=== PATIENT | female | born 1955 | race Caucasian/White ===

== ENCOUNTER 2023-03-17 13:53 | Outpatient (OUT) | payer MEDICARE, OTHER, SELFPAY ==
--- NOTE | 2023-03-17 | XR_ITS ---
The [address] [address] Patient Name: JOE JARAMILLO MRN: [id number] date: 1955 Sex: F Assigned Patient Location: [facility] Current Patient Location: [facility] Accession/Order Number: [id number] Exam Date: 03/17/2023 10:22 Report Date: 03/17/2023 11:09 At the request of: ALEXIS TOLBERT Procedure: XR foot LT min 3V STUDY: XR foot LT min 3V, [id number] HISTORY: LEFT FOOT PAIN COMPARISON: Left foot x-rays 10/07/[address] foot 12/03/2022. FINDINGS: Status post fusion of the first through third tarsometatarsal joints. The joint spaces remain open without significant bony bridging. There is minimal osseous lucency surrounding the threads of the most medial first tarsometatarsal joint fusion screw, new compared with 10/07/2022. The screws themselves are intact. No acute fracture or dislocation. 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 Findings are suspect for loosening/persistent motion. Electronically authenticated by: HANY CAMPOS Date: 03/17/2023 11:09
== END 2023-03-17 13:54 | disposition home or self-care (01) ==
LOC: RAD 13:57
PROVIDERS: Visit Provider Podiatrist Foot & Ankle Surgery
DX: M19.072 Primary osteoarthritis, left ankle and foot (principal)
CPT/HCPCS: 73630

== ENCOUNTER 2023-04-28 09:13 | Outpatient (OUT) | payer MEDICARE, OTHER, SELFPAY ==
--- NOTE | 2023-04-28 | XR_ITS ---
The [address] [address] Patient Name: JOE JARAMILLO MRN: [id number] date: 1955 Sex: F Assigned Patient Location: [facility] Current Patient Location: [facility] Accession/Order Number: [id number] Exam Date: 04/28/2023 09:22 Report Date: 04/28/2023 15:05 At the request of: ALEXIS TOLBERT Procedure: XR foot LT min 3V PROCEDURE: XR foot LT min 3V HISTORY: LEFT FOOT PAIN COMPARISON: XR foot left 03/17/2023 FINDINGS: BONES:Degenerative changes and stable mechanical fusion of the first, second, third tarsal-metatarsal joints. No hardware fracture loosening. No bone fracture dislocation. SOFT TISSUES:Mild distal dorsal soft tissue swelling. EFFUSION:None visible. OTHER: Negative. XR/XR foot LT min 3V IMPRESSION: 1. Stable surgical changes without evidence of hardware failure or change in alignment. Electronically authenticated by: POLI TOBIAS Date: 04/28/2023 15:05
== END 2023-04-28 09:14 | disposition home or self-care (01) ==
LOC: RAD 09:13
PROVIDERS: Visit Provider Podiatrist Foot & Ankle Surgery
DX: M19.072 Primary osteoarthritis, left ankle and foot (principal)
CPT/HCPCS: 73630

== ENCOUNTER 2023-08-04 09:07 | Outpatient (OUT) | payer MEDICARE, OTHER, SELFPAY ==
--- NOTE | 2023-08-04 | XR_ITS ---
The [address] [address] Patient Name: JOE JARAMILLO MRN: [id number] date: 1955 Sex: F Assigned Patient Location: [facility] Current Patient Location: [facility] Accession/Order Number: [id number] Exam Date: 08/04/2023 09:08 Report Date: 08/04/2023 09:59 At the request of: ALEXIS TOLBERT Procedure: XR foot LT min 3V PROCEDURE: XR foot LT min 3V HISTORY: LEFT FOOT PAIN COMPARISON: XR foot left 04/28/2023 FINDINGS: BONES:Prior mechanical fusion of the first, second, and third tarsal-metatarsal joints via multiple lag screws; no appreciable hardware fracture loosening. No bone fracture dislocation. SOFT TISSUES:No visible soft tissue swelling. EFFUSION:None visible. OTHER: Negative. XR/XR foot LT min 3V IMPRESSION: 1. Stable surgical changes and midfoot degenerative changes. No evidence of hardware failure. Electronically authenticated by: POLI TOBIAS Date: 08/04/2023 09:59
--- OUTSIDE RECORDS SUMMARY | 2023-08-04 09:12 | XMS_ITS | CCD ---
Author Name Unknown Address [address] [place] [address] Organization [facility] Care Team Providers Care Reel Stripper Name Role Phone Jon Lazaro Admitting Unavailable Jon Lazaro Attending Unavailable Jon Lazaro Primary Care Unavailable Bridger DARBY Primary Care Physician Iveth HYLTON, Jon Drew Primary Care Provider Jamaal Carpenter MD, Cody Unavailable Iveth HYLTON, Jon Drew Primary Care Provider Iveth HYLTON, Jon Drew Primary Care Provider Jamaal Carpenter MD, Cody Unavailable CINDY GEE Referring Unavailab BRIDGER Astorga Attending Unavailable JON LAZARO Primary [facility] Unavailab CINDY March Referring Unavailab JON Marin Primary [facility] Unavailab CINDY March Attending Unavailab JON Marin Primary [facility] Unavailab CINDY March Referring Unavailab shelly TOBIAS, DR POLI Gamino Consulting Unavailable VIRIDIANA, DR BRIDGER Reeves Primary Care Unavailable MILLICENT BURDICK Attending Unavailable MILLICENT BURDICK Admitting Unavailable MILLICENT BURDICK Consulting Unavailable HERVE, DR AMARI Carpenter Consulting Unavailable VIRIDIANA, DR BRIDGER Reeves Primary Care Unavailable MILLICENT BURDICK Attending Unavailable MILLICENT BURDICK Admitting Unavailable MILLICENT BURDICK Consulting Unavailable MICHELINE, DR POLI Gamino Consulting Unavailable VIRIDIANA, DR BRIDGER Reeves Primary Care Unavailable ALEXIS TOLBERT Attending Unavailable ALEXIS TOLBERT Admitting Unavailable ALEXIS TOLBERT Consulting Unavailable ALEXIS TOLBERT Consulting Unavailable VIRIDIANA, DR BRIDGER Reeves Primary Care Unavailable ALEXIS TOLBERT Attending Unavailable ALEXIS TOLBERT Admitting Unavailable MELANIE SAEZ Consulting Unavailable JLUISADAY, DR RIZZO Consulting Unavailable WEST, DR AMARI Carpenter Consulting Unavailable VIRIDIANA, DR BRIDGER Reeves Primary Care Unavailable HIGHLANDER, ALEXIS Norris Attending Unavailable HIGHLANDER, ALEXIS Norris Admitting Unavailable HIGHLANDER, ALEXIS Norris Consulting Unavailable THOM ., PEDRO SPARKS Consulting Unavailable GEMBUS, LINCOLN Consulting Unavailable HALADAY, DR RIZZO Consulting Unavailable HARLEYEBMAMTA, DR POLI Gamino Consulting Unavailable VIRIDIANA, DR BRIDGER Reeves Primary Care Unavailable HIGHLANDER, ALEXIS Norris Attending Unavailable HIGHLVIET, ALEXIS Norris Admitting Unavailable HIGHLANDER, ALEXIS Norris Consulting Unavailable MICHELINE, DR POLI Gamino Consulting Unavailable DARBY, DR BRIDGER Reeves Primary Care Unavailable HIGHLANDER, ALEXIS Norris Attending Unavailable HIGHLANDER, ALEXIS Norris Admitting Unavailable HIGHLANDER, ALEXIS Norris Consulting Unavailable WEST, DR AMARI Carpenter Consulting Unavailable HIGHLANDER, ALEXIS Norris Attending Unavailable HIGHLANDER, ALEXIS oNrris Admitting Unavailable HIGHLANDER, ALEXIS Norris Consulting Unavailable HIGHLANDER, ALEXIS Norris Consulting Unavailable DARBY, DR BRIDGER Reeves Primary Care Unavailable HIGHLANDER, ALEXIS Norris Attending Unavailable HIGHLVIET, ALEXIS Norris Admitting Unavailable POCOS, AMARI Dunn Attending Unavailable POCOS, AMARI Dunn Attending Unavailable VIRIDIANA, Bridger Reeves Attending Unavailable DARBY, Bridger Reeves Attending Unavailable DARBY, Bridger Reeves Attending Unavailable DARBY, Bridger Reeves Attending Unavailable HIGHLANDER, ALEXIS Norris Admitting Unavailable HIGHLANDER, ALEXIS Norris Attending Unavailable HIGHLANDER, ALEXIS Norris Referring Unavailable Salma, Magalie Dunn Attending Unavailable Salma, Magalie Dunn Attending Unavailable Salma, Magalie Dunn Attending Unavailable Vasu, CHENTE Dinh Attending Fide vailable VIRIDIANA, Bridger Reeves Attending Unavailable VIRIDIANA, Bridger Reeves Attending Unavailable VIRIDIANA, Bridger Reeves Admitting Unavailable HALADAY, MATTHIAS Valdivia Admitting Unavailable HALADAY, MATTHIAS Valdivia Attending Unavailable VIRIDIANA, Bridger Reeves Attending Unavailable VIRIDIANA, Bridger Reeves Admitting Unavailable DARBY, Bridger Reeves Attending Unavailable VIRIDIANA, Bridger Reeves Admitting Unavailable Shakeel Kilpatrick Attending Unavailable Terese Bob Admitting Unavaila Terese Vazquez Attending Unavaila Terese Vazquez Referring Unavaila MELANIE Miller Admitting Unavailable MELANIE PUENTES Attending Unavailable MELANIE PUENTES Referring Unavailable MATTHIAS CASTELAN Admitting Unavailable PAUL, MATTHIAS Valdivia Attending Unavailable MATTHIAS CASTELAN Referring Unavailable MILES VERMA Admitting Unavailable MILES VERMA Attending Unavailable MILES VERMA Referring Unavailable Bridger DARBY Attending Unavailable Vasu, CHENTE Dinh Attending Fide CHENTE Blake Admitting Fide vailaBridger Enamorado Attending Unavailable Bridger DARBY Attending Unavailable Bridger DARBY Attending Unavailable Allergies Allergy Classification Reported Allergen(s) Allergy Type Date of Onset Reaction(s) Facility (20 sources) atorvastatin; Translations: [Lipitor] Drug Allergy muscle pain [facility] Repository (6 sources) atorvastatin; Translations: [ATORVASTATIN] Drug Allergy Myalgia, Unknown [facility] Medications Current Medications Medication Drug Class(es) Dates Sig (Normalized) Sig (Original) amLODIPine 5 mg oral tablet (20 sources) Dihydropyridine Calcium Channel Manjula Start: 11-23-2022 take 1 tablet by mouth once daily amLODIPine 5 mg Tab 5 mg = 1 tab(s), Oral, Daily, # 90 tab(s), Refills(s) 3, Pharmacy: [facility], 160, cm, 11/18/22 11:53:00 EDT, Height/Length Dosing, 74.4, kg, 11/18/22 11:53:00 EDT, Weight Dosing Start Date: 11/23/22 Status: Ordered Start: 10-28-2021 take 1 tablet by bryan th once daily amLODIPine 5 mg Tab 5 mg = 1 tab(s), Oral, Daily, # 90 tab(s), Refills(s) 3, Pharmacy: [facility], 163, cm, 10/03/21 9:02:00 EDT, Height/Length Dosing, 71.4, kg, 10/03/21 9:02:00 EDT, Weight Dosing Start Date: 10/28/21 Status: Ordered Start: 12-16-2020 take 1 tablet by bryan th once daily amLODIPine 5 mg Tab 5 mg = 1 tab(s), Oral, Daily, # 90 tab(s), Refills(s) 3, Pharmacy: [facility], 160, cm, 12/16/20 12:12:00 EDT, Height/Length Dosing, 69.8, kg, 12/16/20 12:12:00 EDT, Weight Dosing Start Date: 12/16/20 Status: Ordered ascorbic acid 500 mg oral capsule (20 sources) Vitamin C Start: 09-29-2021 take 1 capsule by mouth once daily ascorbic acid 500 mg oral capsule 500 mg = 1 cap(s), Oral, Daily, Refills(s) 0, Prophylaxis Start Date: 09/29/21 Status: Ordered Start: 07-06-2015 take 1 tablet by bryan th once daily Vitamin C 1 tab, Oral, Daily, Refills(s) 0, Prophylaxis Start Date: 07/06/15 Status: Ordered aspirin 325 mg oral tablet (20 sources) Platelet Aggregation Inhibitor, Nonsteroidal Anti-inflammatory Drug Start: 07-06-2015 take 1 tablet by mouth once daily aspirin 325 mg Tab 325 mg = 1 tab(s), Oral, Daily, Refills(s) 0, Prophylaxis Start Date: 07/06/15 Status: Ordered Comment on above: Take 325 mg by mouth . Calcium, Magnesium and Zinc oral tablet (20 sources) Start: 06-10-2021 take 1 tablet by mouth once daily Calcium, Magnesium and Zinc oral tablet 1 tab(s), Oral, Daily, Prophylaxis Start Date: 06/10/21 Status: Ordered cholecalciferol 0.025 mg oral capsule (20 sources) Vitamin D Start: 09-29-2021 take 1 capsule by mouth once daily cholecalciferol 1000 intl units oral capsule 25 mcg = 1 cap(s), Oral, Daily, Refills(s) 0, Prophylaxis Start Date: 09/29/21 Status: Ordered Comment on above: Take by mouth. fluticasone propionate 0.05 mg/actuat metered dose nasal spray (20 sources) Corticosteroid Start: 07-06-2023 take 2 spray(s) nasal route once daily fluticasone Nasal 0.05 mg/inh [place] 2 spray(s), Nasal, Daily, 3 EA, Refill(s) 3, each nostril, [facility], 162.6, cm, 05/27/23 10:39:00 EST, Height/Length Dosing, 74.8, kg, 05/27/23 10:39:00 EST, Weight Dosing Start Date: 07/06/23 Status: Ordered Start: 09-05-2022 take 2 spray(s) nasa l route once daily fluticasone Nasal 0.05 mg/inh [place] 2 spray(s), Nasal, Daily, 3 EA, Refill(s) 3, each nostril, [facility], 160, cm, 08/18/22 9:58:00 EST, Height/Length Dosing, 73.6, kg, 08/18/22 9:58:00 EST, Weight Dosing Start Date: 09/05/22 Status: Ordered Start: 05-21-2021 take 2 spray(s) nasa l route once daily fluticasone 0.05 mg/inh Nasal [place] 2 spray(s), Nasal, Daily, 3 EA, Refill(s) 3, each nostril, [facility], 160, cm, 05/21/21 14:44:00 EST, Height/Length Dosing, 71.8, kg, 05/21/21 14:44:00 EST, Weight Dosing Start Date: 05/21/21 Status: Ordered fluticasone 0.05 mg/inh Nasal [place] (10 sources) Start: 05-21-2021 take 2 spray(s) nasal route once daily fluticasone 0.05 mg/inh Nasal [place] 2 spray(s), Nasal, Daily, 3 EA, Refill(s) 3, each nostril, [facility], 160, cm, 05/21/21 14:44:00 EST, Height/Length Dosing, 71.8, kg, 05/21/21 14:44:00 EST, Weight Dosing Start Date: 05/21/21 Status: Ordered folic acid 1 mg oral tablet (20 sources) Start: 07-06-2015 take 1 tablet by mouth once daily folic acid 1 mg Tab See Instructions, 1 tab(s) Oral Daily. DONOT TAKE ON METHOTREZATE DAY, Refills(s) 0, Prophylaxis Start Date: 07/06/15 Status: Ordered gabapentin 300 mg oral capsule (20 sources) Anti-epilept ic Agent Start: 07-06-2015 take 1 capsule by mouth once daily gabapentin 300 mg Cap 300 mg = 1 cap(s), Oral, Daily, Refills(s) 0, Neuropathy Start Date: 07/06/15 Status: Ordered Comment on above: Take 300 mg by mouth . Glucosamine Chondroitin Advanced (20 sources) Start: 07-06-2015 take 1 tablet by mouth once daily Glucosamine Chondroitin Advanced 1 tab, Oral, Daily, Refill(s) 0, Prophylaxis Start Date: 07/06/15 Status: Ordered hydroCHLOROthiazide 12.5 mg oral capsule (20 sources) Thiazide Diuretic Start: 04-12-2023 take 1 capsule by mouth once daily hydrochlorothiazide 12.5 mg Cap 12.5 mg = 1 cap(s), Oral, Daily, # 90 cap(s), Refills(s) 3, Pharmacy: [facility], 162, cm, 04/07/23 12:10:00 EDT, Height/Length Dosing, 73.5, kg, 04/07/23 12:10:00 EDT, Weight Dosing Start Date: 04/12/23 Status: Ordered Start: 04-22-2021 take 1 capsule by mo [facility] once daily hydrochlorothiazide 12.5 mg Cap 12.5 mg = 1 cap(s), Oral, Daily, # 90 cap(s), Refills(s) 3, Pharmacy: [facility], 160, cm, 04/17/22 9:32:00 EDT, Height/Length Dosing, 72.1, kg, 04/17/22 9:32:00 EDT, Weight Dosing Start Date: 04/17/22 Status: Ordered lisinopril 10 mg oral tablet (20 sources) Angiotensin Converting Enzyme Inhibitor Start: 08-03-2023 take 1 tablet by mouth twice daily lisinopril 10 mg Tab 10 mg = 1 tab(s), Oral, BID, # 180 tab(s), Refills(s) 3, Pharmacy: [facility], 160, cm, 08/03/23 11:16:00 EST, Height/Length Dosing, 72.8, kg, 08/03/23 11:16:00 EST, Weight Dosing Start Date: 08/03/23 Status: Ordered Start: 12-23-2021 [facility] l[facility]op[facility] 10 mg Tab 10 mg = 1 tab(s), Oral, BID, # 180 tab(s), Refills(s) 3, Pharmacy: [facility], 160, cm, 04/17/22 9:32:00 EDT, Height/Length Dosing, 72.1, kg, 04/17/22 9:32:00 EDT, Weight Dosing Start Date: 04/17/22 Status: Ordered Start: 01-17-2021 End: 09-28-2021 take 1 tablet by mouth twice daily lisinopril 10 mg Tab 10 mg = 1 tab(s), Oral, BID, # 180 tab(s), Refills(s) 3, Pharmacy: [facility], 160, cm, 12/16/20 12:12:00 EDT, Height/Length Dosing, 69.8, kg, 12/16/20 12:12:00 EDT, Weight Dosing Start Date: 01/17/21 Status: Ordered meloxicam 15 mg oral tablet (5 sources) Nonsteroidal Anti-inflammatory Drug Start: 05-25-2023 take 1 tablet by mouth once daily at mealtime meloxicam 15 mg Tab 15 mg = 1 tab(s), Oral, Daily, TAKE WITH FOOD per Dr. Lerner Start Date: 05/25/23 Status: Ordered methotrexate 2.5 mg oral tablet (20 sources) Folate Analog Metabolic Inhibitor Start: 07-06-2015 take 5 tablets by mouth every week methotrexate 2.5 mg Tab See Instructions, 5 tab(s) Oral once a week, remember standing labs, Refills(s) 0 Start Date: 07/06/15 Status: Ordered Comment on above: TAKE 5 TABLETS by mo [facility] ONCE A WEEK (REMEMBER YOUR STANDING LAB) 24 hr metoprolol succinate 50 mg extended release oral tablet (20 sources) beta-Adrenergic Manjula Start: 08-03-2023 take 1 tablet by mouth once daily metoprolol 50 mg ER Tab 50 mg = 1 tab(s), Oral, Daily, # 90 tab(s), Refills(s) 3, Pharmacy: [facility], 160, cm, 08/03/23 11:16:00 EST, Height/Length Dosing, 72.8, kg, 08/03/23 11:16:00 EST, Weight Dosing Start Date: 08/03/23 Status: Ordered Start: 08-03-2022 [facility] metoprolol 50 mg ER Tab 50 mg = 1 tab(s), Oral, Daily, # 90 tab(s), Refills(s) 3, Pharmacy: [facility], 160, cm, 04/17/22 9:32:00 EDT, Height/Length Dosing, 72.1, kg, 04/17/22 9:32:00 EDT, Weight Dosing Start Date: 08/03/22 Status: Ordered Start: 02-09-2022 metoprolol suc cinate ER (TOPROL XL) 50 mg 24 hr tablet Start: 07-03-2021 End: 09-28-2021 take 1 tablet by mouth once daily metoprolol 50 mg ER Tab 50 mg = 1 tab(s), Oral, Daily, # 90 tab(s), Refills(s) 3, Pharmacy: [facility], 160, cm, 06/17/21 7:44:00 EST, Height/Length Dosing, 70.2, kg, 06/17/21 7:44:00 EST, Weight Dosing Start Date: 07/03/21 Status: Ordered [facility] [place] [place] Medication (20 sources) Start: 09-29-2021 [facility] [place] [place] Medicatio n See Instructions Start Date: 09/29/21 Status: Ordered [place]-3 (20 sources) Start: 07-06-2015 take 1 tablet by mouth once daily [place]-3 1 tab, Oral, Daily, Refill(s) 0, Prophylaxis Start Date: 07/06/15 Status: Ordered omeprazole 40 mg delayed release oral capsule (8 sources) Proton Pump Inhibitor Start: 04-07-2023 take 1 capsule by mouth once daily omeprazole 40 mg Cap-DR 40 mg = 1 cap(s), Oral, Daily, # 90 cap(s), Refills(s) 3, Pharmacy: [facility], 162, cm, 04/07/23 12:10:00 EDT, Height/Length Dosing, 73.5, kg, 04/07/23 12:10:00 EDT, Weight Dosing Start Date: 04/07/23 Status: Ordered predniSONE (2 sources) Start: 07-26-2023 predniSONE 5 m g Tab See Instructions, PRN Arthritis, 2 tabs daily prn for RA flare up, Refills(s) 0 Start Date: 07/26/23 Status: Ordered Probiotic Formula (Bacillus Coagulans) (20 sources) Start: 09-29-2021 take 1 capsule by mouth once daily Probiotic Formula (Bacillus Coagulans) 1 cap(s), Oral, Daily, Refill(s) 0, Prophylaxis Start Date: 09/29/21 Status: Ordered Start: 09-29-20[address] [facility] once daily Probiotic Formula (Bacillus Coagulans) 1 cap(s), Oral, Daily, Refill(s) 0 Start Date: 09/29/21 Status: Ordered simvastatin 20 mg oral tablet (20 sources) HMG-CoA Reductase Inhibitor Start: 05-25-2023 take 1 tablet by mouth once daily at bedtime simvastatin 20 mg Tab 20 mg = 1 tab(s), Oral, Once a day (at bedtime), # 90 tab(s), Refills(s) 3, Pharmacy: [facility], 162, cm, 05/25/23 13:51:00 EST, Height/Length Dosing, 74.5, kg, 05/25/23 13:51:00 EST, Weight Dosing Start Date: 05/25/23 Status: Ordered Start: 07-16-2022 take 1 tablet by [facility] once daily at bedtime simvastatin 20 mg Tab 20 mg = 1 tab(s), Oral, Once a day (at bedtime), # 90 tab(s), Refills(s) 3, Pharmacy: [facility], 160, cm, 04/17/22 9:32:00 EDT, Height/Length Dosing, 72.1, kg, 04/17/22 9:32:00 EDT, Weight Dosing Start Date: 07/16/22 Status: Ordered Start: 07-21-2021 take 1 tablet by [facility] once daily at bedtime simvastatin 20 mg Tab 20 mg = 1 tab(s), Oral, Once a day (at bedtime), # 90 tab(s), Refills(s) 3, Pharmacy: [facility], 160, cm, 07/04/21 10:26:00 EST, Height/Length Dosing, 70.7, kg, 07/04/21 10:26:00 EST, Weight Dosing Start Date: 07/21/21 Status: Ordered Vitamin D3 (2 sources) Start: 09-15-2021 Vitamin D3 Ora l, Daily Start Date: 09/15/21 Status: Ordered Vitamin E (20 sources) Start: 07-06-2015 vitamin E 400 International_Unit, Oral, Daily, Refills(s) 0, Prophylaxis Start Date: 07/06/15 Status: Ordered Completed/Discontinued Medications Medication Drug Class(es) Dates Sig (Normalized) Sig (Original) alendronic acid 70 mg oral tablet (5 sources) Bisphosphonate Start: 2 take 1 tablet by mouth every week alendronate (FOSAMAX) 70 mg tablet Take 70 mg by mouth one time a week. 0 01/31/2022 Active Comment on above: Take 70 mg by mouth one time a week. estradiol 0.01 mg vaginal insert (5 sources) Estrogen Estradiol (YUVAF EM) 10 mcg vaginal tablet Take 1 tablet by mouth. 0 Active Comment on above: Take 1 tablet by bryan th. hydroxychloroquine sulfate 200 mg oral tablet (20 sources) Antimalarial, Antirheumatic Agent Start: 2 hydrOXYchloroQUINE (PLAQUENIL) 200 mg tablet Take 200 mg by mouth. 0 12/23/2021 Active Start: 12-23-2021 take 1 tablet by mouth once hy droxychloroquine 200 mg Tab 200 mg = 1 tab(s), Oral, Daily, per Dr. Castelan Start Date: 12/23/21 Status: Ordered Comment on above: Take 200 mg by mouth . Problems Active Problems Problem Classification Problem Date Documented Da te Episodic/Chronic Abdominal pain (9 sources) Right upper quadrant pain; Translations: [Right upper quadrant pain] Onset: 2 Episodic Acute bronchitis (20 sources) Acute infective bronchitis 04-05-2020 Episodic Calculus of urinary tract (20 sources) Kidney stone 04-05-2020 Episodic Disorders of lipid metabolism (20 sources) Familial hypercholesterolemia; Translations: [Familial hypercholesterolemia] Onset: 2 Chronic Esophageal disorders (15 sources) Gastro-esophageal reflux disease without esophagitis; Translations: [Gastroesophageal reflux disease without esophagitis] Onset: 2 Chronic Essential hypertension (20 sources) Essential hypertension; Translations: [Essential (primary) hypertension] Onset: 2 Chronic Fever of unknown origin (20 sources) Fever 05-20-2020 Episodic Fluid and electrolyte disorders (20 sources) Hyponatremia; Translations: [Hypo-osmolality and or hyponatremia] Onset: 2 06-17-2021 Episodic Fracture of lower limb (1 source) Fracture of foot ; Translations: [Unspecified fracture of left foot, subsequent encounter for fracture with nonunion] Episodic Gastritis and duodenitis (10 sources) Gastritis; Translations: [Gastritis, unspecified, without bleeding] Onset: 3 Episodic Gastrointestinal hemorrhage (20 sources) Rectal hemorrhage; Translations: [Hemorrhage of rectum and anus] Onset: 3 02-16-2023 Episodic Hemorrhoids (9 sources) Hemorrhoids; Translations: [Other hemorrhoids] Onset: 3 Episodic Immunity disorders (7 sources) Drug-induced immunodeficiency ; 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 Darby query response, per outpatient CDI policy. Immunizations and screening for infectious disease (1 source) Viral screening status; Translations: [Encounter for screening for other viral diseases] Onset: 3 Episodic Nausea and vomiting (12 sources) Nausea and vomiting; Translations: [Nausea with vomiting, unspecified] Onset: 3 Episodic Nonspecific chest pain (1 source) Chest pain; Translations: [Chest pain, unspecified] Onset: 2 Episodic Nutritional deficiencies (20 sources) Decreased vitamin D 05-05-2019 Chronic Osteoarthritis (5 sources) Primary osteoarthritis, left ankle and foot; Translations: [PRIMARY OSTEOARTHRITIS LT ANK FOOT] Onset: 2 Chronic Other aftercare (1 source) Long-term current use of drug therapy; Translations: [Other keno terminal operator (current) drug therapy] Onset: 3 Episodic Other circulatory disease (20 sources) History of cerebrovascular disease 11-03-2019 Episodic Other circulatory disease (6 sources) History of transient ischemic attack; Translations: [Personal history of transient ischemic attack (TIA), and cerebral infarction without residual deficits] Onset: 2 Episodic Other connective tissue disease (20 sources) Foot pain 04-05-2020 Episodic Other connective tissue disease (1 source) Muscle pain; Translations: [Myalgia, other site] Onset: 2 Episodic Other connective tissue disease (5 sources) Musculoskeletal pain 10-03-2021 Episodic Other connective tissue disease (1 source) Pain in left foot; Translations: [Pain in left foot] Episodic Other connective tissue disease (5 sources) Pain in left foot; Translations: [Pain in left foot] Onset: 2 Episodic Other eye disorders (1 source) Disorder of eye region; Translations: [Unspecified disorder of eye and adnexa] Onset: 2 Episodic Other eye disorders (5 sources) Eye symptom 10-03-2021 Episodic Other gastrointestinal disorders (12 sources) Diarrhea; Translations: [Diarrhea, unspecified] Onset: 3 Episodic Other gastrointestinal disorders (8 sources) Abdominal wind pain; Translations: [Gas pain] Onset: 3 Episodic Other hereditary and degenerative nervous system conditions (20 sources) Restless legs; Translations: [Restless legs syndrome] Onset: 2 11-03-2019 Chronic Other nervous system disorders (1 source) Difficulty walking; Translations: [Difficulty in walking, not elsewhere classified] Chronic Other non-traumatic joint disorders (1 source) Pain of left wrist; Translations: [Pain in left wrist] Onset: 3 Episodic Other non-traumatic joint disorders (7 sources) Pain in wrist 05-03-2023 Episodic Other nutritional; endocrine; and metabolic disorders (18 sources) Overweight in adulthood with body mass index of 25 or more but less than 30; Translations: [Body mass index (BMI) 27.0-27.9, adult] Onset: 2 Episodic Other nutritional; endocrine; and metabolic disorders (6 sources) Overweight; Translations: [Overweight] Onset: 3 Episodic Other screening for suspected conditions (not mental disorders or infectious disease) (7 sources) Blood chemistry abnormal; Translations: [Other specified abnormal findings of blood chemistry] Onset: 2 Episodic Other upper respiratory disease (20 sources) Allergic rhinitis; Translations: [Allergic rhinitis, unspecified] Onset: 2 05-21-2021 Chronic Residual codes; unclassified (1 source) Procedure carried out on subject; Translations: [Encounter for prophylactic measures, unspecified] Onset: 2 Episodic Rheumatoid arthritis and related disease (20 sources) Rheumatoid arthritis of knee; Translations: [Other rheumatoid arthritis with rheumatoid factor of left knee] Onset: 2 Resolved: 6 Chronic Transient cerebral ischemia (20 sources) Transient cerebral ischemia 07-06-2015 Chronic Comment on above: 2007 Unclassified (7 sources) Non-smoker 06-17-2021 Unclassified (3 sources) CONTACT W/AND (SUSP) EXPOS COVID-19; Translations: [CONTACT W/AND (SUSP) EXPOS COVID-19] Onset: 2 Unclassified (5 sources) Long-term current use of drug therapy 05-21-2023 Comment on above: Added per Dr. Darby query response, per outpatient CDI policy. Past or Other Problems Problem Classification Problem Date Documented Date Episodic/Chronic Complication of device; implant or graft (1 source) Pain due to internal orthopedic prosthetic devices, implants and grafts, initial encounter; Translations: [PAIN INTRL ORTHO PROS DEV GFT INIT] Onset: 05-27-2022 Episodic Complications of surgical procedures or medical care (3 sources) Fracture malunion; Translations: [Other intraoperative and postprocedural complications and disorders of the musculoskeletal system] Onset: 05-27-2022 Episodic Other aftercare (1 source) Other keno terminal operator (current) drug therapy; Translations: [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] Onset: 05-27-2022 Episodic Other aftercare (1 source) 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; Translations: [CHANNEL LIP WETTER CURRENT USE OF ASPIRIN] Onset: 05-27-2022 Episodic Other bone disease and musculoskeletal deformities (1 source) Other specified disorders of bone density and structure, left ankle and foot; Translations: [OTH D/O BONE DEN STRUCT LT ANK FOOT] Onset: 05-27-2022 Episodic Other connective tissue disease (1 source) Arthrodesis status; Translations: [ARTHRODESIS STATUS] Onset: 07-02-2022 Episodic Unclassified (1 source) Exposure to 2019 novel coronavirus; Translations: [Contact with and (suspected) exposure to COVID19] Unclassified (1 source) CONTACT W/AND (SUSP) EXPOS COVID-19; Translations: [CONTACT W/AND (SUSP) EXPOS COVID-19] Onset: 05-16-2022 Unclassified (11 sources) Finding of sensation of abdomen 03-12-2023 Results Test Name Value Interpretation Reference Range Facility [facility] 07-27-2023 Anion gap [Moles/Vol] 13 mmol/L Normal 6-16 [facility] Comment on above: Performed By: #### 2 [id number], [id number], [id number], [id number] #### [facility] [address] [place] [address] BUN/Creat Ratio 31 No Units High 10-20 [facility] Comment on above: Performed By: #### 2 258715, 3367580, [id number], [id number] #### [facility] [address] [place] [address] Calcium [Mass/Vol] 9.2 mg/dL Normal 8.9-11.1 [facility] Comment on above: Performed By: #### 2 287629, 9856181, [id number], [id number] #### [facility] [address] [place] [address] Chloride [Moles/Vol] 96 mmol/L Low 101-111 [facility] Comment on above: Performed By: #### 2 397201, 7771629, [id number], [id number] #### [facility] [address] [place] [address] CO2 [Moles/Vol] 25 mmol/L Normal 21-31 [facility] Comment on above: Performed By: #### 2 301530, 4283703, 30090071, [id number] #### [facility] [address] [place] [address] Creatinine [Mass/Vol] 0.7 mg/dL Normal 0.5-1.3 [facility] Comment on above: Performed By: #### 2 177334, 9195313, 04459504, [id number] #### [facility] [address] [place] [address] Glucose [Mass/Vol] 89 mg/dL Normal 55-199 [facility] Comment on above: Performed By: #### 2 919985, 4318533, 21847505, [id number] #### [facility] [address] [place] [address] Potassium [Moles/Vol] 3.6 mmol/L Normal 3.5-5.3 [facility] Comment on above: Performed By: #### 2 487858, 5980536, 31313362, 43125133 #### [facility] [address] [place] [address] Sodium [Moles/Vol] 130 mmol/L Low 135-145 [facility] Comment on above: Performed By: #### 2 863747, 1589612, 10278773, 74345156 #### [facility] [address] [place] [address] Urea nitrogen [Mass/Vol] 22 mg/dL High 5-21 [facility] Comment on above: Performed By: #### 2 173888, 5504796, 70974584, 76179124 #### [facility] [address] [place] [address] CBC w/ Auto Diffon 4 Basophil Absolute 0.0 E9/L Normal 0.0-0.2 [facility] Comment on above: Performed By: #### 2 945339, 1829391, 08190471, 12243950 #### [facility] [address] [place] [address] Basophils/100 WBC (Bld) 0.9 % Normal 0.0-2.0 [facility] Comment on above: Performed By: #### 2 370937, 4985384, 80278418, [id number] #### [facility] [address] [place] [address] Eos Absolute 0.1 E9/L Normal 0.0-0.5 [facility] Comment on above: Performed By: #### 2 211301, 0477467, 61722977, [id number] #### [facility] [address] [place] [address] Eosinophils/100 WBC (Bld) 1.9 % Normal 0.0-8.0 [facility] Comment on above: Performed By: #### 2 716813, 4561762, 04805965, 86946687 #### [facility] [address] [place] [address] Erythrocyte distribution width (RBC) [Ratio] 13.2 % Normal 10.9-14.2 [facility] Comment on above: Performed By: #### 2 398181, 6843355, 20628109, 14594758 #### [facility] [address] [place] [address] Hematocrit (Bld) [Volume fraction] 37.0 % Normal 34.0-46.0 [facility] Comment on above: Performed By: #### 2 548567, 5672085, 83715990, 19372716 #### [facility] [address] [place] [address] Hemoglobin (Bld) [Mass/Vol] 12.3 g/dL Normal 12.0-16.0 [facility] Comment on above: Performed By: #### 2 074907, 8778328, 19200935, 79211708 #### [facility] [address] [place] [address] Lymph Absolute 1.7 E9/L Normal 1.0-4.0 [facility] Comment on above: Performed By: #### 2 658238, 2972195, 71078687, 61568152 #### [facility] [address] [place] [address] Lymphocytes/100 WBC (Bld) 35.7 % Normal 14.0-50.0 [facility] Comment on above: Performed By: #### 2 469694, 5516622, 56951464, 85467834 #### [facility] [address] [place] [address] MCH (RBC) [Entitic mass] 31.0 pg Normal 27.0-34.0 [facility] Comment on above: Performed By: #### 2 170195, 0352454, 43331710, 84136818 #### [facility] [address] [place] [address] MCHC (RBC) [Mass/Vol] 33.2 g/dL Normal 31.4-36.0 [facility] Comment on above: Performed By: #### 2 385833, 4235409, 84700123, 37654018 #### [facility] [address] [place] [address] MCV (RBC) [Entitic vol] 93.5 fL Normal 80.0-100.0 [facility] Comment on above: Performed By: #### 2 354320, 8072128, 57431554, 34167443 #### [facility] [address] [place] [address] Kings Absolute 0.5 E9/L Normal 0.2-1.0 [facility] Comment on above: Performed By: #### 2 566231, 2384142, 14551792, 92753056 #### [facility] [address] [place] [address] Monocytes/100 WBC (Bld) 11.2 % Normal 4.0-14.0 [facility] Comment on above: Performed By: #### 2 550244, 8142530, 79205921, 43633959 #### [facility] [address] [place] [address] Neutro Absolute 2.4 E9/L Normal 2.0-7.5 [facility] Comment on above: Performed By: #### 2 739203, 3857555, 68709774, 91961266 #### [facility] [address] [place] [address] Neutro Auto 50.3 % Normal 36.0-75.0 [facility] Comment on above: Performed By: #### 2 841773, 1561877, 16337307, 42409117 #### [facility] [address] [place] [address] Platelet 247.0 E9/L Normal 150.0-500. 0 [facility] Comment on above: Performed By: #### 2 130111, 0705268, 40102770, 27081558 #### [facility] [address] [place] [address] Platelet mean volume (Bld) [Entitic vol] 7.5 fL Normal 6.4-10.8 [facility] Comment on above: Performed By: #### 2 051395, 8385111, 96639691, 65717485 #### [facility] [address] [place] [address] RBC 4.0 E12/L Low 4.3-5.9 [facility] Comment on above: Performed By: #### 2 887087, 3989574, 98912721, 03538575 #### [facility] [address] [place] [address] WBC 4.7 E9/L Normal 4.0-11.0 [facility] Comment on above: Performed By: #### 2 571798, 9778083, 75955744, 78947071 #### [facility] [address] [place] [address] Discharge Instructionson Discharge Instructions [id number] Normal [facility] ED Clinical Summaryon 2023 ED Clinical Summary (Inserted Image. Fide ble to display) [address] [address] ED Clinical Summary Person Information Name: JOE JARAMILLO [facility]a/[facility] Age: 67 Years : 1955 Sex: Female Language: French PCP: Bridger DARBY MD Marital Status: Phone: [phone] Visit Id: Visit Reason: Weakness or fatigue; Hypertension; HYPERTENSION Speciality: Acuity: 2 Enc Type: Emergency Med Service: Emergency Arrival: 07/26/2023 21:35:35 Discharge: 07/27/2023 01:23:51 LOS: 000 03:48 Checkin: 07/26/2023 21:35:35 Checkout: 07/27/2023 01:23:51 Dispo Type: Home (Routine DC) EVENTS: Event Name Event Status Request Date/Time Start Date/Time Complete Date/Time Arrive Complete 07/26/2023 21:35:35 07/26/2023 21:35:35 07/26/2023 21:35:35 Document Home Meds Request 07/26/2023 21:35:35 Triage Complete 07/26/2023 21:35:35 07/26/2023 21:48:51 07/26/2023 21:48:51 Registration Complete 07/26/2023 21:37:46 07/26/2023 21:37:46 07/26/2023 21:37:46 Reg Complete Request 07/26/2023 21:37:46 Reg Bed Request Complete 07/26/2023 21:37:46 07/26/2023 21:37:46 07/26/2023 21:37:46 EKG Complete 07/26/2023 21:38:30 07/26/2023 21:47:03 Dr Exam Complete 07/26/2023 21:39:29 07/26/2023 21:39:29 07/26/2023 21:39:29 Registration Complete 07/26/2023 21:39:29 07/26/2023 21:41:26 07/26/2023 21:43:56 Bed Assign Complete 07/26/2023 21:41:26 07/26/2023 21:41:26 07/26/2023 21:41:26 RN Exam Complete 07/26/2023 21:41:26 07/26/2023 22:21:03 07/26/2023 22:21:03 Pending Labs Complete 07/26/2023 21:50:36 07/26/2023 23:57:17 Lab Complete 07/26/2023 21:50:36 07/26/2023 23:57:17 Urine Collect Complete 07/26/2023 21:50:36 07/26/2023 23:57:17 Patient Care Request 07/26/2023 21:50:36 X-Ray Complete 07/26/2023 21:50:36 07/26/2023 22:00:27 07/26/2023 22:15:59 Pending Labs Complete 07/26/2023 22:14:58 07/26/2023 22:14:58 07/26/2023 22:38:51 Lab Complete 07/26/2023 22:14:58 07/26/2023 22:14:58 07/26/2023 22:38:51 Wet Read Request 07/26/2023 22:15:59 Pending Labs Complete 07/26/2023 22:16:14 07/26/2023 22:16:14 07/26/2023 22:16:14 Pending Labs Complete 07/26/2023 22:16:27 07/26/2023 22:16:27 07/26/2023 22:16:27 Meds Admin Complete 07/26/2023 22:49:58 07/26/2023 23:19:51 Meds Admin Cancel 07/26/2023 23:05:19 07/26/2023 23:06:03 Meds Admin Complete 07/26/2023 23:40:39 07/27/2023 00:13:23 Discharge Complete 07/27/2023 00:48:52 07/27/2023 01:23:56 07/27/2023 01:23:56 Transfer Complete 07/27/2023 01:23:56 07/27/2023 01:23:56 07/27/2023 01:23:56 ADDRESS: [address] [place] [phone] PHYS DOC NOTES: MEDICAL INFORMATION: Prescriptions Given: Medications to Continue with No Changes Other Medications aspirin (aspirin 325 mg Tab) 1 Tablets By Mouth every day. chondroitin/glucosamine/met hylsulfonylmethane (Glucosamine Chondroitin Advanced) 1 tab By Mouth every day. folic acid (folic acid 1 mg Tab) 1 tab(s) Oral Daily. DONOT TAKE ON METHOTREZATE DAY. gabapentin (gabapentin 300 mg Cap) 1 Capsules By Mouth every day. methotrexate (methotrexate 2.5 mg Tab) 5 tab(s) Oral once a week, remember standing labs. omega-3 polyunsaturated fatty acids ([place]-3) 1 tab By Mouth every day. omeprazole (omeprazole 40 mg Cap-DR) 1 Capsules By Mouth every day. Refills: 3. predniSONE (predniSONE 5 mg Tab) 2 tabs daily prn for RA flare up; as needed Arthritis. vitamin E 400 International unit By Mouth every day. PATIENT EDUCATION INFORMATION: Instructions: Hypertension, Adult Follow up: With: Address: When: Bridger DARBY [facility] [place] [address], [place] [address] [place] [employer] (1) In 3 days DIAGNOSIS: Elevated blood pressure reading Normal [facility] ED Note-Physicianon 07-27-19 ED Note-Physician Basic Information Time Seen: Shakeel Kilpatrick DO 07/26/2023 21:39 Chief Complaint pt states her blood pressure has been high all day. she had a stroke in 1999 d/t this and is concerned. states she just feels fatigued History of Present Illness HPI: Patient is a 67-year-old female with past medical history of GERD, hyperlipidemia, TIA, hypertension, restless leg syndrome who presents the ED for elevated blood pressure and fatigue. Patient states that since she woke up this morning she noticed that she was just very tired and felt fatigued. She states that she felt like something was just off. She states that she has been taking her blood pressure throughout the day and it has been elevated more than usual with systolics as high as 170s and 180s. She states that this made her very concerned as she had had high blood pressure when she had her TIA. She denies any headache, vision changes, numbness, weakness. She denies any chest pain, palpitations, shortness of breath. Patient states that due to her blood pressure being elevated throughout the day she did take an extra dose of her 10 mg lisinopril tonight around an hour ago. ROS: Pertinent review of systems conducted and is negative except as noted above. Physical exam: General: nontoxic appearing and in no distress HEENT: Mucous membranes moist Neuro: awake and alert Neck: supple, trachea midline Card: Heart regular rate and rhythm no murmur Resp: Lungs clear to auscultation no wheeze or rhonchi Abd: Soft and nondistended. No tenderness to palpation with no rebound or guarding. Ext: No gross deformity or edema Physical Exam Vitals & Measurements T: 36.7 ?C(Temporal Artery) HR: 66(Peripheral) RR: 18 BP: 196/99 SpO2: 97% HT: 162.56 cm WT: 76.1 kg BMI: 28.8 Medical Decision Making MEDICAL DECISION MAKING Number and Complexity of Problems Differential Diagnosis: [] [facility] Data External documents reviewed: N/A My EKG interpretation: Noted in chart if applicable My CT interpretation: N/A My X-ray interpretation: Noted in chart if applicable My Ultrasound interpretation: N/A Decision rules/scores evaluated: N/A Discussed with: N/A Treatment and Disposition ED Course: Patient is well-appearing in no distress. We will obtain a workup here in the ED. Workup shows mild hyponatremia but is otherwise overall reassuring. Her blood pressure did remain elevated here in the ED so she was first given a dose of labetalol with little change so then she was given a dose of hydralazine. After that her blood pressure improved to the 150s over 80s. I discussed the plan of discharge with close follow-up with her primary care physician. Patient states understanding and agreement with the plan was discharged stable condition. Shared decision making: As above Code status: N/A Assessment/Plan Elevated blood pressure reading (R03.0: Elevated blood-pressure reading, without diagnosis of hypertension) Orders: hydrALAZINE, 5 mg = 0.25 mL, Injection, IV Push, Once, Stop date 07/26/23 23:40:00 EST, STAT, Start date 07/26/23 23:40:00 EST, 07/26/23 23:40:00 EST labetalol, 5 mg = 1 mL, Injection, IV Push, Once, Stop date 07/26/23 22:49:00 EST, STAT, Start date 07/26/23 22:49:00 EST, 07/26/23 22:49:00 EST Basic Metabolic Panel CBC w/ Auto Diff ECG 12 Lead Adult eGFR Extra Blue Tube Extra SST Tube Saline Lock Insert Troponin 0 Hr. UA With Cult Reflex XR Chest Single View Medications Administered Given hydrALAZINE 20 mg/mL Inj, 5 mg, IV Push labetalol 5 mg/mL IV Glenna, 5 mg, IV Push Disposition Plan Discharge Prescription List Prescriptions No active prescription medications Follow-up With When Contact Information Bridger DARBY In 3 days [facility] [place] [address], [address] [place] [phone] Business (1) Additional Instructions: Patient Education Hypertension, Adult Problem List/Past Medical History Ongoing Acid reflux Allergic rhinitis BMI 28.0-28.9,adult Familial hypercholesterolemia Gastritis H/O TIA (transient ischemic attack) and stroke Hypertension Hyponatremia Immunodeficiency due to drugs Internal hemorrhoids Kidney stones Left wrist pain Low serum vitamin D Other keno terminal operator (current) drug therapy RLS (restless legs syndrome) Seronegative rheumatoid arthritis Historical Abdominal cramping Acute bronchitis due to other specified organisms BRBPR (bright red blood per rectum) Diarrhea Fever Hypertension Left foot pain Nausea and vomiting Rectal bleed Rheumatoid arthritis TIA Procedure/Surgical History Colonoscopy (04/07/2023), Esophagogastroduodenoscopy (04/07/2023), Colonoscopy, Hysterectomy, Number of caesarean sections, right meniscus surgery. Medications Inpatient No active inpatient medications Home amLODIPine 5 mg Tab, 5 mg= 1 tab(s), Oral, Daily, 3 refills ascorbic acid 500 mg oral capsule, 500 mg= 1 cap(s), Oral, Daily aspirin 325 mg Tab, 325 mg= 1 tab(s), Ora (more content not included)... Normal [facility] Comment on above: Result Comment: Elec tronically Signed By: Shakeel Kilpatrick DO\.br\Date and Time Signed: 07/27/23 00:51 EST ED Patient Education Noteon 07-27-2023 ED Patient Education Note Cardiovascular Hypertension, Adult High blood pressure (hypertension) is when the force of blood pumping through the arteries is too strong. The arteries are the blood vessels that carry blood from the heart throughout the body. Hypertension forces the heart to work harder to pump blood and may cause arteries to become narrow or stiff. Untreated or uncontrolled hypertension can lead to a heart attack, heart failure, a stroke, kidney disease, and other problems. A blood pressure reading consists of a higher number over a lower number. Ideally, your blood pressure should be below 120/80. The first ( top ) number is called the systolic pressure. It is a measure of the pressure in your arteries as your heart beats. The second ( bottom ) number is called the diastolic pressure. It is a measure of the pressure in your arteries as the heart relaxes. What are the causes? The exact cause of this condition is not known. There are some conditions that result in high blood pressure. What increases the risk? Certain factors may make you more likely to develop high blood pressure. Some of these risk factors are under your control, including: ? Smoking. ? Not getting enough exercise or physical activity. ? Being overweight. ? Having too much fat, sugar, calories, or salt (sodium) in your diet. ? Drinking too much alcohol. Other risk factors include: ? Having a personal history of heart disease, diabetes, high cholesterol, or kidney disease. ? Stress. ? Having a family history of high blood pressure and high cholesterol. ? Having obstructive sleep apnea. ? Age. The risk increases with age. What are the signs or symptoms? High blood pressure may not cause symptoms. Very high blood pressure (hypertensive crisis) may cause: ? Headache. ? Fast or irregular heartbeats (palpitations). ? Shortness of breath. ? Nosebleed. ? Nausea and vomiting. ? Vision changes. ? Severe chest pain, dizziness, and seizures. How is this diagnosed? This condition is diagnosed by measuring your blood pressure while you are seated, with your arm resting on a flat surface, your legs uncrossed, and your feet flat on the floor. The cuff of the blood pressure monitor will be placed directly against the skin of your upper arm at the level of your heart. Blood pressure should be measured at least twice using the same arm. Certain conditions can cause a difference in blood pressure between your right and left arms. If you have a high blood pressure reading during one visit or you have normal blood pressure with other risk factors, you may be asked to: ? Return on a different day to have your blood pressure checked again. ? Monitor your blood pressure at home for 1 week or longer. If you are diagnosed with hypertension, you may have other blood or imaging tests to help your health care provider understand your overall risk for other conditions. How is this treated? This condition is treated by making healthy lifestyle changes, such as eating healthy foods, exercising more, and reducing your alcohol intake. You may be referred for counseling on a healthy diet and physical activity. Your health care provider may prescribe medicine if lifestyle changes are not enough to get your blood pressure under control and if: ? Your systolic blood pressure is above 130. ? Your diastolic blood pressure is above 80. Your personal target blood pressure may vary depending on your medical conditions, your age, and other factors. Follow these instructions at home: Eating and drinking ? Eat a diet that is high in fiber and potassium, and low in sodium, added sugar, and fat. An example of this eating plan is called the DASH diet. DASH stands for Dietary Approaches to Stop Hypertension. To eat this way: ? Eat plenty of fresh fruits and vegetables. Try to fill one half of your plate at each meal with fruits and vegetables. ? Eat whole grains, such as whole-wheat pasta, brown rice, or whole-grain bread. Fill about one fourth of your plate with whole grains. ? Eat or drink low-fat dairy products, such as skim milk or low-fat yogurt. ? Avoid fatty cuts of meat, processed or cured meats, and poultry with skin. Fill about one fourth of your plate with lean proteins, such as fish, chicken without skin, beans, eggs, or tofu. ? Avoid pre-made and processed foods. These tend to be higher in sodium, added sugar, and fat. ? Reduce your daily sodium intake. Many people with hypertension should eat less than 1,500 mg of sodium a day. ? Do not drink alcohol if: ? Your health care provider tells you not to drink. ? You are , may be , or are planning to become . ? If you drink alcohol: ? Limit how much you have to: ? 0?1 drink a day for women. ? 0?2 drinks a day for men. ? Know how much alcohol is in your drink. In the [place] one drink equals one 12 oz bottle of beer (355 mL), one 5 oz glass of wine (148 mL), or one 1? oz glass (more content not included)... Normal [facility] ED Patient Summaryon 024 ED Patient Summary (Inserted Image. Fide ble to display) [place] [id number] Patient Discharge Instructions Person Information Name: JOE JARAMILLO Age: 67 Years Arrival Date: 07/26/2023 21:35:35 Discharge Diagnosis: Elevated blood pressure reading Primary Care Physician: Bridger DARBY MD Provider Information Primary Provider: Shakeel Kilpatrick DO Advanced Therapeutic Support Staff:None The exam and treatment you received in the Emergency Department were for an urgent problem and are not intended as complete care. It is important that you follow up with a doctor, nurse practitioner, or physician?s news assistant for ongoing care. If your symptoms become worse or you do not improve as expected and you are unable to reach your usual health care provider, you should return to the Emergency Department. We are available 24 hours a day. CLINTTERRENCEJOE Judie has been given the following list of patient education materials, prescriptions and follow-up instructions: Follow-up Instructions: With: Address: When: Bridger DARBY [facility] [address], [place] [address] Business (1) In 3 days In the event that this physician does not participate in your insurance network, please consult with your insurance company to find a nearby participating provider. Patient Education Materials: Hypertension, Adult A MESSAGE TO ALL PATIENTS REGARDING OPIOIDS PRESCRIPTION OPIOIDS: WHAT YOU NEED TO KNOW Prescription opioids can be used to help relieve [id number] pain and are often prescribed following a surgery or injury, or for certain health conditions. These medications can be an important part of the treatment but also come with serious risks. It is important to work with your healthcare provider to make sure you are getting the safest, most effective care. WHAT ARE THE RISKS AND SIDE EFFECTS OF OPIOID USE? Prescription opioids carry serious risks of addiction and overdose, especially with prolonged use. An opioid overdose, often marked by slowed breathing, can cause sudden . The use of prescription opioids can have a number of side effects as well, even when taken as directed: ? Tolerance?meaning you might need to take more of the medication for the same pain relief ? Physical dependence?meaning you have symptoms of withdrawal when a medication is stopped ? Increased sensitivity to pain ? Constipation ? Nausea, vomiting, and dry mouth ? Sleepiness and dizziness ? Confusion ? Depression ? Low levels of testosterone that can result in lower sex drive, energy, and strength ? Itching and sweating RISKS ARE GREATER WITH: ? History of drug misuse, substance use disorder, or overdose ? Mental health conditions (such as depression or anxiety) ? Sleep apnea ? Older age (65 years and older) ? Avoid alcohol while taking prescription opioids. Also, unless specifically advised by your health care provider, medications to avoid include: ? Benzodiazepines (such as Xanax or Valium) ? Muscle relaxants (such as Soma or Flexeril) ? Hypnotics (such as Ambien or Lunesta) ? Other prescription opioids KNOW YOUR OPTIONS Talk to your health care provider about ways to manage your pain that don?t involve prescription opioids. Some of these options may actually work better and have fewer risks and side effects. Options may include: ? Pain relievers such as acetaminophen, ibuprofen, and naproxen ? Some medication that are also used for depression or seizures ? Physical therapy and exercise ? Cognitive behavioral therapy, a psychological, goal-directed approach, in which patients learn how to modify physical, behavioral, and emotional triggers of pain and stress. IF YOU ARE PRESCRIBED OPIOIDS FOR PAIN: ? Never take opioids in greater amounts or more often than prescribed. ? Follow up with your primary health care provider. o Work together to create a plan on how to manage your pain. o Talk about ways to help manage your pain that don?t involve prescription opioids. o Talk about any and all concerns and side effects. ? Help prevent misuse and abuse o Never sell or share prescription opioids. o Never use another person?s prescription opioids. ? Store prescription opioids in a secure place and out of reach of others (this may include visitors, children, friends, and family). ? Safely dispose of unused prescription opioids: Find your community drug take-back program or your pharmacy mail-back program, or flush them down the toilet, following guidance from the Food and Drug Administration (www.fda.gov/Drugs/Resource sForYou). ? Visit www.cdc.gov/drugoverdose to learn about the risks of opioids abuse and overdose. ? If you believe you may be struggling with addiction, tell your health careers adviser and ask for guidance or call [facility]S National Helpline at 1-546-374-DGPQ. r Source: [place] De (more content not included)... Normal [facility] Troponin 0 Hr.on 07-27-2023 Troponin 5.50 pg/mL Low 10.10-27.1 0 [facility] Comment on above: Result Comment: The 95% CI (Confidence Interval) PPV (Positive Predictive Value) for myocardial infarction in females is 38 pg/mL, in males 51 pg/mL. The results should be used in conjunction with clinical conditions of myocardial infarction. (Access High Sensitivity Troponin I Instructions For Use, [place], January 2018) Performed By: #### 2 639610, 5073873, [id number], [id number] #### [facility] [address] [place] [address] UA With Cult Reflexon 2023 Bilirubin Ql (U) Negative Normal Negative [facility] Comment on above: Performed By: #### 2 985599, 4664450, 85804811, [id number] #### [facility] [address] [place] [address] Clarity (U) CLEAR Normal Clear [facility] Comment on above: Performed By: #### 2 005330, 8764320, 26210264, 48592490 #### [facility] [address] [place] [address] Color (U) YELLOW Normal Yellow [facility] Comment on above: Performed By: #### 2 329467, 9117671, 52959276, 27761163 #### [facility] [address] [place] [address] Epithelial cells.squamous LM.HPF (Urine sed) [#/Area] 0-2 Normal 0-2 [facility] Comment on above: Performed By: #### 2 916240, 5530720, 26164414, [id number] #### [facility] [address] [place] [address] Glucose Test strip (U) [Mass/Vol] Negative Normal Negative [facility] Comment on above: Performed By: #### 2 230533, 7350637, 52091867, 22803770 #### [facility] [address] [place] [address] Hemoglobin Ql (U) TRACE Abnormal Negative [facility] Comment on above: Performed By: #### 2 481254, 9788014, 23286546, 17928927 #### [facility] [address] [place] [address] Ketones (U) [Mass/Vol] Negative Normal Negative [facility] Comment on above: Performed By: #### 2 938793, 4507333, 48978113, 70750203 #### [facility] [address] [place] [address] [place].plasma/Lithiu m.RBC (Bld) [Mass ratio] 0-3 Normal 0-3 [facility] Comment on above: Performed By: #### 2 157532, 1330436, 80837157, 58593894 #### [facility] [address] [place] [address] Nitrite Ql (U) Negative Normal Negative [facility] Comment on above: Performed By: #### 2 130403, 1888641, 33640201, 17194477 #### [facility] [address] [place] [address] pH (U) 6.5 [pH] Invalid Interpretation Code 5.0-9.0 [facility] Comment on above: Performed By: #### 2 326969, 8164032, 39329582, 24589171 #### [facility] [address] [place] [address] Protein (U) [Mass/Vol] Negative Normal Negative [facility] Comment on above: Performed By: #### 2 372327, 3167764, 24746668, 76810356 #### [facility] [address] [place] [address] Specific gravity (U) [Rel density] 1.010 Invalid Interpretation Code 1.005-1.03 0 [facility] Comment on above: Performed By: #### 2 437469, 2926957, 13770289, 74077358 #### [facility] [address] [place] [address] Type of Urine collection method Clean Catch Normal [facility] Comment on above: Performed By: #### 2 574567, 6846297, 75125195, 93365576 #### [facility] [address] [place] [address] Urobilinogen Qn (U) 0.2 {Orquidea'U}/dL Normal 0.0-1.0 [facility] Comment on above: Performed By: #### 2 130328, 4940693, 55650914, 75328722 #### [facility] [address] [place] [address] WBC Auto Ql (U) Negative Normal Negative [facility] Comment on above: Performed By: #### 2 465282, 4329364, 45688382, 06421437 #### [facility] [address] [place] [address] WBC LM.HPF (Urine sed) [#/Area] 0-5 Normal 0-5 [facility] Comment on above: Performed By: #### 2 514812, 4765073, 50232860, 45464941 #### [facility] [address] [place] [address] XR Chest Single Viewon 07-27 XR Chest Single View Exam Date/Time: 07/26/2023 22:15 EST Reason for Exam: Shortness of breath (SOB) Report IMPRESSION: There are no acute cardiopulmonary changes. CLINICAL HISTORY: Shortness of breath (SOB) EXAMINATION: XR Chest Single View COMPARISON: Chest x-ray from 09/27/2021 FINDINGS: The cardiomediastinal silhouette is unremarkable. The lungs are free of infiltrates effusions or consolidations. There are no acute osseous changes. Ordering Provider: Shakeel Kilpatrick FINAL REPORT Dictated: 07/27/2023 7:07 am Tim James MD, V. Signed (Electronic Signature): 07/27/2023 7:07 am Signed by: Tim James MD, V. Transcribed by: ORACIO Technologist: AMELIA Technical Comments Radiation Dose: Ka,r in mGy = na DAP = na Normal [facility] eGFRon 07-27-2023 eGFR 95 mL/min/1.73 m2 Normal >=59 [facility] Comment on above: Order Comment: Order added by Discern Expert. Performed By: #### 2 607506, 0604074, 28861248, 23864746 #### [facility] [address] [place] [address] Consent for Treatmenton Consent for Treatment [id number]#1.00TIFF Normal [facility] Physician Orderon 06-07-2023 Physician Order [id number]#1.00TIFF Normal [facility] Physician Order [id number]#1.00TIFF Normal [facility] Physician Order [id number]#1.00TIFF Normal [facility] Physician Order [id number]#1.00TIFF Normal [facility] Physician Order [id number]#1.00TIFF Normal [facility] Reference Lab Notificationon 06-01-2023 Results Report See Ref Lab Report Normal [facility] Comment on above: Performed By: #### 2 [id number] #### [facility] [address] [place] [address] Results Report See Ref Lab Report Normal [facility] Comment on above: Performed By: #### 2 [id number] #### [facility] [address] [place] [address] Reference Lab Reporton 06-01 Reference Lab Report [id number]#1.00TIFF Normal [facility] Reference Lab Report [id number]#1.00TIFF Normal [facility] Lab Reportson 05-31-2023 Lab Reports [id number]#1.00TIFF Normal [facility] CBC (INCLUDES DIFF/PLT)on Basophils (Bld) [#/Vol] 0.038 10*3/uL Normal 0-200 [facility] Comment on above: Performed By: #### 1 0231, 7140, 0799 #### [facility] [address] [address] Hospital Administrator: Cm Pal MD Basophils/100 WBC (Bld) 0.9 % Normal [facility] Comment on above: Performed By: #### 1 0231, 2920, 5499 #### [facility] [address] [place] [address] Hospital Administrator: Cm Pal MD Eosinophils (Bld) [#/Vol] 0.189 10*3/uL Normal 15-500 [facility] Comment on above: Performed By: #### 1 023, 7600, 6399 #### [facility] of [address], [address] [place] [address] Hospital Administrator: Cm Pal MD Eosinophils/100 WBC (Bld) 4.5 % Normal [facility] Comment on above: Performed By: #### 1 023, 7599, 6399 #### [facility] of [place] [address] Hospital Administrator: Cm Pal MD Erythrocyte distribution width (RBC) [Ratio] 11.8 % Normal 11.0-15.0 [facility] Comment on above: Performed By: #### 1 023, 7599, 6399 #### [facility] of [address], [address] [place] [address] Hospital Administrator: Cm Pal MD Hematocrit (Bld) [Volume fraction] 38.3 % Normal 35.0-45.0 [facility] Comment on above: Performed By: #### 1 023, 7599, 6399 #### [facility] of [place] [address] Hospital Administrator: Cm Pal MD Hemoglobin (Bld) [Mass/Vol] 12.8 g/dL Normal 11.7-15.5 [facility] Comment on above: Performed By: #### 1 023, 7599, 6399 #### [facility] of [address], [address] [place] [address] Hospital Administrator: Cm Pal MD Lymphocytes (Bld) [#/Vol] 1.205 10*3/uL Normal 850-3900 [facility] Comment on above: Performed By: #### 1 023, 7599, 6399 #### [facility] of [address], [address] [place] [address] Hospital Administrator: Cm Pal MD Lymphocytes/100 WBC (Bld) 28.7 % Normal [facility] Comment on above: Performed By: #### 1 023, 7599, 6399 #### [facility] of [place] [address] Hospital Administrator: Cm Pal MD MCH (RBC) [Entitic mass] 31.8 pg Normal 27.0-33.0 [facility] Comment on above: Performed By: #### 1 023, 7599, 6399 #### [facility] of [place] [address] Hospital Administrator: Cm Pal MD MCHC (RBC) [Mass/Vol] 33.4 g/dL Normal 32.0-36.[address] [facility] Comment on above: Performed By: #### 1 230, 7599, 6399 #### [facility] of [place] [address] Hospital Administrator: Cm Pal MD MCV (RBC) [Entitic vol] 95.0 fL Normal 80.0-100.0 [facility] Comment on above: Performed By: #### 1 023, 7599, 6399 #### [facility] of [place] [address] Hospital Administrator: Cm Pal MD Monocytes (Bld) [#/Vol] 0.428 10*3/uL Normal 200-950 [facility] Comment on above: Performed By: #### 1 023, 7599, 6399 #### [facility] of [place] [address] Hospital Administrator: Cm Pal MD Monocytes/100 WBC (Bld) 10.2 % Normal [facility] Comment on above: Performed By: #### 1 023, 7599, 6399 #### [facility] of [place] [address] Hospital Administrator: Cm Pal MD Neutrophils (Bld) [#/Vol] 2.339 10*3/uL Normal 0738-0308 [facility] Comment on above: Performed By: #### 1 0231, 0, 6399 #### [facility] of [place] [address] Hospital Administrator: Cm Pal MD Neutrophils/100 WBC (Bld) 55.7 % Normal [facility] Comment on above: Performed By: #### 1 0231, 0, 6399 #### [facility] of [place] [address] Hospital Administrator: Cm Pal MD Platelet mean volume (Bld) [Entitic vol] 10.3 fL Normal 7.5-12.5 [facility] Comment on above: Performed By: #### 1 0231, 7599, 6399 #### [facility] of [place] [address] Hospital Administrator: Cm Pal MD Platelets (Bld) [#/Vol] 256 10*3/uL Normal 140-400 [facility] Comment on above: Performed By: #### 1 0231, 7599, 6399 #### [facility] of [place] [address] Hospital Administrator: Cm Pal MD RBC (Bld) [#/Vol] 4.03 10*6/uL Normal 3.80-5.10 [facility] Comment on above: Performed By: #### 1 0231, 7599, 6399 #### [facility] of [place] [address] Hospital Administrator: Cm Pal MD WBC (Bld) [#/Vol] 4.2 10*3/uL Normal 3.8-10.8 [facility] Comment on above: Performed By: #### 1 0231, 7599, 6399 #### [facility] of [place] [address] Hospital Administrator: Cm Pal MD COMPREHENSIVE METABOLIC PANE [facility] 05-28-2023 Albumin [Mass/Vol] 4.1 g/dL Normal 3.6-5.1 [facility] Comment on above: Performed By: #### 1 0231, 7600, 6399 #### [facility] of [address], [address] [place] [address] Hospital Administrator: Cm Pal MD Albumin/Globulin [Mass ratio] 1.5 {ratio} Normal 1.0-2.5 [facility] Comment on above: Performed By: #### 1 0231, 0, 6399 #### [facility] of [address], [address] [place] [address] Hospital Administrator: Cm Pal MD ALP [Catalytic activity/Vol] 78 U/L Normal 37-153 [facility] Comment on above: Performed By: #### 1 0231, 0, 6399 #### [facility] of [address], [address] [place] [address] Hospital Administrator: Cm Pal MD ALT [Catalytic activity/Vol] 28 U/L Normal 6-29 [facility] Comment on above: Performed By: #### 1 0231, 0, 6399 #### [facility] of [address], [address] [place] [address] Hospital Administrator: Cm Pal MD AST [Catalytic activity/Vol] 28 U/L Normal 10-35 [facility] Comment on above: Performed By: #### 1 0231, 7599, 6399 #### [facility] of [address], [address] [place] [address] Hospital Administrator: Cm Pal MD Bilirubin [Mass/Vol] 0.4 mg/dL Normal 0.2-1.2 [facility] Comment on above: Performed By: #### 1 0231, 7600, 6399 #### [facility] of [address], [address] [place] [address] Hospital Administrator: Cm Pal MD BUN/CREATININE RATIO SEE NOTE: Normal 6-22 [facility] Comment on above: Result Comment: Not Reported: BUN and Creatinine are within reference range. Performed By: #### 1 0231, 7600, 6399 #### [facility] of [address], [address] [place] [address] Hospital Administrator: Cm Pal MD Calcium [Mass/Vol] 9.1 mg/dL Normal 8.6-10.4 [facility] Comment on above: Performed By: #### 1 0231, 7599, 6399 #### [facility] of [place] [address] Hospital Administrator: Cm Pal MD Chloride [Moles/Vol] 100 mmol/L Normal 98-110 [facility] Comment on above: Performed By: #### 1 023, 7599, 6399 #### [facility] of [place] [address] Hospital Administrator: Cm Pal MD CO2 [Moles/Vol] 30 mmol/L Normal 20-32 [facility] Comment on above: Performed By: #### 1 023, 7599, 6399 #### [facility] of [place] [address] Hospital Administrator: Cm Pal MD Creatinine [Mass/Vol] 0.68 mg/dL Normal 0.50-1.[address] [facility] [address] [facility] Comment on above: Performed By: #### 1 023, 7599, 6399 #### [facility] of [place] [address] Hospital Administrator: Cm Pal MD GFR/1.73 sq M.predicted among non-blacks MDRD (S/P/Bld) [Vol rate/Area] 97 mL/min/{1.73_m2} Normal > OR = 60 [facility] Comment on above: Performed By: #### 1 0231, 7599, 6399 #### [facility] of [place] [address] Hospital Administrator: Cm Pal MD Globulin (S) [Mass/Vol] 2.7 g/dL Normal 1.9-3.7 [facility] Comment on above: Performed By: #### 1 023, 7599, 6399 #### [facility] of [address], [address] [place] [address] Hospital Administrator: Cm Pal MD Glucose [Mass/Vol] 93 mg/dL Normal 65-99 [facility] Comment on above: Result Comment: Fasting reference interval Performed By: #### 1 0231, 7600, 6399 #### [facility] of [address], [address] [place] [address] Hospital Administrator: Cm Pal MD Potassium [Moles/Vol] 4.5 mmol/L Normal 3.5-5.[address] [facility] [address] [facility] Comment on above: Performed By: #### 1 0231, 7600, 6399 #### [facility] of [address], [address] [place] [address] Hospital Administrator: Cm Pal MD Protein [Mass/Vol] 6.8 g/dL Normal 6.1-8.1 [facility] Comment on above: Performed By: #### 1 0231, 7599, 6399 #### [facility] of [address], [address] [place] [address] Hospital Administrator: Cm Pal MD Sodium [Moles/Vol] 136 mmol/L Normal 135-146 [facility] Comment on above: Performed By: #### 1 0231, 7600, 6399 #### [facility] of [address], [address] [place] [address] Hospital Administrator: Cm Pal MD Urea nitrogen [Mass/Vol] 25 mg/dL Normal 7-25 [facility] Comment on above: Performed By: #### 1 0231, 760, 6399 #### [facility] of [address], [address] [place] [address] Hospital Administrator: Cm Pal MD LIPID PANEL, [facility] 12-0 Cholesterol [Mass/Vol] 198 mg/dL Normal <200 [facility] Comment on above: Order Comment: FASTI NG: YES Performed By: #### 1 0231, 7600, 6399 #### [facility] of [place] [address] Hospital Administrator: Cm Pal MD Cholesterol in HDL [Mass/Vol] 51 mg/dL Normal > OR = 50 [facility] Comment on above: Order Comment: FASTI NG: YES Performed By: #### 1 0231, 7600, 6399 #### [facility] [place] [address] Hospital Administrator: Cm Pal MD Cholesterol in LDL [Mass/Vol] 110 mg/dL High [facility] Comment on above: Order Comment: FASTI NG: YES Result Comment: Refe rence range: <100 Desirable range <100 mg/dL for primary prevention; <70 mg/dL for patients with CHD or diabetic patients with > or = 2 CHD risk factors. LDL-C is now calculated using the Marina calculation, which is a validated novel method providing better accuracy than the Friedewald equation in the estimation of LDL-C. Jonah SS et al. POLO. 2013;310(19): 2220-0307 (http://education.Between.Sicubo/faq/LRU542) Performed By: #### 1 0231, 4130, 6399 #### [facility] [place] [address] Hospital Administrator: Cm Pal MD Cholesterol.total/Cho lesterol in HDL [Mass ratio] 3.9 {ratio} Normal <5.0 [facility] Comment on above: Order Comment: FASTI NG: YES Performed By: #### 1 0231, 7600, 6399 #### [facility] [place] [address] Hospital Administrator: Cm Pal MD NON HDL CHOLESTEROL 147 mg/dL (calc) High <130 [facility] Comment on above: Order Comment: FASTI NG: YES Result Comment: For patients with diabetes plus 1 major ASCVD risk factor, treating to a non-HDL-C goal of <100 mg/dL (LDL-C of <70 mg/dL) is considered a therapeutic option. Performed By: #### 1 0231, 0940, 6399 #### [facility] [address] [place] [address] Hospital Administrator: Cm Pal MD Triglyceride [Mass/Vol] 245 mg/dL High <150 [facility] Comment on above: Order Comment: FASTI NG: YES Result Comment: If a non-fasting specimen was collected, consider repeat triglyceride testing on a fasting specimen if clinically indicated. Gigi et al. J. of Clin. Lipidol. 2015;9:129-169. Performed By: #### 1 0231, 7600, 3899 #### [facility] [address], [address] [place] [address] Hospital Administrator: Cm Pal MD Reference Lab Notificationon 05-28-2023 Ref [facility] Normal [facility] Comment on above: Performed By: #### 2 [id number] #### [facility] [address] [place] [address] VITAMIN D,25-OH,TOTAL,IAon 1 07-29-2022 VITAMIN D,25-OH,TOTAL,IA 46 ng/mL Normal 30-100 [facility] Comment on above: Result Comment: Radha min D Status 25-OH Vitamin D: Deficiency: <20 ng/mL Insufficiency: 20 - 29 ng/mL Optimal: > or = 30 ng/mL For 25-OH Vitamin D testing on patients on D2-supplementation and patients for whom quantitation of D2 and D3 fractions is required, the QuestAssureD(TM) 25-OH VIT D, (D2,D3), LC/MS/MS is recommended: order code 90679 (patients >2yrs). See Note 1 Your request to have a duplicate copy faxed has been acknowledged. Queued to: [id number] Queued to: [id number] Note 1 For additional information, please refer to http://education.Between.Sicubo/faq/QLS797 (This link is being provided for informational/ educational purposes only.) Performed By: #### 1 0231, 7600, 4899 #### [facility] [address] [place] [address], [address] [place] [phone] Hospital Administrator: Cm Pal MD Ambulatory Visit Summaryon 1 07-28-2022 Ambulatory Visit Summary JOE JARAMILLO :1955 Visit Date:05/27/2023 Ambulatory Visit Instructions Your Diagnosis Initial Medicare annual wellness visit Seronegative rheumatoid arthritis Immunodeficiency due to drugs On statin therapy Hypertension Gastritis Encounter for hepatitis C screening test for low risk patient BMI 28.0-28.9,adult Your Care Team Attending Physician - Bridger DARBY MD Primary Care Physician - VIRIDIANA HYLTON, Bridger Reeves This Is Your Medications List amlodipine (amLODIPine 5 mg Tab) ascorbic acid (ascorbic acid 500 mg oral capsule) aspirin (aspirin 325 mg Tab) bacillus coagulans-inulin (Probiotic Formula (Bacillus Coagulans)) cholecalciferol (cholecalciferol 1000 intl units oral capsule) chondroitin/glucosamine/met hylsulfonylmethane (Glucosamine Chondroitin Advanced) fluticasone nasal (fluticasone Nasal 0.05 mg/inh [place]) folic acid (folic acid 1 mg Tab) gabapentin (gabapentin 300 mg Cap) hydrochlorothiazide (hydrochlorothiazide 12.5 mg Cap) hydroxychloroquine (hydroxychloroquine 200 mg Tab) lisinopril (lisinopril 10 mg Tab) meloxicam (meloxicam 15 mg Tab) methotrexate (methotrexate 2.5 mg Tab) metoprolol (metoprolol 50 mg ER Tab) multivitamin with minerals (Calcium, Magnesium and Zinc oral tablet) omega-3 polyunsaturated fatty acids ([place]-3) omeprazole (omeprazole 40 mg Cap-DR) simvastatin (simvastatin 20 mg Tab) vitamin E Procedures Performed Colonoscopy (04/07/2023), Esophagogastroduodenoscopy (04/07/2023), Colonoscopy, Hysterectomy, Number of caesarean sections, right meniscus surgery. Discharge Vitals Temperature (Oral) 36.6 ?C Heart Rate (Peripheral) 55 Blood Pressure 116/70 Height 162.56 cm Height 64 in Weight 74.8 kg Weight 164.56 lb BMI 28.31 What to do next Scheduled Follow-Up Appointments Wednesday 12:40 PM EST With: Magalie Marsh CNP Where: [facility] Invalid Interpretation Code [address], [place] [address]- \. br\ Wednesday 1:00 PM EST \.br\ With:\.br\ Where: [facility] Consent for Treatmenton 0 Consent for Treatment [id number]#1.00TIFF Normal [facility] Family Medicine Office/Clini c Noteon 05-27-2023 Family Medicine Office/Clinic Note Chief Complaint Initial Medicare Wellness Visit Review of Systems PHQ Score Initial Depression Screen Score: 0 SCORE Physical Exam Vitals & Measurements T: 36.6 ?C(Oral) HR: 55(Peripheral) BP: 116/70 SpO2: 98% HT: 162.56 cm HT: 64 in WT: 74.8 kg WT: 164.56 lb BMI: 28.31 Assessment/Plan 1. Initial Medicare annual wellness visit (Z00.00: Encounter for general adult medical examination without abnormal findings) The patient was given a customized and personalized print out of all the current AHRQ USPSTF?s recommendations for preventative services and all current CDC recommended immunizations, relevant risk recommendations and the following patient brochures were given. Reviewed Medicare Prevention Services checklist. CDC-Falls Prevention and home safety screening reviewed. Patient denies any falls in last 12 months, voices no worry about falling. Exhibits no problems with sitting, standing or ambulation. Patient aware with keeping walk way area free of clutter to prevent tripping and/or falling. [place] Advance Directives reviewed. Documents remain at home, encouraged to bring in for scanning into chart. Patient denies any problems with ADL?s and Instrumental ADL?s. Cognitive screening completed with memory and clock face drawing. No deficits noted. Immunization record reviewed, discussed Shingrix and COVID vaccines. Both up to date with 2 COVID boosters received. Allergies and medications reviewed and up to date. No concerns with taking medication as prescribed. Reviewed OTC medications, medication list up to date. Blood tests were reviewed: Discussed what tests need to be updated. Labs were ordered, to be completed with [facility]. No concerns with bowel/ bladder. Colonoscopy last completed 04/07/2023 with a 10 year repeat. Reviewed pain symptoms : has RA all over generalized body pain daily, rates pain as a 4 out of 10, pain medications taken daily Reviewed all outside providers that patient follows. Last visit summary notes available in chart and/or have been requested. Patient declines any signs or symptoms of depression at this time. 8 minutes spent with screening and documentation. PHQ2 screening score 0. Patient drinks alcohol monthly or less, 1 drink. 8 minutes spent with screening and documentation. Audit score 1. Follow up scheduled with PCP, 08/30/2023. AWV has been scheduled, 06/02/2024. 2. Seronegative rheumatoid arthritis (M06.00: Rheumatoid arthritis without rheumatoid factor, unspecified site) Follows with Rheumatology Dr Castelan routinely. Taking Methotrexate,Hydroxychloroq uine and Meloxicam as directed. Patient taking swimming classes to remain flexible and physically active. Remains independent for all self care, driving and daily activities as desired. Will continue to follow with Dr Castelan as directed. 3. 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 Denies frequent illness or malaise. Labs/screening completed as directed. Will continue with specialists as directed. 4. On statin therapy (Z79.899: Other custodial (current) drug therapy) Taking Simvastatin daily as directed, encouraged to eat a diet that is low in saturated fats. Stressed importance of loosing weight as being overweight does produce more lipids. Patient drinks alcohol infrequently and has never smoked. Risks may also increase with a family history of hyperlipidemia. Encouraged with healthy dietary choices to reduce risk factors associated with CVA. Will continue to follow up with labs as directed. 5. Hypertension (I10: Essential (primary) hypertension) Patient taking medications daily as directed, BP monitored at home with <140/90 results. Patient does voice understanding with signs and symptoms to monitor for. HTN stoplight handout reviewed with importance of keeping BP <140/90 to prevent increased cardiovascular risks. DASH dietary handout reviewed with importance to lower salt intake, eat more chicken, fish and lean white meats. 6. Gastritis (K29.70: Gastritis, unspecified, without bleeding) Following with [facility], has recently started on Omeprazole daily, states effectiveness of medication. Encouraged to avoid spicy or acidic foods, to remain upright 30 min. after eating and avoid eating late at night. Will continue to follow up as needed. 7. Encounter for hepatitis C screening test for low risk patient (Z11.59: Encounter for screening for other viral diseases) Discussed with patient the risk of Hepatitis C for people born between 2415-9089. Handout [facility]-Hepatitis C given. Patient to have labs drawn for Hepatitis C screening based on year of . Will follow up with PCP as needed. 8. BMI 28.0-28.9,adult (Z68.28: Body mass index [BMI] 28.0-28.9, adult) The standard range for ages 18 and older is >18.5 and <25kg/m2. Your BMI today was 28.31 , this falls into the overweight range. BMI meaning contributes to your health with a greater risk for HTN, high cholesterol, vianca (more content not included)... Normal [facility] Comment on above: Result Comment: Elec tronically Signed By: VIRIDIANA HYLTON, Bridger Reeves\.br\Date and Time Signed: 05/27/23 12:56 EST\.br\Electronically Co-Signed By: Brianna Farley LPN\.br\Date and Time Co-Signed: 05/27/23 11:06 EST Patient Educationon 05-27-20 Patient Education Caregiving Understanding Your Risk for Falls Each year, millions of people have serious injuries from falls. It is important to understand your risk for falling. Talk with your health care provider about your risk and what you can do to lower it. There are actions you can take at home to lower your risk and prevent falls. If you do have a serious fall, make sure to tell your health care provider. Falling once raises your risk of falling again. How can falls affect me? Serious injuries from falls are common. These include: ? Broken bones, such as hip fractures. ? Head injuries, such as traumatic brain injuries (TBI) or concussion. A fear of falling can cause you to avoid activities and stay at home. This can make your muscles weaker and actually raise your risk for a fall. What can increase my risk? There are a number of risk factors that increase your risk for falling. The more risk factors you have, the higher your risk of falling. Serious injuries from a fall happen most often to people older than age 65. Children and young adults ages 15?29 are also at higher risk. Common risk factors include: ? Weakness in the lower body. ? Lack (deficiency) of vitamin D. ? Being generally weak or confused due to long-term (chronic) illness. ? Dizziness or balance problems. ? Poor vision. ? Medicines that cause dizziness or drowsiness. These can include medicines for your blood pressure, heart, anxiety, insomnia, or edema, as well as pain medicines and muscle relaxants. Other risk factors include: ? Drinking alcohol. ? Having had a fall in the past. ? Having depression. ? Having foot pain or wearing improper footwear. ? Working at a dangerous job. ? Having any of the following in your home: ? Tripping hazards, such as floor clutter or loose rugs. ? Poor lighting. ? Pets. ? Having dementia or memory loss. What actions can I take to lower my risk of falling? Physical activity Maintain physical fitness. Do strength and balance exercises. Consider taking a regular class to build strength and balance. Yoga and [facility] [employer] [employer] are good options. Vision Have your eyes checked every year and your vision prescription updated as needed. Walking aids and footwear ? Wear nonskid shoes. Do not wear high heels. ? Do not walk around the house in socks or slippers. ? Use a cane or walker as told by your health care provider. Home safety ? Attach secure railings on both sides of your stairs. ? Install grab bars for your tub, shower, and toilet. Use a bath mat in your tub or shower. ? Use good lighting in all rooms. Keep a flashlight near your bed. ? Make sure there is a clear path from your bed to the bathroom. Use night-lights. ? Do not use throw rugs. Make sure all carpeting is taped or tacked down securely. ? Remove all clutter from walkways and stairways, including extension cords. ? Repair uneven or broken steps. ? Avoid walking on icy or slippery surfaces. Walk on the grass instead of on icy or slick sidewalks. Use ice melt to get rid of ice on walkways. ? Use a cordless phone. Questions to ask your health care provider ? Can you help me check my risk for a fall? ? Do any of my medicines make me more likely to fall? ? Should I take a vitamin D supplement? ? What exercises can I do to improve my strength and balance? ? Should I make an appointment to have my vision checked? ? Do I need a bone density test to check for weak bones or osteoporosis? ? Would it help to use a cane or a walker? Where to find more information ? Centers for Disease Control and Prevention, STEADI: www.cdc.gov ? Community-Based Fall Prevention Programs: www.cdc.gov ? National [place] on Aging: www.renita.nih.gov Contact a health care provider if: ? You fall at home. ? You are afraid of falling at home. ? You feel weak, drowsy, or dizzy. Summary ? Serious injuries from a fall happen most often to people older than age 65. Children and young adults ages 15?29 are also at higher risk. ? Talk with your health care provider about your risks for falling and how to lower those risks. ? Taking certain precautions at home can lower your risk for falling. ? If you fall, always tell your health care provider. This information is not intended to replace advice given to you by your health care provider. Make sure you discuss any questions you have with your health care provider. Document Revised: 01/08/2021 Document Reviewed: 01/08/2021 The Moment Patient Education ? 2022 GetYou. Infectious Disease Hepatitis C Hepatitis C is a liver infection that is caused by a virus. Many people have no symptoms or only mild symptoms. Hepatitis C is contagious. This means that it can spread from person to person. Over time, the infection can lead to serious liver problems. What are the causes? This condition is caused by a virus. It (more content not included)... Normal [facility] Reference Lab Notificationon 05-27-2023 Ref Lab [facility] Normal [facility] Comment on above: Performed By: #### 2 [id number] #### [facility] Laboratory [address] [place] [address] Reference Laboratory Testing Ordered By: Tiffanie Rodriguez on 05-27-2023 Results Report See Ref Lab Report (05/27/23 9:01 AM) Normal [facility] [employer]Out[employer]enson 05-27-2023 Screens [id number] Normal [facility] Family Medicine Office/Clini c Noteon 05-25-2023 Family Medicine Office/Clinic Note Chief Complaint Patient here for 3 month f/u on htn, chol. History of Present Illness Here for med follow up. She did not get her labs done. She has RA and is on MTX and HCQ. She has htn and denies CP or SOB. She has high chol and is on a statin. Review of Systems PHQ Score Initial Depression Screen Score: 0 SCORE Physical Exam Vitals & Measurements T: 36.6 ?C(Oral) HR: 68(Peripheral) BP: 122/68 SpO2: 97% HT: 64 in HT: 162 cm WT: 74.5 kg WT: 163.9 lb BMI: 28.39 General: Well developed, well nourished, in no acute distress Eyes: Pupils equal, round, and reactive to light. Conjunctivae and sclerae normal, and extraocular movements intact Ears: not assessed Nose: No deformity, discharge, inflammation, or lesions Mouth: MMM. Oropharynx and posterior pharynx without lesions or exudates. Tongue WNL Neck: Neck supple. No lymphadenopathy. Trachea midline. No thyroid, masses, tenderness, or enlargement noted. No bruit. Lungs: Normal respiratory effort and clear to auscultation Cardio: Regular rate and rhythm, normal S1 and S2, no murmur, no rub Abdomen: Soft, non-distended, non-tender Musculoskeletal: No joint swelling or synovitis noted Extremity: No clubbing, cyanosis or edema. Neurologic: CN 2-12 intact, no focal motor or sensory defects noted. Skin: No rashes, ulcerations, or suspicious lesions Mental Status: Alert and oriented x3. Normal mood and affect Assessment/Plan 1. Hypertension (I10: Essential (primary) hypertension) stay on amlodipine, lisinopril, metoprolol, hct 2. Seronegative rheumatoid arthritis (M06.00: Rheumatoid arthritis without rheumatoid factor, unspecified site) on HCQ and MTX 3. H/O TIA (transient ischemic attack) and stroke (Z86.73: Personal history of transient ischemic attack (TIA), and cerebral infarction without residual deficits) stay on asa 4. Low serum vitamin D (R79.89: Other specified abnormal findings of blood chemistry) stay on D 3 Vitamin D 25 Hydroxy: 37.4 ng/mL (12/03/22 07:54:00) 5. 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 Familial hypercholesterolemia (E78.01: Familial hypercholesterolemia) stay on simvastatin Chol: 217 mg/dL High (12/03/22 07:54:00) HDL: 55 mg/dL (12/03/22 07:54:00) LDL Direct: 124 mg/dL (12/03/22 07:54:00) Tri mg/dL High (12/03/22 07:54:00) VLDL: 48 mg/dL High (12/03/22 07:54:00) 7. BMI 28.0-28.9,adult (Z68.28: Body mass index [BMI] 28.0-28.9, adult) The standard range for ages 18 and older is >=18.5 and < 25 kg/m2. Your BMI today was above this range, this falls in the overweight to obese category and there are medical benefits to weight loss. We can offer counselling, referral, and/or medical support in addressing this problem. Your BMI and weight management will be followed at subsequent visits. 8. Overweight (E66.3: Overweight) 9. Acid reflux (K21.9: Gastro-esophageal reflux disease without esophagitis) on omeprazole Orders: simvastatin, 20 mg = 1 tab(s), Oral, Once a day (at bedtime), # 90 tab(s), Refills(s) 3, Pharmacy: [facility], 162, cm, 05/25/23 13:51:00 EST, Height/Length Dosing, 74.5, kg, 05/25/23 13:51:00 EST, Weight Dosing Follow-up With When Contact Information VIRIDIANA HYLTON, JIM Gold In 3 months [facility] [address] [facility] [facility], [place] [address]- Additional Instructions: Patient Education Rheumatoid Arthritis, Neem-dh-Flbn Problem List/Past Medical History Ongoing Acid reflux Allergic rhinitis BMI 28.0-28.9,adult Familial hypercholesterolemia Gastritis H/O TIA (transient ischemic attack) and stroke Hypertension Hyponatremia Immunodeficiency due to drugs Internal hemorrhoids Kidney stones Left wrist pain Low serum vitamin D Other keno terminal operator (current) drug therapy RLS (restless legs syndrome) Seronegative rheumatoid arthritis Historical Abdominal cramping Acute bronchitis due to other specified organisms BRBPR (bright red blood per rectum) Diarrhea Fever Hypertension Left foot pain Nausea and vomiting Rectal bleed Rheumatoid arthritis TIA Procedure/Surgical History Colonoscopy (04/07/2023), Esophagogastroduodenoscopy (04/07/2023), Colonoscopy, Hysterectomy, Number of caesarean sections, right meniscus surgery. Medications amLODIPine 5 mg Tab, 5 mg= 1 tab(s), Oral, Daily, 3 refills ascorbic acid 500 mg oral capsule, 500 mg= 1 cap(s), Oral, Daily aspirin 325 mg Tab, 325 mg= 1 tab(s), Oral, Daily Calcium, Magnesium and Zinc oral tablet, 1 tab(s), Oral, Daily cholecalciferol 1000 intl units oral capsule, 25 mcg= 1 cap(s), Oral, Daily fluticasone Nasal 0.05 mg/inh [place], 2 spray(s), Nasal, Daily, 3 refills folic acid 1 mg Tab, See Instructions gabapentin 300 mg Cap, 300 mg= 1 cap(s), Oral, Daily Glucosamine Chondroitin Advanced, 1 tab, Oral, Daily hydrochlorothiazide 12.5 mg Cap, 12.5 mg= 1 cap(s), Oral, Daily, 3 refills hydroxychloroquine (more content not included)... Normal [facility] Comment on above: Result Comment: Elec tronically Signed By: VIRIDIANA HYLTON, Bridger Reeves\.br\Date and Time Signed: 05/25/23 14:03 EST Patient Educationon 05-25-20 Patient Education Rheumatology Rheumatoid Arthritis Rheumatoid arthritis (RA) is a long-term (chronic) disease. RA causes inflammation in your joints. Your joints may feel painful, stiff, swollen, and warm. RA may start slowly. It most often affects the small joints of the hands and feet. It can also affect other parts of the body. Symptoms of RA often come and go. There is no cure for RA, but medicines can help your symptoms. What are the causes? RA is an autoimmune disease. This means that your body's defense system (immune system) attacks healthy parts of your body by mistake. The exact cause of RA is not known. What increases the risk? ? Being female. ? Having a family history of RA or other diseases like RA. ? Smoking. ? Being very overweight (obese). ? Being exposed to pollutants or chemicals. What are the signs or symptoms? Symptoms start slowly. They are often worse in the morning. ? The first symptom is often morning stiffness that lasts longer than 30 minutes. ? As RA gets worse, symptoms may include: ? Pain, stiffness, swelling, warmth, and tenderness in joints on both sides of your body. ? Loss of energy. ? Not wanting to eat as much as normal. ? Weight loss. ? A low fever. ? Dry eyes and a dry mouth. ? Firm lumps that grow under your skin. ? Changes in the way your joints look or the way they work. ? Symptoms vary and they often come and go. ? Symptoms sometimes get worse for a period of time. These are called flares. How is this treated? Treatment may include: ? Taking good care of yourself. Be sure to rest as needed, eat a healthy diet, and exercise. ? Medicines. These may include: ? Pain relievers. ? Medicines to help with inflammation. ? Disease-modifying antirheumatic drugs (DMARDs). ? Medicines called biologic response modifiers. ? Physical therapy and occupational therapy. ? Surgery, if joint damage is very bad. Your doctor will work with you to find the best treatments. Follow these instructions at home: Managing pain, stiffness, and swelling If told, put heat on the affected area. Do this as often as told by your doctor. Use the heat source that your doctor recommends, such as a moist heat pack or a heating pad. ? Place a towel between your skin and the heat source. ? Leave the heat on for 20?30 minutes. ? Take off the heat if your skin turns bright red. This is very important. If you cannot feel pain, heat, or cold, you have a greater risk of getting burned. Activity ? Return to your normal activities when your doctor says that it is safe. ? Rest when you have a flare. ? Exercise as told by your doctor. This can help your joints move better and get stronger. General instructions ? Take pqqm-wpp-psweesa and prescription medicines only as told by your doctor. ? Keep all follow-up visits. Where to find more information ? [employer]: rheumatology.org ? Arthritis Foundation: arthritis.org Contact a doctor if: ? You have a flare. ? You have a fever. ? You have problems because of your medicines. Get help right away if: ? You have chest pain. ? You have trouble breathing. ? You get a hot, painful joint all of a sudden, and it is worse than your normal joint aches. These symptoms may be an emergency. Get help right away. Call 911. ? Do not wait to see if the symptoms will go away. ? Do not drive yourself to the hospital. Summary ? RA is a long-term disease. ? RA causes inflammation in your joints. ? Symptoms of RA start slowly. They are often worse in the morning. This information is not intended to replace advice given to you by your health care provider. Make sure you discuss any questions you have with your health care provider. Document Revised: 04/09/2022 Document Reviewed: 04/09/2022 The Moment Patient Education ? 2022 GetYou. [facility] Consultation Noteon 05-22-20 23 Consultation Note [id number] [facility] Pre-Visit Planningon 023 Pre-Visit Planning - From: Jt MALONE, Mirtha To: VIRIDIANA HYLTON, Bridger Reeves; Sent: 05/20/2023 15:17:43 EST Subject: Pre-Visit Planning Due Date/Time: 05/20/2023 15:17:00 EST Caller Name: JOE JARAMILLO; Caller Number: Ed , Judie Ma Dr. Darby, *Based on your response below, can you please update the chronic problem list and address during this visit if appropriate?* During a pre-visit planning chart review, I noted the following documentation in the medical record: Home medications- Methotrexate Problem list: Rheumatoid arthritis 02/16/2023 office note-5. Seronegative rheumatoid arthritis (M06.00: Rheumatoid arthritis without rheumatoid factor, unspecified site) stay on HCQ Based on your medical judgment, can you further clarify if they patient currently has these diagnoses and update the problem list. - Immunodeficiency due to drugs - Other I can update the problem list with your specified response if you would like. In responding to this request, please exercise your independent professional judgment. The fact that a question is asked does not imply that any particular answer is desired or expected. If you have any questions, please feel free to contact me at extension [phone]. Thank you! RAMOS Manriquez, RN, CCM, CCDS, CCDS-O From: Bridger DARBY MD To: Jt MALONE, Mirtha; Sent: 05/20/2023 20:07:33 EST Subject: RE: Pre-Visit Planning Caller Name: JOE JARAMILLO; Caller Number: Ed , M yes thanks Normal [address] [facility] Physician Referralon 023 Physician Referral [id number] Normal [facility] XR Wrist 3+ Views Lefton XR Wrist 3+ Views Left Exam Date/Time: 05/04/2023 09:16 EST Reason for Exam: M25.532;Pain, Non Traumatic Report IMPRESSION: NO ACUTE OSSEOUS ABNORMALITY. DEGENERATIVE CHANGES OF THE WRIST. EXAM: XR Wrist 3+ Views Left HISTORY: Wrist pain COMPARISON: None available TECHNIQUE: AP, lateral, oblique and scaphoid views of the wrist obtained. FINDINGS: No acute fracture or dislocation. Carpal and radiocarpal alignment is satisfactory. Triscaphe joint and first carpal metacarpal joint degenerative changes. Soft tissues are within normal limits. Ordering Provider: Tamiko Leone FINAL REPORT Dictated: 05/05/2023 9:35 am Matthias Pollack DO Signed (Electronic Signature): 05/05/2023 9:35 am Signed by: Matthias Pollack DO Transcribed by: ORACIO Technologist: TALIA Technical Comments Radiation Dose: Ka,r in mGy = na DAP = na Normal [facility] Ambulatory Visit Summaryon 1 07-04-2022 Ambulatory Visit Summary JOE JARAMILLO :1955 Visit Date:05/04/2023 Ambulatory Visit Instructions Your Diagnosis Left wrist pain Your Care Team Attending Physician - Vasu ELDRIDGE, Tamiko Dinh Primary Care Physician - Bridger DARBY MD This Is Your Medications List Non-Formulary Medication (Misc Medication) amlodipine (amLODIPine 5 mg Tab) ascorbic acid (ascorbic acid 500 mg oral capsule) aspirin (aspirin 325 mg Tab) bacillus coagulans-inulin (Probiotic Formula (Bacillus Coagulans)) cholecalciferol (cholecalciferol 1000 intl units oral capsule) chondroitin/glucosamine/met hylsulfonylmethane (Glucosamine Chondroitin Advanced) fluticasone nasal (fluticasone Nasal 0.05 mg/inh [place]) folic acid (folic acid 1 mg Tab) gabapentin (gabapentin 300 mg Cap) hydrochlorothiazide (hydrochlorothiazide 12.5 mg Cap) hydroxychloroquine (hydroxychloroquine 200 mg Tab) lisinopril (lisinopril 10 mg Tab) methotrexate (methotrexate 2.5 mg Tab) metoprolol (metoprolol 50 mg ER Tab) multivitamin with minerals (Calcium, Magnesium and Zinc oral tablet) omega-3 polyunsaturated fatty acids ([place]-3) omeprazole (omeprazole 40 mg Cap-DR) simvastatin (simvastatin 20 mg Tab) vitamin E Procedures Performed Colonoscopy (04/07/2023), Esophagogastroduodenoscopy (04/07/2023), Colonoscopy, Hysterectomy, Number of caesarean sections, right meniscus surgery. Discharge Vitals Temperature (Oral) 36.7 ?C Heart Rate (Peripheral) 65 Blood Pressure 112/64 Height 162 cm Height 64 in Weight 74.2 kg Weight 163.24 lb BMI 28.27 What to do next Scheduled Follow-Up Appointments Wednesday 9:30 AM EST With: Where: [facility] Invalid Interpretation Code [address] [place] [address]- \. br\ Wednesday 12:40 PM EST \.br\ With: Muriel Marsh CNPh Shaun\.br\ Where: [facility] Consent for Treatmenton 04-21 Consent for Treatment [id number] Normal [facility] Family Medicine Office/Clini c Noteon 05-04-2023 Family Medicine Office/Clinic Note Chief Complaint pt here for pain in left wrist, onset 3 weeks. has gotten worse in last week. pain is constant. pain goes from thumb down into wrist. hurst to turn wrist. HPI Staff Medicare wellness: Last routine labs: 12/03/22 smoker status: never Mammogram (qyr 45-54, q2yrs 55-75): utd colonoscopy/cologuard (45-75yo): utd DEXA (F>65, M>70): utd flu vaccine status: utd History of Present Illness Joe is a 67 yo female presenting today for acute visit d/t left wrist pain. Pt's PCP is Dr. Daryb Pain assessment: Onset: 3 weeks Location: left wrist along ulnar bone, started in left thumb and wraps around wrist Characteristics: worsening, Aggravating factors: turning doorknob, flexing and extending, holding anything Relieving factors: rest Timing: constant Severity: 8/10 known injury or trauma: no intervention already tried: tylenol, Vitamin E. Pt has RA and takes methotrexate and hydroxychloroquine once daily Review of Systems PHQ Score Initial Depression Screen Score: 0 SCORE Physical Exam Vitals & Measurements T: 36.7 ?C(Oral) HR: 65(Peripheral) BP: 112/64 SpO2: 98% HT: 64 in HT: 162 cm WT: 74.2 kg WT: 163.24 lb BMI: 28.27 General: Well developed, well nourished, in no acute distress Eyes: Bilateral PERRLA, conjunctivae and sclerae wnl, EOMs intact, lids without stye, chalazion, ect/extropion, ptosis, xanthelasma, blepharitis. No discharge to inner canthi.Negative for corneal abrasion or foreign bodies. Ears: grossly normal hearing Nose: No deformity, discharge, inflammation, or lesions. No congestion, no erythema; pink & moist turbinates; clear rhinorrhea. Mouth: mucous membranes pink, moist and intact. Mandan posterior oropharynx, no palatal inflammation, uvula midline, no cobble-stoning, no enlarged tonsils, no tonsillar exudate, no ulcers, no active post nasal drip. tongue midline and wnl. Good dentition. Neck: Neck supple. No lymphadenopathy. Trachea midline. No thyroid, masses, tenderness, or enlargement noted. No bruit. Lungs: Normal respiratory effort and clear to auscultation Cardio: Regular rate and rhythm, normal S1 and S2, no murmur, no rub Abdomen: not assessed Musculoskeletal: No deformity or scoliosis noted. No vertebral tenderness. Normal range of motion. No vertebral point tenderness. Joints normal. No erythema, edema, effusion, crepitus, or ecchymosis. Straight leg raise negative Left wrist negative for edema, pain elicited with flexion, extension. Negative Tinel and phalen signs Extremity: No clubbing, cyanosis, edema, or deformity. Normal ROM with upper and lower extremities, bilaterally. Neurologic: Cranial nerves II-XII grossly intact. motor strength equal & normal bilaterally, sensation equal & normal bilaterally. Gait normal. Skin: No rashes, ulcerations, or suspicious lesions Mental Status: Alert and oriented x3. Normal mood and affect Assessment/Plan 1. Left wrist pain (M25.532: Pain in left wrist) Follow RICE protocols use topical voltaren gel OTC and Naproxen or ibuprofen (CMP wnl) complete XR - will call with results f/u with orthopedics - referral submitted Ordered: [facility] External Ambulatory Referral XR Wrist 3+ Views Left 2. BMI 28.0-28.9,adult (Z68.28: Body mass index [BMI] 28.0-28.9, adult) The standard range for ages 18 and older is >=18.5 and < 25 kg/m2. Your BMI today was above this range, this falls in the overweight to obese category and there are medical benefits to weight loss. We can offer counselling, referral, and/or medical support in addressing this problem. Your BMI and weight management will be followed at subsequent visits. 3. Over weight (E66.3: Overweight) Reviewed importance of making a lifestyle change regarding dietary choices. Discussed goals. Encouraged routine cardio exercise with Goal: 3-5x/week for 30-45 minutes. Start out slow and increase to achieve your goals. Avoid late night snacking, do not skip breakfast and monitor cooking habits/avoid fast food and fried/fatty foods. Will monitor for progress. Follow-up With When Contact Information Tamiko Degroot Only if needed [address], [place] [address]- Additional Instructions: Patient Education Wrist Pain, Adult, Voyb-zl-Hrya Heat Therapy Acute Pain, Adult Problem List/Past Medical History Ongoing Acid reflux Allergic rhinitis BMI 28.0-28.9,adult Familial hypercholesterolemia Gas pain Gastritis H/O TIA (transient ischemic attack) and stroke Hypertension Hyponatremia Internal hemorrhoids Kidney stones Left wrist pain Low serum vitamin D Over weight RLS (restless legs syndrome) Seronegative rheumatoid arthritis Historical Abdominal cramping Acute bronchitis due to other specified organisms BRBPR (bright red blood per rectum) Diarrhea Fever Hypertension Left foot pain Nausea and vomiting Rectal bleed Rheumatoid arthritis TIA Procedure/Surgical History Colonoscopy (10/ (more content not included)... Normal [facility] Comment on above: Result Comment: Elec tronically Signed By: Vasu ELDRIDGE, Tamiko Dinh\.br\Date and Time Signed: 05/04/23 08:56 EST Patient Educationon 05-04-20 Patient Education Caregiving Heat Therapy Heat therapy is the use of heat to help ease sore, stiff, injured, and tight muscles and joints. Heat relaxes muscles, which may help to relieve pain and muscle spasms. What are the risks? If you have any of the following conditions, do not use heat therapy unless your health care provider approves. These conditions include: ? New bruises. ? Open wounds. ? Healing wounds, infected skin, or scarred skin in the area being treated. ? Poor circulation. ? Numbness in the area being treated. ? Unusual swelling of the area being treated. ? Blood clots. ? Diabetes or heart disease. ? Cancer. ? Inability to communicate pain. This may include young children and people who have problems with their brain function (dementia). How to use heat therapy Use the heat source that your health care provider recommends, such as: ? Moist heat pack. ? Hot water bottle. ? Electric heating pad. ? Heated gel pack. ? Heated wrap. ? Warm water bath. Follow your health care provider's instructions about when and how to use heat therapy. In general, you should: 1. Place a towel between your skin and the heat source. 2. Leave the heat on for 20?30 minutes. Your skin may turn pink. 3. Remove the heat if your skin turns bright red. This is especially important if you are unable to feel pain, heat, or cold. You may have a greater risk of getting burned. If directed, you can also soak in a warm water bath. To prepare: 1. Put a non-slip padding in the bathtub to prevent slips or falls. 2. Fill a bathtub with warm water. 3. Always check the water temperature before getting into the bathtub. 4. Soak in the water for 15?20 minutes, or for as long as you are told by your health care provider. 5. When you are done, carefully stand up. You may feel dizzy. 6. After the bath, pat yourself dry. Do not rub your skin to dry it. General recommendations ? Be careful to avoid burning your skin. High heat or long exposure to heat can cause alvarado. ? Do not sleep while using heat therapy. Only use heat therapy while you are awake. ? Check your skin during heat therapy. ? Do not use heat therapy: ? For new injuries, especially if you have swelling on the injured area. ? On areas of skin that are already irritated, such as with a rash or sunburn. ? If your skin turns bright red. Contact a health care provider if you have: ? Blisters, redness, swelling, or numbness in the area where you use heat therapy. ? New pain. ? Pain that gets worse. Summary ? Heat therapy is the use of heat to help ease sore, stiff, injured, and tight muscles and joints. Heat relaxes muscles, which may help relieve pain. ? If you have poor circulation, healing wounds, diabetes, numbness or swelling in the treatment area, blood clots, cancer, or the inability to communicate pain, do not use heat therapy unless your health care provider approves. ? Be careful to avoid burning your skin. Only use heat therapy while you are awake. ? Follow your health care provider's instructions about when and how to use heat therapy. This information is not intended to replace advice given to you by your health care provider. Make sure you discuss any questions you have with your health care provider. Document Revised: 04/09/2021 Document Reviewed: 04/09/2021 Elsevier Patient Education ? 2022 [employer] Orthopedics Wrist Pain, Adult There are many things that can cause wrist pain. Some common causes include: ? An injury to the wrist. ? Using the joint too much. ? A condition that causes too much pressure to be put on a nerve in the wrist (carpal tunnel syndrome). ? Wear and tear of the joints that happens as a person gets older (osteoarthritis). ? A condition that causes swelling and stiffness in the joints (arthritis). Sometimes, the cause of wrist pain is not known. Often, the pain goes away when you follow your doctor's instructions for easing pain at home. This may include resting your wrist, icing your wrist, or using a splint or an elastic wrap for a short time. It is important to tell your doctor if your wrist pain does not go away. Follow these instructions at home: If you have a splint or elastic wrap: ? Wear the splint or wrap as told by your doctor. Take it off only as told by your doctor. Ask if you can take it off for bathing. ? Loosen the splint or wrap if your fingers: ? Tingle. ? Become numb. ? Turn cold and blue. ? Check the skin around the splint or wrap every day. Tell your doctor about any concerns. ? Keep the splint or wrap clean. ? If the splint or wrap is not waterproof: ? Do not let it get wet. ? Cover it with a watertight covering when you take a bath or shower. Managing pain, stiffness, and swelling ? If told, put ice on the painful area. To do this: ? If you have a removable splint or wrap, take it off as told by your doctor. ? (more content not included)... Normal [facility] Consultation Noteon 05-03-20 23 Consultation Note [id number] Normal [facility] Reminderson 04-28-2023 Reminders - From: Magalie Marsh CNP To: Samantha Orellana; Sent: 04/27/2023 12:40:58 EST Show up: 04/27/2023 12:41:00 EST Subject: Ambulatory Reminder Reminder/Recall Colonoscopy in 2032. 04/07/2033 10 year colon recall From: Samantha Orellana To: [facility] - Reminders/Recalls; Sent: 04/28/2023 07:51:01 EST ! Show up: 02/19/2033 07:50:00 EDT Due Date/Time: 03/21/2033 07:50:00 EDT Normal [facility] Gastroenterology Office/Clin ic Noteon 04-27-2023 Gastroenterology Office/Clinic Note Chief Complaint EGD and colnoscopy results. HPI Staff Patient is a 67 year old female here today to review results from EGD and colonoscopy. History of Present Illness Patient is a 67-year-old female who presents for follow-up from EGD/colonoscopy completed 04/07/[address] Bob. Patient was previously evaluated 03/12/2023 by me regarding rectal bleeding?referred by her PCP. Previous colonoscopy in [address] Duarte that revealed internal hemorrhoids. Patient had previous EGD 06/[address] Guardado, general surgery that revealed normal esophagus, normal stomach, normal duodenum. Previous labs 12/03/22 revealed normal H/H, low WBC- patient to follow-up with PCP regarding, normal BUN, creatinine, and normal LFTs. Previous review of records from evaluation with her PCP 01/2023 indicated patient was having abdominal cramping and diarrhea off-and-on with some blood with wiping. Patient reported during visit with me that she had an episode of lower abdominal cramping, gas, nausea, and diarrhea that has since resolved. She reported she had 8 peaches and tomatoes before episode of abdominal pain, diarrhea, and rectal bleeding. She reported she was having 1 formed bowel movement daily. She reported having acid reflux daily after eating. Previous labs 11/2022 revealed normal H&H, normal BUN, normal creatinine, normal LFTs. Patient was ordered EGD/colonoscopy. Had discussed stool testing to evaluate for infectious process and patient had declined. EGD completed 04/07/2023 revealed normal esophagus, hemorrhagic gastritis in antrum, normal duodenum, stomach biopsy revealed reactive gastropathy, negative for intestinal metaplasia, negative for H. pylori. Colonoscopy completed 04/07/2023 revealed large internal hemorrhoids, otherwise normal and is due for repeat in 2032. During today's visit, patient reports she is doing better. She explains she is taking omeprazole 40mg daily that is helping her acid reflux. Has occasional gas/bloating after eating a larger meal that has improved. She reports having indigestion and acid reflux occasionally depending on what she eats. Denies knowledge of triggering foods of acid reflux/indigestion. Is having 1-3 formed BM daily. Denies having any further BRBPR or rectal bleeding 2 months. Patient reports taking tylenol arthritis daily. Denies further abdominal cramping. Reports she drinks 1-2 glasses of wine a week previously and denies current ETOH use. Denies black/bloody stools, nausea/vomiting, fevers/chills, and denies having any other GI complaints. Review of Systems PHQ Score Initial Depression Screen Score: 0 ROS - Provider Constitutional: no fever, no chills. Skin: no Jaundice. ENMT: Denies dysphagia and heartburn. Respiratory: no shortness of breath. Cardiovascular: no chest pain. Gastrointestinal: no nausea, no vomiting, no diarrhea, no GI bleeding. Physical Exam Vitals & Measurements T: 36 ?C(Temporal Artery) HR: 68(Peripheral) BP: 119/77 HT: 64 in HT: 162 cm WT: 74.9 kg WT: 164.78 lb BMI: 28.54 General: Well developed, well nourished, in no acute distress Head: Normocephalic/atraumatic Lungs: Normal respiratory effort and clear to auscultation Cardio: Regular rate and rhythm, normal S1 and S2, no murmur, no rub Abdomen: Soft, non-distended, non-tender. Normoactive bowel sounds present in all 4 abdominal quadrants, bilaterally. Mental Status: Alert and oriented x3. Normal mood and affect Assessment/Plan 1. Gastritis (K29.70: Gastritis, unspecified, without bleeding) EGD completed 04/07/2023 revealed normal esophagus, hemorrhagic gastritis in antrum, normal duodenum, stomach biopsy revealed reactive gastropathy, negative for intestinal metaplasia, negative for H. pylori. Previous labs 11/2022 revealed normal H&H, normal BUN, normal creatinine, normal LFTs. Educated to avoid NSAIDs and ETOH. Continue omeprazole 40mg daily. 2. Gas pain (R14.1: Gas pain) Has occasional gas/bloating after eating a larger meal. Improved. EGD completed 04/07/2023 revealed normal esophagus, hemorrhagic gastritis in antrum, normal duodenum, stomach biopsy revealed reactive gastropathy, negative for intestinal metaplasia, negative for H. pylori. Educated to avoid NSAIDs and ETOH. Educated regarding food diary to evaluate for triggering foods. Continue omeprazole 40mg daily. Discussed evaluation with celiac serology- patient declines celiac serology. 3. Acid reflux (K21.9: Gastro-esophageal reflux disease without esophagitis) Improved. EGD completed 04/07/2023 revealed normal esophagus, hemorrhagic gastritis in antrum, normal duodenum, stomach biopsy revealed reactive gastropathy, negative for intestinal metaplasia, negative for H. pylori. Educated to avoid NSAIDs and ETOH. Continue omeprazole 40mg daily. 4. Internal hemorrhoids (K64.8: Other hemorrhoids) Colonoscopy completed 04/07/2023 revealed large internal hemorrhoids, otherwise normal and is due for repeat in 2032. Educated regarding f (more content not included)... Normal [facility] Comment on above: Result Comment: Elec tronically Signed By: Magalie Marsh CNP\.br\Date and Time Signed: 04/27/23 12:55 EST Patient Educationon 04-27-20 Patient Education Infectious Disease Gastritis, Adult Gastritis is inflammation of the stomach. There are two kinds of gastritis: ? Acute gastritis. This kind develops suddenly. ? Chronic gastritis. This kind is much more common. It develops slowly and lasts for a long time. Gastritis happens when the lining of the stomach becomes weak or gets damaged. Without treatment, gastritis can lead to stomach bleeding and ulcers. What are the causes? This condition may be caused by: ? An infection. ? Drinking too much alcohol. ? Certain medicines. These include steroids, antibiotics, and some gkwi-epb-elbexae medicines, such as aspirin or ibuprofen. ? Having too much acid in the stomach. ? Having a disease of the stomach. Other causes may include: ? An allergic reaction. ? Some cancer treatments (radiation). ? Smoking cigarettes or the use of products that contain nicotine or tobacco. In some cases, the cause of this condition is not known. What increases the risk? ? Having a disease of the intestines. ? Having a disease in which the body's immune system attacks the body (autoimmune disease), such as Crohn's disease. ? Using aspirin or ibuprofen and other NSAIDs to treat other conditions, such as heart disease or chronic pain. ? Stress. What are the signs or symptoms? Symptoms of this condition include: ? Pain or a burning sensation in the upper abdomen. ? Nausea. ? Vomiting. ? An uncomfortable feeling of fullness after eating. ? Weight loss. ? Bad breath. ? Blood in your vomit or stool (feces). In some cases, there are no symptoms. How is this diagnosed? This condition may be diagnosed based on your medical history, a physical exam, and tests. Tests may include: ? Your medical history and a description of your symptoms. ? A physical exam. ? Tests. These can include: ? Blood tests. ? Stool tests. ? A test in which a thin, flexible instrument with a light and a camera is passed down the esophagus and into the stomach (upper endoscopy). ? A test in which a tissue sample is removed to look at it under a microscope (biopsy). How is this treated? This condition may be treated with medicines. The medicines that are used vary depending on the cause of the gastritis. ? If the condition is caused by a bacterial infection, you may be given antibiotic medicines. ? If the condition is caused by too much acid in the stomach, you may be given medicines called H2 blockers, proton pump inhibitors, or antacids. Treatment may also involve stopping the use of certain medicines such as aspirin or ibuprofen and other NSAIDs. Follow these instructions at home: Medicines ? Take vecp-noe-lrakxvu and prescription medicines only as told by your health care provider. ? If you were prescribed an antibiotic medicine, take it as told by your health care provider. Do not stop taking the antibiotic even if you start to feel better. Alcohol use ? Do not drink alcohol if: ? Your health care provider tells you not to drink. ? You are , may be , or are planning to become . ? If you drink alcohol: ? Limit your use to: ? 0?1 drink a day for women. ? 0?2 drinks a day for men. ? Know how much alcohol is in your drink. In the [place] one drink equals one 12 oz bottle of beer (355 mL), one 5 oz glass of wine (148 mL), or one 1? oz glass of hard liquor (44 mL). General instructions ? Eat small, frequent meals instead of large meals. ? Avoid foods and drinks that make your symptoms worse. ? Talk with your health care provider about ways to manage stress, such as getting regular exercise or practicing deep breathing, meditation, or yoga. ? Do not use any products that contain nicotine or tobacco. These products include cigarettes, chewing tobacco, and vaping devices, such as e-cigarettes. If you need help quitting, ask your health care provider. ? Drink enough fluid to keep your urine pale yellow. ? Keep all follow-up visits. This is important. Contact a health care provider if: ? Your symptoms get worse. ? Your abdominal pain gets worse. ? Your symptoms return after treatment. ? You have a fever. Get help right away if: ? You vomit blood or a substance that looks like coffee grounds. ? You have black or dark red stools. ? You are unable to keep fluids down. These symptoms may represent a serious problem that is an emergency. Do not wait to see if the symptoms will go away. Get medical help right away. Call your local emergency services (911 in the [place] Do not drive yourself to the hospital. Summary ? Gastritis is inflammation of the lining of the stomach that can occur suddenly (acute) or develop slowly over time (chronic). ? This condition is diagnosed with a medical history, a physical exam, or tests. ? This condition may be treated with medicines to treat infection or medicines to reduce the amount of acid in your stom (more content not included)... Normal [facility] Postoperative Documentson Postoperative Documents [id number] [facility] IntraOperative Documentson 1 IntraOperative Documents [id number] [facility] Consenton 04-08-2023 Consent [id number] [facility] Discharge Instructionson Discharge Instructions [id number] [facility] Main OR Intraoperative Recor don 04-08-2023 Main OR Intraoperative Record IntraOp Document Type FT Summary Primary Physician: Terese Bob MD Finalized Date/Time: 04/08/23 11:08:14 Pt. Name: JOE JARAMILLO /Sex: 1955 Female Med Rec #: [id number] Physician: Terese Bob MD Financial #: [id number] Pt. Type: O Room/Bed: Endo 12/19 Admit/Disch: 04/07/23 11:58:41 - 04/07/23 23:59:59 Institution: Case Times FT Entry 1 Patient Times In Room 04/07/23 12:21:00 Out Room 04/07/23 13:06:00 Procedure Times Start 04/07/23 12:34:00 Stop 04/07/23 13:00:00 Anesthesia Times Start 04/07/23 12:21:00 Stop 04/07/23 13:06:00 Time at [facility] 04/07/23 12:49:00 Last Modified By: Abilio MALONE, Melanie 04/07/23 13:07:03 General Comments: 1238-EGD completed/AW RN 1242-Colonoscopy started/AW RN 04/08/23 chart opened for charge review per Ken Lopez RN. [place] Case Attendance FT Entry 1 Entry 2 Entry 3 Case Attendee Abilio MALONE, Melanie Avalos, Carly Santos LE[employer]ER HEEL [employer]ER, Janel Dimas Role Performed Bunk House Worker - Primary Scrub - Primary Staff - Other Time In 04/07/23 12:21:00 04/07/23 12:21:00 04/07/23 12:21:00 Time Out 04/07/23 13:06:00 04/07/23 13:06:00 04/07/23 13:06:00 Procedure EGD AND COLONOSCOPY(.) EGD AND COLONOSCOPY(.) EGD AND COLONOSCOPY(.) Comments help in room Last Modified By: Abilio MALONE, Melanie Knox RN, Melanie Knox RN, Melanie 04/07/23 13:07:04 04/07/23 13:07:04 04/07/23 13:07:04 Entry 4 Entry 5 Case Attendee Lisbeth HYLTON, Terese Maguire Jr., DO, Bentley Ramon Role Performed Surgeon - Primary Anesthesiologist of Record Time In 04/07/23 12:21:00 04/07/23 12:21:00 Time Out 04/07/23 13:06:00 04/07/23 13:06:00 Procedure EGD AND COLONOSCOPY(.) EGD AND COLONOSCOPY(.) Comments Last Modified By: Melanie Knox RN, RN, Angela 04/07/23 13:07:04 04/07/23 13:07:04 Perioperative Protocols FT Pre-Care Text: Implements protective measures prior to operative or invasive procedure, confirms identity before the operative or invasive procedure, verifies operative procedure, surgical site, and laterality Entry 1 Procedure(s) EGD AND COLONOSCOPY(.) Patient Identity Birthday, ID Band Verified (select at Check, Patient least 2): Participation Consents / H and P Anesthesia Consent, Operative Site N/A Verified HandP, Surgery/Procedure Marking Verified Consent Surgical Site No Laterality Verified n/a Verified Procedure Verified Yes Correct Patient Yes Position Verified Availability Equipment, Medication Prep Dry n/a Verified (If Applicable) PreOp Antibiotic No Time Out Melanie Knox RN, Given Participants Carly Avalos, Tom LEATHER HEEL BREASTER, Lisbeth Benjamin MD, Andrez Chand Jr. DO, Bentley Valdivia Time Out Complete 04/07/23 12:33:00 Outcomes Met? Yes Last Modified By: Melanie Knox RN 04/07/23 12:37:56 Post-Care Text: The patient is free from signs and symptoms of injury caused by extraneous objects Allergy Information FT Pre-Care Text: Verifies allergies Entry 1 Allergies Reviewed? Yes Allergies Reviewed Self/Patient With Outcomes Met? Yes Last Modified By: Melanie Knox RN 04/07/23 12:38:01 Post-Care Text: The patient received appropriate medication(s) safely administered during the perioperative period Surgical Procedures FT Entry 1 Procedure Description Procedure EGD AND COLONOSCOPY Modifiers . Surgeon Description EGD with gastric biopsy. Colonoscopy Primary Procedure Yes Primary Surgeon Lisbeth HYLTON, Terese Ramon Start 04/07/23 12:34:00 Stop 04/07/23 13:00:00 Anesthesia Type General Surgical Service Gastroenterology Wound Class 2 - Clean-Contaminated Last Modified By: Melanie Knox RN 04/07/23 13:04:50 General Case Data FT Pre-Care Text: Classifies surgical wound, implements aseptic technique, initiates traffic control Entry 1 Case Information OR ENDO 1 FT Case Level Level 2 Wound Class 2 - Clean-Contaminated Specialty Gastroenterology ASA Class 3 Preop Diagnosis BRBPR, DIARRHEA, Postop Same As Preop No ABDOMINAL CRAMPING, GAS PAIN, ACID REFLUX, NAUSEA AND VOMITING Postop Diagnosis EGD- gastritis. Outcomes Met? Yes Colonoscopy -internal hemorrhoids Last Modified By: Melanie Knox RN 04/07/23 13:04:08 Post-Care Text: The patient is free from signs and symptoms of infection Skin Assessment (Pre Procedure) FT Pre-Care Text: Implements protective measures to prevent skin/ tissue injury due to thermal or mechanical sources Evaluates for signs and symptoms of physical injury to skin and tissue Entry 1 Skin Integrity Intact, Mandan, Warm, and Skin Abnormality No Dry Outcomes Met? Yes Last Modified By: Melanie Knox RN 04/07/23 12:38:47 Post-Care Text: The patient is free from signs and symptoms of injury caused by extraneous objects Patient Positioning FT Pre-Care Text: Identifies physical alterations that require additional precautions for procedure-specific positioning, verifies presen (more content not included)... Normal [facility] Consent for Treatmenton 03-21 Consent for Treatment [id number] [facility] Discharge Instructionson Discharge Instructions CILNT JOE M :1955 Visit Date:04/07/2023 Inpatient Discharge Instructions Your Care Team Admitting Physician - Terese Bob MD Referring Physician - Terese Bob MD Reason for Your Visit BRBPR, DIARRHEA, ABDOMINAL CRAMPING, GAS PAIN, ACID REFLUX, NAUSEA AND VOMITING Your Diagnosis Acute gastritis Bright red rectal bleeding Tests Performed Pathology Tissue Exam -- Results Pending -- Please visit your patient portal for your results or contact your primary care physician. This Is Your Medications List Non-Formulary Medication (Misc Medication) amlodipine (amLODIPine 5 mg Tab) ascorbic acid (ascorbic acid 500 mg oral capsule) aspirin (aspirin 325 mg Tab) bacillus coagulans-inulin (Probiotic Formula (Bacillus Coagulans)) cholecalciferol (cholecalciferol 1000 intl units oral capsule) chondroitin/glucosamine/met hylsulfonylmethane (Glucosamine Chondroitin Advanced) fluticasone nasal (fluticasone Nasal 0.05 mg/inh [place]) folic acid (folic acid 1 mg Tab) gabapentin (gabapentin 300 mg Cap) hydrochlorothiazide (hydrochlorothiazide 12.5 mg Cap) hydroxychloroquine (hydroxychloroquine 200 mg Tab) lisinopril (lisinopril 10 mg Tab) methotrexate (methotrexate 2.5 mg Tab) metoprolol (metoprolol 50 mg ER Tab) multivitamin with minerals (Calcium, Magnesium and Zinc oral tablet) omega-3 polyunsaturated fatty acids ([place]-3) omeprazole (omeprazole 40 mg Cap-DR) simvastatin (simvastatin 20 mg Tab) vitamin E Procedure History Colonoscopy, Hysterectomy, Number of caesarean sections, right meniscus surgery. Discharge Vitals Temperature (Temporal Artery) 36.3 ?C Heart Rate (Monitored) 60 Respiratory Rate 27 Blood Pressure 158/93 Height 162 cm Weight 73.5 kg BMI 28.01 What to do next Instructions From Your Doctor Event Name Event Result Discharge Activity Ambulate as tolerated Discharge Restrictions No driving for 24 hrs Discharge Diet(s) Regular Call Your Doctor For Persistent or heavy bleeding Pharmacy Information [facility] Discharge Instructions Discharge Instructions Previously Scheduled Follow-Up Appointments Wednesday 1:40 PM EST With: Bridger DARBY MD Where: [facility] Comment on above: Result Comment: Elec tronically Signed By: Sheldon MALONE, Radha\.ronan\Date and Time Signed: 04/07/23 13:19 EDT Endoscopic Procedure Report - Otheron 04-07-2023 Endoscopic Procedure Report - Other Patient: JOE JARAMILLO MRN: [id number] Age: 67 years Sex: Female : 1955 Associated Diagnoses: None Author: Terese Bob MD Pre-Procedure Procedure Date 04/07/2023 13:06:00 . Procedure Type: Colonoscopy. Procedure provider Performed by Terese Bob MD. Current history and physical Documented on chart. Colorectal neoplasm risk assessment Average risk. Informed Consent After discussing the rationale, risks and benefits, and alternatives to this procedure, the patient provided signed consent for the procedure. Pre-procedure diagnosis: Diagnostic: Rectal bleeding. Medications Anticoagulant/antiplatelet None. ASA Classification: Class II. . Monitoring: See anesthesia record. . Procedure The procedure was performed in the hospital. See anesthesia record for sedation given during procedure. The patient was positioned starting in the left lateral decubitus position. Endoscope type used was an adult-size. The endoscope was lubricated then introduced through the anus. The scope was advanced to the terminal ileum. No difficulties encountered during the procedure. The bowel preparation quality was adequate (see polyps greater than or equal to 6 millimeters). The patient tolerated the procedure well. Findings 1. Large internal hemorrhoids seen on retroflexion 2. Normal colon 3. Normal terminal ileum. Images Procedure images: Rec1_hd_video_2022__T1 _[id number].jpg Rec1_hd_video_2022__T1 _[id number].jpg Rec1_hd_video_2022__T1 __58_[id number].jpg Rec1_hd_video_3__18T1 _[id number].jpg Rec1_hd_video_3__T1 __[id number].jpg . Post-Procedure Complications: none. Estimated blood loss: none. Specimens: none. Devices/ implants: none left in place. Impression and Plan 1. Large internal hemorrhoids seen on retroflexion 2. Normal colon 3. Normal terminal ileum. Recommendations: Repeat colonoscopy:: In 10 years. Follow-up:: Follow up in clinic in 1-2 weeks after pathology results are available . Diet:: Previous. Medication resumption:: Continue current medications, Avoid NSAIDs. Return to activities:: After 24 hours. Education and Follow-up: Counseled: Patient, Family. [facility] Comment on above: Result Comment: Elec tronically Signed By: Lisbeth HYLTON, Terese Ramon\.br\Date and Time Signed: 04/07/23 13:07 EDT Other Comment: Carolyn tse Attachment - attachment storage system not supported [id number] Can be viewed in source systemMissing Attachment - attachment storage system not supported [id number] Can be viewed in source systemMissing Attachment - attachment storage system not supported [id number] Can be viewed in source systemMissing Attachment - attachment storage system not supported [id number] Can be viewed in source systemMissing Attachment - attachment storage system not supported [id number] Can be viewed in source system Endoscopic Procedure Report - Other Patient: JOE JARAMILLO Age: 67 years Sex: Female : 1955 Associated Diagnoses: None Author: Terese Bob MD Pre-Procedure Procedure Date 04/07/2023 12:39:00 . Procedure Type: Esophagogastroduodenoscopy with biopsy. Procedure provider Performed by Terese Bob MD. Current history and physical Documented on chart. Informed Consent After discussing the rationale, risks and benefits, and alternatives to this procedure, the patient provided signed consent for the procedure. Pre-procedure diagnosis: Gastritis . Medications Anticoagulant/antiplatelet None. ASA Classification: Class II. . Monitoring: See anesthesia record. . Procedure The procedure was performed in the hospital. See anesthesia record for sedation given during procedure. The patient was positioned starting in the left lateral decubitus position and with safety measures. Endoscope type used was an adult-size, introduced orally, advanced to the 3rd portion of the duodenum. No difficulty was encountered during the procedure. Views were excellent. The patient tolerated the procedure well. Extent reached: Duodenum third portion Findings 1. Normal esophagus 2. Hemorrhagic gastritis in the antrum, with mucosal atrophy. Otherwise normal stomach. Biopsies of the stomach were taken to rule out H. pylori. 3. Normal duodenum. Images Procedure images: Rec_hd_video_ _[id number].jpg Rec_hd_video__ _[id number].jpg Rec_hd_video__ _[id number].jpg Rec_hd_video__ _[id number].jpg Rec1_hd_video_2022__T1 __[id number].jpg Rec_hd_video_2022__ __25_[id number].jpg Rec1_hd_video_2022__ __19_612.jpg Rec1_hd_video_2022_ __01_[id number].jpg . Post-Procedure Complications: none. Estimated blood loss: minimal. Specimens: sent to pathology. Devices/ implants: none left in place. Impression and Plan Recommendations: -Resume previous diet -Resume home medications -Await pathology results, follow in GI clinic in 1-2 after discharge for Normal [facility] Comment on above: Result Comment: Elec tronically Signed By: Lisbeth HYLTON, Terese Ramon\.br\Date and Time Signed: 04/07/23 12:40 EDT Other Comment: Carolyn tse Attachment - attachment storage system not supported [id number] Can be viewed in source systemMissgae[facility] Attachment - attachment storage system not supported [id number] Can be viewed in source systemMissgae[facility] Attachment - attachment storage system not supported [id number] Can be viewed in source systemMissing Attachment - attachment storage system not supported [id number] Can be viewed in source systemMissgae[facility] Attachment - attachment storage system not supported [id number] Can be viewed in source systemMissgae[facility] Attachment - attachment storage system not supported [id number] Can be viewed in source systemMissgae[facility] Attachment - attachment storage system not supported [id number] Can be viewed in source systemMissing Attachment - attachment storage system not supported [id number] Can be viewed in source system Inpatient Patient Summaryon 04-07-2023 Inpatient Patient Summary [place] [id number] [facility] Clinical Discharge Instructions PERSON INFORMATION Name: JOE JARAMILLO PHYSICIANS Admitting Physician: Terese Bbo MD Attending Physician: Lisbeth HYLTON, Terese Ramon PCP: VIRIDIANA HYLTON, Bridger Reeves Discharge Diagnosis: Acute gastritis Comment: PATIENT EDUCATION INFORMATION Instructions: Medication Leaflets: Follow up: Type Location Start Finish State Open [facility] [place] 05/25/2023 1:40 PM 05/25/2023 2:00 PM Confirmed MEDICATION LIST New Medications [facility], [address] [place] [id number], [phone] omeprazole (omeprazole 40 mg Cap-DR) 1 Capsules By Mouth every day. Refills: 3. Medications to Continue with No Changes Other Medications amlodipine (amLODIPine 5 mg Tab) 1 Tablets By Mouth every day. Refills: 3. ascorbic acid (ascorbic acid 500 mg oral capsule) 1 Capsules By Mouth every day. aspirin (aspirin 325 mg Tab) 1 Tablets By Mouth every day. bacillus coagulans-inulin (Probiotic Formula (Bacillus Coagulans)) 1 Capsules By Mouth every day. cholecalciferol (cholecalciferol 1000 intl units oral capsule) 1 Capsules By Mouth every day. chondroitin/glucosamine/met hylsulfonylmethane (Glucosamine Chondroitin Advanced) 1 tab By Mouth every day. fluticasone nasal (fluticasone Nasal 0.05 mg/inh [place]) 2 Sprays Nasal Inhalation every day. each nostril. Refills: 3. folic acid (folic acid 1 mg Tab) 1 tab(s) Oral Daily. DONOT TAKE ON METHOTREZATE DAY. gabapentin (gabapentin 300 mg Cap) 1 Capsules By Mouth every day. hydrochlorothiazide (hydrochlorothiazide 12.5 mg Cap) 1 Capsules By Mouth every day. Refills: 3. hydroxychloroquine (hydroxychloroquine 200 mg Tab) 1 Tablets By Mouth every day. per Dr. Castelan. lisinopril (lisinopril 10 mg Tab) 1 Tablets By Mouth 2 times a day. Refills: 3. methotrexate (methotrexate 2.5 mg Tab) 5 tab(s) Oral once a week, remember standing labs. metoprolol (metoprolol 50 mg ER Tab) 1 Tablets By Mouth every day. Refills: 3. multivitamin with minerals (Calcium, Magnesium and Zinc oral tablet) 1 Tablets By Mouth every day. Non-Formulary Medication (Misc Medication) omega-3 polyunsaturated fatty acids ([place]-3) 1 tab By Mouth every day. simvastatin (simvastatin 20 mg Tab) 1 Tablets By Mouth once a day (at bedtime). Refills: 3. vitamin E 400 International unit By Mouth every day. Comment: Normal [facility] Lab Reportson 04-07-2023 Lab Reports [id number] Normal [facility] Main OR PACU I Recordon 03-21 Main OR PACU I Record PACU Phase I Docum ent Type FT Summary Primary Physician: Terese Bob MD Finalized Date/Time: 04/07/23 14:00:32 Pt. Name: JOE JARAMILLO/Sex: 1955 Female Med Rec #: [id number] Physician: Terese Bob MD Financial #: [id number] Pt. Type: O Room/Bed: Endo 12/19 Admit/Disch: 04/07/23 11:58:41 - Institution: Case Times PACU I FT Pre-Care Text: Identifies barriers to communication and implements measures to provide psychological support Develops individualized plan of care, and ensures continuity of care Maintains patient's dignity and privacy, and maintains patient confidentiality Identifies and reports philosophical, cultural, and spiritual beliefs and values Identifies individual values and wishes concerning care Implements aseptic technique, and administers prescribed antibiotic therapy and immunizing agents as ordered Evaluates postoperative tissue perfusion Implements thermoregulation measures, and monitors body temperature Evaluates postoperative respiratory status Evaluates postoperative cardiac status Evaluates postoperative neurological status Assesses pain control, collaborated in initiating patient-controlled analgesia and implements alternative methods of pain control Verifies allergies, administers prescribed medications and solutions, evaluates response to medications Entry 1 In PACU I 04/07/23 13:07:00 Discharge from PACU 04/07/23 13:37:00 I Outcomes Met? Yes Last Modified By: Tracey Earl RN 04/07/23 14:00:16 Post-Care Text: The patient demonstrates knowledge of the expected response to the operative or invasive procedure The patient's care is consistent with the individualized perioperative plan of care The patient's right to privacy is maintained The patient's value system, lifestyle, ethnicity, and culture are considered, respected, and incorporated into the perioperative plan of care The patient participates in decisions affecting his or her perioperative plan of care The patient is free from signs and symptoms of infection The patient has wound/tissue perfusion consistent with or improved from baseline levels established preoperatively The patient is at or returning to normothermia at the conclusion of the immediate postoperative period The patient's respiratory function is consistent with or improved from baseline levels established preoperatively The patient's cardiovascular status is consistent with or improved from baseline levels established preoperatively The patient's cardiovascular status is consistent with or improved from baseline levels established preoperatively The patient demonstrates and/or reports adequate pain control throughout the perioperative period The patient received appropriate medication(s), safely administered during the perioperative period Acuity Level PACU I FT Entry 1 Start Time 04/07/23 13:07:00 Stop Time 04/07/23 13:37:00 Acuity Level Acuity Level I Last Modified By: Tracey Earl RN 04/07/23 14:00:28 Finalized By: Tracey Earl RN Document Signatures Signed By: Tracey Earl RN 04/07/23 14:00 Normal [facility] Main OR Preoperative Recordo n 04-07-2023 Main OR Preoperative Record Holding Area Document Type FT Summary Primary Physician: Terese Bob MD Finalized Date/Time: 04/07/23 12:10:23 Pt. Name: CLINT JOEJONY Mckenzie/Sex: 1955 Female Med Rec #: [id number] Physician: Terese Bob MD Financial #: [id number] Pt. Type: O Room/Bed: Endo 12/19 Admit/Disch: 04/07/23 11:58:41 - Institution: Case Times Holding FT Pre-Care Text: Verifies consent for planned procedure, identifies individual values and wishes concerning care, includes family members in perioperative teaching Secures patient's records' belongings, and valuables, maintains patient's dignity and privacy, and maintains patient confidentiality Entry 1 In Holding 04/07/23 12:03:00 Outcomes Met? Yes Last Modified By: Shahrzad Moreno RN F 04/07/23 12:09:34 Post-Care Text: The patient participates in decisions affecting his or her perioperative plan of care The patient's right to privacy is maintained Surgery Checklist FT Entry 1 Patient Birthday, ID Band Procedure History and Physical, Identification: Check, Patient Verification: Surgical Consent, With Participation Patient NPO after Midnight: Yes Date/Time: 04/07/23 09:30:00 Personal Items: Glasses Personal Items glasses, left foot Comment: metal implant, clothes, shoes Limitations: n/a Complaints of Pain: No Pain Comment: denies Operative Site n/a Marking: Marked By: n/a Availability Equipment Verified: Does Patient Smoke No Patient states Yes Comment - Adult [place]- spouse postop adult Supervision supervision available Case Cancelled in No Holding Area see comments below for reason Last Modified By: Shahrzad Moreno RN 04/07/23 12:10:21 General Comments: Pt finished colon prep at 0930, states stool is clear liquid yellow /MDRN Finalized By: Shahrzad Moreno RN Document Signatures Signed By: Shahrzad Moreno RN 04/07/23 12:10 Normal [facility] Monitor Recordon 04-07-2023 Monitor Record [id number] Normal [facility] Monitor Record [id number] Normal [facility] Outpatient Surgery Discharge Instructionon 04-07-2023 Outpatient Surgery Discharge Instruction [place] [id number] Patient Discharge Instructions PERSON INFORMATION Name: JOE JARAMILLO Date of : 1955 Current Date: 04/07/2023 13:06:17 PHYSICIANS Admitting Physician: Terese Bob MD Discharge Diagnosis: Acute gastritis JOE JARAMILLO has been given the following list of follow-up instructions, prescriptions, and patient education materials: PATIENT FOLLOW-UP INFORMATION Diet: Regular Discharge Activity: Ambulate as tolerated Discharge Restrictions: No driving for 24 hrs Call Your Doctor For: Persistent or heavy bleeding IF UNABLE TO CONTACT YOUR PHYSICIAN AND YOU FEEL IT IS AN EMERGENCY, GO TO THE NEAREST EMERGENCY ROOM OR CALL 911 ICLINT JEANNE M, have received the attached patient education materials/instructions and have verbalized understanding: May we do a follow up call? Yes No I was present when discharge instructions were given ___ Patient Signature Date Clinican/Nurse Signature Date Follow up: Type Location Start Finish State Open [facility] [place] 05/25/2023 1:40 PM 05/25/2023 2:00 PM Confirmed Pharmacy Information: [facility] [place] You may receive a survey from [employer] asking you to rate your care experience. Your feedback is important and will help us understand what we do well and how we can improve the quality of care we provide to you, your loved ones and our community. It?s an honor to serve you. Thank you for choosing [facility] HERE ARE THE MEDICATION CHANGES THAT OCCURRED DURING YOUR HOSPITAL STAY New Medications [facility], [address] [place], [place] [id number], [phone] omeprazole (omeprazole 40 mg Cap-DR) 1 Capsules By Mouth every day. Refills: 3. Medications to Continue with No Changes Other Medications amlodipine (amLODIPine 5 mg Tab) 1 Tablets By Mouth every day. Refills: 3. ascorbic acid (ascorbic acid 500 mg oral capsule) 1 Capsules By Mouth every day. aspirin (aspirin 325 mg Tab) 1 Tablets By Mouth every day. bacillus coagulans-inulin (Probiotic Formula (Bacillus Coagulans)) 1 Capsules By Mouth every day. cholecalciferol (cholecalciferol 1000 intl units oral capsule) 1 Capsules By Mouth every day. chondroitin/glucosamine/met hylsulfonylmethane (Glucosamine Chondroitin Advanced) 1 tab By Mouth every day. fluticasone nasal (fluticasone Nasal 0.05 mg/inh [place]) 2 Sprays Nasal Inhalation every day. each nostril. Refills: 3. folic acid (folic acid 1 mg Tab) 1 tab(s) Oral Daily. DONOT TAKE ON METHOTREZATE DAY. gabapentin (gabapentin 300 mg Cap) 1 Capsules By Mouth every day. hydrochlorothiazide (hydrochlorothiazide 12.5 mg Cap) 1 Capsules By Mouth every day. Refills: 3. hydroxychloroquine (hydroxychloroquine 200 mg Tab) 1 Tablets By Mouth every day. per Dr. Castelan. lisinopril (lisinopril 10 mg Tab) 1 Tablets By Mouth 2 times a day. Refills: 3. methotrexate (methotrexate 2.5 mg Tab) 5 tab(s) Oral once a week, remember standing labs. metoprolol (metoprolol 50 mg ER Tab) 1 Tablets By Mouth every day. Refills: 3. multivitamin with minerals (Calcium, Magnesium and Zinc oral tablet) 1 Tablets By Mouth every day. Non-Formulary Medication (Misc Medication) omega-3 polyunsaturated fatty acids ([place]-3) 1 tab By Mouth every day. simvastatin (simvastatin 20 mg Tab) 1 Tablets By Mouth once a day (at bedtime). Refills: 3. vitamin E 400 International unit By Mouth every day. PATIENT EDUCATION INFORMATION Instructions: Medication Leaflets: [facility] Patient Education - Texton 1 Patient Education - Text Colonoscopy Care After Surgery Please read the instructions outlined below and refer to this sheet in the next few weeks. These discharge instructions provide you with general information on caring for yourself after you leave the hospital. Your doctor may also give you specific instructions. While your treatment has been planned according to the most current medical practices available, unavoidable complications occasionally occur. If you have any problems or questions after discharge, please call your doctor. ACTIVITY You may resume your regular activity, but move at a slower pace for the next 24 hours. Take frequent rest periods for the next 24 hours. Walking will help get rid of the air and reduce the bloated feeling in your abdomen (belly). No driving for 24 hours (because of the anesthesia (medicine) used during the test). You may shower. Do not sign any important legal documents or operate any machinery for 24 hours (because of the anesthesia used during the test). NUTRITION Drink plenty of fluids. You may resume your normal diet as instructed by your doctor. Begin with a light meal and progress to your normal diet. Heavy or fried foods are harder to digest and may make you feel nauseated (sick to your stomach). Avoid alcoholic beverages for 24 hours or as instructed. MEDICATIONS You may resume your normal medications unless your doctor tells you otherwise. WHAT YOU CAN EXPECT TODAY Some feelings of bloating in the abdomen. Passage of more gas than usual. Spotting of blood in your stool or on the toilet paper. FOLLOW-UP Your doctor will discuss the results of your test with you. SEEK IMMEDIATE MEDICAL ATTENTION IF: There is more than a spotting of blood in your stool. There is abdominal distention (your abdomen is swollen). There is vomiting. You have a temperature over 101.5 F. There is abdominal pain or discomfort that is severe or gets worse throughout the day. Endoscopy Care After Procedure Please read the instructions outlined below and refer to this sheet in the next few weeks. These discharge instructions provide you with general information on caring for yourself after you leave the hospital. Your doctor may also give you specific instructions. While your treatment has been planned according to the most current medical practices available, unavoidable complications occasionally occur. If you have any problems or questions after discharge, please call your doctor. ACTIVITY ? You may resume your regular activity but move at a slower pace for the next 24 hours. ? Take frequent rest periods for the next 24 hours. ? Walking will help expel (get rid of) the air and reduce the bloated feeling in your abdomen. ? No driving for 24 hours (because of the anesthesia (medicine) used during the test). ? You may shower. ? Do not sign any important legal documents or operate any machinery for 24 hours (because of the anesthesia used during the test). NUTRITION ? Drink plenty of fluids. ? You may resume your normal diet. ? Begin with a light meal and progress to your normal diet. ? Avoid alcoholic beverages for 24 hours or as instructed by your caregiver. MEDICATIONS ? You may resume your normal medications unless your caregiver tells you otherwise. WHAT YOU CAN EXPECT TODAY ? You may experience abdominal discomfort such as a feeling of fullness or ?gas? pains. FOLLOW-UP ? Your doctor will discuss the results of your test with you. seek immediate medical attention if any of the following occur: ? Excessive nausea (feeling sick to your stomach) and/or vomiting. ? Severe abdominal pain and distention (swelling). ? Trouble swallowing. ? Temperature over 100 F (37.8? C). ? Rectal bleeding or vomiting of blood. Document Released: 01/19/2005 Document Re-Released: 11/29/2006 ExitCare? Patient Information ?2009 [employer]. Gastroenterology Hemorrhoids Hemorrhoids are swollen veins that may develop: ? In the butt (rectum). These are called internal hemorrhoids. ? Around the opening of the butt (anus). These are called external hemorrhoids. Hemorrhoids can cause pain, itching, or bleeding. Most of the time, they do not cause serious problems. They usually get better with diet changes, lifestyle changes, and other home treatments. What are the causes? This condition may be caused by: ? Having trouble pooping (constipation). ? Pushing hard (straining) to poop. ? Watery poop (diarrhea). ? . ? Being very overweight (obese). ? Sitting for long periods of time. ? Heavy lifting or other activity that causes you to strain. ? Anal sex. ? Riding a bike for a long period of time. What are the signs or symptoms? Symptoms of this condition include: ? Pain. ? Itching or soreness in the butt. ? Bleeding from the butt. ? Leaking poop. ? Swelling in the area. ? One or more lumps around the opening of your butt. How is this (more content not included)... Normal [facility] Progress Note-Physicianon Progress Note-Physician Patient: JOE JARAMILLO Age: 67 years Sex: Female : 1955 Associated Diagnoses: None Author: Bentley Maguire Jr., DO Postoperative Information Postoperative disposition: Postoperative disposition: Home. Optimetrix number: Optimetrix number [id number]. Anesthetic utilized: General. Physical Examination Vital Signs 04/07/2023 13:15 EDT Heart Rate Monitored 60 bpm Respiratory Rate Monitored 27 br/min Systolic Blood Pressure 158 mmHg HI Diastolic Blood Pressure 93 mmHg HI Blood Pressure Location Left arm Mean Arterial Pressure, Cuff 115 mmHg SpO2 96 % 04/07/2023 13:10 EDT Heart Rate Monitored 65 bpm Respiratory Rate Monitored 18 br/min Systolic Blood Pressure 150 mmHg HI Diastolic Blood Pressure 98 mmHg HI Blood Pressure Location Left arm Mean Arterial Pressure, Cuff 115 mmHg SpO2 97 % 04/07/2023 13:07 EDT Temperature Temporal Artery 36.3 DegC Heart Rate Monitored 67 bpm Respiratory Rate Monitored 18 br/min Systolic Blood Pressure 150 mmHg HI Diastolic Blood Pressure 99 mmHg HI Blood Pressure Location Left arm Mean Arterial Pressure, Cuff 116 mmHg SpO2 98 % Pain Assessment: Controlled. General: Awake, Alert, Appropriate. Respiratory: Adequate air exchange, Non-labored. Cardiovascular: Stable, Normal peripheral perfusion. Neurological: Neurologic exam at baseline. No changes.. Assessment Anesthetic outcome No anesthetic complications noted. No nausea/vomiting. Review / Management Condition: Stable. Plan Transfer/Discharge: Transfer/Discharge Discharge when meets criteria ( From PACU to Ambulatory Surgery Unit, and To home ). Normal [facility] Comment on above: Result Comment: Elec tronically Signed By: Bentley Maguire Jr., DO\.br\Date and Time Signed: 04/07/23 13:55 EDT Progress Note-Physician Patient: JOE JARAMILLO Age: 67 years Sex: Female : 1955 Associated Diagnoses: None Author: Bentley Maguire Jr., DO Preoperative Information Anesthesia history: Patient history: No prior anesthetic problems. Informed consent: Signed by patient. Re-evaluation prior to induction: Initial evaluation reviewed: No significant change. Review of Systems Respiratory: Negative except as documented in history of present illness. Cardiovascular: Negative except as documented in history of present illness. Health Status Allergies: Allergic Reactions (Selected) Severity Not Documented Lipitor- Muscle pain., Allergies (1) Active Reaction Lipitor muscle pain Current medications: (Selected) Inpatient Medications Ordered Lactated Ringers IV Glenna 1000 mL 1,000 mL: 1,000 mL, IV, 100 mL/hr, Routine, Start date 04/07/23 11:07:00 EDT, 10 hour(s), Total volume (mL): 1,000, 73.5 kg, 1.82, m2 Sodium Chloride 0.9% IV Glenna 1000 mL 1,000 mL: 1,000 mL, IV, 20 mL/hr, Routine, Start date 04/07/23 6:44:00 EDT, 50 hour(s), Total volume (mL): 1,000, 73.5 kg, 1.82, m2 Prescriptions Prescribed amLODIPine 5 mg Tab: 5 mg = 1 tab(s), Oral, Daily, # 90 tab(s), Refills(s) 3, Pharmacy: [facility], 160, cm, 11/18/22 11:53:00 EDT, Height/Length Dosing, 74.4, kg, 11/18/22 11:53:00 EDT, Weight Dosing fluticasone Nasal 0.05 mg/inh [place]: 2 spray(s), Nasal, Daily, 3 EA, Refill(s) 3, each nostril, [facility], 160, cm, 08/18/22 9:58:00 EST, Height/Length Dosing, 73.6, kg, 08/18/22 9:58:00 EST, Weight Dosing hydrochlorothiazide 12.5 mg Cap: 12.5 mg = 1 cap(s), Oral, Daily, # 90 cap(s), Refills(s) 3, Pharmacy: [facility], 160, cm, 04/17/22 9:32:00 EDT, Height/Length Dosing, 72.1, kg, 04/17/22 9:32:00 EDT, Weight Dosing lisinopril 10 mg Tab: 10 mg = 1 tab(s), Oral, BID, # 180 tab(s), Refills(s) 3, Pharmacy: [facility], 160, cm, 04/17/22 9:32:00 EDT, Height/Length Dosing, 72.1, kg, 04/17/22 9:32:00 EDT, Weight Dosing metoprolol 50 mg ER Tab: 50 mg = 1 tab(s), Oral, Daily, # 90 tab(s), Refills(s) 3, Pharmacy: [facility], 160, cm, 04/17/22 9:32:00 EDT, Height/Length Dosing, 72.1, kg, 04/17/22 9:32:00 EDT, Weight Dosing simvastatin 20 mg Tab: 20 mg = 1 tab(s), Oral, Once a day (at bedtime), # 90 tab(s), Refills(s) 3, Pharmacy: [facility], 160, cm, 04/17/22 9:32:00 EDT, Height/Length Dosing, 72.1, kg, 04/17/22 9:32:00 EDT, Weight Dosing Documented Medications Documented Calcium, Magnesium and Zinc oral tablet: 1 tab(s), Oral, Daily, Prophylaxis Glucosamine Chondroitin Advanced: 1 tab, Oral, Daily, Refill(s) 0, Prophylaxis Misc Medication: See Instructions [place]-3: 1 tab, Oral, Daily, Refill(s) 0, Prophylaxis Probiotic Formula (Bacillus Coagulans): 1 cap(s), Oral, Daily, Refill(s) 0, Prophylaxis ascorbic acid 500 mg oral capsule: 500 mg = 1 cap(s), Oral, Daily, Refills(s) 0, Prophylaxis aspirin 325 mg Tab: 325 mg = 1 tab(s), Oral, Daily, Refills(s) 0, Prophylaxis cholecalciferol 1000 intl units oral capsule: 25 mcg = 1 cap(s), Oral, Daily, Refills(s) 0, Prophylaxis folic acid 1 mg Tab: See Instructions, 1 tab(s) Oral Daily. DONOT TAKE ON METHOTREZATE DAY, Refills(s) 0, Prophylaxis gabapentin 300 mg Cap: 300 mg = 1 cap(s), Oral, Daily, Refills(s) 0, Neuropathy hydroxychloroquine 200 mg Tab: 200 mg = 1 tab(s), Oral, Daily, per Dr. Castelan methotrexate 2.5 mg Tab: See Instructions, 5 tab(s) Oral once a week, remember standing labs, Refills(s) 0 vitamin E: 400 International_Unit, Oral, Daily, Refills(s) 0, Prophylaxis, Home Medications (19) Active amLODIPine 5 mg Tab 5 mg = 1 tab(s), Oral, Daily ascorbic acid 500 mg oral capsule 500 mg = 1 cap(s), Oral, Daily aspirin 325 mg Tab 325 mg = 1 tab(s), Oral, Daily Calcium, Magnesium and Zinc oral tablet 1 tab(s), Oral, Daily cholecalciferol 1000 intl units oral capsule 25 mcg = 1 cap(s), Oral, Daily fluticasone Nasal 0.05 mg/inh [place] 2 spray(s), Nasal, Daily folic acid 1 mg Tab See Instructions gabapentin 300 mg Cap 300 mg = 1 cap(s), Oral, Daily Glucosamine Chondroitin Advanced 1 tab, Oral, Daily hydrochlorothiazide 12.5 mg Cap 12.5 mg = 1 cap(s), Oral, Daily hydroxychloroquine 200 mg Tab 200 mg = 1 tab(s), Oral, Daily lisinopril 10 mg Tab 10 mg = 1 tab(s), Oral, BID methotrexate 2.5 mg Tab See Instructions metoprolol 50 mg ER Tab 50 mg = 1 tab(s), Oral, Daily Misc Medication See Instructions [place]-3 1 tab, Oral, Daily Probiotic Formula (Bacillus Coagulans) 1 cap(s), Oral, Daily simvastatin 20 mg Tab 20 mg = 1 tab(s), Oral, Once a day (at bedtime) vitamin E 400 International_Unit, Oral, Daily , Medications (2) Active Scheduled: (0) Continuous: (2) Lactated Ringers 1,000 mL 1,000 mL, IV, 100 mL/hr Sodium Chloride 0.9% 1,000 mL 1,000 mL, IV, 20 mL/hr PRN: (0) Problem list: All Problems Abdominal cramping / SNOMED CT 9929668 (more content not included)... Normal [facility] Comment on above: Result Comment: Elec tronically Signed By: Bentley Maguire Jr., DO.ronan\Date and Time Signed: 04/07/23 11:08 EDT CBC (INCLUDES DIFF/PLT)on Basophils (Bld) [#/Vol] 0.041 10*3/uL Normal 0-200 [facility] Comment on above: Performed By: #### 1 0231, 0, 6399 #### [facility] of [place] [address] Hospital Administrator: Cm Pal MD Basophils/100 WBC (Bld) 0.9 % Normal [facility] Comment on above: Performed By: #### 1 0231, 7599, 6399 #### [facility] of [address], [address] [place] [address] Hospital Administrator: Cm Pal MD Eosinophils (Bld) [#/Vol] 0.072 10*3/uL Normal 15-500 [facility] Comment on above: Performed By: #### 1 0231, 7599, 6399 #### [facility] [place] [address] Hospital Administrator: Cm Pal MD Eosinophils/100 WBC (Bld) 1.6 % Normal [facility] Comment on above: Performed By: #### 1 023, 7599, 6399 #### [facility] [place] [address] Hospital Administrator: Cm Pal MD Erythrocyte distribution width (RBC) [Ratio] 11.9 % Normal 11.0-15.0 [facility] Comment on above: Performed By: #### 1 023, 7599, 6399 #### [facility] [place] [address] Hospital Administrator: Cm Pal MD Hematocrit (Bld) [Volume fraction] 39.8 % Normal 35.0-45.0 [facility] Comment on above: Performed By: #### 1 0231, 7599, 6399 #### [facility] [place] [address] Hospital Administrator: Cm Pal MD Hemoglobin (Bld) [Mass/Vol] 13.2 g/dL Normal 11.7-15.5 [facility] Comment on above: Performed By: #### 1 0231, 7599, 6399 #### [facility] of [address], [address] [place] [address] Hospital Administrator: Cm Pal MD Lymphocytes (Bld) [#/Vol] 1.368 10*3/uL Normal 850-3900 [facility] Comment on above: Performed By: #### 1 0231, 0, 6399 #### [facility] [place] [address] Hospital Administrator: Cm Pal MD Lymphocytes/100 WBC (Bld) 30.4 % Normal [facility] Comment on above: Performed By: #### 1 0231, 7599, 6399 #### [facility] [place] [address] Hospital Administrator: Cm Pal MD MCH (RBC) [Entitic mass] 31.5 pg Normal 27.0-33.0 [facility] Comment on above: Performed By: #### 1 023, 7599, 6399 #### [facility] [place] [address] Hospital Administrator: Cm aPl MD MCHC (RBC) [Mass/Vol] 33.2 g/dL Normal 32.0-36.[address] [facility] Comment on above: Performed By: #### 1 023, 7599, 6399 #### [facility] [place] [address] Hospital Administrator: Cm Pal MD MCV (RBC) [Entitic vol] 95.0 fL Normal 80.0-100.0 [facility] Comment on above: Performed By: #### 1 0231, 7599, 6399 #### [facility] [place] [address] Hospital Administrator: Cm Pal MD Monocytes (Bld) [#/Vol] 0.482 10*3/uL Normal 200-950 [facility] Comment on above: Performed By: #### 1 0231, 7599, 6399 #### [facility] of [address] [place] [address] Hospital Administrator: Cm Pal MD Monocytes/100 WBC (Bld) 10.7 % Normal [facility] Comment on above: Performed By: #### 1 0231, 7599, 6399 #### [facility] [place] [address] Hospital Administrator: Cm Pla MD Neutrophils (Bld) [#/Vol] 2.538 10*3/uL Normal 1768-4848 [facility] Comment on above: Performed By: #### 1 023, 7599, 6399 #### [facility] [place] [address] Hospital Administrator: Cm Pal MD Neutrophils/100 WBC (Bld) 56.4 % Normal [facility] Comment on above: Performed By: #### 1 023, 7599, 6399 #### [facility] [place] [address] Hospital Administrator: Cm Pal MD Platelet mean volume (Bld) [Entitic vol] 10.1 fL Normal 7.5-12.5 [facility] Comment on above: Performed By: #### 1 023, 7599, 6399 #### [facility] [place] [address] Hospital Administrator: Cm Pal MD Platelets (Bld) [#/Vol] 281 10*3/uL Normal 140-400 [facility] Comment on above: Performed By: #### 1 023, 7599, 6399 #### [facility] of [address], [address] [place] [address] Hospital Administrator: Cm Pal MD RBC (Bld) [#/Vol] 4.19 10*6/uL Normal 3.80-5.10 [facility] Comment on above: Performed By: #### 1 023, 7599, 6399 #### [facility] [place] [address] Hospital Administrator: Cm Pal MD WBC (Bld) [#/Vol] 4.5 10*3/uL Normal 3.8-10.8 [facility] Comment on above: Performed By: #### 1 0231, 7600, 6399 #### [facility] [place] [address] Hospital Administrator: Cm Pal MD CREATININEon 04-06-2023 Creatinine [Mass/Vol] 0.61 mg/dL Normal 0.50-1.05 [facility] Comment on above: Order Comment: FASTI NG: UNKNOWN Performed By: #### 6 399, 76119, 809, 375 #### [facility] [place] [address] Hospital Administrator: Cm Pal MD GFR/1.73 sq M.predicted among non-blacks MDRD (S/P/Bld) [Vol rate/Area] 99 mL/min/{1.73_m2} Normal > OR = 60 [facility] Comment on above: Order Comment: FASTI NG: UNKNOWN Performed By: #### 6 399, 56735, 809, 375 #### [facility] [place] [address] Hospital Administrator: Cm Pal MD HEPATIC FUNCTION PANELon Albumin [Mass/Vol] 4.4 g/dL Normal 3.6-5.1 [facility] Comment on above: Performed By: #### 6 399, 95677, 809, 375 #### [facility] [place] [address] Hospital Administrator: Cm Pal MD Albumin/Globulin [Mass ratio] 1.5 {ratio} Normal 1.0-2.5 [facility] Comment on above: Performed By: #### 6 399, 97102, 809, 375 #### [facility] [place] [address] Hospital Administrator: Cm Pal MD ALP [Catalytic activity/Vol] 73 U/L Normal 37-153 [facility] Comment on above: Performed By: #### 6 399, 08363, 809, 375 #### [facility] [place] [address] Hospital Administrator: Cm Pal MD ALT [Catalytic activity/Vol] 16 U/L Normal 6-29 [facility] Comment on above: Performed By: #### 6 399, 18245, 809, 375 #### [facility] [place] [address] Hospital Administrator: Cm Pal MD AST [Catalytic activity/Vol] 18 U/L Normal 10-35 [facility] Comment on above: Performed By: #### 6 399, 29503, 809, 375 #### [facility] [place] [address] Hospital Administrator: Cm Pal MD Bilirubin [Mass/Vol] 0.3 mg/dL Normal 0.2-1.2 [facility] Comment on above: Performed By: #### 6 399, 24225, 809, 375 #### [facility] [place] [address] Hospital Administrator: Cm Pal MD BILIRUBIN, INDIRECT 0.2 mg/dL (calc) Normal 0.2-1.2 [facility] Comment on above: Performed By: #### 6 399, 07025, 809, 375 #### [facility] [place] [address] Hospital Administrator: Cm Pal MD Bilirubin.indirect [Mass/Vol] 0.1 mg/dL Normal < OR = 0.2 [facility] Comment on above: Performed By: #### 6 399, 33776, 809, 375 #### [facility] [place] [address] Hospital Administrator: Cm Pal MD Globulin (S) [Mass/Vol] 3.0 g/dL Normal 1.9-3.7 [facility] Comment on above: Performed By: #### 6 399, 11646, 809, 375 #### [facility] of [place] [address], [address] [place] [address] Hospital Administrator: Cm Pal MD Protein [Mass/Vol] 7.4 g/dL Normal 6.1-8.1 [facility] Comment on above: Performed By: #### 6 399, 36380, 809, 375 #### [facility] [address], [address] [place] [address] Hospital Administrator: Cm Pal MD Physician Orderon 04-06-2023 Physician Order [id number]#[id number] Normal [facility] Reference Lab Notificationon 04-06-2023 [facility] Normal [facility] Comment on above: Performed By: #### 2 [id number] #### [facility] [address] [place] [address] Results Report See Ref Lab Report Normal [facility] Comment on above: Performed By: #### 2 [id number] #### [facility] [address] [place] [address] Reference Lab Reporton 04-06 Reference Lab Report [id number]#[id number] Normal [facility] SED RATE BY MODIFIED WESTERG RENon 04-06-2023 SED RATE BY MODIFIED WESTERGREN 19 mm/h Normal < OR = 30 [facility] Comment on above: Performed By: #### 1 0231, 7600, 6399 #### [facility] [address], [address] [place] [address] Hospital Administrator: Cm Pal MD Reference Laboratory Testing Ordered By: Taylor Mayberry on 04-05-2023 Results Report See Ref Lab Report (04/05/23 11:04 AM) Normal [facility] [employer] Consultation Noteon 03-25-20 Consultation Note [id number]#[id number]:127 Normal [facility] BD Bone Density DEXAon 03-23 BD Bone Density DEXA Exam Date/Time: 03/18/2023 09:22 EDT Reason for Exam: M85.89 Report IMPRESSION: OSTEOPENIA. The 10 year probability (FRAX) of a major osteoporotic fracture based on the left femoral neck bone marrow density is: 19.6%, and hip fracture 2.7%. EXAM: BD Bone Density DEXA DATE: 03/18/2023 CLINICAL HISTORY: M85.89. COMPARISON: 04/29/2020 COMMENTS: The lumbar spine and both hips were scanned. The mean bone mineral density from L1 to L4 is 0.995 g/cm2 and this value is -1.5 standard of deviation below the standard reference value for a young adult. Bone mineral density of the left femoral neck is 0.806 g/cm2 and this value is -1.7 standard of deviation below the standard reference value. Bone mineral density of the right femoral neck is 0.860 g/cm2 and this value is -1.3 standard of deviation below the standard reference value. These values meet WHO criteria for osteopenia. When compared to the prior exam, there has been a significant 7.8% increase in bone mineral density from L1 to L4 that may be related to increasing degenerative changes, a -0.4% decrease in bone mineral density of the left femoral neck, and a -1.7% decrease in bone mineral density of the right femoral neck. RECOMMENDATIONS: 1. All patients should optimize her calcium and vitamin D intake. 2. Consider FDA-approved medical therapies in postmenopausal women and minimal age 50 years and older, based on the following: - hip or vertebral (clinical or morphometric) fracture. - T-score less than or equal to -2.5 at the femoral neck or spine after the appropriate evaluation to exclude secondary causes. - Low bone density (T score between -1.0 and -2.5 at the femoral neck or spine) and a 10 year probability of hip fracture greater than or equal to 3% or a 10-year probability of a major osteoporosis-related fracture greater than or equal to 20% based on FRAX calculation. Report - Clinician judgment and/or patient preferences may indicate treatment for palpable attenuation fracture probability is above or below these levels. - Further guidance on treatment can be found at the National Osteoporosis Foundation's website: bonesource.org 3. Patients with diagnosis of osteoporosis or high risk for fracture. There are irregular bone mineral density tests. For patients eligible for Medicare, routine testing is allowed once every 2 years. Testing frequency can be increased to 1 year for patient's history of rapidly progressing disease, those who are receiving or discontinuing medical therapy to restore bone mass or have additional risk factors. Ordering Provider: MATTHIAS CASTELAN FINAL REPORT Dictated: 03/23/2023 12:04 pm Home Glover MD Signed (Electronic Signature): 03/23/2023 12:04 pm Signed by: Home Glover MD Transcribed by: ORACIO Technologist: [facility] Insurance Correspondenceon 0 03-19-2023 Insurance Correspondence [id number]:127 [facility] Consent for Treatmenton 02-20 Consent for Treatment [id number]#[id number]:127 [facility] Consent for Procedure/Surger yon 03-15-2023 Consent for Procedure/Surgery [id number]#[id number]:127 [facility] Physician Orderon 03-15-2023 Physician Order [id number]#[id number]:127 [facility] Ambulatory Visit Summaryon 0 03-12-2023 Ambulatory Visit Summary [place] M :1955 Visit Date:03/12/2023 Ambulatory Visit Instructions Your Diagnosis BRBPR (bright red blood per rectum) Diarrhea Abdominal cramping Gas pain Nausea and vomiting Acid reflux Your Care Team Attending Physician - Magalie Marsh CNP Primary Care Physician - Bridger DARBY MD This Is Your Medications List Contact prescribing physician if questions or concerns Non-Formulary Medication (Misc Medication) amlodipine (amLODIPine 5 mg Tab) ascorbic acid (ascorbic acid 500 mg oral capsule) aspirin (aspirin 325 mg Tab) bacillus coagulans-inulin (Probiotic Formula (Bacillus Coagulans)) cholecalciferol (cholecalciferol 1000 intl units oral capsule) chondroitin/glucosamine/met hylsulfonylmethane (Glucosamine Chondroitin Advanced) fluticasone nasal (fluticasone Nasal 0.05 mg/inh [place]) folic acid (folic acid 1 mg Tab) gabapentin (gabapentin 300 mg Cap) hydrochlorothiazide (hydrochlorothiazide 12.5 mg Cap) hydroxychloroquine (hydroxychloroquine 200 mg Tab) lisinopril (lisinopril 10 mg Tab) methotrexate (methotrexate 2.5 mg Tab) metoprolol (metoprolol 50 mg ER Tab) multivitamin with minerals (Calcium, Magnesium and Zinc oral tablet) omega-3 polyunsaturated fatty acids ([place]-3) simvastatin (simvastatin 20 mg Tab) vitamin E Procedures Performed Colonoscopy, Hysterectomy, Number of caesarean sections, right meniscus surgery. Discharge Vitals Temperature (Temporal Artery) 36.4 ?C Heart Rate (Peripheral) 56 Blood Pressure 126/78 Height 162 cm Height 64 in Weight 73.5 kg Weight 161.7 lb BMI 28.01 What to do next Scheduled Follow-Up Appointments Wednesday 1:40 PM EST With: VIRIDIANA HYLTON, Bridger Reeves Where: [facility] Primary Care Normal [facility] Gastroenterology Office/Clin ic Noteon 03-12-2023 Gastroenterology Office/Clinic Note Chief Complaint Reflux, gas, diarrhea and 1 episode of rectal bleeding. HPI Staff Patient is a 67 year old female who was referred by Dr Darby for rectal bleeding. Patient had colonoscopy 08/16/2013 and 08/30/2013 follow up printed from [employer]. Patient also had EGD 07/04/2021. She states that certain foods like corn, tomatoes when eaten with peaches will trigger abdominal issues. History of Present Illness Patient is a 67-year-old female who presents for referral from her PCP?Dr. Darby regarding rectal bleeding. Review of record indicates patient had previous colonoscopy in [address] Duarte that revealed internal hemorrhoids. Patient had previous EGD 06/[address] Guardado, general surgery that revealed normal esophagus, normal stomach, normal duodenum. Previous labs 12/03/22 revealed normal H/H, low WBC- patient to follow-up with PCP regarding, normal BUN, creatinine, and normal LFTs. Family history of colon cancer: Denies. Family history of colon polyps: Denies. Personal history of colon cancer: Denies. Personal history of colon polyps: Denies. Takes aspirin daily. Review of records from previous evaluation with her PCP 02/16/2023 indicated patient was having abdominal cramping and diarrhea off-and-on with some blood in stool with wiping. Patient was referred to us here in GI for further evaluation regarding. During today's visit, patient reports 1 month ago, she had an episode of lower abdominal cramping, gas, nausea, and diarrhea that has since resolved. She reports she had ate peaches and tomatoes before episode of abdominal pain, diarrhea, and rectal bleeding occurred. She explains early the next morning after abdominal pain and diarrhea, she experienced rectal bleeding that was bright red in color that last 4 hours and has since resolved. Is currently having 1 formed BM daily. She reports she is having acid reflux daily after eating. Is taking tums as needed for acid reflux that helps her acid reflux. Denies vomiting, fevers/chills, and denies unintentional weight loss. Review of Systems ROS - Provider Constitutional: no fever, no chills. Skin: no Jaundice. ENMT: Yes acid reflux. Respiratory: no shortness of breath. Cardiovascular: no chest pain. Gastrointestinal: yes nausea, yes vomiting, yes diarrhea. Physical Exam Vitals & Measurements T: 36.4 ?C(Temporal Artery) HR: 56(Peripheral) BP: 126/78 HT: 64 in HT: 162 cm WT: 73.5 kg WT: 161.7 lb BMI: 28.01 General: Well developed, well nourished, in no acute distress Head: Normocephalic/atraumatic Lungs: Normal respiratory effort and clear to auscultation Cardio: Regular rate and rhythm, normal S1 and S2, no murmur, no rub Abdomen: Soft, non-distended, non-tender. Normoactive bowel sounds present in all 4 abdominal quadrants, bilaterally. Mental Status: Alert and oriented x3. Normal mood and affect Assessment/Plan 1. BRBPR (bright red blood per rectum) (K62.5: Hemorrhage of anus and rectum) Previous colonoscopy [place] [address] Duarte that revealed internal hemorrhoids. After abdominal pain and diarrhea, patient had rectal bleeding that was bright red in color that last 4 hours and has since resolved. Is currently having 1 formed BM daily. Previous labs 12/03/22 revealed normal H/H, normal BUN, creatinine, and normal LFTs. Ordered Colonoscopy. Ordered: Colonoscopy (Hospital Procedure) 2. Diarrhea (R19.7: Diarrhea, unspecified) 1 month ago, reportedly had an episode of lower abdominal cramping, gas, nausea, and diarrhea that has since resolved. Discussed stool testing to evaluate for infectious process- patient declines. Previous colonoscopy in [address] Duarte that revealed internal hemorrhoids. Ordered Colonoscopy. Ordered: Colonoscopy (Hospital Procedure) 3. Abdominal cramping (R10.9: Unspecified abdominal pain) 1 month ago, reportedly had an episode of lower abdominal cramping, gas, nausea, and diarrhea that has since resolved. Previous colonoscopy [place] [address] Daurte that revealed internal hemorrhoids. Ordered Colonoscopy. Takes aspirin daily. Ordered: Colonoscopy (Hospital Procedure) 4. Gas pain (R14.1: Gas pain) 1 month ago, reportedly had an episode of lower abdominal cramping, gas, nausea, and diarrhea that has since resolved. Previous colonoscopy [place] [address] Duarte that revealed internal hemorrhoids. Ordered Colonoscopy. Ordered: Colonoscopy (Hospital Procedure) 5. Nausea and vomiting (R11.2: Nausea with vomiting, unspecified) 1 month ago, reportedly had an episode of lower abdominal cramping, gas, nausea, and diarrhea that has since resolved. Likely related to gastroenteritis. See # 6. Ordered: EGD Endoscopy (Hospital Procedure) 6. Acid reflux (K21.9: Gastro-esophageal reflux disease without esophagitis) Acid reflux daily. Previous EGD 06/2021 revealed normal esophagus, normal stomach, normal duodenum. Ordered EGD to evaluate for PUD. Discussed treatment with PPI- patient declin (more content not included)... Normal [facility] Comment on above: Result Comment: Elec tronically Signed By: Magalie Marsh CNP\.ronan\Date and Time Signed: 03/12/23 13:19 EDT CTA Headon 02-25-2023 CTA Head Exam Date/Time: 02/25/2023 12:30 EDT Reason for Exam: I63.9 Report IMPRESSION: There is no evidence of stenosis or aneurysm in the intracranial circulation. There is a small artery extending inferiorly from the facet joints at L5 versus represent a residual congenital variant. If clinical suspicion is high may consider consultation with neuro interventional radiology EXAM: CTA Head DATE: 02/25/2023 11:54 AM CLINICAL HISTORY: AMS I63.9 TECHNIQUE: Multiple images axial images were obtained without contrast administration. Immediately following, Multiple contiguous axial images were obtained of the intracranial arterial circulation. Sagittal and coronal reformats as well as 3-D MIP projection reformations have been obtained. All CT scans at this facility use dose modulation, iterative reconstruction, and/or weight based dosing when appropriate to reduce radiation dose to as low as reasonably achievable. COMPARISON: FINDINGS: There is no evidence of acute hemorrhage, mass effect or edema. There are no extra-axial collections or space-occupying lesions. There is no evidence of acute ischemia, loss of velázquez-white matter differentiation The ventricles are sulci are within normal limits. The posterior fossa is unremarkable, The orbits demonstrate no intra or extraconal lesions. The globes are intact. There is a 1.6 cm mucous retention cyst versus polyp in the right maxillary sinus. The remaining paranasal sinuses are well aerated. The calvarium is unremarkable. The anterior circulation demonstrates unremarkable intracranial carotid arteries to the level of the carotid bifurcation. The A1 and A2 segments of the anterior cerebral arteries are within normal limits. The bilateral middle cerebral arteries are patent, without aneurysm or cut off and demonstrate normal distal tributaries. Report There is a left dominant vertebral system. The right vertebral artery terminates in PICA. There is a small artery extending anteriorly from the basilar artery to the clivus and terminating in the region of the dorsum sella. This may represent a persistent anastomosis, i.e. persistent trigeminal, particularly or a persistent clival artery. Likely congenital variant. The basilar artery and the bilateral posterior cerebral arteries are within normal limits. Ordering Provider: , FINAL REPORT Dictated: 02/25/2023 1:46 pm Tim James MD, V. Signed (Electronic Signature): 02/25/2023 1:46 pm Signed by: Tim James MD, V. Transcribed by: ORACIO Technologist: QUINTON Technical Comments GFR (mL/min/1/73m2) 88 Contrast: Isovue 370 Contrast amount in ml's: 100 Normal [facility] Physician Orderon 02-24-2023 Physician Order [id number]#[id number]:127 Normal [facility] Ambulatory Visit Summaryon 0 02-16-2023 Ambulatory Visit Summary JOE JARAMILLO :1955 Visit Date:02/16/2023 Ambulatory Visit Instructions Your Diagnosis Hypertension RLS (restless legs syndrome) Familial hypercholesterolemia Low serum vitamin D Seronegative rheumatoid arthritis H/O TIA (transient ischemic attack) and stroke Adult BMI 28.0-28.9 kg/sq m Overweight Rectal bleed Your Care Team Attending Physician - Bridger DARBY MD Primary Care Physician - Bridger DARBY MD This Is Your Medications List Contact prescribing physician if questions or concerns Non-Formulary Medication (Misc Medication) amlodipine (amLODIPine 5 mg Tab) ascorbic acid (ascorbic acid 500 mg oral capsule) aspirin (aspirin 325 mg Tab) bacillus coagulans-inulin (Probiotic Formula (Bacillus Coagulans)) cholecalciferol (cholecalciferol 1000 intl units oral capsule) chondroitin/glucosamine/met hylsulfonylmethane (Glucosamine Chondroitin Advanced) fluticasone nasal (fluticasone Nasal 0.05 mg/inh [place]) folic acid (folic acid 1 mg Tab) gabapentin (gabapentin 300 mg Cap) hydrochlorothiazide (hydrochlorothiazide 12.5 mg Cap) hydroxychloroquine (hydroxychloroquine 200 mg Tab) lisinopril (lisinopril 10 mg Tab) methotrexate (methotrexate 2.5 mg Tab) metoprolol (metoprolol 50 mg ER Tab) multivitamin with minerals (Calcium, Magnesium and Zinc oral tablet) omega-3 polyunsaturated fatty acids ([place]-3) simvastatin (simvastatin 20 mg Tab) vitamin E Procedures Performed Colonoscopy, Hysterectomy, Number of caesarean sections, right meniscus surgery. Discharge Vitals Temperature (Oral) 36.7 ?C Heart Rate (Peripheral) 69 Blood Pressure 120/68 Height 160 cm Height 63 in Weight 73.4 kg Weight 161.48 lb BMI 28.67 What to do next Scheduled Follow-Up Appointments Wednesday 10:00 AM EDT With: Bridger DARBY MD Where: [facility] Primary Care [facility] Family Medicine Office/Clini c Noteon 02-16-2023 Family Medicine Office/Clinic Note Chief Complaint C/o stomach issues--had pain, cramping, diarrhea on Wednesday. Then on Sat morning had just blood off & on x 4 hrs. Had normal BM's today but stomach feels touchy & no appetite. Last colonoscopy Jul 2013 History of Present Illness Feb 12 she had abd cramping and diarrhea off and on. That finally stopped. Early the next day she noted a little bit of blood in her stool and when she wiped. Only a small amount. No bleeding since. Bowels seem back to normal. Her appetite is still diminished. She has htn and denies CP. She has RA and is on HCQ and doing well. Physical Exam Vitals & Measurements T: 36.7 ?C(Oral) HR: 69(Peripheral) BP: 120/68 SpO2: 96% HT: 63 in HT: 160 cm WT: 73.4 kg WT: 161.48 lb BMI: 28.67 General: Well developed, well nourished, in no acute distress Eyes: Pupils equal, round, and reactive to light. Conjunctivae and sclerae normal, and extraocular movements intact Ears: TM clear, grossly normal hearing Nose: No deformity, discharge, inflammation, or lesions Mouth: MMM. Oropharynx and posterior pharynx without lesions or exudates. Tongue WNL Neck: Neck supple. No lymphadenopathy. Trachea midline. No thyroid, masses, tenderness, or enlargement noted. No bruit. Lungs: Normal respiratory effort and clear to auscultation Cardio: Regular rate and rhythm, normal S1 and S2, no murmur, no rub Abdomen: Soft, non-distended, non-tender Musculoskeletal: No joint swelling or synovitis noted Extremity: No clubbing, cyanosis or edema. Neurologic: Grossly normal Skin: No rashes, ulcerations, or suspicious lesions Mental Status: Alert and oriented x3. Normal mood and affect Assessment/Plan 1. Hypertension (I10: Essential (primary) hypertension) stay on amlodipine, lisinopril and metoprolol Ordered: CBC w/ Auto Diff Comprehensive Metabolic Panel 2. RLS (restless legs syndrome) (G25.81: Restless legs syndrome) She is on gabapentin 3. Familial hypercholesterolemia (E78.01: Familial hypercholesterolemia) keep on diet Tri mg/dL High (12/03/22 07:54:00) HDL: 55 mg/dL (12/03/22 07:54:00) VLDL: 48 mg/dL High (06/15/23 07:54:00) Chol: 217 mg/dL High (12/03/22 07:54:00) LDL Direct: 124 mg/dL (12/03/22 07:54:00) Ordered: Lipid Panel 4. Low serum vitamin D (R79.89: Other specified abnormal findings of blood chemistry) Vitamin D 25 Hydroxy: 37.4 ng/mL (12/03/22 07:54:00) Ordered: Vitamin D 25 Hydroxy 5. Seronegative rheumatoid arthritis (M06.00: Rheumatoid arthritis without rheumatoid factor, unspecified site) stay on HCQ 6. H/O TIA (transient ischemic attack) and stroke (Z86.73: Personal history of transient ischemic attack (TIA), and cerebral infarction without residual deficits) stay on asa 7. Adult BMI 28.0-28.9 kg/sq m (Z68.28: Body mass index [BMI] 28.0-28.9, adult) The standard range for ages 18 and older is >=18.5 and < 25 kg/m2. Your BMI today was above this range, this falls in the overweight to obese category and there are medical benefits to weight loss. We can offer counselling, referral, and/or medical support in addressing this problem. Your BMI and weight management will be followed at subsequent visits. 8. Overweight (E66.3: Overweight) 9. Rectal bleed (K62.5: Hemorrhage of anus and rectum) likely from a gastroenteritis will refer for colonoscopy she is due in July for routing Ordered: [facility] Internal Ambulatory Referral Follow-up With When Contact Information VIRIDIANA HYLTON, JIM Gold In 3 months [facility] [address] [place] [address], [place] [address]- Additional Instructions: Patient Education Hypertension, Adult, Jeht-vl-[id number] Problem List/Past Medical History Ongoing Allergic rhinitis Familial hypercholesterolemia H/O TIA (transient ischemic attack) and stroke Hypertension Hyponatremia Kidney stones Low serum vitamin D Rectal bleed RLS (restless legs syndrome) Seronegative rheumatoid arthritis Historical Acute bronchitis due to other specified organisms Fever Hypertension Left foot pain Rheumatoid arthritis TIA Procedure/Surgical History Colonoscopy, Hysterectomy, Number of caesarean sections, right meniscus surgery. Medications amLODIPine 5 mg Tab, 5 mg= 1 tab(s), Oral, Daily, 3 refills ascorbic acid 500 mg oral capsule, 500 mg= 1 cap(s), Oral, Daily aspirin 325 mg Tab, 325 mg= 1 tab(s), Oral, Daily Calcium, Magnesium and Zinc oral tablet, 1 tab(s), Oral, Daily cholecalciferol 1000 intl units oral capsule, 25 mcg= 1 cap(s), Oral, Daily fluticasone Nasal 0.05 mg/inh [place], 2 spray(s), Nasal, Daily, 3 refills folic acid 1 mg Tab, See Instructions gabapentin 300 mg Cap, 300 mg= 1 cap(s), Oral, Daily Glucosamine Chondroitin Advanced, 1 tab, Oral, Daily hydrochlorothiazide 12.5 mg Cap, 12.5 mg= 1 cap(s), Oral, Daily, 3 refills hydroxychloroquine 200 mg Tab, 200 mg= 1 tab(s), Oral, Daily lisinopril 10 mg Tab, 10 mg= 1 tab(s), Oral, BID, 3 refills methotrex (more content not included)... Normal [facility] Comment on above: Result Comment: Elec tronically Signed By: VIRIDIANA HYLTON, Bridger Crisostomo.br\Date and Time Signed: 02/16/23 14:15 EDT Patient Educationon 02-17-20 Patient Education Cardiovascular Hypertension, Adult Hypertension is another name for high blood pressure. High blood pressure forces your heart to work harder to pump blood. This can cause problems over time. There are two numbers in a blood pressure reading. There is a top number (systolic) over a bottom number (diastolic). It is best to have a blood pressure that is below 120/80. What are the causes? The cause of this condition is not known. Some other conditions can lead to high blood pressure. What increases the risk? Some lifestyle factors can make you more likely to develop high blood pressure: ? Smoking. ? Not getting enough exercise or physical activity. ? Being overweight. ? Having too much fat, sugar, calories, or salt (sodium) in your diet. ? Drinking too much alcohol. Other risk factors include: ? Having any of these conditions: ? Heart disease. ? Diabetes. ? High cholesterol. ? Kidney disease. ? Obstructive sleep apnea. ? Having a family history of high blood pressure and high cholesterol. ? Age. The risk increases with age. ? Stress. What are the signs or symptoms? High blood pressure may not cause symptoms. Very high blood pressure (hypertensive crisis) may cause: ? Headache. ? Fast or uneven heartbeats (palpitations). ? Shortness of breath. ? Nosebleed. ? Vomiting or feeling like you may vomit (nauseous). ? Changes in how you see. ? Very bad chest pain. ? Feeling dizzy. ? Seizures. How is this treated? ? This condition is treated by making healthy lifestyle changes, such as: ? Eating healthy foods. ? Exercising more. ? Drinking less alcohol. ? Your doctor may prescribe medicine if lifestyle changes do not help enough and if: ? Your top number is above 130. ? Your bottom number is above 80. ? Your personal target blood pressure may vary. Follow these instructions at home: Eating and drinking ? If told, follow the DASH eating plan. To follow this plan: ? Fill one half of your plate at each meal with fruits and vegetables. ? Fill one fourth of your plate at each meal with whole grains. Whole grains include whole-wheat pasta, brown rice, and whole-grain bread. ? Eat or drink low-fat dairy products, such as skim milk or low-fat yogurt. ? Fill one fourth of your plate at each meal with low-fat (lean) proteins. Low-fat proteins include fish, chicken without skin, eggs, beans, and tofu. ? Avoid fatty meat, cured and processed meat, or chicken with skin. ? Avoid pre-made or processed food. ? Limit the amount of salt in your diet to less than 1,500 mg each day. ? Do not drink alcohol if: ? Your doctor tells you not to drink. ? You are , may be , or are planning to become . ? If you drink alcohol: ? Limit how much you have to: ? 0?1 drink a day for women. ? 0?2 drinks a day for men. ? Know how much alcohol is in your drink. In the [place] one drink equals one 12 oz bottle of beer (355 mL), one 5 oz glass of wine (148 mL), or one 1? oz glass of hard liquor (44 mL). Lifestyle ? Work with your doctor to stay at a healthy weight or to lose weight. Ask your doctor what the best weight is for you. ? Get at least 30 minutes of exercise that causes your heart to beat faster (aerobic exercise) most days of the week. This may include walking, swimming, or biking. ? Get at least 30 minutes of exercise that strengthens your muscles (resistance exercise) at least 3 days a week. This may include lifting weights or doing Pilates. ? Do not smoke or use any products that contain nicotine or tobacco. If you need help quitting, ask your doctor. ? Check your blood pressure at home as told by your doctor. ? Keep all follow-up visits. Medicines ? Take jmeb-zwd-tvowesy and prescription medicines only as told by your doctor. Follow directions carefully. ? Do not skip doses of blood pressure medicine. The medicine does not work as well if you skip doses. Skipping doses also puts you at risk for problems. ? Ask your doctor about side effects or reactions to medicines that you should watch for. Contact a doctor if: ? You think you are having a reaction to the medicine you are taking. ? You have headaches that keep coming back. ? You feel dizzy. ? You have swelling in your ankles. ? You have trouble with your vision. Get help right away if: ? You get a very bad headache. ? You start to feel mixed up (confused). ? You feel weak or numb. ? You feel faint. ? You have very bad pain in your: ? Chest. ? Belly (abdomen). ? You vomit more than once. ? You have trouble breathing. These symptoms may be an emergency. Get help right away. Call 911. ? Do not wait to see if the symptoms will go away. ? Do not drive yourself to the hospital. Summary ? Hypertension is another name for high blood pressure. ? High blood pressure forces your heart to work harder to pump blood. ? For m (more content not included)... Normal [facility] Physician Referralon 023 Physician Referral [id number]#[id number]:127 Normal [facility] Physician Orderon 02-15-2023 Physician Order [id number]#[id number]:127 [facility] Consultation Noteon 02-05-20 23 Consultation Note [id number]#[id number]:127 Normal [facility] MA Mamm Screen w/CAD if perf and 3D Bilon 02-03-2023 [place] Mamm Screen w/CAD if perf and 3D Charli Exam Date/Time: 01/29/2023 07:52 EDT Reason for Exam: Z12.31 Report IMPRESSION: BIRADS 1 NEGATIVE, NORMAL INTERVAL FOLLOW-UP Follow-up: 12 MONTH RECALL Density: Heterogeneously dense. Vascular calcifications: No. EXAM: MA Mamm Screen w/CAD if perf and 3D Charli DATE: 01/29/2023 CLINICAL HISTORY: Z12.31. COMPARISONS: 01/14/2022, 01/02/2021, and 12/20/2019. TECHNIQUE: Routine full-field digital mammograms and 3D breast tomosynthesis of both breasts were obtained. FINDINGS: There are no developing masses, suspicious microcalcifications, or areas of architectural distortion identified on the current study. No significant changes are identified from the prior studies, given differences in technique and positioning. Dense Breast: Yes. CAD analysis was performed and used in the interpretation. Board Certified Radiologists. Accredited by the ACR and FDA. MAMMOGRAPHY IS VERY IMPORTANT TO YOUR HEALTH. THE CURRENT [employer] GUIDELINES RECOMMENDS ANNUAL MAMMOGRAPHY BEGINNING AT AGE 40. THIS FACILITY UTILIZES A REMINDER SYSTEM TO ENSURE ALL PATIENTS RECEIVE REMINDER NOTIFICATIONS AT THE APPROPRIATE TIME BASED ON THE RECOMMENDATIONS OF THIS EXAM. Report Ordering Provider: MILES VERMA FINAL REPORT Dictated: 02/03/2023 2:24 am Home Glover MD Signed (Electronic Signature): 02/03/2023 2:24 am Signed by: Home Glover MD Transcribed by: ORACIO Technologist: [facility] Assessment: BI-RADS Category 1-Negative Recommendation: Normal interval follow-up Normal [facility] CBC (INCLUDES DIFF/PLT)on Basophils (Bld) [#/Vol] 0.039 10*3/uL Normal 0-200 [facility] Comment on above: Performed By: #### 6 399, 375, 20951, 809 #### [facility] [address], [address] [place] [address] Hospital Administrator: Cm Pal MD Basophils/100 WBC (Bld) 0.9 % Normal [facility] Comment on above: Performed By: #### 6 399, 375, 92729, 809 #### [facility] of [place] [address] Hospital Administrator: Cm Pal MD Eosinophils (Bld) [#/Vol] 0.129 10*3/uL Normal 15-500 [facility] Comment on above: Performed By: #### 6 399, 375, 43892, 809 #### [facility] [place] [address] Hospital Administrator: Cm Pal MD Eosinophils/100 WBC (Bld) 3.0 % Normal [facility] Comment on above: Performed By: #### 6 399, 375, 75951, 809 #### [facility] [place] [address] Hospital Administrator: Cm Pal MD Erythrocyte distribution width (RBC) [Ratio] 12.7 % Normal 11.0-15.0 [facility] Comment on above: Performed By: #### 6 399, 375, 00761, 809 #### [facility] [place] [address] Hospital Administrator: Cm Pal MD Hematocrit (Bld) [Volume fraction] 38.3 % Normal 35.0-45.0 [facility] Comment on above: Performed By: #### 6 399, 375, 76151, 809 #### [facility] [place] [address] Hospital Administrator: Cm Pal MD Hemoglobin (Bld) [Mass/Vol] 12.7 g/dL Normal 11.7-15.5 [facility] Comment on above: Performed By: #### 6 399, 375, 90812, 809 #### [facility] [place] [address] Hospital Administrator: Cm Pal MD Lymphocytes (Bld) [#/Vol] 1.062 10*3/uL Normal 850-3900 [facility] Comment on above: Performed By: #### 6 399, 375, 91993, 809 #### [facility] [place] [address] Hospital Administrator: Cm Pal MD Lymphocytes/100 WBC (Bld) 24.7 % Normal [facility] Comment on above: Performed By: #### 6 399, 375, 61838, 809 #### [facility] [place] [address] Hospital Administrator: Cm Pal MD MCH (RBC) [Entitic mass] 30.9 pg Normal 27.0-33.0 [facility] Comment on above: Performed By: #### 6 399, 375, 52152, 809 #### [facility] [place] [address] Hospital Administrator: Cm Pal MD MCHC (RBC) [Mass/Vol] 33.2 g/dL Normal 32.0-36.[address] [facility] Comment on above: Performed By: #### 6 399, 375, 32473, 809 #### [facility] [place] [address] Hospital Administrator: Cm Pal MD MCV (RBC) [Entitic vol] 93.2 fL Normal 80.0-100.0 [facility] Comment on above: Performed By: #### 6 399, 375, 69983, 809 #### [facility] [place] [address] Hospital Administrator: Cm Pal MD Monocytes (Bld) [#/Vol] 0.533 10*3/uL Normal 200-950 [facility] Comment on above: Performed By: #### 6 399, 375, 30691, 809 #### [facility] [place] [address] Hospital Administrator: Cm Pal MD Monocytes/100 WBC (Bld) 12.4 % Normal [facility] Comment on above: Performed By: #### 6 399, 375, 63184, 809 #### [facility] [place] [address] [place] [address] Hospital Administrator: Cm Pal MD Neutrophils (Bld) [#/Vol] 2.537 10*3/uL Normal 3757-5411 [facility] Comment on above: Performed By: #### 6 399, 375, 68013, 809 #### [facility] of [address], [address] [place] [address] Hospital Administrator: Cm Pal MD Neutrophils/100 WBC (Bld) 59 % Normal [facility] Comment on above: Performed By: #### 6 399, 375, 70847, 809 #### [facility] [place] [address] Hospital Administrator: Cm Pal MD Platelet mean volume (Bld) [Entitic vol] 9.7 fL Normal 7.5-12.5 [facility] Comment on above: Performed By: #### 6 399, 375, 69121, 809 #### [facility] of [address], [address] [place] [address] Hospital Administrator: Cm Pal MD Platelets (Bld) [#/Vol] 273 10*3/uL Normal 140-400 [facility] Comment on above: Performed By: #### 6 399, 375, 62842, 809 #### [facility] of [place] [address] Hospital Administrator: Cm Pal MD RBC (Bld) [#/Vol] 4.11 10*6/uL Normal 3.80-5.10 [facility] Comment on above: Performed By: #### 6 399, 375, 24681, 809 #### [facility] of [address], [address] [place] [address] Hospital Administrator: Cm Pal MD WBC (Bld) [#/Vol] 4.3 10*3/uL Normal 3.8-10.8 [facility] Comment on above: Performed By: #### 6 399, 375, 26882, 809 #### [facility] of [place] [address] [place] [address] Hospital Administrator: Cm Pal MD CREATININEon 02-02-2023 Creatinine [Mass/Vol] 0.75 mg/dL Normal 0.50-1.[address] [facility] Comment on above: Order Comment: FASTI NG: UNKNOWN Performed By: #### 6 399, 375, 60302, 809 #### [facility] [place] [address] Hospital Administrator: Cm Pal MD GFR/1.73 sq M.predicted among non-blacks MDRD (S/P/Bld) [Vol rate/Area] 88 mL/min/{1.73_m2} Normal > OR = 60 [facility] Comment on above: Order Comment: FASTI NG: UNKNOWN Performed By: #### 6 399, 375, 09409, 809 #### [facility] [place] [address] Hospital Administrator: Cm Pal MD HEPATIC FUNCTION PANELon Albumin [Mass/Vol] 4.4 g/dL Normal 3.6-5.1 [facility] Comment on above: Performed By: #### 6 399, 375, 62356, 809 #### [facility] [place] [address] Hospital Administrator: Cm Pal MD Albumin/Globulin [Mass ratio] 1.6 {ratio} Normal 1.0-2.5 [facility] Comment on above: Performed By: #### 6 399, 375, 48811, 809 #### [facility] [place] [address] Hospital Administrator: Cm Pal MD ALP [Catalytic activity/Vol] 75 U/L Normal 37-153 [facility] Comment on above: Performed By: #### 6 399, 375, 39415, 809 #### [facility] [place] [address] Hospital Administrator: Cm Pal MD ALT [Catalytic activity/Vol] 15 U/L Normal 6-29 [facility] Comment on above: Performed By: #### 6 399, 375, 67912, 809 #### [facility] [place] [address] Hospital Administrator: Cm Pal MD AST [Catalytic activity/Vol] 18 U/L Normal 10-35 [facility] Comment on above: Performed By: #### 6 399, 375, 30260, 809 #### [facility] [place] [address] Hospital Administrator: Cm Pal MD Bilirubin [Mass/Vol] 0.3 mg/dL Normal 0.2-1.2 [facility] Comment on above: Performed By: #### 6 399, 375, 61572, 809 #### [facility] [place] [address] Hospital Administrator: Cm Pal MD BILIRUBIN, INDIRECT 0.3 mg/dL (calc) Normal 0.2-1.2 [facility] Comment on above: Performed By: #### 6 399, 375, 52179, 809 #### [facility] [place] [address] Hospital Administrator: Cm Pal MD Bilirubin.indirect [Mass/Vol] 0.0 mg/dL Normal < OR = 0.2 [facility] Comment on above: Performed By: #### 6 399, 375, 06725, 809 #### [facility] [place] [address] Hospital Administrator: Cm Pal MD Globulin (S) [Mass/Vol] 2.7 g/dL Normal 1.9-3.7 [facility] Comment on above: Performed By: #### 6 399, 375, 75247, 809 #### [facility] [place] [address] Hospital Administrator: Cm Pal MD Protein [Mass/Vol] 7.1 g/dL Normal 6.1-8.1 [facility] Comment on above: Performed By: #### 6 399, 375, 46681, 809 #### [facility] [address] [facility], [address] [place] [address] Hospital Administrator: Cm Pal MD Reference Lab Notificationon 02-02-2023 Results Report See Ref Lab Report Normal [facility] Comment on above: Performed By: #### 2 [id number] ####[facility] [address] [place] [address] Reference Lab Reporton 02-02 Reference Lab Report [id number]#1.00CD:127 Normal [facility] SED RATE BY MODIFIED WESTERG RENon 02-02-2023 SED RATE BY MODIFIED WESTERGREN 19 mm/h Normal < OR = 30 [facility] Comment on above: Performed By: #### 6 399, 375, 96780, 809 #### [facility] [address], [address] [place] [address] Hospital Administrator: Cm Pal MD No Panel InformationOrdered By: Taylor Mayberry on 02-01-2023 Results Report See Ref Lab Report (02/01/23 10:07 AM) Normal [facility] SendOutsSS Reference Lab Notificationon 02-01-2023 Ref [facility] Normal [facility] Comment on above: Performed By: #### 2 [id number] ####[facility] [address] [place] [address] Consent for Treatmenton 01-19 Consent for Treatment [id number]#1.00CD:127 Normal [facility] Retail - Clinical Noteon Retail - Clinical Note [id number]#1.00CD:127 Normal [facility] Physician Orderon 01-14-2023 Physician Order [id number]#1.00CD:127 Normal [facility] Consultation Noteon 01-12-20 Consultation Note [id number]#1.00CD:127 Normal [facility] CT Lower Extremity w/o Contr ast Lefton 12-05-2022 CT Lower Extremity w/o Contrast Left Exam Date/Time: 12/03/2022 08:20 EDT Reason for Exam: [id number] Report IMPRESSION: INTERVAL POSTOPERATIVE CHANGES FROM 11/05/2021. NOTHING ACUTE OR DESTRUCTIVE IDENTIFIED. EXAM: CT Lower Extremity w/o Contrast Left DATE: 12/03/2022 8:03 AM CLINICAL HISTORY: M19.072. COMPARISON: 11/05/2021. TECHNIQUE: Spiral unenhanced imaging of the left foot was obtained, with routine multiplanar reconstructions performed. All CT scans at this facility use dose modulation, iterative reconstruction, and/or weight based dosing when appropriate to reduce radiation dose to as low as reasonably achievable. FINDINGS: Since the prior study, the osteotomy is present within the distal tibial metaphysis (similar to stable osteotomies within the posterior calcaneus), and removal of dorsal plates and revision of screws from the first through third metatarsal cuneiform arthrodesis procedures. There is no acute fracture, evidence of hardware loosening, worrisome bone destruction, organized fluid collection, or other significant changes identified. Ordering Provider: , FINAL REPORT Dictated: 12/05/2022 9:27 am Home Glover MD Signed (Electronic Signature): 12/05/2022 9:27 am Signed by: Home Glover MD Transcribed by: ORACIO Technologist: DANUTA Normal [facility] Auto Diffon 12-03-2022 Basophils/100 WBC (Bld) 1.1 % Normal 0.0-2.0 [facility] Comment on above: Order Comment: Order Added by Discern Expert. Performed By: #### 1 6114775, 3984561, 0370945, 0346832, 255567259, 0674257 ####[facility] [address] [place] [address] Basophils/Leukocytes Auto (Bld) [Pure # fraction] 0.0 E9/L Normal 0.0-0.2 [facility] Comment on above: Order Comment: Order Added by Discern Expert. Performed By: #### 1 1539404, 9234046, 8105870, 4709580, 405087181, 0343533 ####[address] [address] Eosinophils/100 WBC (Bld) 2.5 % Normal 0.0-8.0 [facility] Comment on above: Order Comment: Order Added by Discern Expert. Performed By: #### 1 5750645, 1408009, 8192974, 8372181, 007878311, 6810977 ####[address] [address] Eosinophils/Leukocyte s Auto (Bld) [Pure # fraction] 0.1 E9/L Normal 0.0-0.5 [facility] Comment on above: Order Comment: Order Added by Leila Expert. Performed By: #### 1 4196910, 2583781, 1136610, 2029140, 695113046, 1812611 ####[address] [address] Lymphocytes/100 WBC (Bld) 42.1 % Normal 14.0-50.0 [facility] Comment on above: Order Comment: Order Added by Leila Expert. Performed By: #### 1 3184573, 7712931, 6557833, 7942050, 321877976, 3154794 ####[address] [address] Lymphocytes/Leukocyte s Auto (Bld) [Pure # fraction] 1.4 E9/L Normal 1.0-4.0 [facility] Comment on above: Order Comment: Order Added by Leila Expert. Performed By: #### 1 3128188, 3983468, 3895568, 0786656, 804309618, 2550401 ####[address] [address] Monocytes/100 WBC (Bld) 13.7 % Normal 4.0-14.0 [facility] Comment on above: Order Comment: Order Added by Leila Expert. Performed By: #### 1 0661791, 5490902, 7006852, 3246443, 912481408, 0898661 ####[place] [address] [place] [address] Monocytes/Leukocytes Auto (Bld) [Pure # fraction] 0.4 E9/L Normal 0.2-1.0 [facility] Comment on above: Order Comment: Order Added by Discern Expert. Performed By: #### 1 2230470, 8842658, 0008329, 4125397, 922838191, 5890188 ####[address] [address] Neutrophils/100 WBC (Bld) 40.6 % Normal 36.0-75.0 [facility] Comment on above: Order Comment: Order Added by Discern Expert. Performed By: #### 1 2126232, 3119182, 0062256, 5682377, 898089275, 6518223 ####[address] [address] Neutrophils/Leukocyte s Auto (Bld) [Pure # fraction] 1.3 E9/L Low 2.0-7.5 [facility] Comment on above: Order Comment: Order Added by Discern Expert. Performed By: #### 1 2096368, 2193010, 5724197, 6628503, 085615302, 3152124 ####[address] [address] CBC w/ Auto Diffon 3 Erythrocyte distribution width (RBC) [Ratio] 13.4 % Normal 10.9-14.2 [facility] Comment on above: Performed By: #### 1 3685972, 7139733, 9364154, 8033483, 233660578, 0297028 ####[place] [address] [place] [address] Hematocrit (Bld) [Volume fraction] 39.0 % Normal 34.0-46.0 [facility] Comment on above: Performed By: #### 1 5754374, 2524392, 2281913, 6205835, 165380047, 9523130 ####[facility] [address] [place] [address] Hemoglobin (Bld) [Mass/Vol] 13.2 g/dL Normal 12.0-16.0 [facility] Comment on above: Performed By: #### 1 2299021, 9027287, 8049750, 2045502, 486111181, 7307371 ####[place] [address] MCH (RBC) [Entitic mass] 31.7 pg Normal 27.0-34.0 [facility] Comment on above: Performed By: #### 1 8768078, 7785976, 8247297, 4558418, 940780149, 4598713 ####[address] [address] MCHC (RBC) [Mass/Vol] 33.8 g/dL Normal 31.4-36.0 [facility] Comment on above: Performed By: #### 1 3130700, 6628109, 6661758, 2282827, 509358583, 1783844 ####[address] [address] MCV (RBC) [Entitic vol] 93.9 fL Normal 80.0-100.0 [facility] Comment on above: Performed By: #### 1 7807556, 1120175, 3452824, 0418385, 776921592, 5265555 ####[address] [address] Platelet mean volume (Bld) [Entitic vol] 7.8 fL Normal 6.4-10.8 [facility] Comment on above: Performed By: #### 1 2496030, 6931384, 0482826, 6910026, 626434330, 0883386 ####[address] [address] Platelets (Bld) [#/Vol] 249.0 E9/L Normal 150.0-500. 0 [facility] Comment on above: Performed By: #### 1 3625259, 7488727, 0670426, 1209846, 395190003, 3419029 ####[facility] [address] [place] [address] RBC (Bld) [#/Vol] 4.2 E12/L Low 4.3-5.9 [facility] Comment on above: Performed By: #### 1 1307539, 3286801, 0720177, 7779151, 312029194, 2999717 ####[facility] [address] [place] [address] WBC corrected for nucl RBC Auto (Bld) [#/Vol] 3.2 E9/L Low 4.0-11.0 [facility] Comment on above: Performed By: #### 1 9861874, 2234326, 8516203, 8099030, 632533370, 1373303 ####[facility] [address] [place] [address] CHEMISTRYOrdered By: SYSTEM SYSTEM on 12-03-2022 25-hydroxyvitamin D3 [Mass/Vol] 37.4 ng/mL Normal 30.0 - 100.0 ng/mL [facility] Remisol Albumin [Mass/Vol] 4.1 g/dL Normal 3.3 - 5.0 gm/dL [facility] Albumin/Globulin [Mass ratio] 1.2 {ratio} Normal 1.1 - 2.2 [facility] ALP [Catalytic activity/Vol] 67 [iU]/d Normal 21 - 98 Int._Unit/ L [facility] ALT No additional P-5'-P [Catalytic activity/Vol] 22 [iU]/d Normal 6 - 46 Int._Unit/ L [facility] Anion gap [Moles/Vol] 10 mmol/L Normal 6 - 16 mEq/L [facility] AST [Catalytic activity/Vol] 24 [iU]/d Normal 5 - 43 Int._Unit/ L [facility] Bilirubin [Mass/Vol] 0.4 mg/dL Normal 0.0 - 1 .1 mg/dL [facility] Calcium [Mass/Vol] 9.6 mg/dL Normal 8.9 - 11. 1 mg/dL [facility] Chloride [Moles/Vol] 101 mmol/L Normal 101 - 1 11 mmol/L [facility] Cholesterol [Mass/Vol] 217 mg/dL High 120 - 200 mg/dL [facility] Cholesterol in HDL [Mass/Vol] 55 mg/dL Invalid Interpretation Code [facility] Cholesterol in LDL [Mass/Vol] 124 mg/dL Normal <=129mg/dL [facility] Cholesterol in VLDL [Mass/Vol] 48 mg/dL High 7 - 40 mg/dL [facility] CO2 [Moles/Vol] 29 mmol/L Normal 21 - 31 mmol/L [facility] Creatinine [Mass/Vol] 0.7 mg/dL Normal 0.5 - 1.3 mg/dL [facility] GFR/1.73 sq M.predicted among non-blacks MDRD (S/P/Bld) [Vol rate/Area] 96 mL/min/1.73 m2 Normal >=59mL/min /1.73 m2 [facility] Chem S Globulin (S) [Mass/Vol] 3.5 g/dL Normal 1.4 - 4.0 gm/dL [facility] Glucose [Mass/Vol] 106 mg/dL Normal 55 - 199 mg/dL [facility] Potassium [Moles/Vol] 4.4 mmol/L Normal 3.5 - 5.3 mmol/L [facility] Protein [Mass/Vol] 7.6 g/dL Normal 6.0 - 7.8 gm/dL [facility] Sodium [Moles/Vol] 136 mmol/L Normal 135 - 145 mmol/L [facility] Triglyceride [Mass/Vol] 239 mg/dL High <=149mg/dL [facility] Urea nitrogen [Mass/Vol] 19 mg/dL Normal 5 - 21 mg/dL [facility] Urea nitrogen/Creatinine [Mass ratio] 27 mg/mg High 10 - 20 [facility] CMPon 12-03-2022 Albumin [Mass/Vol] 4.1 g/dL Normal 3.3-5.0 [facility] Comment on above: Performed By: #### 1 6598454, 4564547, 7859124, 5151525, 175045294, 5574589 ####[facility] [address] [place] [address] Albumin/Globulin (S) [Mass conc ratio] 1.2 Normal 1.1-2.2 [facility] Comment on above: Performed By: #### 1 0266063, 7129985, 8350998, 4006045, 062860903, 6513241 ####[place] [address] [place] [address] ALP [Catalytic activity/Vol] 67 Int._Unit/L Normal 21-98 [facility] Comment on above: Performed By: #### 1 0637673, 0893645, 7585780, 3979731, 769217807, 8802084 ####[place] [address] [place] [address] ALT No additional P-5'-P [Catalytic activity/Vol] 22 Int._Unit/L Normal 6-46 [facility] Comment on above: Performed By: #### 1 8623062, 4572495, 2518345, 3281874, 199104709, 7167191 ####[facility] [address] [place] [address] Anion gap [Moles/Vol] 10 mmol/L Normal 6-16 [facility] Comment on above: Performed By: #### 1 3229855, 5546881, 0262628, 8554104, 661016104, 7500855 ####[place] [address] [place] [address] AST [Catalytic activity/Vol] 24 Int._Unit/L Normal 5-43 [facility] Comment on above: Performed By: #### 1 5330106, 1323041, 3283101, 2686418, 102846826, 5528309 ####[facility] [address] [place] [address] Bilirubin [Mass/Vol] 0.4 mg/dL Normal 0.0-1.1 [facility] Comment on above: Performed By: #### 1 2132503, 9903203, 4176345, 8640289, 588141443, 3346735 ####[facility] [address] [place] [address] Calcium [Mass/Vol] 9.6 mg/dL Normal 8.9-11.1 [facility] Comment on above: Performed By: #### 1 1601557, 6553731, 9355051, 8233834, 204063994, 0432568 ####[facility] [address] [place] [address] Chloride [Moles/Vol] 101 mmol/L Normal 101-111 [facility] Comment on above: Performed By: #### 1 9526496, 0414998, 9448372, 9116457, 850071887, 9314341 ####[facility] [address] [place] [address] CO2 [Moles/Vol] 29 mmol/L Normal 21-31 [facility] Comment on above: Performed By: #### 1 8767830, 7072295, 5351859, 3380808, 597944018, 2544861 ####[facility] [address] [place] [address] Creatinine [Mass/Vol] 0.7 mg/dL Normal 0.5-1.3 [facility] Comment on above: Performed By: #### 1 1777797, 6419963, 1816575, 7799212, 220121639, 7967344 ####[facility] [address] [place] [address] Globulin (S) [Mass/Vol] 3.5 g/dL Normal 1.4-4.0 [facility] Comment on above: Performed By: #### 1 1364306, 5979251, 8885767, 0265109, 985901486, 9790447 ####[facility] [address] [place] [address] Glucose [Mass/Vol] 106 mg/dL Normal 55-199 [facility] Comment on above: Result Comment: If t his glucose result represents a fasting glucose, interpretation should refer to the following reference range: 55-99 mg/dL Performed By: #### 1 8582849, 8576246, 2645947, 9566869, 169056003, 9682656 ####[facility] [address] [place] [address] Potassium [Moles/Vol] 4.4 mmol/L Normal 3.5-5.3 [facility] Comment on above: Performed By: #### 1 5543645, 3934535, 3217634, 5027953, 838081158, 7493216 ####[facility] [address] [place] [address] Protein [Mass/Vol] 7.6 g/dL Normal 6.0-7.8 [facility] Comment on above: Performed By: #### 1 2743535, 7491290, 7556708, 5995142, 814427122, 5113471 ####[facility] [address] [place] [address] Sodium [Moles/Vol] 136 mmol/L Normal 135-145 [facility] Comment on above: Performed By: #### 1 0524420, 5178960, 7517680, 2829057, 934931090, 0670138 ####[facility] [address] [place] [address] Urea nitrogen [Mass/Vol] 19 mg/dL Normal 5-21 [facility] Comment on above: Performed By: #### 1 3469792, 7950304, 7922607, 8743839, 632104241, 0214469 ####[facility] [address] [place] [address] Urea nitrogen/Creatinine [Mass ratio] 27 No Units High 10-20 [facility] Comment on above: Performed By: #### 1 2880056, 8876960, 6088731, 5712385, 352341071, 4239144 ####[facility] [address] [place] [address] Consent for Treatmenton 11-19 Consent for Treatment [id number]#[id number]:127 Normal [facility] Consent for Treatment [id number]#1.00CD:127 Normal [facility] HEMATOLOGYOrdered By: SYSTEM SYSTEM on 12-03-2022 Basophils/100 WBC (Bld) 1.1 % Normal 0.0 - 2.0 % [facility] HemeAutoSS Basophils/Leukocytes Auto (Bld) [Pure # fraction] 0.0 E9/L Normal 0.0 - 0.2 E9/L [facility]eAuto[facility] Eosinophils/100 WBC (Bld) 2.5 % Normal 0.0 - 8.0 % [facility]eAuto[facility] Eosinophils/Leukocyte s Auto (Bld) [Pure # fraction] 0.1 E9/L Normal 0.0 - 0.5 E9/L [facility]eAuto[facility] Lymphocytes/100 WBC (Bld) 42.1 % Normal 14.0 - 50.0 % [facility]eAuto[facility] Lymphocytes/Leukocyte s Auto (Bld) [Pure # fraction] 1.4 E9/L Normal 1.0 - 4.0 E9/L [facility]eAutoSS Monocytes/100 WBC (Bld) 13.7 % Normal 4.0 - 14.0 % [facility]eAuto[facility] Monocytes/Leukocytes Auto (Bld) [Pure # fraction] 0.4 E9/L Normal 0.2 - 1.0 E9/L [facility]Auto[facility] Neutrophils/100 WBC (Bld) 40.6 % Normal 36.0 - 75.0 % [facility]eAuto[facility] Neutrophils/Leukocyte s Auto (Bld) [Pure # fraction] 1.3 E9/L Low 2.0 - 7.5 E9/L [facility] HemeAuto[facility] HEMATOLOGYOrdered By: Donta Mendoza on 12-03-2022 Erythrocyte distribution width (RBC) [Ratio] 13.4 % Normal 10.9 - 14.2 % [facility] Hematocrit (Bld) [Volume fraction] 39.0 % Normal 34.0 - 46.0 % [facility]eAuto[facility] Hemoglobin (Bld) [Mass/Vol] 13.2 g/dL Normal 12.0 - 16.0 gm/dL [facility] HemeAuto[facility] MCH (RBC) [Entitic mass] 31.7 pg Normal 27.0 - 34.0 pg [facility] HemeAutoSS MCHC (RBC) [Mass/Vol] 33.8 g/dL Normal 31.4 - 36.0 gm/dL [facility] HemeAutoSS MCV (RBC) [Entitic vol] 93.9 fL Normal 80.0 - 100.0 fL [facility] HemeAutoSS Platelet mean volume (Bld) [Entitic vol] 7.8 fL Normal 6.4 - 10.8 fL [facility] HemeAutoSS Platelets (Bld) [#/Vol] 249.0 E9/L Normal 150.0 - 500.0 E9/L [facility] HemeAutoSS RBC (Bld) [#/Vol] 4.2 E12/L Low 4.3 - 5.9 E12/L [facility] HemeAutoSS WBC corrected for nucl RBC Auto (Bld) [#/Vol] 3.2 E9/L Low 4.0 - 11.0 E9/L [facility] HemeAutoSS Lipid Panelon 12-03-2022 Cholesterol [Mass/Vol] 217 mg/dL High 120-200 [facility] Comment on above: Performed By: #### 1 2687515, 4615943, 0485924, 2990119, 348050385, 4956947 ####[facility] [address] [place] [address] Cholesterol in HDL [Mass/Vol] 55 mg/dL Invalid Interpretation Code [facility] Comment on above: Result Comment: HDL > or equal to 60 mg/dL: Low cardiovascular risk HDL < 40 mg/dL : High cardiovascular risk Performed By: #### 1 2431050, 4113823, 3760273, 3061546, 192757656, 5442755 ####[facility] [address] [place] [address] Cholesterol in LDL [Mass/Vol] 124 mg/dL Normal <=129 [facility] Comment on above: Performed By: #### 1 0787327, 5501295, 4613035, 8549458, 680159746, 2980780 ####[facility] [address] [place] [address] Cholesterol in VLDL [Mass/Vol] 48 mg/dL High 7-40 [facility] Comment on above: Performed By: #### 1 2753707, 8936701, 0121856, 1848713, 966755668, 7313227 ####[facility] [address] [place] [address] Triglyceride [Mass/Vol] 239 mg/dL High <=149 [facility] Comment on above: Performed By: #### 1 0244080, 2600229, 6094017, 2563180, 140372590, 2346009 ####[facility] [address] [place] [address] Vitamin D 25 Hydroxyon 12-03 25-hydroxyvitamin D3 [Mass/Vol] 37.4 ng/mL Normal 30.0-100.0 [facility] Comment on above: Result Comment: Vit siddiqui D deficiency has been defined as a level of serum 25-OH vitamin D less than 20 ng/mL (1,2) by the [place] [employer] and an Endocrine Society practice guideline. The Endocrine Society further defined vitamin D insufficiency as a level between 21 and 29 ng/mL (2). 1. IOM ([place] [employer]). 2010. Dietary reference intakes for calcium and D. [place]: The National Academies Press. 2. Doron MF, Ben [place], Albertina DUGAN, et al. Evaluation, treatment, and prevention of vitamin D deficiency: an Endocrine Society clinical practice guideline. JCEM. 2010; 96 (7):1911-30. Performed By: #### 1 3156221, 9147038, 3985318, 7575495, 855890130, 2026178 ####[facility] [address] [place] [address] eGFRon 12-03-2022 GFR/1.73 sq M.predicted among non-blacks MDRD (S/P/Bld) [Vol rate/Area] 96 mL/min/1.73 m2 Normal >=59 [facility] Comment on above: Order Comment: Order added by Discern Expert. Result Comment: Recycling Coordinator regis kidney disease could be indicated at eGFR's of less than 60 mL/min/1.73m2. Kidney failure is indicated at less than 15 mL/min/1.73m2. Performed By: #### 1 2963820, 5295035, 9839817, 8138662, 730280736, 4295223 ####[facility] [address] [place] [address] Physician Orderon 11-25-2022 Physician Order [id number]#1.00CD:127 Normal [facility] Reference Lab Reporton 11-25 Reference Lab Report [id number]#1.00CD:127 Normal [facility] Physician Orderon 11-24-2022 Physician Order [id number]#1.00CD:127 Normal [facility] Reference Lab Notificationon 11-23-2022 Results Report See Ref Lab Report Normal [facility] Comment on above: Performed By: #### [id number] ####[place] [id number] [place] [id number] [facility] Comment on above: Performed By: #### 2 [id number] ####[address] [address] Ambulatory Visit Summaryon 0 11-18-2022 Ambulatory Visit Summary JOE JARAMILLO :1955 Visit Date:11/18/2022 Ambulatory Visit Instructions Your Diagnosis Hypertension Seronegative rheumatoid arthritis RLS (restless legs syndrome) Familial hypercholesterolemia H/O TIA (transient ischemic attack) and stroke Low serum vitamin D BMI 29.0-29.9,adult Your Care Team Attending Physician - Bridger DARBY MD Primary Care Physician - Bridger DARBY MD This Is Your Medications List Contact prescribing physician if questions or concerns Non-Formulary Medication (Misc Medication) amlodipine (amLODIPine 5 mg Tab) ascorbic acid (ascorbic acid 500 mg oral capsule) aspirin (aspirin 325 mg Tab) bacillus coagulans-inulin (Probiotic Formula (Bacillus Coagulans)) cholecalciferol (cholecalciferol 1000 intl units oral capsule) chondroitin/glucosamine/met hylsulfonylmethane (Glucosamine Chondroitin Advanced) fluticasone nasal (fluticasone Nasal 0.05 mg/inh [place]) folic acid (folic acid 1 mg Tab) gabapentin (gabapentin 300 mg Cap) hydrochlorothiazide (hydrochlorothiazide 12.5 mg Cap) hydroxychloroquine (hydroxychloroquine 200 mg Tab) lisinopril (lisinopril 10 mg Tab) methotrexate (methotrexate 2.5 mg Tab) metoprolol (metoprolol 50 mg ER Tab) multivitamin with minerals (Calcium, Magnesium and Zinc oral tablet) omega-3 polyunsaturated fatty acids ([place]-3) simvastatin (simvastatin 20 mg Tab) vitamin E Procedures Performed Colonoscopy, Hysterectomy, Number of caesarean sections, right meniscus surgery. Discharge Vitals Temperature (Oral) 36.6 ?C Heart Rate (Peripheral) 62 Blood Pressure 122/70 Height 160 cm Height 63 in Weight 74.4 kg Weight 163.68 lb BMI 29.06 What to do next You Need to Schedule the Following Appointments Follow Up with VIRIDIANA HYLTON, JIM Gold When: In 3 months Where: [facility] [address], [place] [address]- You Need to Complete the Following CBC w/ Auto Diff, Blood, Routine collect, 11/18/22, Order for future visit, Lab Collect, Hypertension, Not Required, Print Label By Order Location Comprehensive Metabolic Panel, Blood, Routine collect, 11/18/22, Order for future visit, Lab Collect, Hypertension, Not Required, Print Label By Order Location Lipid Panel, Blood, Routine collect, 11/18/22, Order for future visit, Lab Collect, Familial hypercholesterolemia, Not Required, Print Label By Order Location Vitamin D 25 Hydroxy, Blood, Routine collect, 11/18/22, Order for future visit, Lab Collect, Low serum vitamin D, Required & Missing, Print Label By Order Location Medications What How Much When Why Instructions Unchanged amlodipine (amLODIPine 5 mg Tab) 1 Tablets By Mouth Every day Uncontrolled hypertension Contact prescribing physician if questions or concerns Unchanged ascorbic acid (ascorbic acid 500 mg oral capsule) 1 Capsules By Mouth Every day Contact prescribing physician if questions or concerns Unchanged aspirin (aspirin 325 mg Tab) 1 Tablets By Mouth Every day Contact prescribing physician if questions or concerns Unchanged bacillus coagulans-inulin (Probiotic Formula (Bacillus Coagulans)) 1 Capsules By Mouth Every day Contact prescribing physician if questions or concerns Unchanged cholecalciferol (cholecalciferol 1000 intl units oral capsule) 1 Capsules By Mouth Every day Contact prescribing physician if questions or concerns Unchanged chondroitin/ glucosamine/ methylsulfonylmethane (Glucosamine Chondroitin Advanced) 1 tab By Mouth Every day Contact prescribing physician if questions or concerns Unchanged fluticasone nasal (fluticasone Nasal 0.05 mg/ inh [place]) 2 Sprays Nasal Inhalation Every day each nostril Contact prescribing physician if questions or concerns Unchanged folic acid (folic acid 1 mg Tab) See instructions 1 tab(s) Oral Daily. DONOT TAKE ON METHOTREZATE DAY Contact prescribing physician if questions or concerns Unchanged gabapentin (gabapentin 300 mg Cap) 1 Capsules By Mouth Every day Contact prescribing physician if questions or concerns Unchanged hydrochlorothiazide (hydrochlorothiazide 12.5 mg Cap) 1 Capsules By Mouth Every day Uncontrolled hypertension Contact prescribing physician if questions or concerns Unchanged hydroxychloroquine (hydroxychloroquine 200 mg Tab) 1 Tablets By Mouth Every day per Dr. Castelan Contact prescribing physician if questions or concerns Unchanged lisinopril (lisinopril 10 mg Tab) 1 Tablets By Mouth 2 times a day Contact prescribing physician if questions or concerns Unchanged methotrexate (methotrexate 2.5 mg Tab) See instructions 5 tab(s) Oral once a week, remember standing labs Contact prescribing physician if questions or concerns Unchanged metoprolol (metoprolol 50 mg ER Tab) 1 Tablets By Mouth Every day Contact prescribing physician if questions or concerns Unchanged multivitamin with minerals (Calcium, Magnesium and Zinc oral tablet) 1 Tablets By Mouth Every day Contact prescribing (more content not included)... [facility] Consent for Treatmenton 10-21 Consent for Treatment [id number]#[id number]:127 Normal [facility] Consultation Noteon 11-19-19 Consultation Note [id number]:127 Normal [facility] Family Medicine Office/Clini c Noteon 11-18-2022 Family Medicine Office/Clinic Note Chief Complaint Patient here for 3 month f/u on htn, chol-- no labs done History of Present Illness Here for med follow up. She has htn and denies CP or SOB. She is feeling well. She has RA and it controlled on meds. She is recovering well from her foot surgery. Review of Systems PHQ Score Initial Depression Screen Score: 0 Physical Exam Vitals & Measurements T: 36.6 ?C(Oral) HR: 62(Peripheral) BP: 122/70 SpO2: 98% HT: 63 in HT: 160 cm WT: 74.4 kg WT: 163.68 lb BMI: 29.06 General: Well developed, well nourished, in no acute distress Eyes: Pupils equal, round, and reactive to light. Conjunctivae and sclerae normal, and extraocular movements intact Ears: TM clear, grossly normal hearing Nose: No deformity, discharge, inflammation, or lesions Mouth: MMM. Oropharynx and posterior pharynx without lesions or exudates. Tongue WNL Neck: Neck supple. No lymphadenopathy. Trachea midline. No thyroid, masses, tenderness, or enlargement noted. No bruit. Lungs: Normal respiratory effort and clear to auscultation Cardio: Regular rate and rhythm, normal S1 and S2, no murmur, no rub Abdomen: Soft, non-distended, non-tender Musculoskeletal: No joint swelling or synovitis noted Extremity: No clubbing, cyanosis or edema. Neurologic: CN 2-12 intact, no focal motor or sensory defects noted. Skin: No rashes, ulcerations, or suspicious lesions Mental Status: Alert and oriented x3. Normal mood and affect Assessment/Plan 1. Hypertension (I10: Essential (primary) hypertension) stay on amlodipine, lisinopril and metoprolol BP controlled Ordered: CBC w/ Auto Diff Comprehensive Metabolic Panel 2. Seronegative rheumatoid arthritis (M06.00: Rheumatoid arthritis without rheumatoid factor, unspecified site) on MTX and HCQ sees Dr. Gates in [place] 3. RLS (restless legs syndrome) (G25.81: Restless legs syndrome) on gabapentin 4. Familial hypercholesterolemia (E78.01: Familial hypercholesterolemia) stay on simvastatin get labs done Ordered: Lipid Panel 5. H/O TIA (transient ischemic attack) and stroke (Z86.73: Personal history of transient ischemic attack (TIA), and cerebral infarction without residual deficits) stay on asa 6. Low serum vitamin D (R79.89: Other specified abnormal findings of blood chemistry) get lab done Ordered: Vitamin D 25 Hydroxy 7. BMI 29.0-29.9,adult (Z68.29: Body mass index [BMI] 29.0-29.9, adult) The standard range for ages 18 and older is >=18.5 and < 25 kg/m2. Your BMI today was above this range, this falls in the overweight to obese category and there are medical benefits to weight loss. We can offer counselling, referral, and/or medical support in addressing this problem. Your BMI and weight management will be followed at subsequent visits. Follow-up With When Contact Information VIRIDIANA HYLTON, JIM Gold In 3 months [facility] [address] [facility], [place] [address]- Additional Instructions: Patient Education Hypertension, Adult, Lobz-ep-[id number] Problem List/Past Medical History Ongoing Allergic rhinitis Familial hypercholesterolemia H/O TIA (transient ischemic attack) and stroke Hypertension Hyponatremia Kidney stones Low serum vitamin D RLS (restless legs syndrome) Seronegative rheumatoid arthritis Historical Acute bronchitis due to other specified organisms Fever Hypertension Left foot pain Rheumatoid arthritis TIA Procedure/Surgical History Colonoscopy, Hysterectomy, Number of caesarean sections, right meniscus surgery. Medications amLODIPine 5 mg Tab, 5 mg= 1 tab(s), Oral, Daily, 3 refills ascorbic acid 500 mg oral capsule, 500 mg= 1 cap(s), Oral, Daily aspirin 325 mg Tab, 325 mg= 1 tab(s), Oral, Daily Calcium, Magnesium and Zinc oral tablet, 1 tab(s), Oral, Daily cholecalciferol 1000 intl units oral capsule, 25 mcg= 1 cap(s), Oral, Daily fluticasone Nasal 0.05 mg/inh [place], 2 spray(s), Nasal, Daily, 3 refills folic acid 1 mg Tab, See Instructions gabapentin 300 mg Cap, 300 mg= 1 cap(s), Oral, Daily Glucosamine Chondroitin Advanced, 1 tab, Oral, Daily hydrochlorothiazide 12.5 mg Cap, 12.5 mg= 1 cap(s), Oral, Daily, 3 refills hydroxychloroquine 200 mg Tab, 200 mg= 1 tab(s), Oral, Daily lisinopril 10 mg Tab, 10 mg= 1 tab(s), Oral, BID, 3 refills methotrexate 2.5 mg Tab, See Instructions metoprolol 50 mg ER Tab, 50 mg= 1 tab(s), Oral, Daily, 3 refills Misc Medication, See Instructions [place]-3, 1 tab, Oral, Daily Probiotic Formula (Bacillus Coagulans), 1 cap(s), Oral, Daily simvastatin 20 mg Tab, 20 mg= 1 tab(s), Oral, Once a day (at bedtime), 3 refills vitamin E, 400 International_Unit, Oral, Daily Allergies Lipitor (muscle pain) Social History Alcohol - Low Risk, 07/06/2015 Current, Wine, 07/06/2015 Substance Abuse - Denies Substance Abuse, 07/06/2015 Tobacco - Denies Tobacco Use, 07/06/2015 Never (less than 100 in lifetime) Tobacco Use:. Never Smokeless Tobacco (more content not included)... [facility] Comment on above: Result Comment: Elec tronically Signed By: VIRIDIANA HYLTON, Bridger Crisostomo.[email or web address]\Date and Time Signed: 11/18/22 12:12 EDT Patient Educationon 11-19-19 Patient Education Cardiovascular Hypertension, Adult Hypertension is another name for high blood pressure. High blood pressure forces your heart to work harder to pump blood. This can cause problems over time. There are two numbers in a blood pressure reading. There is a top number (systolic) over a bottom number (diastolic). It is best to have a blood pressure that is below 120/80. What are the causes? The cause of this condition is not known. Some other conditions can lead to high blood pressure. What increases the risk? Some lifestyle factors can make you more likely to develop high blood pressure: ? Smoking. ? Not getting enough exercise or physical activity. ? Being overweight. ? Having too much fat, sugar, calories, or salt (sodium) in your diet. ? Drinking too much alcohol. Other risk factors include: ? Having any of these conditions: ? Heart disease. ? Diabetes. ? High cholesterol. ? Kidney disease. ? Obstructive sleep apnea. ? Having a family history of high blood pressure and high cholesterol. ? Age. The risk increases with age. ? Stress. What are the signs or symptoms? High blood pressure may not cause symptoms. Very high blood pressure (hypertensive crisis) may cause: ? Headache. ? Fast or uneven heartbeats (palpitations). ? Shortness of breath. ? Nosebleed. ? Vomiting or feeling like you may vomit (nauseous). ? Changes in how you see. ? Very bad chest pain. ? Feeling dizzy. ? Seizures. How is this treated? ? This condition is treated by making healthy lifestyle changes, such as: ? Eating healthy foods. ? Exercising more. ? Drinking less alcohol. ? Your doctor may prescribe medicine if lifestyle changes do not help enough and if: ? Your top number is above 130. ? Your bottom number is above 80. ? Your personal target blood pressure may vary. Follow these instructions at home: Eating and drinking ? If told, follow the DASH eating plan. To follow this plan: ? Fill one half of your plate at each meal with fruits and vegetables. ? Fill one fourth of your plate at each meal with whole grains. Whole grains include whole-wheat pasta, brown rice, and whole-grain bread. ? Eat or drink low-fat dairy products, such as skim milk or low-fat yogurt. ? Fill one fourth of your plate at each meal with low-fat (lean) proteins. Low-fat proteins include fish, chicken without skin, eggs, beans, and tofu. ? Avoid fatty meat, cured and processed meat, or chicken with skin. ? Avoid pre-made or processed food. ? Limit the amount of salt in your diet to less than 1,500 mg each day. ? Do not drink alcohol if: ? Your doctor tells you not to drink. ? You are , may be , or are planning to become . ? If you drink alcohol: ? Limit how much you have to: ? 0?1 drink a day for women. ? 0?2 drinks a day for men. ? Know how much alcohol is in your drink. In the [place] one drink equals one 12 oz bottle of beer (355 mL), one 5 oz glass of wine (148 mL), or one 1? oz glass of hard liquor (44 mL). Lifestyle ? Work with your doctor to stay at a healthy weight or to lose weight. Ask your doctor what the best weight is for you. ? Get at least 30 minutes of exercise that causes your heart to beat faster (aerobic exercise) most days of the week. This may include walking, swimming, or biking. ? Get at least 30 minutes of exercise that strengthens your muscles (resistance exercise) at least 3 days a week. This may include lifting weights or doing Pilates. ? Do not smoke or use any products that contain nicotine or tobacco. If you need help quitting, ask your doctor. ? Check your blood pressure at home as told by your doctor. ? Keep all follow-up visits. Medicines ? Take shtg-krr-xwmbjog and prescription medicines only as told by your doctor. Follow directions carefully. ? Do not skip doses of blood pressure medicine. The medicine does not work as well if you skip doses. Skipping doses also puts you at risk for problems. ? Ask your doctor about side effects or reactions to medicines that you should watch for. Contact a doctor if: ? You think you are having a reaction to the medicine you are taking. ? You have headaches that keep coming back. ? You feel dizzy. ? You have swelling in your ankles. ? You have trouble with your vision. Get help right away if: ? You get a very bad headache. ? You start to feel mixed up (confused). ? You feel weak or numb. ? You feel faint. ? You have very bad pain in your: ? Chest. ? Belly (abdomen). ? You vomit more than once. ? You have trouble breathing. These symptoms may be an emergency. Get help right away. Call 911. ? Do not wait to see if the symptoms will go away. ? Do not drive yourself to the hospital. Summary ? Hypertension is another name for high blood pressure. ? High blood pressure forces your heart to work harder to pump blood. ? For m (more content not included)... [facility] Physician Orderon 11-18-2022 Physician Order [id number]#[id number]:127 [facility] Consultation Noteon 11-14-19 Consultation Note [id number]#[id number]:127 [facility] Consultation Noteon 11-11-19 Consultation Note [id number]#[id number]:127 [facility] Consultation Noteon 10-30-19 Consultation Note [id number]:127 [facility] Family Medicine Office/Clini c Noteon 03-27-2023 Family Medicine Office/Clinic Note Chief Complaint C/o sinus drainage, sometimes productive cough, feeling tired & left ear pain. Tested positive for Covid 3--. History of Present Illness She tested + for Covid August 23. Sx started a few days prior. She has persisting nasal congestion and cough. Nasal discharge is clear to yellow. No fever NO CP She feels tired and run down. She has a headache off and on. Her ears ache off and on. No hearing loss. Review of Systems PHQ Score Initial Depression Screen Score: 0 Physical Exam Vitals & Measurements T: 36.6 ?C(Oral) HR: 63(Peripheral) BP: 126/74 SpO2: 96% HT: 63 in HT: 160 cm WT: 73.4 kg WT: 161.48 lb BMI: 28.67 General: Well developed, well nourished, in no acute distress Eyes: Pupils equal, round, and reactive to light. Conjunctivae and sclerae normal, and extraocular movements intact Ears: TM clear, grossly normal hearing Nose: No deformity, discharge, inflammation, or lesions Mouth: MMM. Oropharynx and posterior pharynx without lesions or exudates. Tongue WNL Neck: _mild AC tenderness, no adenopathy Lungs: Normal respiratory effort and clear to auscultation Cardio: _RRR Abdomen: Soft, non-distended, non-tender Musculoskeletal: No joint swelling or synovitis noted Extremity: No clubbing, cyanosis or edema. Neurologic: CN 2-12 intact, no focal motor or sensory defects noted. Skin: No rashes, ulcerations, or suspicious lesions Mental Status: Alert and oriented x3. Normal mood and affect Assessment/Plan 1. Acute sinusitis (J01.90: Acute sinusitis, unspecified) will put on Zpack and medrol pack likely secondary to below 2. COVID-19 virus infection (U07.1: COVID-19) 3 weeks out lungs are clear on exam. 3. Adult BMI 28.0-28.9 kg/sq m (Z68.28: Body mass index [BMI] 28.0-28.9, adult) The standard range for ages 18 and older is >=18.5 and < 25 kg/m2. Your BMI today was above this range, this falls in the overweight to obese category and there are medical benefits to weight loss. We can offer counselling, referral, and/or medical support in addressing this problem. Your BMI and weight management will be followed at subsequent visits. Orders: azithromycin, = 1 packet(s), Oral, As Directed, as directed on package labeling, X 5 day(s), # 6 tab(s), Refills(s) 0, Pharmacy: [facility], 160, cm, 09/14/22 10:57:00 EDT, Height/Length Dosing, 73.4, kg, 09/14/22 10:57:00 EDT, Weight Dosing fluticasone nasal, 2 spray(s), Nasal, Daily, 3 EA, Refill(s) 3, each nostril, [facility], 160, cm, 05/21/21 14:44:00 EST, Height/Length Dosing, 71.8, kg, 05/21/21 14:44:00 EST, Weight Dosing methylPREDNISolone, = 1 packet(s), Oral, As Directed, as directed on package labeling, X 6 day(s), # 21 tab(s), Refills(s) 0, Pharmacy: [facility], 160, cm, 09/14/22 10:57:00 EDT, Height/Length Dosing, 73.4, kg, 09/14/22 10:57:00 EDT, Weight Dosing Follow-up With When Contact Information VIRIDIANA HYLTON, Bridger ReevesFormerly [facility] [address] [place] [address], [place] [address]- Additional Instructions: at regular appt but sooner if needed. Patient Education Sinusitis, Adult, Cmls-te-Aemm Problem List/Past Medical History Ongoing Acute sinusitis Allergic rhinitis COVID-19 virus infection Familial hypercholesterolemia H/O TIA (transient ischemic attack) and stroke Hypertension Hyponatremia Kidney stones Low serum vitamin D RLS (restless legs syndrome) Seronegative rheumatoid arthritis Historical Acute bronchitis due to other specified organisms Fever Hypertension Left foot pain Rheumatoid arthritis TIA Procedure/Surgical History Colonoscopy, Hysterectomy, Number of caesarean sections, right meniscus surgery. Medications amLODIPine 5 mg Tab, 5 mg= 1 tab(s), Oral, Daily, 3 refills ascorbic acid 500 mg oral capsule, 500 mg= 1 cap(s), Oral, Daily aspirin 325 mg Tab, 325 mg= 1 tab(s), Oral, Daily Calcium, Magnesium and Zinc oral tablet, 1 tab(s), Oral, Daily cholecalciferol 1000 intl units oral capsule, 25 mcg= 1 cap(s), Oral, Daily fluticasone Nasal 0.05 mg/inh [place], 2 spray(s), Nasal, Daily, 3 refills folic acid 1 mg Tab, See Instructions gabapentin 300 mg Cap, 300 mg= 1 cap(s), Oral, Daily Glucosamine Chondroitin Advanced, 1 tab, Oral, Daily hydrochlorothiazide 12.5 mg Cap, 12.5 mg= 1 cap(s), Oral, Daily, 3 refills hydroxychloroquine 200 mg Tab, 200 mg= 1 tab(s), Oral, Daily lisinopril 10 mg Tab, 10 mg= 1 tab(s), Oral, BID, 3 refills Medrol 4 mg Tab, 1 packet(s), Oral, As Directed methotrexate 2.5 mg Tab, See Instructions metoprolol 50 mg ER Tab, 50 mg= 1 tab(s), Oral, Daily, 3 refills Misc Medication, See Instructions [place]-3, 1 tab, Oral, Daily Probiotic Formula (Bacillus Coagulans), 1 cap(s), Oral, Daily simvastatin 20 mg Tab, 20 mg= 1 tab(s), Oral, Once a day (at bedtime), 3 refills vitamin E, 400 International_Unit, Oral, Daily Zithromax 250 mg Tab, 1 packet(s), Oral, As Directed Allergies L (more content not included)... [facility] Comment on above: Result Comment: Elec tronically Signed By: VIRIDIANA HYLTON, Bridger Reeves\.br\Date and Time Signed: 09/14/22 11:10 EDT Patient Educationon 09-15-19 Patient Education Infectious Disease Sinusitis, Adult Sinusitis is soreness and swelling (inflammation) of your sinuses. Sinuses are hollow spaces in the bones around your face. They are located: ? Around your eyes. ? In the middle of your forehead. ? Behind your nose. ? In your cheekbones. Your sinuses and nasal passages are lined with a fluid called mucus. Mucus drains out of your sinuses. Swelling can trap mucus in your sinuses. This lets germs (bacteria, virus, or fungus) grow, which leads to infection. Most of the time, this condition is caused by a virus. What are the causes? This condition is caused by: ? Allergies. ? Asthma. ? Germs. ? Things that block your nose or sinuses. ? Growths in the nose (nasal polyps). ? Chemicals or irritants in the air. ? Fungus (rare). What increases the risk? You are more likely to develop this condition if: ? You have a weak body defense system (immune system). ? You do a lot of swimming or diving. ? You use nasal sprays too much. ? You smoke. What are the signs or symptoms? The main symptoms of this condition are pain and a feeling of pressure around the sinuses. Other symptoms include: ? Stuffy nose (congestion). ? Runny nose (drainage). ? Swelling and warmth in the sinuses. ? Headache. ? Toothache. ? A cough that may get worse at night. ? Mucus that collects in the throat or the back of the nose (postnasal drip). ? Being unable to smell and taste. ? Being very tired (fatigue). ? A fever. ? Sore throat. ? Bad breath. How is this diagnosed? This condition is diagnosed based on: ? Your symptoms. ? Your medical history. ? A physical exam. ? Tests to find out if your condition is short-term (acute) or long-term (chronic). Your doctor may: ? Check your nose for growths (polyps). ? Check your sinuses using a tool that has a light (endoscope). ? Check for allergies or germs. ? Do imaging tests, such as an MRI or CT scan. How is this treated? Treatment for this condition depends on the cause and whether it is short-term or long-term. ? If caused by a virus, your symptoms should go away on their own within 10 days. You may be given medicines to relieve symptoms. They include: ? Medicines that shrink swollen tissue in the nose. ? Medicines that treat allergies (antihistamines). ? A spray that treats swelling of the nostrils.? ? Rinses that help get rid of thick mucus in your nose (nasal saline washes). ? If caused by bacteria, your doctor may wait to see if you will get better without treatment. You may be given antibiotic medicine if you have: ? A very bad infection. ? A weak body defense system. ? If caused by growths in the nose, you may need to have surgery. Follow these instructions at home: Medicines ? Take, use, or apply uspp-kkk-kgwamnh and prescription medicines only as told by your doctor. These may include nasal sprays. ? If you were prescribed an antibiotic medicine, take it as told by your doctor. Do not stop taking the antibiotic even if you start to feel better. Hydrate and humidify ? Drink enough water to keep your pee (urine) pale yellow. ? Use a cool mist humidifier to keep the humidity level in your home above 50%. ? Breathe in steam for 10?15 minutes, 3?4 times a day, or as told by your doctor. You can do this in the bathroom while a hot shower is running. ? Try not to spend time in cool or dry air. Rest ? Rest as much as you can. ? Sleep with your head raised (elevated). ? Make sure you get enough sleep each night. General instructions ? Put a warm, moist washcloth on your face 3?4 times a day, or as often as told by your doctor. This will help with discomfort. ? Wash your hands often with soap and water. If there is no soap and water, use hand communications senior associate. ? Do not smoke. Avoid being around people who are smoking (secondhand smoke). ? Keep all follow-up visits as told by your doctor. This is important. Contact a doctor if: ? You have a fever. ? Your symptoms get worse. ? Your symptoms do not get better within 10 days. Get help right away if: ? You have a very bad headache. ? You cannot stop throwing up (vomiting). ? You have very bad pain or swelling around your face or eyes. ? You have trouble seeing. ? You feel confused. ? Your neck is stiff. ? You have trouble breathing. Summary ? Sinusitis is swelling of your sinuses. Sinuses are hollow spaces in the bones around your face. ? This condition is caused by tissues in your nose that become inflamed or swollen. This traps germs. These can lead to infection. ? If you were prescribed an antibiotic medicine, take it as told by your doctor. Do not stop taking it even if you start to feel better. ? Keep all follow-up visits as told by your doctor. This is important. This information is not intended to replace advice given to you by you (more content not included)... Normal [facility] Lab Reportson 08-20-2022 Lab Reports [id number]#[id number]:127 Normal [facility] Physician Orderon 08-20-2022 Physician Order [id number]#[id number]:127 Normal [facility] Physician Order [id number]#[id number]:127 Normal [facility] Reference Lab Notificationon 08-20-2022 Results Report See Ref Lab Report Normal [facility] Comment on above: Performed By: #### 2 [id number] #### [facility] Laboratory [address] [place] [address] Results Report See Ref Lab Report Normal [facility] Comment on above: Performed By: #### 2 [id number] #### [facility] [address] [place] [address] Reference Lab Reporton 08-20 Reference Lab Report [id number]#[id number]:127 Normal [facility] Reference Lab Report [id number]#[id number]:127 Normal [facility] Consent for Treatmenton 07-23 Consent for Treatment [id number]#[id number]:127 Normal [facility] Family Medicine Office/Clini c Noteon 08-18-2022 Family Medicine Office/Clinic Note Chief Complaint Patient here for 3 month f/u on htn, chol--didn't get labs done yet. Had left foot surgery redone end apr by Dr. Tolbert in [place]. History of Present Illness Here for med follow up. She had a 2nd L foot surgery late April. She is still in a walking cast. She was NWB for 10 weeks. She has htn and denies CP or SOB. She has RA controlled on MTX and HCQ. She has high chol and is on a statin. She did not get her labs done She had a skin Bx on her nose by derm last week. Review of Systems PHQ Score Initial Depression Screen Score: 0 Physical Exam Vitals & Measurements T: 36.7 ?C(Oral) HR: 62(Peripheral) BP: 136/74 SpO2: 98% HT: 63 in HT: 160 cm WT: 73.6 kg WT: 161.92 lb BMI: 28.75 General: Well developed, well nourished, in no acute distress Eyes: Pupils equal, round, and reactive to light. Conjunctivae and sclerae normal, and extraocular movements intact Ears: grossly normal hearing Nose: _bandage on nose Mouth: MMM. Oropharynx and posterior pharynx without lesions or exudates. Tongue WNL Neck: Neck supple. No lymphadenopathy. Trachea midline. No thyroid, masses, tenderness, or enlargement noted. No bruit. Lungs: Normal respiratory effort and clear to auscultation Cardio: Regular rate and rhythm, normal S1 and S2, no murmur, no rub Abdomen: Soft, non-distended, non-tender Musculoskeletal: No joint swelling or synovitis noted LLE in plastic brace Extremity: No clubbing, cyanosis or edema. Neurologic: CN 2-12 intact, no focal motor or sensory defects noted. Skin: No rashes, ulcerations, or suspicious lesions Mental Status: Alert and oriented x3. Normal mood and affect Assessment/Plan 1. Hypertension (I10: Essential (primary) hypertension) stay on amlodipine, lisinopril, metoprolol, hct 2. Seronegative rheumatoid arthritis (M06.00: Rheumatoid arthritis without rheumatoid factor, unspecified site) On MTX and HCQ sees rheumatology 3. Familial hypercholesterolemia (E78.01: Familial hypercholesterolemia) On simvastatin 4. RLS (restless legs syndrome) (G25.81: Restless legs syndrome) on gabapentin 5. Low serum vitamin D (R79.89: Other specified abnormal findings of blood chemistry) stay on D3 6. H/O TIA (transient ischemic attack) and stroke (Z86.73: Personal history of transient ischemic attack (TIA), and cerebral infarction without residual deficits) stay on ASA 7. Adult BMI 28.0-28.9 kg/sq m (Z68.28: Body mass index [BMI] 28.0-28.9, adult) The standard range for ages 18 and older is >=18.5 and < 25 kg/m2. Your BMI today was above this range, this falls in the overweight to obese category and there are medical benefits to weight loss. We can offer counselling, referral, and/or medical support in addressing this problem. Your BMI and weight management will be followed at subsequent visits. Follow-up With When Contact Information VIRIDIANA HYLTON, JIM Gold In 3 months [facility] [address], [place] [address]- Additional Instructions: Patient Education Hypertension, Adult, Jkaf-mo-Ukmg Problem List/Past Medical History Ongoing Allergic rhinitis Familial hypercholesterolemia H/O TIA (transient ischemic attack) and stroke Hypertension Hyponatremia Kidney stones Low serum vitamin D RLS (restless legs syndrome) Seronegative rheumatoid arthritis Historical Acute bronchitis due to other specified organisms Fever Hypertension Left foot pain Rheumatoid arthritis TIA Procedure/Surgical History Colonoscopy, Hysterectomy, Number of caesarean sections, right meniscus surgery. Medications amLODIPine 5 mg Tab, 5 mg= 1 tab(s), Oral, Daily, 3 refills ascorbic acid 500 mg oral capsule, 500 mg= 1 cap(s), Oral, Daily aspirin 325 mg Tab, 325 mg= 1 tab(s), Oral, Daily Calcium, Magnesium and Zinc oral tablet, 1 tab(s), Oral, Daily cholecalciferol 1000 intl units oral capsule, 25 mcg= 1 cap(s), Oral, Daily fluticasone 0.05 mg/inh Nasal [place], 2 spray(s), Nasal, Daily, 3 refills folic acid 1 mg Tab, See Instructions gabapentin 300 mg Cap, 300 mg= 1 cap(s), Oral, Daily Glucosamine Chondroitin Advanced, 1 tab, Oral, Daily hydrochlorothiazide 12.5 mg Cap, 12.5 mg= 1 cap(s), Oral, Daily, 3 refills hydroxychloroquine 200 mg Tab, 200 mg= 1 tab(s), Oral, Daily lisinopril 10 mg Tab, 10 mg= 1 tab(s), Oral, BID, 3 refills methotrexate 2.5 mg Tab, See Instructions metoprolol 50 mg ER Tab, 50 mg= 1 tab(s), Oral, Daily, 3 refills Misc Medication, See Instructions [place]-3, 1 tab, Oral, Daily Probiotic Formula (Bacillus Coagulans), 1 cap(s), Oral, Daily simvastatin 20 mg Tab, 20 mg= 1 tab(s), Oral, Once a day (at bedtime), 3 refills vitamin E, 400 International_Unit, Oral, Daily Allergies Lipitor (muscle pain) Social History Alcohol - Low Risk, 07/06/2015 Current, Wine, 07/06/2015 Substance Abuse - Denies Substance Abuse, 07/06/2015 Tobacco - Denies Tobacco Use, 07/06/2015 Never (less than 100 in lifetim (more content not included)... Normal [facility] Comment on above: Result Comment: Elec tronically Signed By: VIRIDIANA HYLTON, Bridger Crisostomo.br\Date and Time Signed: 08/18/22 10:10 EST Patient Educationon 08-18-19 Patient Education Cardiovascular Hypertension, Adult Hypertension is another name for high blood pressure. High blood pressure forces your heart to work harder to pump blood. This can cause problems over time. There are two numbers in a blood pressure reading. There is a top number (systolic) over a bottom number (diastolic). It is best to have a blood pressure that is below 120/80. Healthy choices can help lower your blood pressure, or you may need medicine to help lower it. What are the causes? The cause of this condition is not known. Some conditions may be related to high blood pressure. What increases the risk? ? Smoking. ? Having type 2 diabetes mellitus, high cholesterol, or both. ? Not getting enough exercise or physical activity. ? Being overweight. ? Having too much fat, sugar, calories, or salt (sodium) in your diet. ? Drinking too much alcohol. ? Having long-term (chronic) kidney disease. ? Having a family history of high blood pressure. ? Age. Risk increases with age. ? Race. You may be at higher risk if you are . ? Gender. Men are at higher risk than women before age 45. After age 65, women are at higher risk than men. ? Having obstructive sleep apnea. ? Stress. What are the signs or symptoms? ? High blood pressure may not cause symptoms. Very high blood pressure (hypertensive crisis) may cause: ? Headache. ? Feelings of worry or nervousness (anxiety). ? Shortness of breath. ? Nosebleed. ? A feeling of being sick to your stomach (nausea). ? Throwing up (vomiting). ? Changes in how you see. ? Very bad chest pain. ? Seizures. How is this treated? ? This condition is treated by making healthy lifestyle changes, such as: ? Eating healthy foods. ? Exercising more. ? Drinking less alcohol. ? Your health care provider may prescribe medicine if lifestyle changes are not enough to get your blood pressure under control, and if: ? Your top number is above 130. ? Your bottom number is above 80. ? Your personal target blood pressure may vary. Follow these instructions at home: Eating and drinking ? If told, follow the DASH eating plan. To follow this plan: ? Fill one half of your plate at each meal with fruits and vegetables. ? Fill one fourth of your plate at each meal with whole grains. Whole grains include whole-wheat pasta, brown rice, and whole-grain bread. ? Eat or drink low-fat dairy products, such as skim milk or low-fat yogurt. ? Fill one fourth of your plate at each meal with low-fat (lean) proteins. Low-fat proteins include fish, chicken without skin, eggs, beans, and tofu. ? Avoid fatty meat, cured and processed meat, or chicken with skin. ? Avoid pre-made or processed food. ? Eat less than 1,500 mg of salt each day. ? Do not drink alcohol if: ? Your doctor tells you not to drink. ? You are , may be , or are planning to become . ? If you drink alcohol: ? Limit how much you use to: ? 0?1 drink a day for women. ? 0?2 drinks a day for men. ? Be aware of how much alcohol is in your drink. In the [place] one drink equals one 12 oz bottle of beer (355 mL), one 5 oz glass of wine (148 mL), or one 1? oz glass of hard liquor (44 mL). Lifestyle ? Work with your doctor to stay at a healthy weight or to lose weight. Ask your doctor what the best weight is for you. ? Get at least 30 minutes of exercise most days of the week. This may include walking, swimming, or biking. ? Get at least 30 minutes of exercise that strengthens your muscles (resistance exercise) at least 3 days a week. This may include lifting weights or doing Pilates. ? Do not use any products that contain nicotine or tobacco, such as cigarettes, e-cigarettes, and chewing tobacco. If you need help quitting, ask your doctor. ? Check your blood pressure at home as told by your doctor. ? Keep all follow-up visits as told by your doctor. This is important. Medicines ? Take fekl-ash-imofduk and prescription medicines only as told by your doctor. Follow directions carefully. ? Do not skip doses of blood pressure medicine. The medicine does not work as well if you skip doses. Skipping doses also puts you at risk for problems. ? Ask your doctor about side effects or reactions to medicines that you should watch for. Contact a doctor if you: ? Think you are having a reaction to the medicine you are taking. ? Have headaches that keep coming back (recurring). ? Feel dizzy. ? Have swelling in your ankles. ? Have trouble with your vision. Get help right away if you: ? Get a very bad headache. ? Start to feel mixed up (confused). ? Feel weak or numb. ? Feel faint. ? Have very bad pain in your: ? Chest. ? Belly (abdomen). ? Throw up more than once. ? Have trouble breathing. Summary ? Hypertension is another name for high blood pressure. ? High blood pressure forces your heart to work harder to (more content not included)... Normal [facility] Reference Lab Notificationon 08-18-2022 Ref [facility] Normal [facility] Comment on above: Performed By: #### 2 [id number] #### [facility] [address] [place] [address] Ref Lab [facility] Normal [facility] Comment on above: Performed By: #### 2 [id number] #### [facility] [address] [place] [address] Reference Laboratory Testing Ordered By: Mikala Olivo on 08-18-2022 Results Report See Ref Lab Report (08/18/22 10:36 AM) Normal [facility] SendOutsSS POINT OF CARE GLUCOSEon 11-2 Glucose [Mass/Vol] 103 mg/dL Normal 74-106 [facility] Comment on above: Performed By: #### P OCGLUC #### [facility] [address] [address] [address] Tomás Booth XR FOOT LT 2Von 05-19-2022 XR FOOT LT 2V EXAM: XR FOOT LT 2V HISTORY: Pain COMPARISON: 10/29/2021. TECHNIQUE: 31 fluoroscopic images FINDINGS: Fluoroscopic images demonstrate revision of first second and third tarsometatarsal joint fusion with removal of plate and screws and placement of 6 cannulated screws. IMPRESSION: Revision of the midfoot forefoot fusion Electronically authenticated by: AMARI EDGAR Date: 2022-05-19 13:55 Normal [facility] Covid-19 PCR ([facility])on 04-22 SARS-CoV-2 (COVID-19) RNA RHEA+probe Ql (Unsp spec) Not detected Normal NOT DETECTED [facility] Comment on above: Result Comment: When diagnostic testing is negative, the possibility of a false negative should be considered in the context of a patient's recent exposures and the presence of clinical signs and symptoms consistent with SARS-CoV-2. This test is not yet approved or cleared by the [place] FDA. When there are no FDA-approved or cleared tests available, and other criteria are met, FDA can make tests available under an emergency access mechanism called an Emergency Use Authorization (EUA). The EUA for this test is supported by the [place] of Health and Human Service's declaration that circumstances exist to justify the emergency use of in vitro diagnostics for the detection and/or diagnosis of the virus that causes COVID-19. This EUA will remain in effect for the duration of the COVID-19 declaration justifying emergency of IVDs, unless it is terminated or revoked by the FDA (after which the test may no longer be used). Performed By: #### C VDTBH ####[facility] [address] [id number]. Tomás Booth CBC AUTO DIFFon 05-08-2022 BASO # 0.0 103/ul Normal 0.0-0.1 [facility] Comment on above: Performed By: #### C BC ####[facility] [address] [address]Dr. Tomás Booth Basophils/100 WBC (Bld) 0.4 % Normal 0.2-2.0 [facility] Comment on above: Performed By: #### C BC ####[facility] [address] [address]Dr. Tomás Booth EO # 0.1 103/ul Normal 0.0-0.7 [facility] Comment on above: Performed By: #### C BC ####[facility] [address] [address]Dr. Tomás Booth Eosinophils/100 WBC (Bld) 1.3 % Normal 0.9-7.0 [facility] Comment on above: Performed By: #### C BC ####[facility] [address] [address]Dr. Tomás Booth Erythrocyte distribution width (RBC) [Ratio] 12.7 % Normal 11.0-15.0 [facility] Comment on above: Performed By: #### C BC ####[facility] [address] [address]Dr. Tomás Booth Hematocrit (Bld) [Volume fraction] 37.3 % Normal 36.0-48.0 [facility] Comment on above: Performed By: #### C BC ####[facility] [address] [address]Dr. Tomás Booth Hemoglobin (Bld) [Mass/Vol] 12.4 g/dL Normal 12.0-16.0 [facility] Comment on above: Performed By: #### C BC ####[facility] [address] [address]Dr. Tomás Booth IG # 0.01 10e3/ul Normal 0.00-0.03 [facility] Comment on above: Performed By: #### C BC ####[facility] [address] [address]Dr. Tomás Booth IG % 0.2 % Normal 0.0-0.5 [facility] Comment on above: Performed By: #### C BC ####[facility] [address] [id number]. Tomás Leobardo LYMPH # 1.4 103/ul Normal 1.2-3.8 [facility] Comment on above: Performed By: #### C BC ####[facility] [address] [id number]. Celinagilda Booth Lymphocytes/100 WBC (Bld) 30.2 % Normal 20.5-60.0 [facility] Comment on above: Performed By: #### C BC ####[facility] [address] [address]Dr. Tomás Booth MANUAL DIFF REQ NO Normal [facility] Comment on above: Performed By: #### C BC ####[facility] [address] [address]Dr. Tomás Leobardo MCH (RBC) [Entitic mass] 31.9 pg Normal 26.7-34.0 [facility] Comment on above: Performed By: #### C BC ####[facility] [address] [place], [place] [address]Dr. Tomás Leobardo MCHC (RBC) [Mass/Vol] 33.2 g/dL Normal 29.9-35.2 [facility] Comment on above: Performed By: #### C BC ####[facility] [address] [address]Dr. Tomás Booth MCV (RBC) [Entitic vol] 95.9 fL Normal 81.0-99.0 [facility] Comment on above: Performed By: #### C BC ####[facility] [address] [address]Dr. Tomás Booth MONO # 0.6 103/ul Normal 0.3-0.8 [facility] Comment on above: Performed By: #### C BC ####[facility] [address] [place], [place] [address]Dr. Tomás Booth Monocytes/100 WBC (Bld) 11.9 % Normal 1.7-12.0 [facility] Comment on above: Performed By: #### C BC ####[facility] [address] [place] [address] Tomás Booth NEUT # 2.6 103/ul Normal 1.4-6.5 [facility] Comment on above: Performed By: #### C BC ####[facility] [address] [address]DrIzzy Booth Neutrophils/100 WBC (Bld) 56.0 % Normal 43.0-75.0 [facility] Comment on above: Performed By: #### C BC ####[facility] [address] [address]DrIzzy Booth Platelet mean volume (Bld) [Entitic vol] 9.4 fL Critically low 9.5-13.5 [facility] Comment on above: Performed By: #### C BC ####[facility] [address] [address]DrIzzy Booth PLT 237 103/ul Normal 150-450 [facility] Comment on above: Performed By: #### C BC ####[facility] [address] [address]Dr. Tomás Booth RBC 3.89 106/ul Critically low 4.20-5.[address] [facility] Comment on above: Performed By: #### C BC ####[facility] [address] [address]DrIzzy Booth WBC 4.6 103/ul Normal 4.0-11.0 [facility] Comment on above: Performed By: #### C BC ####[facility] [address] [address]DrIzzy Booth PROF CHEM 8 (BAS METB)on Anion gap [Moles/Vol] 7.2 mmol/L Normal [facility] Comment on above: Performed By: #### B MP #### [facility] [address] [address] [address] Tomás Booth Calcium [Mass/Vol] 9.2 mg/dL Normal 8.5-10.1 [facility] Comment on above: Performed By: #### B MP #### [facility] [address] [address] [address] Tomás Booth Chloride [Moles/Vol] 100 mmol/L Normal 98-107 [facility] Comment on above: Performed By: #### B MP #### [facility] [address] [address] [address] Tomás Booth CO2 [Moles/Vol] 29.2 mmol/L Normal 21.0-32.0 [facility] Comment on above: Performed By: #### B MP #### [facility] [address] [place] [address] Dr. Tomás Booth Creatinine [Mass/Vol] 0.72 mg/dL Normal 0.55-1.02 [facility] Comment on above: Performed By: #### B MP #### [facility] [address] [place] [address] Dr. Tomás Booth EGFR-AF TAJIK >60 Normal >=60 [facility] Comment on above: Performed By: #### B MP #### [facility] [address] [address] [address] Tomás Booth EGFR-NON AF TAJIK >60 Normal >=60 [facility] Comment on above: Performed By: #### B MP #### [facility] [address] [address] [address] Tomás Booth Glucose [Mass/Vol] 93 mg/dL Normal 74-106 [facility] Comment on above: Performed By: #### B MP #### [facility] [address] [place] [address] Dr. Tomás Booth Potassium [Moles/Vol] 4.4 mmol/L Normal 3.5-5.1 [facility] Comment on above: Performed By: #### B MP #### [facility] [address] [place] [address] Dr. Tomsá Booth Sodium [Moles/Vol] 132 mmol/L Critically low 136-145 [facility] Comment on above: Performed By: #### B MP #### [facility] [address] [address] [address] Tomás Booth Urea nitrogen [Mass/Vol] 25.0 mg/dL Critically high 7.0-18.0 [facility] Comment on above: Performed By: #### B MP #### [facility] [address] [address] [address] Tomás Booth Urea nitrogen/Creatinine [Mass ratio] 34.7 mg/mg Normal [facility] Comment on above: Performed By: #### B MP #### [facility] [id number] Tomás Gonzales 04-08-2022 CNPN Telephone ([facility]) JOE JARAMILLO ([id number]) 1955 F Date Time Provider Department 04/08/22 BRIDGER SANCHES During your visit today, we recorded the following information about you: Kamini Youssef 04/08/2022 3:[address] Sanches / Cristal, Patient called today to schedule surgery (was seen in clinic on 03/23/22). I have not received surgery info to schedule this case. Please provide this when you can. Thank you, Kamini [place], [place] 05/18/2022 2:06 PM Signed Patient sent a [email or web address] message that she has decided to go elsewhere to have her surgery performed. Allergies As of Date: 04/08/2022 Noted Allergy Reaction ATORVASTATIN 11/10/2021 17 - Myalgia 16 - Unknown Date Reviewed: 03/23/2022 Reviewed by: Bridger Sanches DPM - Fully Assessed Reason for Visit: Surgical Followup [104] Prescriptions as of 05/18/2022 - alendronate (FOSAMAX) 70 mg tablet Take 70 mg by mouth one time a week. - amLODIPine (NORVASC) 5 mg tablet - aspirin 325 mg tablet Take 325 mg by mouth. - Cholecalciferol, Vitamin D3, 25 mcg (1,000 unit) cap Take by mouth. - Estradiol (YUVAFEM) 10 mcg vaginal tablet Take 1 tablet by mouth. - folic acid 1 mg tablet - gabapentin (NEURONTIN) 300 mg capsule Take 300 mg by mouth. - hydroCHLOROthiazide (HYDRODIURIL, ESIDRIX) 12.5 mg capsule - hydrOXYchloroQUINE (PLAQUENIL) 200 mg tablet Take 200 mg by mouth. - lisinopril (ZESTRIL, PRINIVIL) 10 mg tablet - methotrexate 2.5 mg tablet TAKE 5 TABLETS by mouth ONCE A WEEK (REMEMBER YOUR STANDING LAB) - metoprolol succinate ER (TOPROL XL) 50 mg 24 hr tablet Problem List As Of Date: 04/08/2022 (None) Encounter Status:Closed by KAMINI YOUSSEF on 04/08/22 [facility] Panel InformationOrdered By: Mikala Olivo on 04-08-2022 Results Report See Ref Lab Report (04/08/22 2:00 PM) Normal [facility] [place] 03-23-2022 ANNALISA Office Visit (OLINDA ) JOE JARAMILLO ([id number]) 1955 F Date Time Provider Department 03/23/22 1:30 PM BRIDGER SANCHES During your visit today, we recorded the following information about you: Bridger Sanches DPM 05/18/2022 7:25 AM Signed Patient Visit for Joe Jaramillo 1955 66 year old female SUBJECTIVE: Chief Complaint: Patient presents with: Left Foot - New, Pain Pain Scales: Verbal (Numeric Rating or Visual Analog Scale) Pain Level: 5 Pain Location: Foot-Left Description: Aching, Burning, Sharp, Throbbing, Stabbing Duration Amount of Time: 1.5 Duration Units: Years Frequency: Intermittent Intervention/Comfort measure: Medication, Relaxation, Exercise Comments: She is here for a 2nd opinion of her left foot. Previous surgery Jul 2020. Orginally a stress fracture that did not heal. Pain increases with walking and standing. 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 Dm Bentley Here for second opinion and treatment PCP: Jon Lazaro MD No past medical history on file. Current Outpatient Medications Medication Sig alendronate (FOSAMAX) 70 mg tablet Take 70 mg by mouth one time a week. amLODIPine (NORVASC) 5 mg tablet aspirin 325 mg tablet Take 325 mg by mouth. Cholecalciferol, Vitamin D3, 25 mcg (1,000 unit) cap Take by mouth. Estradiol (YUVAFEM) 10 mcg vaginal tablet Take 1 tablet by mouth. folic acid 1 mg tablet gabapentin (NEURONTIN) 300 mg capsule Take 300 mg by mouth. hydroCHLOROthiazide (HYDRODIURIL, ESIDRIX) 12.5 mg capsule hydrOXYchloroQUINE (PLAQUENIL) 200 mg tablet Take 200 mg by mouth. lisinopril (ZESTRIL, PRINIVIL) 10 mg tablet methotrexate 2.5 mg tablet TAKE 5 TABLETS by mouth ONCE A WEEK (REMEMBER YOUR STANDING LAB) metoprolol succinate ER (TOPROL XL) 50 mg 24 hr tablet No current facility-administered medications for this visit. ALLERGIES Allergen Reactions Atorvastatin Myalgia, Unknown No past surgical history on file. No family history on file. Tobacco Use: Not on file REVIEW OF SYSTEMS: The remainder of the ROS was reviewed with the patient and is negative except as noted. GENERAL: denies fever or chills CARDIOVASCULAR: Denies current chest pain or SOB (shortness of breath) OBJECTIVE: General: Pleasant in no acute distress Lower extremity exam: Vascular exam: Normal vascular exam, palpable pluses with brisk capillary fill Neurological exam: LEFT FOOT Loss of sensation deep peroneal nerve and superficial peroneal nerve forefoot Other normal neurological exam, gross epicritic sensation intact Dermatological exam: Well healed scars from previous surgery Normal exam without rashes or lesions of skin. No evidence of evidence of petechiae, purpura, telangiectasia Musculoskeletal exam: RIGHT FOOT Normal exam Range of Motion intact and relatively normal to ankle and foot Manual muscle strength evaluation intact LEFT FOOT Deformity tarsometatarsal joint with prominence of bone medial Tenderness to palpation tarsometatarsal joint 1,2,3 No significant tenderness to palpation fourth fifth metatarsal cuboid joint region Mild depressed arch height with weight bearing Gross overall Manual muscle strength evaluation relatively intact LABS: Most recent labs reviewed LABORATORY STUDIES: No results for input(s): HB, WBC, PLT, WSR, CRP, CCPABG, RF, INR, CREATININE, ALB, PROT, URICACID, HBA1C, VITD25 in the last [id number] hours. 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 Treatment options discussed at length Patient declined additional continue conservative care Previous treatment includes: Electrical bone stimulator Fosamax Activity modification Regarding revision surgery Risks Benefits Alternatives relative to procedure discussed Warned patient of risks I discussed with the patient she may benefit from Revision arthrodesis tarsometatarsal joint multiple transverse with removal previous hardware plate and screws Patient understands significant risks relative to this revision surgery include but not limited to: recurrent nonunion, infection , wound complications Due to significant quantity of previous bone harvest from calcaneus recommend patient have orthopedic consult referral for evaluation and treatment as she may require autograft such as iliac cr (more content not included)... Normal [facility] 03-23-2022 ROMIE Telephone (OLINDA) JOE JARAMILLO ([id number]) 1955 F Date Time Provider Department 03/23/22 BRIDGER SANCHES During your visit today, we recorded the following information about you: Cristaljolynn Polanco, JUDE 03/23/2022 2:54 PM Signed Called and informed patient she left her disk at her appointment. I informed her I would leave it at the front desk clerk. Lanette Pereira 05/01/2022 3:13 PM Signed Patient requested the disc to be mailed to her home. Address is correct. Please call patient for any questions. JUDE Benjamin 05/01/2022 3:27 PM Signed Called and informed patient the CD will be mailed today. Allergies As of Date: 03/23/2022 Noted Allergy Reaction ATORVASTATIN 11/10/2021 17 - Myalgia 16 - Unknown Date Reviewed: 03/23/2022 Reviewed by: Bridger Sanches DPM - Fully Assessed Reason for Visit: Patient Update [1234] Prescriptions as of 05/01/2022 - alendronate (FOSAMAX) 70 mg tablet Take 70 mg by mouth one time a week. - amLODIPine (NORVASC) 5 mg tablet - aspirin 325 mg tablet Take 325 mg by mouth. - Cholecalciferol, Vitamin D3, 25 mcg (1,000 unit) cap Take by mouth. - Estradiol (YUVAFEM) 10 mcg vaginal tablet Take 1 tablet by mouth. - folic acid 1 mg tablet - gabapentin (NEURONTIN) 300 mg capsule Take 300 mg by mouth. - hydroCHLOROthiazide (HYDRODIURIL, ESIDRIX) 12.5 mg capsule - hydrOXYchloroQUINE (PLAQUENIL) 200 mg tablet Take 200 mg by mouth. - lisinopril (ZESTRIL, PRINIVIL) 10 mg tablet - methotrexate 2.5 mg tablet TAKE 5 TABLETS by mouth ONCE A WEEK (REMEMBER YOUR STANDING LAB) - metoprolol succinate ER (TOPROL XL) 50 mg 24 hr tablet Problem List As Of Date: 03/23/2022 (None) Encounter Status:Closed by CRISTAL POLANCO on 03/23/22 [facility] CNOVjoshua 02-12-2022 CNOV Office Visit (LOORRM ) JOE JARAMILLO ([id number]) 1955 F Date Time Provider Department 02/12/22 10:30 AM CINDY GEE During your visit today, we recorded the following information about you: Cindy Gee DPM 02/12/2022 1:01 PM Signed [facility] Department of Orthopedics [facility] Orthopedic Surgery Name: Joe Jaramillo Date of Service: February 12, 2022 CC/HPI: This 66 year old very pleasant female patient presents to the clinic today with her present for another opinion regarding chronic left foot pain after a foot surgery about a year and a half ago by Drs. Tolbert and Mc. She said she initially had left foot pain which became a stress fracture which became some bone in the foot and ended up having fusions of her first through third tarsometatarsal joints with now a nonunion and some broken plates in the midfoot. She had a CT scan done which showed this and they want to go back for revision of the surgery. Before the surgery she was very physically active and like to walk but now she has chronic pain on daily basis. She is seen today to find out what the problem may be and discuss treatment options. No past medical history on file. Current Outpatient Medications Medication Sig aspirin 325 mg tablet Take 325 mg by mouth. Cholecalciferol, Vitamin D3, 25 mcg (1,000 unit) cap Take by mouth. gabapentin (NEURONTIN) 300 mg capsule Take 300 mg by mouth. hydrOXYchloroQUINE (PLAQUENIL) 200 mg tablet Take 200 mg by mouth. alendronate (FOSAMAX) 70 mg tablet Take 70 mg by mouth one time a week. amLODIPine (NORVASC) 5 mg tablet Estradiol (YUVAFEM) 10 mcg vaginal tablet Take 1 tablet by mouth. folic acid 1 mg tablet hydroCHLOROthiazide (HYDRODIURIL, ESIDRIX) 12.5 mg capsule lisinopril (ZESTRIL, PRINIVIL) 10 mg tablet methotrexate 2.5 mg tablet TAKE 5 TABLETS by mouth ONCE A WEEK (REMEMBER YOUR STANDING LAB) metoprolol succinate ER (TOPROL XL) 50 mg 24 hr tablet No current facility-administered medications for this visit. ALLERGIES Allergen Reactions Atorvastatin Myalgia, Unknown No past surgical history on file. No family history on file. Physical Exam: The patient is alert and oriented x 3 in no apparent acute distress. The patient presents wearing tennis shoes bilaterally Vascular: Pedal pulses are palpable DP and PT left. CFT is less than 3 seconds digits 1-5 left. Skin temperature is warm to cool from anterior knees to toes left. Some varicosities left. Normal pedal hair growth normal left. Neuro: Light touch is intact to all quadrants of foot and ankle with no apparent sensory deficits left. Protective sensation is intact to the foot when tested with the 5.07gram SWM left. Derm: Unremarkable as related chief complaint left Ortho: Muscle strength is +5/5 for all pedal groups left left. Ankle joint, subtalar joint, 1st MPJ and lesser MPJ ROM's are full and without pain or crepitus left. She has a band of edema over the tarsometatarsal joints 1 through 5 the left foot Radiographs: 3 views left foot reveal retained hardware in the first through third tarsometatarsal joints with dorsal plates with a broken plate of the second and third tarsometatarsal joints and apparent nonunion. There also appears to be evidence of a prior bone graft from the lateral calcaneus. 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 Radiographs 3 views of the left foot Discussed results of clinical and radiographic examination with the patient and in detail along with treatment options. Advised this is substantial problem with the nonunions at the involved joints with understandable chronic pain. Advised she definitely needs revision which is tricky and she may have chronic pain even after the surgery. Advised that my opinion I feel my associate Dr. Sanches is better suited for this with his expertise. Recommend surgical consultation Dr. Sanches. Cindy Gee DPM Referring Provider: CINDY GEE [[id number]] Allergies As of Date: 02/12/2022 Noted Allergy Reaction ATORVASTATIN 11/10/2021 17 - Myalgia 16 - Unknown Date Reviewed: Never Reviewed Reason for Visit: Pain [78] Primary Visit Diagnosis:Pain in left foot [M79.672] Other Visit Diagnoses:Left foot pain [M79.672] Primary osteoarthritis of left foot [M19.072] Nonunion of foot fracture, left [S92.902K] Order(s):XR FOOT GENERAL 3V AP/LAT/OBL LEFT [[id number]] Order #: [id number] FUTURE Prescriptions as of 02/12/2022 - alendronate (FOSAMAX) 70 mg tablet Take 70 mg by mouth one (more content not included)... Normal [facility] XR FOOT 3V AP/LAT/OBL LTon 0 02-12-2022 XR FOOT 3V AP/LAT/OBL LT * * *Final Report* * * DATE OF EXAM: Feb 12 2022 10:33AM [id number] [id number] - XR FOOT 3V AP/LAT/OBL LT / PROCEDURE REASON: Pain in left foot * * * * Physician Interpretation * * * * EXAMINATION: XR FOOT 3V AP/LAT/OBL LT HISTORY: left foot pain. history of left foot stress fracture with surgery Pain in left foot . TECHNIQUE: XR FOOT 3V AP/LAT/OBL LT Laterality: LEFT Number of different views (projections): 3 M: XB_1 COMPARISON: None RESULT: Status post first through third TMT fusion with surgical plate and screws. Broken surgical plate at third TMT joint with lucency at the jointline. There is at least partial bony union across the first and third TMT joints. No acute fracture or dislocation. Ghost track in calcaneal body from prior hardware removal. Small metallic fragment dorsal to the second tarsometatarsal joint. No other significant abnormality. IMPRESSION: Postoperative changes with a broken surgical plate at the third TMT joint. Supervising Nurse: SOLANGE Transcribe Date/Time: Feb 12 2022 5:40P Dictated by : LEANDRO CARTER MD This examination was interpreted and the report reviewed and electronically signed by: LEANDRO CARTER MD on Feb 12 2022 5:45PM EST [id number] Normal [facility] CHEMISTRYOrdered By: SYSTEM SYSTEM on 09-28-2021 Cholesterol [Mass/Vol] 221 mg/dL High 120 - 200 mg/dL [facility] Cholesterol in HDL [Mass/Vol] 53 mg/dL Invalid Interpretation Code [facility] Cholesterol in LDL [Mass/Vol] 138 mg/dL High <=129mg/dL [facility] Cholesterol in VLDL [Mass/Vol] 42 mg/dL High 7 - 40 mg/dL [facility] Triglyceride [Mass/Vol] 210 mg/dL High <=149mg/dL [facility] CHEMISTRYOrdered By: SYSTEM SYSTEM on 09-27-2021 Troponin I.cardiac [Mass/Vol] 4.00 pg/mL Low 10.10 - 27.10 pg/mL [facility] Troponin I.cardiac [Mass/Vol] 4.70 pg/mL Low 10.10 - 27.10 pg/mL [facility] Troponin I.cardiac [Mass/Vol] 3.70 pg/mL Low 10.10 - 27.10 pg/mL [facility] Anion gap [Moles/Vol] 10 mmol/L Normal 6 - 16 mEq/L [facility] Calcium [Mass/Vol] 9.5 mg/dL Normal 8.9 - 11. 1 mg/dL [facility] Chloride [Moles/Vol] 101 mmol/L Normal 101 - 1 11 mmol/L [facility] CO2 [Moles/Vol] 28 mmol/L Normal 21 - 31 mmol/L [facility] Creatinine [Mass/Vol] 0.6 mg/dL Normal 0.5 - 1.3 mg/dL [facility] Remisol GFR/1.73 sq M.predicted among blacks MDRD (S/P/Bld) [Vol rate/Area] mL/min/1.73 m2 Normal >=59mL/min /1.73 m2 [facility] Chem S GFR/1.73 sq M.predicted among non-blacks MDRD (S/P/Bld) [Vol rate/Area] mL/min/1.73 m2 Normal >=59mL/min /1.73 m2 [facility] Chem S Glucose [Mass/Vol] 99 mg/dL Normal 55 - 199 mg/dL [facility] Potassium [Moles/Vol] 4.0 mmol/L Normal 3.5 - 5.3 mmol/L [facility] Sodium [Moles/Vol] 135 mmol/L Normal 135 - 145 mmol/L [facility] Urea nitrogen [Mass/Vol] 19 mg/dL Normal 5 - 21 mg/dL [facility] Urea nitrogen/Creatinine [Mass ratio] 32 mg/mg High 10 - 20 [facility] COAGULATIONOrdered By: Amari Ji on 09-27-2021 aPTT Coag (PPP) [Time] 32.0 s Normal 25.1 - 36.5 second(s) [facility] Auto Coag Fibrin D-dimer FEU (PPP) [Mass/Vol] 248 ng/mL FEU Normal 215 - 500 ng/mL FEU [facility] INR Coag (PPP) [Relative time] 1.0 {INR} Invalid Interpretation Code [facility] Coag PT Coag (PPP) [Time] 11.8 s Normal 10.2 - 12.9 second(s) [facility] Auto Coag HEMATOLOGYOrdered By: [employer] SYSTEM on 09-27-2021 Basophils/100 WBC (Bld) 0.8 % Normal 0.0 - 2.0 % [facility] HemeAutoSS Basophils/Leukocytes Auto (Bld) [Pure # fraction] 0.0 E9/L Normal 0.0 - 0.2 E9/L [facility]eAutoSS Eosinophils/100 WBC (Bld) 1.4 % Normal 0.0 - 8.0 % [facility] HemeAutoSS Eosinophils/Leukocyte s Auto (Bld) [Pure # fraction] 0.0 E9/L Normal 0.0 - 0.5 E9/L [facility]eAutoSS Lymphocytes/100 WBC (Bld) 31.4 % Normal 14.0 - 50.0 % [facility]eAutoSS Lymphocytes/Leukocyte s Auto (Bld) [Pure # fraction] 1.1 E9/L Normal 1.0 - 4.0 E9/L [facility]eAutoSS Monocytes/100 WBC (Bld) 15.3 % High 4.0 - 14.0 % [facility] HemeAutoSS Monocytes/Leukocytes Auto (Bld) [Pure # fraction] 0.5 E9/L Normal 0.2 - 1.0 E9/L [facility]eAutoSS Neutrophils/100 WBC (Bld) 51.1 % Normal 36.0 - 75.0 % [facility] HemeAutoSS Neutrophils/Leukocyte s Auto (Bld) [Pure # fraction] 1.7 E9/L Low 2.0 - 7.5 E9/L [facility] HEMATOLOGYOrdered By: Marce Bautista on 09-27-2021 Erythrocyte distribution width (RBC) [Ratio] 13.3 % Normal 10.9 - 14.2 % [facility] Hematocrit (Bld) [Volume fraction] 38.2 % Normal 34.0 - 46.0 % [facility]eAuto[facility] Hemoglobin (Bld) [Mass/Vol] 13.1 g/dL Normal 12.0 - 16.0 gm/dL [facility] MCH (RBC) [Entitic mass] 32.3 pg Normal 27.0 - 34.0 pg [facility] MCHC (RBC) [Mass/Vol] 34.3 g/dL Normal 31.4 - 36.0 gm/dL [facility] MCV (RBC) [Entitic vol] 94.0 fL Normal 80.0 - 100.0 fL [facility] Platelet mean volume (Bld) [Entitic vol] 7.3 fL Normal 6.4 - 10.8 fL [facility] Platelets (Bld) [#/Vol] 239.0 E9/L Normal 150.0 - 500.0 E9/L [facility] RBC (Bld) [#/Vol] 4.1 E12/L Low 4.3 - 5.9 E12/L [facility] WBC corrected for nucl RBC Auto (Bld) [#/Vol] 3.4 E9/L Low 4.0 - 11.0 E9/L [facility] Comment on above: Result Comment: Slid e reviewed by AEW. Reference Laboratory Testing Ordered By: Generated DomainUser on 07-07-2021 SARS-CoV-2 (COVID-19) RNA RHEA+probe Ql (Resp) Not detected Invalid Interpretation Code Not Detected [facility] [employer] Comment on above: Result Comment: This nucleic acid amplification test was developed and its performance characteristics determined by [employer]. Nucleic acid amplification tests include RT-PCR and TMA. This test has not been FDA cleared or approved. This test has been authorized by FDA under an Emergency Use Authorization (EUA). This test is only authorized for the duration of time the declaration that circumstances exist justifying the authorization of the emergency use of in vitro diagnostic tests for detection of SARS-CoV-2 virus and/or diagnosis of COVID-19 infection under section 564(b)(1) of the Act, 21 U.S.C. 360bbb-3(b) (1), unless the authorization is terminated or revoked sooner. When diagnostic testing is negative, the possibility of a false negative result should be considered in the context of a patient's recent exposures and the presence of clinical signs and symptoms consistent with COVID-19. An individual without symptoms of COVID-19 and who is not shedding SARS-CoV-2 virus would expect to have a negative (not detected) result in this assay. Performed at: [address] [id number] PhD Andrea Garcia CBC (INCLUDES DIFF/PLT)on Basophils (Bld) [#/Vol] 0.02 10*3/uL Normal 0-200 [facility] Comment on above: Performed By: #### 3 75, 48010, 809, 6399 #### [facility]-[address], [address] [place] [address] Hospital Administrator: Cm Pal MD Basophils/100 WBC (Bld) 0.5 % Normal [facility] Comment on above: Performed By: #### 3 75, 36884, 809, 6399 #### [facility]-[place] [address] Hospital Administrator: Cm Pal MD Eosinophils (Bld) [#/Vol] 0.08 10*3/uL Normal 15-500 [facility] Comment on above: Performed By: #### 3 75, 69260, 809, 6399 #### [facility] [address] Hospital Administrator: Cm Pal MD Eosinophils/100 WBC (Bld) 2.0 % Normal [facility] Comment on above: Performed By: #### 3 75, 47132, 809, 6399 #### [facility] [address] Hospital Administrator: Cm Pal MD Erythrocyte distribution width (RBC) [Ratio] 12.3 % Normal 11.0-15.0 [facility] Comment on above: Performed By: #### 3 75, 46916, 809, 6399 #### [facility]-[address], [address] [place] [address] Hospital Administrator: Cm Pal MD Hematocrit (Bld) [Volume fraction] 42.3 % Normal 35.0-45.0 [facility] Comment on above: Performed By: #### 3 75, 45105, 809, 6399 #### [facility] [address] [address] , [address] [place] [address] Hospital Administrator: Cm Pal MD Hemoglobin (Bld) [Mass/Vol] 13.9 g/dL Normal 11.7-15.5 [facility] Comment on above: Performed By: #### 3 75, 59084, 809, 6399 #### [facility] [address] [address] , [address] [place] [address] Hospital Administrator: Cm Pal MD Lymphocytes (Bld) [#/Vol] 1.092 10*3/uL Normal 850-3900 [facility] Comment on above: Performed By: #### 3 75, 95605, 809, 6399 #### [facility] [address], [address] [place] [address] Hospital Administrator: Cm Pal MD Lymphocytes/100 WBC (Bld) 27.3 % Normal [facility] Comment on above: Performed By: #### 3 75, 73132, 809, 6399 #### [facility]-[address], [address] [place] [address] Hospital Administrator: Cm Pal MD MCH (RBC) [Entitic mass] 31.2 pg Normal 27.0-33.0 [facility] Comment on above: Performed By: #### 3 75, 16261, 809, 6399 #### [facility] [address] [address] , [address] [place] [address] Hospital Administrator: Cm Pal MD MCHC (RBC) [Mass/Vol] 32.9 g/dL Normal 32.0-36.[address] [facility] [address] [facility] Comment on above: Performed By: #### 3 75, 91964, 809, 6399 #### [facility]-[place] [address], [address] [place] [address] Hospital Administrator: Cm Pal MD MCV (RBC) [Entitic vol] 95.1 fL Normal 80.0-100.0 [facility] Comment on above: Performed By: #### 3 75, 39276, 809, 6399 #### [facility] [address], [address] [place] [address] Hospital Administrator: Cm Pal MD Monocytes (Bld) [#/Vol] 0.46 10*3/uL Normal 200-950 [facility] Comment on above: Performed By: #### 3 75, 90968, 809, 6399 #### [facility] [address], [address] [place] [address] Hospital Administrator: Cm Pal MD Monocytes/100 WBC (Bld) 11.5 % Normal [facility] Comment on above: Performed By: #### 3 75, 98014, 809, 6399 #### [facility] [address], [address] [place] [address] Hospital Administrator: Cm Pal MD Neutrophils (Bld) [#/Vol] 2.348 10*3/uL Normal 7534-3521 [facility] Comment on above: Performed By: #### 3 75, 28319, 809, 6399 #### [facility] [address], [address] [place] [address] Hospital Administrator: Cm Pal MD Neutrophils/100 WBC (Bld) 58.7 % Normal [facility] Comment on above: Performed By: #### 3 75, 37734, 809, 6399 #### [facility] [address], [address] [place] [address] Hospital Administrator: Cm Pal MD Platelet mean volume (Bld) [Entitic vol] 9.9 fL Normal 7.5-12.5 [facility] Comment on above: Performed By: #### 3 75, 65900, 809, 6399 #### [facility] [address], [address] [place] [address] Hospital Administrator: Cm Pal MD Platelets (Bld) [#/Vol] 216 10*3/uL Normal 140-400 [facility] Comment on above: Performed By: #### 3 75, 58802, 809, 6399 #### [facility] [address] [address] , [address] [place] [address] Hospital Administrator: Cm Pal MD RBC (Bld) [#/Vol] 4.45 10*6/uL Normal 3.80-5.10 [facility] Comment on above: Performed By: #### 3 75, 75317, 809, 6399 #### [facility] [address] , [address] [place] [address] Hospital Administrator: Cm Pal MD WBC (Bld) [#/Vol] 4.0 10*3/uL Normal 3.8-10.8 [facility] Comment on above: Performed By: #### 3 75, 21375, 809, 6399 #### [facility] [id number] , [address] [place] [address] Hospital Administrator: Cm Pal MD CREATININEon 03-01-2020 Creatinine [Mass/Vol] 87 mL/min/1.73m2 Normal > OR = 6 0 [facility] Comment on above: Order Comment: FASTI NG: UNKNOWN Performed By: #### 3 75, 38047, 809, 6399 #### [facility] [address] , [address] [place] [address] Hospital Administrator: Cm Pal MD Creatinine [Mass/Vol] 101 mL/min/1.73m2 Normal > OR = 60 [facility] Comment on above: Order Comment: FASTI NG: UNKNOWN Performed By: #### 3 75, 60350, 809, 6399 #### [facility] [address] [address] , [address] [place] [address] Hospital Administrator: Cm Pal MD Creatinine [Mass/Vol] 0.74 mg/dL Normal 0.50-0.99 [facility] Comment on above: Order Comment: FASTI NG: UNKNOWN Result Comment: For patients >49 years of age, the reference limit for Creatinine is approximately 13% higher for people identified as -Japanese. Performed By: #### 3 75, 27003, 809, 6399 #### [facility] [address] [place] , [address] [place] [address] Hospital Administrator: Cm Pal MD HEPATIC FUNCTION PANEL Albumin [Mass/Vol] 4.3 g/dL Normal 3.6-5.1 [facility] Comment on above: Performed By: #### 3 75, 48803, 809, 6399 #### [facility] [facility] [address] Hospital Administrator: Cm Pal MD Albumin/Globulin [Mass ratio] 1.7 (calc) Normal 1.0-2.5 [facility] Comment on above: Performed By: #### 3 75, 66872, 809, 6399 #### [facility], [address] [place] [address] Hospital Administrator: Cm Pal MD ALP [Catalytic activity/Vol] 78 U/L Normal 37-153 [facility] Comment on above: Performed By: #### 3 75, 69111, 809, 6399 #### [facility] [address] Hospital Administrator: Cm Pal MD ALT [Catalytic activity/Vol] 19 U/L Normal 6-29 [facility] Comment on above: Performed By: #### 3 75, 32720, 809, 6399 #### [facility] [address] Hospital Administrator: Cm Pal MD AST [Catalytic activity/Vol] 20 U/L Normal 10-35 [facility] Comment on above: Performed By: #### 3 75, 56762, 809, 6399 #### [facility] [address] Hospital Administrator: Cm Pal MD Bilirubin [Mass/Vol] 0.4 mg/dL Normal 0.2-1.2 [facility] Comment on above: Performed By: #### 3 75, 57214, 809, 6399 #### [facility] [address] Hospital Administrator: Cm Pal MD BILIRUBIN, INDIRECT 0.3 mg/dL (calc) Normal 0.2-1.2 [facility] Comment on above: Performed By: #### 3 75, 16230, 809, 6399 #### [facility] [address] Hospital Administrator: Cm Pal MD Bilirubin.direct [Mass/Vol] 0.1 mg/dL Normal < OR = 0.2 [facility] Comment on above: Performed By: #### 3 75, 64833, 809, 6399 #### [facility] [address] Hospital Administrator: Cm Pal MD Globulin (S) [Mass/Vol] 2.6 g/dL (calc) Normal 1.9-3.7 [facility] Comment on above: Performed By: #### 3 75, 29946, 809, 6399 #### [facility] [address] Hospital Administrator: Cm Pal MD Protein [Mass/Vol] 6.9 g/dL Normal 6.1-8.1 [facility] Comment on above: Performed By: #### 3 75, 98447, 809, 6399 #### [facility] [address] Hospital Administrator: Cm Pal MD SED RATE BY MODIFIED WESTERG RENon 03-01-2020 SED RATE BY MODIFIED WESTERGREN 6 mm/h Normal < OR = 30 [facility] Comment on above: Performed By: #### 3 75, 66655, 809, 6399 #### [facility] [address] Hospital Administrator: Cm Pal MD ANCA Profile (ANCA+MPO+PR3)o n 01-09-2019 Antimyeloperoxidase (MPO) Abs <9.0 Normal 0.0-9.0 [facility] Comment on above: Performed By: #### A NCA PROF #### [facility] , Atypical pANCA <1:20 Normal Neg:<1:20 [facility] Comment on above: Result Comment: The atypical pANCA pattern has been observed in a significant percentage of patients with ulcerative colitis, primary sclerosing cholangitis and autoimmune hepatitis. Performed at: [facility] [address] [id number] Powder Worker: Peewee Kevin MD, Phone: [phone] Performed at: [facility] [id number] [place], [place] [id number] Powder Worker: Jose Mendez PhD, Phone: [phone] Performed By: #### A NCA PROF #### [facility] , Cytoplasmic (C-ANCA) <1:20 Normal Neg:<1:20 [facility] Comment on above: Performed By: #### A NCA PROF #### [facility] , Perinuclear (P-ANCA) <1:20 Normal Neg:<1:20 [facility] Comment on above: Result Comment: The presence of positive fluorescence exhibiting P-ANCA or C-ANCA patterns alone is not specific for the diagnosis of Lizy's Granulomatosis (WG) or microscopic polyangiitis. Decisions about treatment should not be based solely on ANCA IFA results. The International ANCA Group Consensus recommends follow up testing of positive sera with both OK- 3 and MPO-ANCA enzyme immunoassays. As many as 5% serum samples are positive only by EIA. Ref. AM J Clin Pathol 1999;111:507-513. Performed By: #### A NCA PROF #### [facility] , Protein [Mass/Vol] g/dL Normal 0.0-3.5 [facility] Comment on above: Result Comment: PERF ORMED BY: [facility] [address] [place] [address] PATHOLOGIST SOCIAL GROUP WORKER GIANNA DONNELLY M.D. Performed By: #### A NCA PROF #### [facility] , Vital Signs Date Time Vital Sign Value Performing Clinician Facility 08-03-2023 11:07-0500 Blood Pressure Location Bridger DARBY [facility] 08-03-2023 11:07-0500 Body temperature 97.52 [degF] Bridger DARBY [facility] 08-03-2023 11:07-0500 Diastolic blood pressure 80 mm[Hg] Bridger DARBY [facility] 08-03-2023 11:07-0500 Heart rate 60 /min Bridger DARBY [facility] 08-03-2023 11:07-0500 SaO2% (BldA) [Mass fraction] 96 % Bridger DARBY [facility] 08-03-2023 11:07-0500 Systolic blood pressure 128 mm[Hg] Bridger DARBY [facility] 05-27-2023 09:42-0500 Blood Pressure Location Bridger DARBY [facility] 05-27-2023 09:42-0500 Body temperature 97.88 [degF] Bridger DARBY [facility] 05-27-2023 09:42-0500 Diastolic blood pressure 70 mm[Hg] Bridger DARBY [facility] 05-27-2023 09:42-0500 Heart rate 55 /min Bridger DARBY [facility] 05-27-2023 09:42-0500 SaO2% (BldA) [Mass fraction] 98 % Bridger DARBY [facility] 05-27-2023 09:42-0500 Systolic blood pressure 116 mm[Hg] Bridger DARBY [facility] 05-25-2023 13:45-0500 Blood Pressure Location Bridger VIRIDIANA [facility] 05-25-2023 13:45-0500 Body temperature 97.88 [degF] Bridger DARBY [facility] 05-25-2023 13:45-0500 Diastolic blood pressure 68 mm[Hg] Bridger DARBY [facility] 05-25-2023 13:45-0500 Heart rate 68 /min Bridger DARBY [facility] 05-25-2023 13:45-0500 SaO2% (BldA) [Mass fraction] 97 % Bridger DARBY [facility] 05-25-2023 13:45-0500 Systolic blood pressure 122 mm[Hg] Bridger DARBY [facility] 05-04-2023 08:13-0500 Blood Pressure Location Tamiko Leone [facility] 05-04-2023 08:13-0500 Body temperature 98.06 [degF] Tamiko Leone [facility] 05-04-2023 08:13-0500 Diastolic blood pressure 64 mm[Hg] Tamiko Leone [facility] 05-04-2023 08:13-0500 Heart rate 65 /min Tamiko Leone [facility] 05-04-2023 08:13-0500 SaO2% (BldA) [Mass fraction] 98 % Tamiko Leone [facility] 05-04-2023 08:13-0500 Systolic blood pressure 112 mm[Hg] Tamiko Leone [facility] 04-27-2023 12:40-0500 Blood Pressure Location Magalie Salma [facility] 04-27-2023 12:40-0500 Body temperature 96.8 [degF] Magalie Salma [facility] 04-27-2023 12:40-0500 Diastolic blood pressure 77 mm[Hg] Magalie Salma [facility] 04-27-2023 12:40-0500 Heart rate 68 /min Magalieed BledsoeSalma [facility] 04-27-2023 12:40-0500 Systolic blood pressure 119 mm[Hg] Magalie Salma [facility] 03-12-2023 12:52-0400 Blood Pressure Location Magalieed BledsoeSalma [facility] 03-12-2023 12:52-0400 Body temperature 97.52 [degF] Magalieed BledsoeSalma [facility] 03-12-2023 12:52-0400 Diastolic blood pressure 78 mm[Hg] Magalieed BledsoeSalma [facility] 03-12-2023 12:52-0400 Heart rate 56 /min Magalieed BledsoeSalma [facility] 03-12-2023 12:52-0400 Systolic blood pressure 126 mm[Hg] Magalieed BledsoeSalma [facility] 02-16-2023 13:52-0400 Blood Pressure Location Bridger DARBY [facility] 02-16-2023 13:52-0400 Body temperature 98.06 [degF] Bridger DARBY [facility] 02-16-2023 13:52-0400 Diastolic blood pressure 68 mm[Hg] Bridger DARBY [facility] 02-16-2023 13:52-0400 Heart rate 69 /min Bridger DARBY [facility] 02-16-2023 13:52-0400 SaO2% (BldA) [Mass fraction] 96 % Bridger DARBY [facility] 02-16-2023 13:52-0400 Systolic blood pressure 120 mm[Hg] Bridger DARBY [facility] 11-18-2022 11:46-0400 Blood Pressure Location Bridger DARBY [facility] 11-18-2022 11:46-0400 Body temperature 97.88 [degF] Bridger DARBY [facility] 11-18-2022 11:46-0400 Diastolic blood pressure 70 mm[Hg] Bridger DARBY [facility] 11-18-2022 11:46-0400 Heart rate 62 /min Bridger DARBY [facility] 11-18-2022 11:46-0400 SaO2% (BldA) [Mass fraction] 98 % Bridger DARBY [facility] 11-18-2022 11:46-0400 Systolic blood pressure 122 mm[Hg] Bridger DARBY [facility] 08-18-2022 09:51-0500 Blood Pressure Location Bridger DARBY [facility] 08-18-2022 09:51-0500 Body temperature 98.06 [degF] Bridger VIRIDIANA [facility] 08-18-2022 09:51-0500 Diastolic blood pressure 74 mm[Hg] Bridger DARBY [facility] 08-18-2022 09:51-0500 Heart rate 62 /min Bridger VIRIDIANA [facility] 08-18-2022 09:51-0500 SaO2% (BldA) [Mass fraction] 98 % Bridger DARBY [facility] 08-18-2022 09:51-0500 Systolic blood pressure 136 mm[Hg] Bridger DARBY [facility] 04-17-2022 09:29-0400 Blood Pressure Location Bridger DARBY [facility] 04-17-2022 09:29-0400 Body temperature 97.88 [degF] Bridger DARBY [facility] 04-17-2022 09:29-0400 Diastolic blood pressure 82 mm[Hg] Bridger VIRIDIANA [facility] 04-17-2022 09:29-0400 Heart rate 62 /min Bridger DARBY [facility] 04-17-2022 09:29-0400 SaO2% (BldA) [Mass fraction] 99 % Bridger DARBY [facility] 04-17-2022 09:29-0400 Systolic blood pressure 126 mm[Hg] Bridger DARBY [facility] 12-23-2021 13:27-0400 Blood Pressure Location Bridger VIRIDIANA [facility] 12-23-2021 13:27-0400 Body temperature 98.06 [degF] Bridger DARBY [facility] 12-23-2021 13:27-0400 Diastolic blood pressure 78 mm[Hg] Bridger DARBY [facility] 12-23-2021 13:27-0400 Heart rate 73 /min Bridger DARBY [facility] 12-23-2021 13:27-0400 SaO2% (BldA) [Mass fraction] 97 % Bridger DARBY [facility] 12-23-2021 13:27-0400 Systolic blood pressure 124 mm[Hg] Bridger DARBY [facility] 10-03-2021 08:55-0400 Blood Pressure Location [facility] 10-03-2021 08:55-0400 Body temperature 98.42 [degF] [facility] 10-03-2021 08:55-0400 Diastolic blood pressure 84 mm[Hg] [facility] 10-03-2021 08:55-0400 Heart rate 69 /min [facility] 10-03-2021 08:55-0400 SaO2% (BldA) [Mass fraction] 99 % [facility] 10-03-2021 08:55-0400 Systolic blood pressure 130 mm[Hg] [facility] 09-28-2021 10:02-0400 Hourly Rounding Ashleigh OYOLANDAWU [facility] 09-28-2021 10:02-0400 Promise to Return Lanaanefo OYOLANDAWU [facility] 09-28-2021 09:13-0400 Diastolic blood pressure 88 mm[Hg] Mbanefo OJUKWU [facility] 09-28-2021 09:13-0400 Systolic blood pressure 154 mm[Hg] Mbanefo OJUKWU [facility] 09-28-2021 09:10-0400 Diastolic blood pressure 88 mm[Hg] Mbanefo OJUKWU [facility] 09-28-2021 09:10-0400 Heart rate 66 /min Mbanefo OJUKWU [facility] 09-28-2021 09:10-0400 Systolic blood pressure 154 mm[Hg] Mbanefo OJUKWU [facility] 09-28-2021 08:11-0400 Blood Pressure Location Mbanefo OJUKWU [facility] 09-28-2021 08:11-0400 Body temperature 97.34 [degF] Mbanefo OJUKWU [facility] 09-28-2021 08:11-0400 BP/Pulse Patient Position Mbanefo OJUKWU [facility] 09-28-2021 08:11-0400 Diastolic blood pressure 88 mm[Hg] Mbanefo OJUKWU [facility] 09-28-2021 08:11-0400 Heart rate 60 /min Mbanefo OJUKWU [facility] 09-28-2021 08:11-0400 Mean blood pressure 110 mm[Hg] Mbanefo OJUKWU [facility] 09-28-2021 08:11-0400 Respiratory rate 16 /min Mbanefo OJUKWU [facility] 09-28-2021 08:11-0400 SaO2% (BldA) [Mass fraction] 97 % Mbanefo OJUKWU [facility] 09-28-2021 08:11-0400 Systolic blood pressure 154 mm[Hg] Mbanefo OJUKWU [facility] 09-28-2021 07:33-0400 SaO2% (BldA) [Mass fraction] 95 % Mbanefo OJUKWU [facility] 09-28-2021 03:45-0400 Body temperature 97.7 [degF] Mbanefo OJUKWU [facility] 09-28-2021 03:45-0400 Heart rate 52 /min Mbanefo OJUKWU [facility] 09-28-2021 03:45-0400 Mean blood pressure 99 mm[Hg] Mbanefo OJUKWU [facility] 09-28-2021 03:45-0400 Respiratory rate 16 /min Mbanefo OJUKWU [facility] 09-28-2021 03:45-0400 SaO2% (BldA) [Mass fraction] 95 % Mbanefo OJUKWU [facility] 09-28-2021 00:30-0400 Body temperature 98.06 [degF] Mbanefo OJUKWU [facility] 09-28-2021 00:30-0400 Heart rate 58 /min Mbanefo OJUKWU [facility] 09-28-2021 00:30-0400 Mean blood pressure 89 mm[Hg] Mbanefo OJUKWU [facility] 09-28-2021 00:30-0400 Respiratory rate 16 /min Mbanefo OJUKWU [facility] 09-27-2021 20:00-0400 Mean blood pressure 90 mm[Hg] Mbanefo OJUKWU [facility] 09-27-2021 17:41-0400 Respiratory rate 22 /min Mbanefo OJUKWU [facility] 09-27-2021 13:08-0400 Blood Pressure Location Mbanefo OJUKWU [facility] 09-27-2021 13:08-0400 Heart rate 63 /min Mbanefo OJUKWU [facility] 09-27-2021 10:40-0400 Respiratory rate 17 /min Mbanefo OJUKWU [facility] 09-27-2021 09:49-0400 Heart rate 60 /min Mbanefo OJUKWU [facility] 09-15-2021 08:30-0400 Blood Pressure Location Bridger VIRIDIANA [facility] 09-15-2021 08:30-0400 Body temperature 98.24 [degF] Bridger DARBY [facility] 09-15-2021 08:30-0400 Diastolic blood pressure 80 mm[Hg] Bridger DARBY [facility] 09-15-2021 08:30-0400 Heart rate 63 /min Bridger DARBY [facility] 09-15-2021 08:30-0400 SaO2% (BldA) [Mass fraction] 97 % Bridger DARBY [facility] 09-15-2021 08:30-0400 Systolic blood pressure 128 mm[Hg] Bridger VIRIDIANA [facility] Encounters Encounter Date Encounter Type Care Provider Facility Start: 06-02-2024 ambulatory Bridger DARBY Facility: [facility] Start: 08-30-2023 ambulatory Bridger DARBY Facility: [facility] Start: 08-03-2023 ambulatory Bridger DARBY Facility: [facility] Start: 08-03-2023 End: 08-03-2023 Patient encounter procedure Bridger DARBY [facility] Start: 08-02-2023 ambulatory Magalie Chapman ty:[facility] Start: 07-26-2023 End: 07-27-2023 Emergency department patient visit Shakeel Kilpatrick Facility:[facility] Start: 06-23-2023 End: 06-23-2023 ambulatory AMARI LERNER Not Available Start: 05-27-2023 End: 05-28-2023 ambulatory Bridger DARBY Facility:[facility] Start: 05-27-2023 End: 05-27-2023 Well adult monitoring check done Bridger DARBY [facility] Start: 05-27-2023 End: 05-27-2023 Patient encounter procedure Bridger DARBY [facility] Start: 05-25-2023 End: 05-26-2023 ambulatory Bridger DARBY Facility:[facility] Start: 05-25-2023 End: 05-25-2023 Patient encounter procedure Bridger DARBY [facility] Start: 05-19-2023 End: 05-19-2023 ambulatory AMARI LERNER Not Available Start: 05-04-2023 End: 05-05-2023 ambulatory DIRECTOR BIOLOGICS-C Tamiko Leone Facility:[facility] Start: 05-04-2023 End: 05-04-2023 Patient encounter procedure Tamiko Leone [facility] Start: 04-27-2023 End: 04-28-2023 ambulatory Magalie Marsh Facility:[facility] Start: 04-27-2023 End: 04-27-2023 Patient encounter procedure Magalie Marsh [facility] Start: 04-07-2023 End: 04-08-2023 ambulatory Terese Bob Facility:[facility] Start: 03-18-2023 End: 03-19-2023 ambulatory MATTHIAS CASTELAN Facility:[facility] Start: 03-18-2023 End: 03-18-2023 Patient encounter procedure MATTHIAS CASTELAN [facility] Start: 03-12-2023 End: 03-13-2023 ambulatory Magalie Marsh Facility:[facility] Start: 03-12-2023 End: 03-12-2023 Patient encounter procedure Magalie Marsh [facility] Start: 02-25-2023 End: 02-26-2023 ambulatory MELANIE PUENTES Facility:[facility] Start: 02-25-2023 End: 02-25-2023 Patient encounter procedure MELANIE PUENTES [facility] Start: 02-17-2023 ambulatory Bridger DARBY Facility:[facility] Start: 02-16-2023 End: 02-17-2023 ambulatory Bridger DARBY Facility:[facility] Start: 02-16-2023 End: 02-16-2023 Patient encounter procedure Bridger DARBY [facility] Start: 01-29-2023 End: 01-30-2023 ambulatory MILES VERMA Facility:[facility] Start: 01-29-2023 End: 01-29-2023 Patient encounter procedure MILES CONWAYER [facility] Start: 12-03-2022 End: 12-04-2022 ambulatory ALEXIS BRISENOVIET Facility:[facility] Start: 12-03-2022 End: 12-03-2022 Patient encounter procedure ALEXIS TOLBERT [facility] Start: 11-18-2022 End: 05-28-2023 ambulatory MATTHIAS CASTELAN Facility:[facility] Start: 11-18-2022 End: 08-03-2023 Recurring MATTHIAS CASTELAN [facility] Start: 11-18-2022 End: 11-18-2022 Patient encounter procedure Bridger DARBY [facility] Start: 10-07-2022 End: 10-08-[address] POLI TOBIAS Facility: Start: 09-14-2022 End: 09-15-2022 ambulatory Bridger DARBY Facility:[facility] Start: 08-18-2022 End: 08-19-2022 ambulatory Bridger DARBY Facility:[facility] Start: 08-18-2022 End: 08-18-2022 Patient encounter procedure Bridger DARBY [facility] Start: 08-12-2022 End: 08-13-[address] POLI TOBIAS Facility:[facility] Start: 07-17-2022 End: 07-18-[address] POLI TOBIAS Facility:[facility] Start: 06-30-2022 End: 07-01-[address] AMARI EDGAR Facility:[facility] Start: 06-09-2022 End: 06-10-[address] POLI TOBIAS Facility:[facility] Start: 06-08-2022 ambulatory No Pcp (Historical) Ref erring Physician Start: 05-19-2022 End: 05-19-[address] AMARI EDGAR Facility:[facility] Start: 05-18-2022 Admission to [facility] Bridger Sanches DPM Work Phone: Orthopaedics Comment on above: Foot surgery Start: 05-18-2022 ambulatory Bridger Sanches DPM Work Phone: [facility] [place] Start: 05-16-2022 End: 05-17-2022 ambulatory [facility] Facility:[facility] Start: 05-13-2022 Encounter for other preprocedural examination [facility] Start: 05-13-2022 Encounter for preprocedural cardiovascular examination [facility] Start: 05-13-2022 Encounter for preprocedural laboratory examination [facility] Start: 05-08-2022 End: 05-09-2022 ambulatory [facility] Facility:[facility] Start: 05-08-2022 End: 05-09-2022 Encounter for preprocedural laboratory examination [facility] Facility:[facility] Start: 04-17-2022 End: 04-17-2022 Patient encounter procedure Bridger DARBY [facility] Start: 04-08-2022 Telephone encounter Bridger Sanches DPM Work Phone: Orthopaedics Comment on above: Surgical Followup Start: 03-23-2022 End: 03-23-2022 ambulatory CINDY GEE Facility:[facility] Start: 03-23-2022 Telephone encounter Bridger Sanches DPM Work Phone: Orthopaedics Comment on above: Patient Update Start: 03-23-2022 End: 03-23-2022 Patient encounter procedure Bridger Sanches DPM Work Phone: Orthopaedics Comment on above: Nonunion of foot fra cture, left (Primary Dx); Left foot pain; Malunion of osteotomy site; 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; Difficulty walking Start: 02-12-2022 End: 02-12-2022 ambulatory Suzette Francie RT(R) Radiology Comment on above: Radiology XR Start: 02-12-2022 Patient encounter procedure Suzette Francie RT(R) [facility] Start: 01-14-2022 End: 01-14-2022 Patient encounter procedure SELF REFERRAL [facility] Start: 12-23-2021 End: 12-23-2021 Patient encounter procedure Bridger DARBY [facility] Start: 12-08-2021 End: 11-18-2022 Recurring MATTHIAS CASTELAN [facility] Start: 11-05-2021 End: 11-05-2021 Patient encounter procedure ALEXIS TOLBERT [facility] Start: 10-29-2021 End: 10-30-[address] AMARI EDGAR Facility: Start: 10-21-2021 End: 10-21-2021 Patient encounter procedure Ashleigh VictorJUKWU [facility] Start: 10-13-2021 End: 10-13-2021 Patient encounter procedure Bridger DARBY [facility] Start: 10-03-2021 End: 10-03-2021 Patient encounter procedure Matthias Degroot [facility] Start: 09-27-2021 End: 09-28-2021 Observation Ashleigh SHARMA [facility] Start: 09-15-2021 End: 09-15-2021 Patient encounter procedure Bridger Reeves DARBY [facility] Start: 07-07-2021 End: 10-05-2021 Patient encounter procedure Bridger Reeves VIRIDIANA [facility] Start: 09-12-2018 End: 09-13-2018 Patient encounter procedure Jon Lazaro Facility:[facility] Procedures Date Procedure Procedure Detail Performing Clinician Start: 04-07-2023 Colonoscopy Magalie Marsh Comment on above: large IH Start: 04-07-2023 Esophagogastroduodenoscopy Magalie coreas Comment on above: gastritis Colonoscopy Bridger DARBY Hysterectomy Bridger DARBY Number of s ections (observable entity) Bridger DARBY right meniscus surgery 1 Alvin DARBY Comment on above: 1994 right meniscus surgery 3 Bet ed Salma Comment on above: 1992 Plan of Treatment Date Care Activity Detail Author Start: 02-19-2022 Influenza vaccination INFLUENZA (#1) [facility] Start: 02-12-2022 COVID-19 VACCINE (5 - Booster for Pfizer series) COVID-19 VACCINE (5 - Booster for Pfizer series) [facility] Start: 12-08-2021 COVID-19 VACCINE (5 - Booster for Pfizer series) COVID-19 VACCINE (5 - Booster for Pfizer series) [facility] Start: 06-21-2021 DEPRESSION ASSESSMENT DEPRESSION ASS ESSMENT [facility] Start: 2002 COLOGUARD (FIT-DNA) COLOGUARD (FIT-D NA) [facility] Start: 2002 Colonoscopy COLONOSCOPY [facility] Start: 2002 COLORECTAL CANCER SCREENING COLORECTAL CANCER SCREENING [facility] Start: [address] COLONOGRAPHY [facility] Start: 2002 DIABETES SCREEN DIABETES SCREEN [facility] Start: 2002 FECAL OCCULT BLOOD FECAL OCCULT BLOO D [facility] Start: 2002 LIPID SCREEN LIPID SCREEN [facility] Start: 2002 SIGMOIDOSCOPY SIGMOIDOSCOPY [facility] Start: 1997 Mammography MAMMOGRAM [facility] Start: 11-05-1987 HPV TESTING HPV TESTING [facility] Start: 1978 PAP TESTING PAP TESTING [facility] Start: 1976 SHINGRIX VACCINE (1 of 2) SHINGRIX V ACCINE (1 of 2) [facility] Start: 1976 Urine microalbumin profile DTAP,TDAP ,TD (1 - Tdap) [facility] Start: 11-05-1975 HEPATITIS C SCREENING HEPATITIS C SC REENING [facility] Start: 11-05-1975 HIV SCREENING HIV SCREENING [facility] Start: 1969 Adult depression scr [facility] assessment DEPRESSION SCREENING [facility] Start: 11-05-1963 PNEUMOCOCCAL (1 - PCV) PNEUMOCOCCAL (1 - PCV) [facility] Immunizations Immunization Date Immunization Notes Care Provider Fa [facility] 03-18-2023 influenza virus vaccine, unspecified formulation Magalie Marsh [facility] 03-18-2023 pneumococcal 20-valent conjugate vaccine Magalie Marsh [facility] 10-06-2022 SARS-CoV-2 (COVID-19 ) [id number] MATTHIAS CASTELAN [facility] 08-01-2022 zoster vaccine recombinant MATTHIAS CASTELAN [facility] 04-15-2022 zoster vaccine recombinant Bridger DARBY [facility] Comment on above: Result Comment: Drug [place] 03-30-2022 influenza virus vaccine, unspecified formulation Bridger DARBY [facility] 10-13-2021 COVID-19, mRNA, LNP-S, PF, 30 mcg/0.3 mL dose Bridger DARBY [facility] 05-05-2021 COVID-19, mRNA, LNP-S, PF, 30 mcg/0.3 mL dose Bridger DARBY [facility] 03-17-2021 influenza, injectable, quadrivalent, preservative free Bridger DARBY [facility] 08-23-2020 SARS-CoV-2 (COVID-19 ) mRNA BNT-162b2 vax Bridger DARBY [facility] 08-02-2020 SARS-CoV-2 (COVID-19 ) mRNA BNT-162b2 vax Bridger DARBY [facility] 04-03-2020 influenza virus vaccine, unspecified formulation Bridger DARBY [facility] 03-21-2020 influenza virus vaccine, unspecified formulation Magalie Marsh [facility] 04-21-2019 influenza virus vaccine, unspecified formulation Magalie Marsh [facility] 03-29-2019 influenza virus vaccine, unspecified formulation Bridger DARBY [facility] 04-25-2018 influenza virus vaccine, unspecified formulation MATTHIAS CASTELAN [facility] 11-17-2017 zoster vaccine, live Bridger HSIEH [facility] 10-19-2017 zoster vaccine recombinant Bridger DARBY [facility] 04-26-2017 influenza virus vaccine, unspecified formulation MATTHIAS BAZZIROHIT [facility] 08-03-2013 tetanus toxoid, reduced diphtheria toxoid, and acellular pertussis vaccine, adsorbed Bridger DARBY [facility] NEGATED: Highlighted row has not occurred!03-10-2023 influenza virus vaccine, unspecified formulation Magalie Bledsoemetz [facility] Payers Date Payer Category Payer Medicare [id number] 2019 Unknown MMO MMO [employer] [id number] 2019-Present [phone] [address] [place] [address] PPO [id number] 1959 Unknown [id number] 1957 Unknown [id number] 2.16.840.1.198584.3.579.2.727 1957 Unknown [id number] 2.16.840.1.718814.3.579.2.593 1957 Unknown [id number] 2.16.840.1.193061.3.579.2.593 1957 Unknown [id number] 2.16.840.1.906612.3.579.2.593 1957 Unknown [id number] 2.16.840.1.324836.3.579.2.593 1957 Unknown [id number] 2.16.840.1.139477.3.579.2.593 1957 Unknown [id number] 2.16.840.1.347638.3.579.2.593 1957 Unknown [id number] 2.16.840.1.938165.3.579.2.593 1957 Unknown [id number] 2.16.840.1.041915.3.579.2.59 1957 Unknown [id number] 2.16.840.1.282326.3.579.2.59 1957 Unknown [id number] 2.16.840.1.029876.3.579.2.1259 1957 Unknown [id number] 2..840.1.986321.3.579.2.125 1957 Unknown [id number] 2.16.840.1.881754.3.579.2.72 1957 Unknown [id number] 2.16.840.1.531311.3.579.2.72 1957 Unknown [id number] 2.16.840.1.144966.3.579.2.72 1957 Unknown [id number] 2..840.1.639215.3.579.2.72 1957 Unknown [id number] 2.16.840.1.099697.3.579.2.72 1957 Unknown [id number] 2.16.840.1.645282.3.579.2.72 1957 Unknown [id number] 2.16.840.1.871261.3.579.2.72 1957 Unknown [id number] 2.16.840.1.105309.3.579.2.72 1957 Unknown [id number] 2.16.840.1.544982.3.579.2. 1957 Unknown [id number] 2.16.840.1.173342.3.579.2 1957 Unknown [id number] 2.16.840.1.968245.3.579.2 1957 Unknown [id number] 2.16.840.1.837533.3.579.2 1957 Unknown [id number] 2.16.840.1.026835.3.579.2 1957 Unknown [id number] 2..840.1.174950.3.579. 1957 Unknown [id number] 2.16.840.1.624491.3.579. 1957 Unknown [id number] 2..840.1.283146.3.579. 1957 Unknown [id number] 2..840.1.786210.3.579. 1957 Unknown [id number] 2.16.840.1.855064.3.579. 1957 Unknown [id number] 2.16.840.1.219715.3.579.2 1957 Unknown [id number] 2.16.840.1.196157.3.579.2 1957 Unknown [id number] 2.16.840.1.455780.3.579.2 1957 Unknown [id number] 2.16.840.1.467185.3.579.2 1957 Unknown [id number] 2.16.840.1.953667.3.579.2 1957 Unknown [id number] 2.16.840.1.205414.3.579.2.727 Social History Date Type Detail Facility Start: 09-15-2021 End: 08-03-2023 Tobacco smoking status Never smoked tobacco (finding) [facility] Comment on above: denies use Tobacco smoking status Never [facility] Comment on above: denies use Sex Assigned At Female [facility] Tobacco smoking status NHIS Tobacco smoking consumption unknown [facility] Start: 1955 Sex Assigned At Not on file C [facility] Start: 02-02-2022 End: 03-23-2022 Exposure to SARS-CoV-2 (event) Not sure [facility] Functional Status Date Assessment Result Facility 08-03-2023 Functional Status N/A [facility] 05-27-2023 Functional Status N/A [facility] 05-25-2023 Functional Status N/A [facility] 05-04-2023 Functional Status N/A [facility] 04-27-2023 Functional Status N/A [facility] 03-12-2023 Functional Status N/A [facility] 02-16-2023 Functional Status N/A [facility] 11-18-2022 Functional Status N/A [facility] 08-18-2022 Functional Status N/A [facility] 04-17-2022 Functional Status N/A [facility] 12-23-2021 Functional Status N/A [facility] Clinical Notes 09-15-2021 to 08-03-2023 Andres Stafford - 06/08/2022 11:49 AM ESTTelephone Encounter - Kamini Youssef - 04/08/2022 3:14 PM EDTTelephone Encounter - JUDE Benjamin - 03/23/2022 2:52 PM EDT Note Date & Type Note Facility 08-03-2023 Hospital Discharge instructions Patient Education 08/03/2023 11:31:05 Hypertension, Adult, Zoxs-[id number] Hypertension, Adult Hypertension is another name for high blood pressure. High blood pressure forces your heart to work harder to pump blood. This can cause problems over time. There are two numbers in a blood pressure reading. There is a top number (systolic) over a bottom number (diastolic). It is best to have a blood pressure that is below 120/80. What are the causes? The cause of this condition is not known. Some other conditions can lead to high blood pressure. What increases the risk? Some lifestyle factors can make you more likely to develop high blood pressure: Smoking. Not getting enough exercise or physical activity. Being overweight. Having too much fat, sugar, calories, or salt (sodium) in your diet. Drinking too much alcohol. Other risk factors include: Having any of these conditions: ?Heart disease. ?Diabetes. ? High cholesterol. ?Kidney disease. ?Obstructive sleep apnea. Having a family history of high blood pressure and high cholesterol. Age. The risk increases with age. Stress. What are the signs or symptoms? High blood pressure may not cause symptoms. Very high blood pressure (hypertensive crisis) may cause: Headache. Fast or uneven heartbeats (palpitations). Shortness of breath. Nosebleed. Vomiting or feeling like you may vomit (nauseous). Changes in how you see. Very bad chest pain. Feeling dizzy. Seizures. How is this treated? This condition is treated by making healthy lifestyle changes, such as: ?Eating healthy foods. ?Exercising more. ?Drinking less alcohol. Your doctor may prescribe medicine if lifestyle changes do not help enough and if: ?Your top number is above 130. ?Your bottom number is above 80. Your personal target blood pressure may vary. Follow these instructions at home: Eating and drinking If told, follow the DASH eating plan. To follow this plan: ?Fill one half of your plate at each meal with fruits and vegetables. ?Fill one fourth of your plate at each meal with whole grains. Whole grains include whole-wheat pasta, brown rice, and whole-grain bread. ?Eat or drink low-fat dairy products, such as skim milk or low-fat yogurt. ?Fill one fourth of your plate at each meal with low-fat (lean) proteins. Low-fat proteins include fish, chicken without skin, eggs, beans, and tofu. ?Avoid fatty meat, cured and processed meat, or chicken with skin. ?Avoid pre-made or processed food. Limit the amount of salt in your diet to less than 1,500 mg each day. Do not drink alcohol if: ?Your doctor tells you not to drink. ?You are , may be , or are planning to become . If you drink alcohol: ?Limit how much you have to: ?0 1 drink a day for women. ?0 2 drinks a day for men. ?Know how much alcohol is in your drink. In the [place] one drink equals one 12 oz bottle of beer (355 mL), one 5 oz glass of wine (148 mL), or one 1 oz glass of hard liquor (44 mL). Lifestyle Work with your doctor to stay at a healthy weight or to lose weight. Ask your doctor what the best weight is for you. Get at least 30 minutes of exercise that causes your heart to beat faster (aerobic exercise) most days of the week. This may include walking, swimming, or biking. Get at least 30 minutes of exercise that strengthens your muscles (resistance exercise) at least 3 days a week. This may include lifting weights or doing Pilates. Do not smoke or use any products that contain nicotine or tobacco. If you need help quitting, ask your doctor. Check your blood pressure at home as told by your doctor. Keep all follow-up visits. Medicines Take uuyc-[id number] and prescription medicines only as told by your doctor. Follow directions carefully. Do not skip doses of blood pressure medicine. The medicine does not work as well if you skip doses. Skipping doses also puts you at risk for problems. Ask your doctor about side effects or reactions to medicines that you should watch for. Contact a doctor if: You think you are having a reaction to the medicine you are taking. You have headaches that keep coming back. You feel dizzy. You have swelling in your ankles. You have trouble with your vision. Get help right away if: You get a very bad headache. You start to feel mixed up (confused). You feel weak or numb. You feel faint. You have very bad pain in your: ?Chest. ?Belly (abdomen). You vomit more than once. You have trouble breathing. These symptoms may be an emergency. Get help right away. Call 911. Do not wait to see if the symptoms will go away. Do not drive yourself to the hospital. Summary Hypertension is another name for high blood pressure. High blood pressure forces your heart to work harder to pump blood. For most people, a normal blood pressure is less than 120/80. Making healthy choices can help lower blood pressure. If your blood pressure does not get lower with healthy choices, you may need to take medicine. This information is not intended to replace advice given to you by your health care provider. Make sure you discuss any questions you have with your health care provider. Document Revised: 03/26/2022 Document Reviewed: 03/26/2022 [employer] Patient Education 2022 GetYou. Follow Up Care 07/30/2023 08:39:43 With:VIRIDIANA HYLTON, Bridger Reeves, MED Address: [facility] [address], [place] [address]- When: Unknown Comments:at regular appt but sooner if needed. [facility] 05-27-2023 Hospital Discharge instructions Patient Education 05/27/2023 10:46:33 High Triglycerides Eating Plan High Triglycerides Eating Plan Triglycerides are a type of fat in the blood. High levels of triglycerides can increase your risk of heart disease and stroke. If your triglyceride levels are high, choosing the right foods can help lower your triglycerides and keep your heart healthy. Work with your health care provider or a dietitian to develop an eating plan that is right for you. What are tips for following this plan? General guidelines Lose weight, if you are overweight. For most people, losing 5 10 lb (2 5 kg) helps lower triglyceride levels. A weight-loss plan may include: ?30 minutes of exercise at least 5 days a week. ?Reducing the amount of calories, sugar, and fat you eat. Eat a wide variety of fresh fruits, vegetables, and whole grains. These foods are high in fiber. Eat foods that contain healthy fats, such as fatty fish, nuts, seeds, and olive oil. Avoid foods that are high in added sugar, added salt (sodium), and saturated fat. Avoid low-fiber, refined carbohydrates such as white bread, crackers, noodles, and white rice. Avoid foods with trans fats or partially hydrogenated oils, such as fried foods or stick margarine. If you drink alcohol: ?Limit how much you have to: ?0 1 drink a day for women who are not . ? 0 2 drinks a day for men. ?Your health care provider may recommend that you drink less than these amounts depending on your overall health. ?Know how much alcohol is in a drink. In the [place] one drink equals one 12 oz bottle of beer (355 mL), one 5 oz glass of wine (148 mL), or one 1 oz glass of hard liquor (44 mL). Reading food labels Check food labels for: The amount of saturated fat. Choose foods with no or very little saturated fat (less than 2 g). The amount of trans fat. Choose foods with no transfat. The amount of cholesterol. Choose foods that are low in cholesterol. The amount of sodium. Choose foods with less than 140 milligrams (mg) per serving. Shopping Buy dairy products labeled as nonfat (skim) or low-fat (1%). Avoid buying processed or prepackaged foods. These are often high in added sugar, sodium, and fat. Cooking Choose healthy fats when cooking, such as olive oil, avocado oil, or canola oil. Cook foods using lower fat methods, such as baking, broiling, boiling, or grilling. Make your own sauces, dressings, and marinades when possible, instead of buying them. Store-bought sauces, dressings, and marinades are often high in sodium and sugar. Meal planning Eat more home-cooked food and less restaurant, buffet, and fast food. Eat fatty fish at least 2 times each week. Examples of fatty fish include salmon, trout, sardines, mackerel, tuna, and collins. If you eat whole eggs, do not eat more than 4 egg yolks per week. What foods should I eat? Fruits All fresh, canned (in natural juice), or frozen fruits. Vegetables Fresh or frozen vegetables. Low-sodium canned vegetables. Grains Whole wheat or whole grain breads, crackers, cereals, and pasta. Unsweetened oatmeal. Bulgur. Barley. Quinoa. Brown rice. Whole wheat flour tortillas. Meats and other proteins Skinless chicken or turkey. Ground chicken or turkey. Lean cuts of pork, trimmed of fat. Fish and seafood, especially salmon, trout, and collins. Egg whites. Dried beans, peas, or lentils. Unsalted nuts or seeds. Unsalted canned beans. Natural peanut or almond butter or other nut butters. Dairy Low-fat dairy products. Skim or low-fat (1%) milk. Reduced fat (2%) and low-sodium cheese. Low-fat ricotta cheese. Low-fat cottage cheese. Plain, low-fat yogurt. Fats and oils Tub margarine without trans fats. Light or reduced-fat mayonnaise. Light or reduced-fat salad dressings. Avocado. Safflower, olive, sunflower, soybean, and canola oils. The items listed above may not be a complete list of recommended foods and beverages. Talk with your dietitian about what dietary choices are best for you. What foods should I avoid? Fruits Sweetened dried fruit. Canned fruit in syrup. Fruit juice. Vegetables Creamed or fried vegetables. Vegetables in a cheese sauce. Grains White bread. White (regular) pasta. White rice. Cornbread. Bagels. Pastries. Crackers that contain trans fat. Meats and other proteins Fatty cuts of meat. Ribs. Chicken wings. Samuels. Sausage. Bologna. Salami. Chitterlings. Fatback. Hot dogs. Bratwurst. Packaged lunch meats. Dairy Whole or reduced-fat (2%) milk. Yuig-bgv-hjub. Cream cheese. Full-fat or sweetened yogurt. Full-fat cheese. Nondairy creamers. Whipped toppings. Processed cheese or cheese spreads. Cheese curds. Fats and oils Butter. Stick margarine. Lard. Shortening. Ghee. Samuels fat. Tropical oils, such as coconut, palm kernel, or palm oils. Beverages Alcohol. Sweetened drinks, such as soda, lemonade, fruit drinks, or punches. Sweets and desserts [place] syrup. Sugars. Honey. Molasses. Candy. Jam and jelly. Syrup. Sweetened cereals. Cookies. Pies. Cakes. Donuts. Muffins. Ice cream. Condiments Store-bought sauces, dressings, and marinades that are high in sugar, such as ketchup and barbecue sauce. The items listed above may not be a complete list of foods and beverages you should avoid. Talk with your dietitian about what dietary choices are best for you. Summary High levels of triglycerides can increase the risk of heart disease and stroke. Choosing the right foods can help lower your triglycerides. Eat plenty of fresh fruits, vegetables, and whole grains. Choose low-fat dairy and lean meats. Eat fatty fish at least twice a week. Avoid processed and prepackaged foods with added sugar, sodium, saturated fat, and trans fat. If you need suggestions or have questions about what types of food are good for you, talk with your health care provider or a dietitian. This information is not intended to replace advice given to you by your health care provider. Make sure you discuss any questions you have with your health care provider. Document Revised: 10/17/2021 Document Reviewed: 10/17/2021 [employer] Patient Education 2022 GetYou. 05/27/2023 10:46:21 Understanding Your Risk for Falls Understanding Your Risk for Falls Each year, millions of people have serious injuries from falls. It is important to understand your risk for falling. Talk with your health care provider about your risk and what you can do to lower it. There are actions you can take at home to lower your risk and prevent falls. If you do have a serious fall, make sure to tell your health care provider. Falling once raises your risk of falling again. How can falls affect me? Serious injuries from falls are common. These include: Broken bones, such as hip fractures. Head injuries, such as traumatic brain injuries (TBI) or concussion. A fear of falling can cause you to avoid activities and stay at home. This can make your muscles weaker and actually raise your risk for a fall. What can increase my risk? There are a number of risk factors that increase your risk for falling. The more risk factors you have, the higher your risk of falling. Serious injuries from a fall happen most often to people older than age 65. Children and young adults ages 15 29 are also at higher risk. Common risk factors include: Weakness in the lower body. Lack (deficiency) of vitamin D. Being generally weak or confused due to long-term (chronic) illness. Dizziness or balance problems. Poor vision. Medicines that cause dizziness or drowsiness. These can include medicines for your blood pressure, heart, anxiety, insomnia, or edema, as well as pain medicines and muscle relaxants. Other risk factors include: Drinking alcohol. Having had a fall in the past. Having depression. Having foot pain or wearing improper footwear. Working at a dangerous job. Having any of the following in your home: ?Tripping hazards, such as floor clutter or loose rugs. ?Poor lighting. ?Pets. Having dementia or memory loss. What actions can I take to lower my risk of falling? Physical activity Maintain physical fitness. Do strength and balance exercises. Consider taking a regular class to build strength and balance. Yoga and [facility]ary ellen [facility] are good options. Vision Have your eyes checked every year and your vision prescription updated as needed. Walking aids and footwear Wear nonskid shoes. Do not wear high heels. Do not walk around the house in socks or slippers. Use a cane or walker as told by your health care provider. Home safety Attach secure railings on both sides of your stairs. Install grab bars for your tub, shower, and toilet. Use a bath mat in your tub or shower. Use good lighting in all rooms. Keep a flashlight near your bed. Make sure there is a clear path from your bed to the bathroom. Use night-lights. Do not use throw rugs. Make sure all carpeting is taped or tacked down securely. Remove all clutter from walkways and stairways, including extension cords. Repair uneven or broken steps. Avoid walking on icy or slippery surfaces. Walk on the grass instead of on icy or slick sidewalks. Use ice melt to get rid of ice on walkways. Use a cordless phone. Questions to ask your health care provider Can you help me check my risk for a fall? Do any of my medicines make me more likely to fall? Should I take a vitamin D supplement? What exercises can I do to improve my strength and balance? Should I make an appointment to have my vision checked? Do I need a bone density test to check for weak bones or osteoporosis? Would it help to use a cane or a walker? Where to find more information Centers for Disease Control and PreventionAAMIR: www.cdc.gov Community-Based Fall Prevention Programs: www.cdc.gov National [place] on Aging: www.renita.nih.gov Contact a health care provider if: You fall at home. You are afraid of falling at home. You feel weak, drowsy, or dizzy. Summary Serious injuries from a fall happen most often to people older than age 65. Children and young adults ages 15 29 are also at higher risk. Talk with your health care provider about your risks for falling and how to lower those risks. Taking certain precautions at home can lower your risk for falling. If you fall, always tell your health care provider. This information is not intended to replace advice given to you by your health care provider. Make sure you discuss any questions you have with your health care provider. Document Revised: 01/08/2021 Document Reviewed: 01/08/2021 [employer] Patient Education 2022 GetYou. 05/27/2023 10:46:14 Hepatitis C, Tmsk-yd-Xjzr Hepatitis C Hepatitis C is a liver infection that is caused by a virus. Many people have no symptoms or only mild symptoms. Hepatitis C is contagious. This means that it can spread from person to person. Over time, the infection can lead to serious liver problems. What are the causes? This condition is caused by a virus. It can spread through: Contact with body fluids from someone who has the virus. This includes: ?Blood. ?Semen or vaginal fluids. Childbirth. A woman can pass the virus to her baby during . Blood or organ donations that were done in the [place] before 1991. What increases the risk? Having contact with needles or syringes that have the virus on them. This may happen when you: ?Get acupuncture. This is a treatment that puts thin needles through your skin. ?Get a tattoo or body piercing. ?Inject drugs. Having sex with someone who has the virus. The virus can be passed through vaginal, oral, or anal sex. Getting treatment to clean your blood (kidney dialysis). Having HIV or AIDS. Having a job that puts you in contact with blood or body fluids. What are the signs or symptoms? You feel very tired. You are not hungry. You feel like you may vomit or you vomit. You have pain in your belly or fluid builds up in your belly. Your pee is dark yellow. Your skin or the white parts of your eyes look yellow (jaundice). Your skin is itchy. Your poop is light in color. You have joint pain. You bleed or bruise often. Often, there are no symptoms. How is this treated? Treatment may depend on your condition and whether you have liver damage. Treatment may include: Taking antiviral medicines and other medicines. Having follow-up treatments every 6 12 months for liver problems. Getting a new liver from a donor. This is called a liver transplant. Follow these instructions at home: Medicines Take stbo-cxk-emqrcfq and prescription medicines only as told by your doctor. If you were given an antiviral medicine, take it as told by your doctor. Do not stop using the antiviral even if you start to feel better. Do not take any new medicines unless your doctor says that this is okay. This includes tdbf-gfu-klzwawv medicines and supplements. Activity Rest as needed. Do not have sex until your doctor says this is okay. Do not swim or use hot tubs if you have open sores or wounds. Return to your normal activities as told by your doctor. Ask your doctor what activities are safe for you. Ask your doctor when you may go back to school or work. Eating and drinking Eat a balanced diet. Eat plenty of: ?Fruits and vegetables. ?Whole grains. ?Lean meats or non-meat proteins, such as beans or tofu. Drink enough fluid to keep your pee pale yellow. Do not drink alcohol. General instructions Do not share toothbrushes, nail clippers, or razors. Wash your hands often with soap and water for at least 20 seconds. If you do not have soap and water, use hand communications senior associate. Cover any cuts or open sores on your skin. Keep all follow-up visits. You may need follow-up visits every 6 12 months. How is this prevented? Wash your hands often with soap and water for at least 20 seconds. Do not share needles or syringes. Use a condom every time you have vaginal, oral, or anal sex. Latex condoms should be used, if possible. Do not handle blood or body fluids without gloves or other protection. Avoid getting tattoos or piercings in shops that are not clean. Where to find more information Centers for Disease Control and Prevention: www.cdc.gov World Health Organization: www.who.int Contact a doctor if: You have a fever or chills. You have belly pain. Your pee is dark. Your poop is a light color or mora. You have joint pain. Get help right away if: You feel more tired. You do not feel like eating. You cannot eat or drink without vomiting. Your skin or the whites of your eyes turn yellow or turn more yellow than they were before. You bruise or bleed easily. Summary Hepatitis C is a liver infection that is caused by a virus. Over time, this can lead to serious liver problems. The virus is contagious. This means that it can spread from person to person through blood, semen, or vaginal fluids. Do not take any new medicines unless your doctor says that this is okay. This information is not intended to replace advice given to you by your health care provider. Make sure you discuss any questions you have with your health care provider. Document Revised: 04/24/2021 Document Reviewed: 04/24/2021 [employer] Patient Education 2022 [employer]. 05/27/2023 10:46:03 Cooking With Less Salt Cooking With Less Salt Cooking with less salt is one way to reduce the amount of sodium you get from food. Sodium is one of the elements that make up salt. It is found naturally in foods and is also added to certain foods. Depending on your condition and overall health, your health care provider or dietitian may recommend that you reduce your sodium intake. Most people should have less than 2,300 milligrams (mg) of sodium each day. If you have high blood pressure (hypertension), you may need to limit your sodium to 1,500 mg each day. Follow the tips below to help reduce your sodium intake. What are tips for eating less sodium? Reading food labels Check the food label before buying or using packaged ingredients. Always check the label for the serving size and sodium content. Look for products with no more than 140 mg of sodium in one serving. Check the % Daily Value column to see what percent of the daily recommended amount of sodium is provided in one serving of the product. Foods with 5% or less in this column are considered low in sodium. Foods with 20% or higher are considered high in sodium. Do not choose foods with salt as one of the first three ingredients on the ingredients list. If salt is one of the first three ingredients, it usually means the item is high in sodium. Shopping Buy sodium-free or low-sodium products. Look for the following words on food labels: ?Low-sodium. ?Sodium-free. ?Reduced-sodium. ?No salt added. ?Unsalted. Always check the sodium content even if foods are labeled as low-sodium or no salt added. Buy fresh foods. Cooking Use herbs, seasonings without salt, and spices as substitutes for salt. Use sodium-free baking soda when baking. [place], braise, or roast foods to add flavor with less salt. Avoid adding salt to pasta, rice, or hot cereals. Drain and rinse canned vegetables, beans, and meat before use. Avoid adding salt when cooking sweets and desserts. Cook with low-sodium ingredients. What foods are high in sodium? Vegetables Regular canned vegetables (not low-sodium or reduced-sodium). Sauerkraut, pickled vegetables, and relishes. Olives. Lao fries. Onion rings. Regular canned tomato sauce and paste. Regular tomato and vegetable juice. Frozen vegetables in sauces. Grains Instant hot cereals. Bread stuffing, pancake, and biscuit mixes. Croutons. Seasoned rice or pasta mixes. Noodle soup cups. Boxed or frozen macaroni and cheese. Regular salted crackers. Self-rising flour. Rolls. Bagels. Flour tortillas and wraps. Meats and other proteins Meat or fish that is salted, canned, smoked, cured, spiced, or pickled. This includes samuels, ham, sausages, hot dogs, corned beef, chipped beef, meat loaves, salt pork, jerky, pickled collins, anchovies, regular canned tuna, and sardines. Salted nuts. Dairy Processed cheese and cheese spreads. Cheese curds. Blue cheese. Feta cheese. String cheese. Regular cottage cheese. Buttermilk. Canned milk. The items listed above may not be a complete list of foods high in sodium. Actual amounts of sodium may be different depending on processing. Contact a dietitian for more information. What foods are low in sodium? Fruits Fresh, frozen, or canned fruit with no sauce added. Fruit juice. Vegetables Fresh or frozen vegetables with no sauce added. No salt added canned vegetables. No salt added tomato sauce and paste. Low-sodium or reduced-sodium tomato and vegetable juice. Grains Noodles, pasta, quinoa, rice. Shredded or puffed wheat or puffed rice. Regular or quick oats (not instant). Low-sodium crackers. Low-sodium bread. Whole-grain bread and whole-grain pasta. Unsalted popcorn. Meats and other proteins Fresh or frozen whole meats, poultry (not injected with sodium), and fish with no sauce added. Unsalted nuts. Dried peas, beans, and lentils without added salt. Unsalted canned beans. Eggs. Unsalted nut butters. Low-sodium canned tuna or chicken. Dairy Milk. Soy milk. Yogurt. Low-sodium cheeses, such as Marshallese, Bryan Doyle, mozzarella, and ricotta. Sherbet or ice cream (keep to cup per serving). Cream cheese. Fats and oils Unsalted butter or margarine. Other foods Homemade pudding. Sodium-free baking soda and baking powder. Herbs and spices. Low-sodium seasoning mixes. Beverages Coffee and tea. Carbonated beverages. The items listed above may not be a complete list of foods low in sodium. Actual amounts of sodium may be different depending on processing. Contact a dietitian for more information. What are some salt alternatives when cooking? The following are herbs, seasonings, and spices that can be used instead of salt to flavor your food. Herbs should be fresh or dried. Do not choose packaged mixes. Next to the name of the herb, spice, or seasoning are some examples of foods you can pair it with. Herbs Taliaferro leaves Soups, meat and vegetable dishes, and spaghetti sauce. Basil Greenlandic dishes, soups, pasta, and fish dishes. Cilantro Meat, poultry, and vegetable dishes. [place] powder Marinades and Palestinian dishes. Chives Salad dressings and potato dishes. Cumin Palestinian dishes, couscous, and meat dishes. Dill Fish dishes, sauces, and salads. Fennel Meat and vegetable dishes, breads, and cookies. Garlic (do not use garlic salt) Greenlandic dishes, meat dishes, salad dressings, and sauces. Marjoram Soups, potato dishes, and meat dishes. Oregano Pizza and spaghetti sauce. Parsley Salads, soups, pasta, and meat dishes. Lesa Greenlandic dishes, salad dressings, soups, and red meats. Saffron Fish dishes, pasta, and some poultry dishes. Russell Stuffings and sauces. Tarragon Fish and poultry dishes. Thyme Stuffing, meat, and fish dishes. Seasonings Lemon juice Fish dishes, poultry dishes, vegetables, and salads. Vinegar Salad dressings, vegetables, and fish dishes. Spices Cinnamon Sweet dishes, such as cakes, cookies, and puddings. Cloves Gingerbread, puddings, and marinades for meats. Jacob Vegetable dishes, fish and poultry dishes, and stir-jin dishes. Love Vegetable dishes, fish dishes, and stir-jin dishes. Nutmeg Pasta, vegetables, poultry, fish dishes, and custard. Summary Cooking with less salt is one way to reduce the amount of sodium that you get from food. Buy sodium-free or low-sodium products. Check the food label before using or buying packaged ingredients. Use herbs, seasonings without salt, and spices as substitutes for salt in foods. This information is not intended to replace advice given to you by your health care provider. Make sure you discuss any questions you have with your health care provider. Document Revised: 05/29/2020 Document Reviewed: 05/29/2020 [employer] Patient Education 2022 [employer]You. 05/27/2023 10:45:59 BMI for Adults BMI for Adults What is BMI? Body mass index (BMI) is a number that is calculated from a person's weight and height. BMI can help estimate how much of a person's weight is composed of fat. BMI does not measure body fat directly. Rather, it is an alternative to procedures that directly measure body fat, which can be difficult and expensive. BMI can help identify people who may be at higher risk for certain medical problems. What are BMI measurements used for? BMI is used as a screening tool to identify possible weight problems. It helps determine whether a person is obese, overweight, a healthy weight, or underweight. BMI is useful for: Identifying a weight problem that may be related to a medical condition or may increase the risk for medical problems. Promoting changes, such as changes in diet and exercise, to help reach a healthy weight. BMI screening can be repeated to see if these changes are working. How is BMI calculated? BMI involves measuring your weight in relation to your height. Both height and weight are measured, and the BMI is calculated from those numbers. This can be done either in French ([place] or metric measurements. Note that charts and online BMI calculators are available to help you find your BMI quickly and easily without having to do these calculations yourself. To calculate your BMI in French ([place] measurements: 1.Measure your weight in pounds (lb). 2.Multiply the number of pounds by 703. For example, for a person who weighs 180 lb, multiply that number by 703, which equals 126,540. 3.Measure your height in inches. Then multiply that number by itself to get a measurement called inches squared. For example, for a person who is 70 inches tall, the inches squared measurement is 70 inches x 70 inches, which equals 4,900 inches squared. 4.Divide the total from step 2 (number of lb x 703) by the total from step 3 (inches squared): 126,540 4,900 = 25.8. This is your BMI. To calculate your BMI in metric measurements: 1.Measure your weight in kilograms (kg). 2.Measure your height in meters (m). Then multiply that number by itself to get a measurement called meters squared. For example, for a person who is 1.75 m tall, the meters squared measurement is 1.75 m x 1.75 m, which is equal to 3.1 meters squared. 3.Divide the number of kilograms (your weight) by the meters squared number. In this example: 70 3.1 = 22.6. This is your BMI. What do the results mean? BMI charts are used to identify whether you are underweight, normal weight, overweight, or obese. The following guidelines will be used: Underweight: BMI less than 18.5. Normal weight: BMI between 18.5 and 24.9. Overweight: BMI between 25 and 29.9. Obese: BMI of 30 or above. Keep these notes in mind: Weight includes both fat and muscle, so someone with a muscular build, such as an athlete, may have a BMI that is higher than 24.9. In cases like these, BMI is not an accurate measure of body fat. To determine if excess body fat is the cause of a BMI of 25 or higher, further assessments may need to be done by a health care provider. BMI is usually interpreted in the same way for men and women. Where to find more information For more information about BMI, including tools to quickly calculate your BMI, go to these websites: Centers for Disease Control and Prevention: www.cdc.gov [employer] Association: www.heart.org National Heart, Lung, and Blood [place]: www.nhlbi.nih.gov Summary Body mass index (BMI) is a number that is calculated from a person's weight and height. BMI may help estimate how much of a person's weight is composed of fat. BMI can help identify those who may be at higher risk for certain medical problems. BMI can be measured using French measurements or metric measurements. BMI charts are used to identify whether you are underweight, normal weight, overweight, or obese. This information is not intended to replace advice given to you by your health care provider. Make sure you discuss any questions you have with your health care provider. Document Revised: 02/28/2020 Document Reviewed: 01/05/2020 [employer] Patient Education 2022 [employer]You. [facility] 05-25-2023 Hospital Discharge instructions Patient Education 05/25/2023 13:57:54 Rheumatoid Arthritis, Leob-ft-Kabp Rheumatoid Arthritis Rheumatoid arthritis (RA) is a long-term (chronic) disease. RA causes inflammation in your joints. Your joints may feel painful, stiff, swollen, and warm. RA may start slowly. It most often affects the small joints of the hands and feet. It can also affect other parts of the body. Symptoms of RA often come and go. There is no cure for RA, but medicines can help your symptoms. What are the causes? RA is an autoimmune disease. This means that your body's defense system (immune system) attacks healthy parts of your body by mistake. The exact cause of RA is not known. What increases the risk? Being female. Having a family history of RA or other diseases like RA. Smoking. Being very overweight (obese). Being exposed to pollutants or chemicals. What are the signs or symptoms? Symptoms start slowly. They are often worse in the morning. The first symptom is often morning stiffness that lasts longer than 30 minutes. As RA gets worse, symptoms may include: ?Pain, stiffness, swelling, warmth, and tenderness in joints on both sides of your body. ?Loss of energy. ?Not wanting to eat as much as normal. ?Weight loss. ?A low fever. ?Dry eyes and a dry mouth. ?Firm lumps that grow under your skin. ?Changes in the way your joints look or the way they work. Symptoms vary and they often come and go. Symptoms sometimes get worse for a period of time. These are called flares. How is this treated? Treatment may include: Taking good care of yourself. Be sure to rest as needed, eat a healthy diet, and exercise. Medicines. These may include: ?Pain relievers. ?Medicines to help with inflammation. ?Disease-modifying antirheumatic drugs (DMARDs). ?Medicines called biologic response modifiers. Physical therapy and occupational therapy. Surgery, if joint damage is very bad. Your doctor will work with you to find the best treatments. Follow these instructions at home: Managing pain, stiffness, and swelling If told, put heat on the affected area. Do this as often as told by your doctor. Use the heat source that your doctor recommends, such as a moist heat pack or a heating pad. Place a towel between your skin and the heat source. Leave the heat on for 20 30 minutes. Take off the heat if your skin turns bright red. This is very important. If you cannot feel pain, heat, or cold, you have a greater risk of getting burned. Activity Return to your normal activities when your doctor says that it is safe. Rest when you have a flare. Exercise as told by your doctor. This can help your joints move better and get stronger. General instructions Take kibd-gyn-sakyngy and prescription medicines only as told by your doctor. Keep all follow-up visits. Where to find more information [employer]: rheumatology.org Arthritis Foundation: arthritis.org Contact a doctor if: You have a flare. You have a fever. You have problems because of your medicines. Get help right away if: You have chest pain. You have trouble breathing. You get a hot, painful joint all of a sudden, and it is worse than your normal joint aches. These symptoms may be an emergency. Get help right away. Call 911. Do not wait to see if the symptoms will go away. Do not drive yourself to the hospital. Summary RA is a long-term disease. RA causes inflammation in your joints. Symptoms of RA start slowly. They are often worse in the morning. This information is not intended to replace advice given to you by your health care provider. Make sure you discuss any questions you have with your health care provider. Document Revised: 04/09/2022 Document Reviewed: 04/09/2022 [employer] Patient Education 2022 GetYou. Follow Up Care 11/18/2022 12:14:52 With:VIRIDIANA HYLTON, Bridger Reeves, [facility] Address: [facility] [address], [place] [address]- When:Within 3 Month(s) [facility] 05-04-2023 Hospital Discharge instructions Patient Education 05/04/2023 08:54:43 Wrist Pain, Adult, Gqny-fc-Rsjh Wrist Pain, Adult There are many things that can cause wrist pain. Some common causes include: An injury to the wrist. Using the joint too much. A condition that causes too much pressure to be put on a nerve in the wrist (carpal tunnel syndrome). Wear and tear of the joints that happens as a person gets older (osteoarthritis). A condition that causes swelling and stiffness in the joints (arthritis). Sometimes, the cause of wrist pain is not known. Often, the pain goes away when you follow your doctor's instructions for easing pain at home. This may include resting your wrist, icing your wrist, or using a splint or an elastic wrap for a short time. It is important to tell your doctor if your wrist pain does not go away. Follow these instructions at home: If you have a splint or elastic wrap: Wear the splint or wrap as told by your doctor. Take it off only as told by your doctor. Ask if you can take it off for bathing. Loosen the splint or wrap if your fingers: ?Tingle. ?Become numb. ?Turn cold and blue. Check the skin around the splint or wrap every day. Tell your doctor about any concerns. Keep the splint or wrap clean. If the splint or wrap is not waterproof: ?Do not let it get wet. ?Cover it with a watertight covering when you take a bath or shower. Managing pain, stiffness, and swelling If told, put ice on the painful area. To do this: ?If you have a removable splint or wrap, take it off as told by your doctor. ?Put ice in a plastic bag. ?Place a towel between your skin and the bag or between your splint or wrap and the bag. ?Leave the ice on for 20 minutes, 2 3 times a day. Move your fingers often. Raise (elevate) the injured area above the level of your heart while you are sitting or lying down. Activity Rest your wrist as told by your doctor. Return to your normal activities as told by your doctor. Ask your doctor what activities are safe for you. Ask your doctor when it is safe to drive if you have a splint or wrap on your wrist. Do exercises as told by your doctor. General instructions Pay attention to any changes in your symptoms. Take kyqd-ktq-wzaevcx and prescription medicines only as told by your doctor. Keep all follow-up visits as told by your doctor. This is important. Contact a doctor if: You have a sudden, sharp pain in the wrist, hand, or arm that is different or new. The swelling or bruising on your wrist or hand gets worse. Your skin: ?Becomes red. ?Gets a rash. ?Has open sores. Your pain does not get better. Your pain gets worse. You have a fever or chills. Get help right away if: You lose feeling in your fingers or hand. Your fingers turn white, very red, or cold and blue. You cannot move your fingers. Summary There are many things that can cause wrist pain. It is important to tell your doctor if your wrist pain does not go away. You may need to wear a splint or a wrap for a short period of time. Return to your normal activities as told by your doctor. Ask your doctor what activities are safe for you. This information is not intended to replace advice given to you by your health care provider. Make sure you discuss any questions you have with your health care provider. Document Revised: 04/25/2020 Document Reviewed: 04/25/2020 [employer] Patient Education 2022 [employer] 05/04/2023 08:54:42 Heat Therapy Heat Therapy Heat therapy is the use of heat to help ease sore, stiff, injured, and tight muscles and joints. Heat relaxes muscles, which may help to relieve pain and muscle spasms. What are the risks? If you have any of the following conditions, do not use heat therapy unless your health care provider approves. These conditions include: New bruises. Open wounds. Healing wounds, infected skin, or scarred skin in the area being treated. Poor circulation. Numbness in the area being treated. Unusual swelling of the area being treated. Blood clots. Diabetes or heart disease. Cancer. Inability to communicate pain. This may include young children and people who have problems with their brain function (dementia). How to use heat therapy Use the heat source that your health care provider recommends, such as: Moist heat pack. Hot water bottle. Electric heating pad. Heated gel pack. Heated wrap. Warm water bath. Follow your health care provider's instructions about when and how to use heat therapy. In general, you should: 1.Place a towel between your skin and the heat source. 2.Leave the heat on for 20 30 minutes. Your skin may turn pink. 3.Remove the heat if your skin turns bright red. This is especially important if you are unable to feel pain, heat, or cold. You may have a greater risk of getting burned. If directed, you can also soak in a warm water bath. To prepare: 1.Put a non-slip padding in the bathtub to prevent slips or falls. 2.Fill a bathtub with warm water. 3.Always check the water temperature before getting into the bathtub. 4.Soak in the water for 15 20 minutes, or for as long as you are told by your health care provider. 5.When you are done, carefully stand up. You may feel dizzy. 6.After the bath, pat yourself dry. Do not rub your skin to dry it. General recommendations Be careful to avoid burning your skin. High heat or long exposure to heat can cause alvarado. Do not sleep while using heat therapy. Only use heat therapy while you are awake. Check your skin during heat therapy. Do not use heat therapy: ?For new injuries, especially if you have swelling on the injured area. ?On areas of skin that are already irritated, such as with a rash or sunburn. ?If your skin turns bright red. Contact a health care provider if you have: Blisters, redness, swelling, or numbness in the area where you use heat therapy. New pain. Pain that gets worse. Summary Heat therapy is the use of heat to help ease sore, stiff, injured, and tight muscles and joints. Heat relaxes muscles, which may help relieve pain. If you have poor circulation, healing wounds, diabetes, numbness or swelling in the treatment area, blood clots, cancer, or the inability to communicate pain, do not use heat therapy unless your health care provider approves. Be careful to avoid burning your skin. Only use heat therapy while you are awake. Follow your health care provider's instructions about when and how to use heat therapy. This information is not intended to replace advice given to you by your health care provider. Make sure you discuss any questions you have with your health care provider. Document Revised: 04/09/2021 Document Reviewed: 04/09/2021 [employer] Patient Education 2022 [employer]. 05/04/2023 08:54:41 Acute Pain, Adult Acute Pain, Adult Acute pain is a type of sudden pain that may last for just a few days or for as long as six months. It is often related to an illness, injury, or medical procedure. Acute pain may be mild, moderate, or severe. Pain can make it hard for you to do your normal, daily activities. It can cause anxiety and lead to other problems if it is left untreated. Treatment depends on the cause and severity of your pain. Acute pain usually goes away once your injury has healed or you are no longer ill. Follow these instructions at home: Medicines Take ehhm-bxl-ppirmxo and prescription medicines only as told by your health care provider. Take the lowest dose of medicine for the shortest amount of time needed to relieve the pain. If you are taking prescription pain medicine: ?Do not stop taking the medicine suddenly. Talk to your health care provider about how and when to discontinue prescription medicine. ?Do not take more pills than told by your health care provider even if your pain is severe. ?Do not take other qbat-iji-sqaceza pain medicines in addition to prescription pain medicine unless told by your health care provider. ?Ask your health care provider if the medicine requires you to avoid driving or using heavy machinery. ?Ask your health care provider if the medicine can cause constipation. You may need to take these actions to prevent or treat constipation: ?Drink enough fluid to keep your urine pale yellow. ?Eat foods that are high in fiber, such as beans, whole grains, and fresh fruits and vegetables. ?Take fgcn-sax-dsiqwij or prescription medicines. ?Limit foods that are high in fat and processed sugars, such as fried or sweet foods. Managing pain, stiffness, and swelling If directed, put ice on the affected area. To do this: Put ice in a plastic bag. Place a towel between your skin and the bag. Leave the ice on for 20 minutes, 2 3 times a day. If directed, apply heat to the affected area as often as told by your health care provider. Use the heat source that your health care provider recommends, such as a moist heat pack or a heating pad. Place a towel between your skin and the heat source. Leave the heat on for 20 30 minutes. Remove the heat if your skin turns bright red. This is especially important if you are unable to feel pain, heat, or cold. You may have a greater risk of getting burned. Activity Rest as told by your health care provider. Return to your normal activities as told by your health care provider. Ask your health care provider what activities are safe for you. General instructions Check your pain level as told by your health care provider. Ask your health care provider if other strategies such as distraction, relaxation, or physical therapies can help your pain. Keep all follow-up visits as told by your health care provider. This is important. Contact a health care provider if: Your pain is not controlled by medicine. Your pain does not improve or gets worse. You have side effects from pain medicines, such as vomiting or confusion. Get help right away if you: Have severe pain. Have trouble breathing. Lose consciousness. Have chest pain or pressure that lasts for more than a few minutes, or if you have other symptoms along with chest pain, including if you: ?Have pain or discomfort in one or both arms, your back, neck, jaw, or stomach. ?Have shortness of breath. ?Break out in a cold sweat. ?Feel nauseous. ?Become light-headed. These symptoms may represent a serious problem that is an emergency. Do not wait to see if the symptoms will go away. Get medical help right away. Call your local emergency services (891 in the [place] Do not drive yourself to the hospital. Summary Acute pain may be mild, moderate, or severe. It usually goes away once your injury has healed or you are no longer ill. Take kxud-vhu-guzwqae and prescription medicines only as told by your health care provider. Ask your health care provider if the medicine prescribed to you can cause constipation. Contact a health care provider if your pain is not controlled by medicine. This information is not intended to replace advice given to you by your health care provider. Make sure you discuss any questions you have with your health care provider. Document Revised: 10/23/2019 Document Reviewed: 10/23/2019 [employer] Patient Education 2022 [employer]. Follow Up Care 05/03/2023 08:14:26 With:Tamiko Degroot Address: [address] [place] [address], [place] [address]- When: only if needed [facility] 04-27-2023 Hospital Discharge instructions Patient Education 04/27/2023 12:37:39 Gastritis, Adult Gastritis, Adult Gastritis is inflammation of the stomach. There are two kinds of gastritis: Acute gastritis. This kind develops suddenly. Chronic gastritis. This kind is much more common. It develops slowly and lasts for a long time. Gastritis happens when the lining of the stomach becomes weak or gets damaged. Without treatment, gastritis can lead to stomach bleeding and ulcers. What are the causes? This condition may be caused by: An infection. Drinking too much alcohol. Certain medicines. These include steroids, antibiotics, and some dqmt-clq-ydnwsuo medicines, such as aspirin or ibuprofen. Having too much acid in the stomach. Having a disease of the stomach. Other causes may include: An allergic reaction. Some cancer treatments (radiation). Smoking cigarettes or the use of products that contain nicotine or tobacco. In some cases, the cause of this condition is not known. What increases the risk? Having a disease of the intestines. Having a disease in which the body's immune system attacks the body (autoimmune disease), such as Crohn's disease. Using aspirin or ibuprofen and other NSAIDs to treat other conditions, such as heart disease or chronic pain. Stress. What are the signs or symptoms? Symptoms of this condition include: Pain or a burning sensation in the upper abdomen. Nausea. Vomiting. An uncomfortable feeling of fullness after eating. Weight loss. Bad breath. Blood in your vomit or stool (feces). In some cases, there are no symptoms. How is this diagnosed? This condition may be diagnosed based on your medical history, a physical exam, and tests. Tests may include: Your medical history and a description of your symptoms. A physical exam. Tests. These can include: ?Blood tests. ?Stool tests. ?A test in which a thin, flexible instrument with a light and a camera is passed down the esophagus and into the stomach (upper endoscopy). ?A test in which a tissue sample is removed to look at it under a microscope (biopsy). How is this treated? This condition may be treated with medicines. The medicines that are used vary depending on the cause of the gastritis. If the condition is caused by a bacterial infection, you may be given antibiotic medicines. If the condition is caused by too much acid in the stomach, you may be given medicines called H2 blockers, proton pump inhibitors, or antacids. Treatment may also involve stopping the use of certain medicines such as aspirin or ibuprofen and other NSAIDs. Follow these instructions at home: Medicines Take btmb-mju-azkvbws and prescription medicines only as told by your health care provider. If you were prescribed an antibiotic medicine, take it as told by your health care provider. Do not stop taking the antibiotic even if you start to feel better. Alcohol use Do not drink alcohol if: ?Your health care provider tells you not to drink. ?You are , may be , or are planning to become . If you drink alcohol: ?Limit your use to: ?0 1 drink a day for women. ?0 2 drinks a day for men. ?Know how much alcohol is in your drink. In the [place] one drink equals one 12 oz bottle of beer (355 mL), one 5 oz glass of wine (148 mL), or one 1 oz glass of hard liquor (44 mL). General instructions Eat small, frequent meals instead of large meals. Avoid foods and drinks that make your symptoms worse. Talk with your health care provider about ways to manage stress, such as getting regular exercise or practicing deep breathing, meditation, or yoga. Do not use any products that contain nicotine or tobacco. These products include cigarettes, chewing tobacco, and vaping devices, such as e-cigarettes. If you need help quitting, ask your health care provider. Drink enough fluid to keep your urine pale yellow. Keep all follow-up visits. This is important. Contact a health care provider if: Your symptoms get worse. Your abdominal pain gets worse. Your symptoms return after treatment. You have a fever. Get help right away if: You vomit blood or a substance that looks like coffee grounds. You have black or dark red stools. You are unable to keep fluids down. These symptoms may represent a serious problem that is an emergency. Do not wait to see if the symptoms will go away. Get medical help right away. Call your local emergency services (911 in the [place] Do not drive yourself to the hospital. Summary Gastritis is inflammation of the lining of the stomach that can occur suddenly (acute) or develop slowly over time (chronic). This condition is diagnosed with a medical history, a physical exam, or tests. This condition may be treated with medicines to treat infection or medicines to reduce the amount of acid in your stomach. Follow your health care provider's instructions about taking medicines, making changes to your diet, and knowing when to call for help. This information is not intended to replace advice given to you by your health care provider. Make sure you discuss any questions you have with your health care provider. Document Revised: 10/11/2021 Document Reviewed: 10/11/2021 [employer] Patient Education 2022 [employer]You. Follow Up Care 04/12/2023 15:00:31 With:Magalie Marsh CNP Address: When:3 months [facility] 04-08-2023 Note [id number] [facility] 03-12-2023 Note Radiology Colonoscopy, Adult A colonoscopy is a procedure to look at the entire large intestine. This procedure is done using a long, thin, flexible tube that has a camera on the end. You may have a colonoscopy: ? As a part of normal colorectal screening. ? If you have certain symptoms, such as: ? A low number of red blood cells in your blood (anemia). ? Diarrhea that does not go away. ? Pain in your abdomen. ? Blood in your stool. A colonoscopy can help screen for and diagnose medical problems, including: ? An abnormal growth of cells or tissue (tumor). ? Abnormal growths within the lining of your intestine (polyps). ? Inflammation. ? Areas of bleeding. Tell your health care provider about: ? Any allergies you have. ? All medicines you are taking, including vitamins, herbs, eye drops, creams, and onnx-qmv-ypjkaya medicines. ? Any problems you or family members have had with anesthetic medicines. ? Any bleeding problems you have. ? Any surgeries you have had. ? Any medical conditions you have. ? Any problems you have had with having bowel movements. ? Whether you are or may be . What are the risks? Generally, this is a safe procedure. However, problems may occur, including: ? Bleeding. ? Damage to your intestine. ? Allergic reactions to medicines given during the procedure. ? Infection. This is rare. What happens before the procedure? Eating and drinking restrictions Follow instructions from your health care provider about eating or drinking restrictions, which may include: ? A few days before the procedure: ? Follow a low-fiber diet. ? Avoid nuts, seeds, dried fruit, raw fruits, and vegetables. ? 1?3 days before the procedure: ? Eat only gelatin dessert or ice pops. ? Drink only clear liquids, such as water, clear juice, clear broth or bouillon, black coffee or tea, or clear soft drinks or sports drinks. ? Avoid liquids that contain red or purple dye. ? The day of the procedure: ? Do not eat solid foods. You may continue to drink clear liquids until up to 2 hours before the procedure. ? Do not eat or drink anything starting 2 hours before the procedure, or within the time period that your health care provider recommends. Bowel prep If you were prescribed a bowel prep to take by mouth (orally) to clean out your colon: ? Take it as told by your health care provider. Starting the day before your procedure, you will need to drink a large amount of liquid medicine. The liquid will cause you to have many bowel movements of loose stool until your stool becomes almost clear or light green. ? If your skin or the opening between the buttocks (anus) gets irritated from diarrhea, you may relieve the irritation using: ? Wipes with medicine in them, such as adult wet wipes with aloe and vitamin E. ? A product to soothe skin, such as petroleum jelly. ? If you vomit while drinking the bowel prep: ? Take a break for up to 60 minutes. ? Begin the bowel prep again. ? Call your health care provider if you keep vomiting or you cannot take the bowel prep without vomiting. ? To clean out your colon, you may also be given: ? Laxative medicines. These help you have a bowel movement. ? Instructions for enema use. An enema is liquid medicine injected into your rectum. Medicines Ask your health care provider about: ? Changing or stopping your regular medicines or supplements. This is especially important if you are taking iron supplements, diabetes medicines, or blood thinners. ? Taking medicines such as aspirin and ibuprofen. These medicines can thin your blood. Do not take these medicines unless your health care provider tells you to take them. ? Taking cwzo-wqj-wkvdpir medicines, vitamins, herbs, and supplements. General instructions ? Ask your health care provider what steps will be taken to help prevent infection. These may include washing skin with a germ-killing soap. ? If you will be going home right after the procedure, plan to have a responsible adult: ? Take you home from the hospital or clinic. You will not be allowed to drive. ? Care for you for the time you are told. What happens during the procedure? ? An IV will be inserted into one of your veins. ? You will be given a medicine to make you fall asleep (general anesthetic). ? You will lie on your side with your knees bent. ? A lubricant will be put on the tube. Then the tube will be: ? Inserted into your anus. ? Gently eased through all parts of your large intestine. ? Air will be sent into your colon to keep it open. This may cause some pressure or cramping. ? Images will be taken with the camera and will appear on a screen. ? A small tissue sample may be removed to be looked at under a microscope (biopsy). The tissue may be sent to a lab for testing if any signs of problems are found. ? If small polyps are found, they may be removed and checked for cancer cells. (more content not included)... [facility] 03-12-2023 Hospital Discharge instructions Patient Education 03/12/2023 12:56:23 Colonoscopy, Adult Colonoscopy, Adult A colonoscopy is a procedure to look at the entire large intestine. This procedure is done using a long, thin, flexible tube that has a camera on the end. You may have a colonoscopy: As a part of normal colorectal screening. If you have certain symptoms, such as: ?A low number of red blood cells in your blood (anemia). ?Diarrhea that does not go away. ?Pain in your abdomen. ?Blood in your stool. A colonoscopy can help screen for and diagnose medical problems, including: An abnormal growth of cells or tissue (tumor). Abnormal growths within the lining of your intestine (polyps). Inflammation. Areas of bleeding. Tell your health care provider about: Any allergies you have. All medicines you are taking, including vitamins, herbs, eye drops, creams, and vyhj-gkg-mlkujzq medicines. Any problems you or family members have had with anesthetic medicines. Any bleeding problems you have. Any surgeries you have had. Any medical conditions you have. Any problems you have had with having bowel movements. Whether you are or may be . What are the risks? Generally, this is a safe procedure. However, problems may occur, including: Bleeding. Damage to your intestine. Allergic reactions to medicines given during the procedure. Infection. This is rare. What happens before the procedure? Eating and drinking restrictions Follow instructions from your health care provider about eating or drinking restrictions, which may include: A few days before the procedure: ?Follow a low-fiber diet. ?Avoid nuts, seeds, dried fruit, raw fruits, and vegetables. 1 3 days before the procedure: ?Eat only gelatin dessert or ice pops. ?Drink only clear liquids, such as water, clear juice, clear broth or bouillon, black coffee or tea, or clear soft drinks or sports drinks. ?Avoid liquids that contain red or purple dye. The day of the procedure: ?Do not eat solid foods. You may continue to drink clear liquids until up to 2 hours before the procedure. ?Do not eat or drink anything starting 2 hours before the procedure, or within the time period that your health care provider recommends. Bowel prep If you were prescribed a bowel prep to take by mouth (orally) to clean out your colon: Take it as told by your health care provider. Starting the day before your procedure, you will need to drink a large amount of liquid medicine. The liquid will cause you to have many bowel movements of loose stool until your stool becomes almost clear or light green. If your skin or the opening between the buttocks (anus) gets irritated from diarrhea, you may relieve the irritation using: ?Wipes with medicine in them, such as adult wet wipes with aloe and vitamin E. ?A product to soothe skin, such as petroleum jelly. If you vomit while drinking the bowel prep: ?Take a break for up to 60 minutes. ?Begin the bowel prep again. ?Call your health care provider if you keep vomiting or you cannot take the bowel prep without vomiting. To clean out your colon, you may also be given: ?Laxative medicines. These help you have a bowel movement. ?Instructions for enema use. An enema is liquid medicine injected into your rectum. Medicines Ask your health care provider about: Changing or stopping your regular medicines or supplements. This is especially important if you are taking iron supplements, diabetes medicines, or blood thinners. Taking medicines such as aspirin and ibuprofen. These medicines can thin your blood. Do not take these medicines unless your health care provider tells you to take them. Taking wyop-suj-rxgvsvl medicines, vitamins, herbs, and supplements. General instructions Ask your health care provider what steps will be taken to help prevent infection. These may include washing skin with a germ-killing soap. If you will be going home right after the procedure, plan to have a responsible adult: ?Take you home from the hospital or clinic. You will not be allowed to drive. ? Care for you for the time you are told. What happens during the procedure? An IV will be inserted into one of your veins. You will be given a medicine to make you fall asleep (general anesthetic). You will lie on your side with your knees bent. A lubricant will be put on the tube. Then the tube will be: ?Inserted into your anus. ?Gently eased through all parts of your large intestine. Air will be sent into your colon to keep it open. This may cause some pressure or cramping. Images will be taken with the camera and will appear on a screen. A small tissue sample may be removed to be looked at under a microscope (biopsy). The tissue may be sent to a lab for testing if any signs of problems are found. If small polyps are found, they may be removed and checked for cancer cells. When the procedure is finished, the tube will be removed. The procedure may vary among health care providers and hospitals. What happens after the procedure? Your blood pressure, heart rate, breathing rate, and blood oxygen level will be monitored until you leave the hospital or clinic. You may have a small amount of blood in your stool. You may pass gas and have mild cramping or bloating in your abdomen. This is caused by the air that was used to open your colon during the exam. If you were given a sedative during the procedure, it can affect you for several hours. Do not drive or operate machinery until your health care provider says that it is safe. It is up to you to get the results of your procedure. Ask your health care provider, or the department that is doing the procedure, when your results will be ready. Summary A colonoscopy is a procedure to look at the entire large intestine. Follow instructions from your health care provider about eating and drinking before the procedure. If you were prescribed an oral bowel prep to clean out your colon, take it as told by your health care provider. During the colonoscopy, a flexible tube with a camera on its end is inserted into the anus and then passed into all parts of the large intestine. This information is not intended to replace advice given to you by your health care provider. Make sure you discuss any questions you have with your health care provider. Document Revised: 06/01/2022 Document Reviewed: 01/28/2022 [employer] Patient Education 2022 [employer]You. Follow Up Care 02/17/2023 08:55:04 With:Magalie Marsh CNP Address: When:1 to 2 weeks Comments:Following EGD/Colonoscopy. [facility] 02-16-2023 Hospital Discharge instructions Patient Education 02/16/2023 14:11:08 Hypertension, Adult, Wtfu-ap-Hxaa Hypertension, Adult Hypertension is another name for high blood pressure. High blood pressure forces your heart to work harder to pump blood. This can cause problems over time. There are two numbers in a blood pressure reading. There is a top number (systolic) over a bottom number (diastolic). It is best to have a blood pressure that is below 120/80. What are the causes? The cause of this condition is not known. Some other conditions can lead to high blood pressure. What increases the risk? Some lifestyle factors can make you more likely to develop high blood pressure: Smoking. Not getting enough exercise or physical activity. Being overweight. Having too much fat, sugar, calories, or salt (sodium) in your diet. Drinking too much alcohol. Other risk factors include: Having any of these conditions: ?Heart disease. ?Diabetes. ? High cholesterol. ?Kidney disease. ?Obstructive sleep apnea. Having a family history of high blood pressure and high cholesterol. Age. The risk increases with age. Stress. What are the signs or symptoms? High blood pressure may not cause symptoms. Very high blood pressure (hypertensive crisis) may cause: Headache. Fast or uneven heartbeats (palpitations). Shortness of breath. Nosebleed. Vomiting or feeling like you may vomit (nauseous). Changes in how you see. Very bad chest pain. Feeling dizzy. Seizures. How is this treated? This condition is treated by making healthy lifestyle changes, such as: ?Eating healthy foods. ?Exercising more. ?Drinking less alcohol. Your doctor may prescribe medicine if lifestyle changes do not help enough and if: ?Your top number is above 130. ?Your bottom number is above 80. Your personal target blood pressure may vary. Follow these instructions at home: Eating and drinking If told, follow the DASH eating plan. To follow this plan: ?Fill one half of your plate at each meal with fruits and vegetables. ?Fill one fourth of your plate at each meal with whole grains. Whole grains include whole-wheat pasta, brown rice, and whole-grain bread. ?Eat or drink low-fat dairy products, such as skim milk or low-fat yogurt. ?Fill one fourth of your plate at each meal with low-fat (lean) proteins. Low-fat proteins include fish, chicken without skin, eggs, beans, and tofu. ?Avoid fatty meat, cured and processed meat, or chicken with skin. ?Avoid pre-made or processed food. Limit the amount of salt in your diet to less than 1,500 mg each day. Do not drink alcohol if: ?Your doctor tells you not to drink. ?You are , may be , or are planning to become . If you drink alcohol: ?Limit how much you have to: ?0 1 drink a day for women. ?0 2 drinks a day for men. ?Know how much alcohol is in your drink. In the [place] one drink equals one 12 oz bottle of beer (355 mL), one 5 oz glass of wine (148 mL), or one 1 oz glass of hard liquor (44 mL). Lifestyle Work with your doctor to stay at a healthy weight or to lose weight. Ask your doctor what the best weight is for you. Get at least 30 minutes of exercise that causes your heart to beat faster (aerobic exercise) most days of the week. This may include walking, swimming, or biking. Get at least 30 minutes of exercise that strengthens your muscles (resistance exercise) at least 3 days a week. This may include lifting weights or doing Pilates. Do not smoke or use any products that contain nicotine or tobacco. If you need help quitting, ask your doctor. Check your blood pressure at home as told by your doctor. Keep all follow-up visits. Medicines Take iori-ozg-gzfpxiu and prescription medicines only as told by your doctor. Follow directions carefully. Do not skip doses of blood pressure medicine. The medicine does not work as well if you skip doses. Skipping doses also puts you at risk for problems. Ask your doctor about side effects or reactions to medicines that you should watch for. Contact a doctor if: You think you are having a reaction to the medicine you are taking. You have headaches that keep coming back. You feel dizzy. You have swelling in your ankles. You have trouble with your vision. Get help right away if: You get a very bad headache. You start to feel mixed up (confused). You feel weak or numb. You feel faint. You have very bad pain in your: ?Chest. ?Belly (abdomen). You vomit more than once. You have trouble breathing. These symptoms may be an emergency. Get help right away. Call 911. Do not wait to see if the symptoms will go away. Do not drive yourself to the hospital. Summary Hypertension is another name for high blood pressure. High blood pressure forces your heart to work harder to pump blood. For most people, a normal blood pressure is less than 120/80. Making healthy choices can help lower blood pressure. If your blood pressure does not get lower with healthy choices, you may need to take medicine. This information is not intended to replace advice given to you by your health care provider. Make sure you discuss any questions you have with your health care provider. Document Revised: 03/26/2022 Document Reviewed: 03/26/2022 [employer] Patient Education 2022 GetYou. Follow Up Care 02/16/2023 11:55:07 With:VIRIDIANA HYLTON, Bridger Reeves, MED Address: [facility] [address], [place] [address]- When:Within 3 Month(s) [facility] 11-18-2022 Hospital Discharge instructions Patient Education 11/18/2022 12:06:52 Hypertension, Adult, Cbmm-hj-Rxso Hypertension, Adult Hypertension is another name for high blood pressure. High blood pressure forces your heart to work harder to pump blood. This can cause problems over time. There are two numbers in a blood pressure reading. There is a top number (systolic) over a bottom number (diastolic). It is best to have a blood pressure that is below 120/80. What are the causes? The cause of this condition is not known. Some other conditions can lead to high blood pressure. What increases the risk? Some lifestyle factors can make you more likely to develop high blood pressure: Smoking. Not getting enough exercise or physical activity. Being overweight. Having too much fat, sugar, calories, or salt (sodium) in your diet. Drinking too much alcohol. Other risk factors include: Having any of these conditions: ?Heart disease. ?Diabetes. ? High cholesterol. ?Kidney disease. ?Obstructive sleep apnea. Having a family history of high blood pressure and high cholesterol. Age. The risk increases with age. Stress. What are the signs or symptoms? High blood pressure may not cause symptoms. Very high blood pressure (hypertensive crisis) may cause: Headache. Fast or uneven heartbeats (palpitations). Shortness of breath. Nosebleed. Vomiting or feeling like you may vomit (nauseous). Changes in how you see. Very bad chest pain. Feeling dizzy. Seizures. How is this treated? This condition is treated by making healthy lifestyle changes, such as: ?Eating healthy foods. ?Exercising more. ?Drinking less alcohol. Your doctor may prescribe medicine if lifestyle changes do not help enough and if: ?Your top number is above 130. ?Your bottom number is above 80. Your personal target blood pressure may vary. Follow these instructions at home: Eating and drinking If told, follow the DASH eating plan. To follow this plan: ?Fill one half of your plate at each meal with fruits and vegetables. ?Fill one fourth of your plate at each meal with whole grains. Whole grains include whole-wheat pasta, brown rice, and whole-grain bread. ?Eat or drink low-fat dairy products, such as skim milk or low-fat yogurt. ?Fill one fourth of your plate at each meal with low-fat (lean) proteins. Low-fat proteins include fish, chicken without skin, eggs, beans, and tofu. ?Avoid fatty meat, cured and processed meat, or chicken with skin. ?Avoid pre-made or processed food. Limit the amount of salt in your diet to less than 1,500 mg each day. Do not drink alcohol if: ?Your doctor tells you not to drink. ?You are , may be , or are planning to become . If you drink alcohol: ?Limit how much you have to: ?0 1 drink a day for women. ?0 2 drinks a day for men. ?Know how much alcohol is in your drink. In the [place] one drink equals one 12 oz bottle of beer (355 mL), one 5 oz glass of wine (148 mL), or one 1 oz glass of hard liquor (44 mL). Lifestyle Work with your doctor to stay at a healthy weight or to lose weight. Ask your doctor what the best weight is for you. Get at least 30 minutes of exercise that causes your heart to beat faster (aerobic exercise) most days of the week. This may include walking, swimming, or biking. Get at least 30 minutes of exercise that strengthens your muscles (resistance exercise) at least 3 days a week. This may include lifting weights or doing Pilates. Do not smoke or use any products that contain nicotine or tobacco. If you need help quitting, ask your doctor. Check your blood pressure at home as told by your doctor. Keep all follow-up visits. Medicines Take nnip-gqn-fwivaqg and prescription medicines only as told by your doctor. Follow directions carefully. Do not skip doses of blood pressure medicine. The medicine does not work as well if you skip doses. Skipping doses also puts you at risk for problems. Ask your doctor about side effects or reactions to medicines that you should watch for. Contact a doctor if: You think you are having a reaction to the medicine you are taking. You have headaches that keep coming back. You feel dizzy. You have swelling in your ankles. You have trouble with your vision. Get help right away if: You get a very bad headache. You start to feel mixed up (confused). You feel weak or numb. You feel faint. You have very bad pain in your: ?Chest. ?Belly (abdomen). You vomit more than once. You have trouble breathing. These symptoms may be an emergency. Get help right away. Call 911. Do not wait to see if the symptoms will go away. Do not drive yourself to the hospital. Summary Hypertension is another name for high blood pressure. High blood pressure forces your heart to work harder to pump blood. For most people, a normal blood pressure is less than 120/80. Making healthy choices can help lower blood pressure. If your blood pressure does not get lower with healthy choices, you may need to take medicine. This information is not intended to replace advice given to you by your health care provider. Make sure you discuss any questions you have with your health care provider. Document Revised: 03/26/2022 Document Reviewed: 03/26/2022 [employer] Patient Education 2022 GetYou. Follow Up Care 08/18/2022 10:13:57 With:VIRIDIANA HYLTON, Bridger Reeves, [facility] Address: [facility] [address] [place] [address], [place] [address]- When:Within 3 Month(s) [facility] 10-07-2022 Note PROCEDURE: XR FOOT L T MIN 3 VIEWS HISTORY: Pain in left foot COMPARISON: XR foot left 08/12/2022 FINDINGS: BONES:Mechanical fusion of the first, second, third tarsal-metatarsal joints via multiple lag screws; no evidence of hardware fracture or loosening. No bone fracture dislocation. Stable mild loss of plantar arch. SOFT TISSUES:Distal dorsal soft tissue swelling. EFFUSION:None visible. OTHER: Negative. IMPRESSION: 1. Stable surgical changes without evidence of hardware failure or change in alignment. Electronically authenticated by: POLI TOBIAS Date: 2022-10-07 11:28 [facility] 08-18-2022 Hospital Discharge instructions Patient Education 08/18/2022 10:09:16 Hypertension, Adult, Mvhi-wk-Ucrk Hypertension, Adult Hypertension is another name for high blood pressure. High blood pressure forces your heart to work harder to pump blood. This can cause problems over time. There are two numbers in a blood pressure reading. There is a top number (systolic) over a bottom number (diastolic). It is best to have a blood pressure that is below 120/80. Healthy choices can help lower your blood pressure, or you may need medicine to help lower it. What are the causes? The cause of this condition is not known. Some conditions may be related to high blood pressure. What increases the risk? Smoking. Having type 2 diabetes mellitus, high cholesterol, or both. Not getting enough exercise or physical activity. Being overweight. Having too much fat, sugar, calories, or salt (sodium) in your diet. Drinking too much alcohol. Having long-term (chronic) kidney disease. Having a family history of high blood pressure. Age. Risk increases with age. Race. You may be at higher risk if you are . Gender. Men are at higher risk than women before age 45. After age 65, women are at higher risk than men. Having obstructive sleep apnea. Stress. What are the signs or symptoms? High blood pressure may not cause symptoms. Very high blood pressure (hypertensive crisis) may cause: ?Headache. ?Feelings of worry or nervousness (anxiety). ?Shortness of breath. ?Nosebleed. ?A feeling of being sick to your stomach (nausea). ?Throwing up (vomiting). ?Changes in how you see. ?Very bad chest pain. ?Seizures. How is this treated? This condition is treated by making healthy lifestyle changes, such as: ?Eating healthy foods. ?Exercising more. ?Drinking less alcohol. Your health care provider may prescribe medicine if lifestyle changes are not enough to get your blood pressure under control, and if: ?Your top number is above 130. ?Your bottom number is above 80. Your personal target blood pressure may vary. Follow these instructions at home: Eating and drinking If told, follow the DASH eating plan. To follow this plan: ?Fill one half of your plate at each meal with fruits and vegetables. ?Fill one fourth of your plate at each meal with whole grains. Whole grains include whole-wheat pasta, brown rice, and whole-grain bread. ?Eat or drink low-fat dairy products, such as skim milk or low-fat yogurt. ?Fill one fourth of your plate at each meal with low-fat (lean) proteins. Low-fat proteins include fish, chicken without skin, eggs, beans, and tofu. ?Avoid fatty meat, cured and processed meat, or chicken with skin. ?Avoid pre-made or processed food. Eat less than 1,500 mg of salt each day. Do not drink alcohol if: ?Your doctor tells you not to drink. ?You are , may be , or are planning to become . If you drink alcohol: ?Limit how much you use to: ?0 1 drink a day for women. ?0 2 drinks a day for men. ?Be aware of how much alcohol is in your drink. In the [place] one drink equals one 12 oz bottle of beer (355 mL), one 5 oz glass of wine (148 mL), or one 1 oz glass of hard liquor (44 mL). Lifestyle Work with your doctor to stay at a healthy weight or to lose weight. Ask your doctor what the best weight is for you. Get at least 30 minutes of exercise most days of the week. This may include walking, swimming, or biking. Get at least 30 minutes of exercise that strengthens your muscles (resistance exercise) at least 3 days a week. This may include lifting weights or doing Pilates. Do not use any products that contain nicotine or tobacco, such as cigarettes, e-cigarettes, and chewing tobacco. If you need help quitting, ask your doctor. Check your blood pressure at home as told by your doctor. Keep all follow-up visits as told by your doctor. This is important. Medicines Take ugzn-tvw-ecnopdd and prescription medicines only as told by your doctor. Follow directions carefully. Do not skip doses of blood pressure medicine. The medicine does not work as well if you skip doses. Skipping doses also puts you at risk for problems. Ask your doctor about side effects or reactions to medicines that you should watch for. Contact a doctor if you: Think you are having a reaction to the medicine you are taking. Have headaches that keep coming back (recurring). Feel dizzy. Have swelling in your ankles. Have trouble with your vision. Get help right away if you: Get a very bad headache. Start to feel mixed up (confused). Feel weak or numb. Feel faint. Have very bad pain in your: ?Chest. ?Belly (abdomen). Throw up more than once. Have trouble breathing. Summary Hypertension is another name for high blood pressure. High blood pressure forces your heart to work harder to pump blood. For most people, a normal blood pressure is less than 120/80. Making healthy choices can help lower blood pressure. If your blood pressure does not get lower with healthy choices, you may need to take medicine. This information is not intended to replace advice given to you by your health care provider. Make sure you discuss any questions you have with your health care provider. Document Released: 11/23/2008 Document Revised: 02/15/2019 Document Reviewed: 02/15/2019 [employer] Patient Education 2020 GetYou. Follow Up Care 04/17/2022 09:54:56 With:VIRIDIANA HYLTON, Bridger Reeves, JIM Address: [address], [place] [address]- When:Within 3 Month(s) [facility] 08-13-2022 Note PROCEDURE: XR FOOT L T MIN 3 VIEWS HISTORY: Pain in left foot COMPARISON: XR foot left 07/17/2022 FINDINGS: BONES:Mechanical fusion of the first, second, third tarsal-metatarsal joints via multiple lag screws; no hardware fracture or evidence of loosening. No bone fracture dislocation. SOFT TISSUES:No visible soft tissue swelling. EFFUSION:None visible. OTHER: Negative. IMPRESSION: 1. Stable surgical changes without evidence of hardware failure or change in alignment. Electronically authenticated by: POLI TOBIAS Date: 2022-08-13 08:49 [facility] 07-17-2022 Note PROCEDURE: XR FOOT L T MIN 3 VIEWS HISTORY: Pain in left foot COMPARISON: XR foot left 06/30/2022 FINDINGS: BONES:Mechanical fusion of the first, second, and third tarsal-metatarsal joints without evidence of hardware fracture or loosening. No bone fracture dislocation. SOFT TISSUES:No visible soft tissue swelling. EFFUSION:None visible. OTHER: Negative. IMPRESSION: 1. Stable surgical changes without evidence of hardware failure or change in alignment. 2. Stable degenerative changes. Electronically authenticated by: POLI TOBIAS Date: 2022-07-17 10:56 [facility] 06-30-2022 Note PROCEDURE: XR FOOT L T MIN 3 VIEWS COMPARISON: 06/09/2022 HISTORY: Pain in left foot FINDINGS: BONES:Stable fusion of the first second and third tarsometatarsal joints with 6 cannulated screws. Evidence of now removed additional hardware. Moderate to severe degenerative changes at the tarsometatarsal joints with joint space narrowing and subchondral mixed lytic and sclerotic changes. SOFT TISSUES:Dorsal forefoot soft tissue swelling EFFUSION:None visible. OTHER: Interval removal of surgical skin prasanna. IMPRESSION: Stable midfoot forefoot fusion with no mechanical failure Electronically authenticated by: AMARI EDGAR Date: 2022-06-30 12:10 [facility] 06-10-2022 Note PROCEDURE: XR FOOT L T MIN 3 VIEWS HISTORY: Pain in left foot COMPARISON: XR foot left 05/19/2022 FINDINGS: BONES:Mechanical fusion of the first, second, third tarsal-metatarsal joints without evidence of hardware fracture or loosening. No bone fracture dislocation. Bone lucencies from prior hardware and repair. Moderate-marked degenerative changes of the tarsal metatarsal joints. SOFT TISSUES:Mild soft tissue swelling. Skin prasanna dorsal and medial to the midfoot. Cast material has been removed. EFFUSION:None visible. OTHER: Negative. IMPRESSION: 1. Stable surgical changes without evidence of hardware failure or change in alignment. Electronically authenticated by: POLI TOBIAS Date: 2022-06-10 16:59 [facility] 06-08-2022 Note Patient Outreach (RE FPHY) JOE JARAMILLO ([id number]) 1955 F Date Time Provider Department 06/08/22 NO PCP (HISTORICAL) REFPHY During your visit today, we recorded the following information about you: Andres Stafford 06/08/2022 11:50 AM Signed POPULATION HEALTH NAVIGATION OUTREACH Action/FYI RP Outreach: Patient Declined COSMO consult. Pt identified by name and : YES, via MyChart Outreach Outcome/Action Spoke to patient or caregiver: Patient declined Did you use a PCP flex slot to schedule this appointment? 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 / Product Type: PPO / Care Gap Reviewed:: ORQ Reminder: Reminder note to check Health Maintenance for items below Health Maintenance items due: PNEUMOCOCCAL(1 - PCV) Never done HEPATITIS C SCREENING Never done HIV SCREENING Never done DTAP,TDAP,TD(1 - Tdap) Never done SHINGRIX VACCINE(1 of 2) Never done PAP TESTING Never done HPV TESTING Never done MAMMOGRAM Never done LIPID SCREEN Never done DIABETES SCREEN Never done COLORECTAL CANCER SCREENING Never done DEPRESSION ASSESSMENT Never done COVID-19 VACCINE(5 - Booster for Pfizer series) due on 12/08/2021 INFLUENZA(1) due on 02/19/2022 Navigation Signature: Andres Stafford June 08, 2022 11:49 AM Allergies As of Date: 06/08/2022 Noted Allergy Reaction ATORVASTATIN 11/10/2021 17 - Myalgia 16 - Unknown Date Reviewed: 03/23/2022 Reviewed by: Bridger Sanches DPM - Fully Assessed Prescriptions as of 06/08/2022 - alendronate (FOSAMAX) 70 mg tablet Take 70 mg by mouth one time a week. - amLODIPine (NORVASC) 5 mg tablet - aspirin 325 mg tablet Take 325 mg by mouth. - Cholecalciferol, Vitamin D3, 25 mcg (1,000 unit) cap Take by mouth. - Estradiol (YUVAFEM) 10 mcg vaginal tablet Take 1 tablet by mouth. - folic acid 1 mg tablet - gabapentin (NEURONTIN) 300 mg capsule Take 300 mg by mouth. - hydroCHLOROthiazide (HYDRODIURIL, ESIDRIX) 12.5 mg capsule - hydrOXYchloroQUINE (PLAQUENIL) 200 mg tablet Take 200 mg by mouth. - lisinopril (ZESTRIL, PRINIVIL) 10 mg tablet - methotrexate 2.5 mg tablet TAKE 5 TABLETS by mouth ONCE A WEEK (REMEMBER YOUR STANDING LAB) - metoprolol succinate ER (TOPROL XL) 50 mg 24 hr tablet Problem List As Of Date: 06/08/2022 (None) Encounter Status:Closed by ANDRES STAFFORD on 06/08/22 [facility] 06-08-2022 Note HNO ID: [id number] Author: Andres Stafford Service: ? Author Type: ? Type: Progress Notes Filed: 06/08/2022 11:50 AM Note Text: POPULATION HEALTH NAVIGATION OUTREACH Action/I RP Outreach: Patient Declined COSMO consult. Pt identified by name and : YES, via [email or web address] Outreach Outcome/Action Spoke to patient or caregiver: Patient declined Did you use a PCP flex slot to schedule this appointment? 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 / Product Type: PPO / Care Gap Reviewed:: ORQ Reminder: Reminder note to check Health Maintenance for items below Health Maintenance items due: PNEUMOCOCCAL(1 - PCV) Never done HEPATITIS C SCREENING Never done HIV SCREENING Never done DTAP,TDAP,TD(1 - Tdap) Never done SHINGRIX VACCINE(1 of 2) Never done PAP TESTING Never done HPV TESTING Never done MAMMOGRAM Never done LIPID SCREEN Never done DIABETES SCREEN Never done COLORECTAL CANCER SCREENING Never done DEPRESSION ASSESSMENT Never done COVID-19 VACCINE(5 - Booster for Pfizer series) due on 12/08/2021 INFLUENZA(1) due on 02/19/2022 Navigation Signature: Andres Stafford June 08, 2022 11:49 AM [facility] 06-08-2022 History of Present illness Narrative POPULATION HEALTH NAVIGATION OUTREACH Action/I RP Outreach: Patient Declined COSMO consult. Pt identified by name and : YES, via [email or web address] Outreach Outcome/Action Spoke to patient or caregiver: Patient declined Did you use a PCP flex slot to schedule this appointment? 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 / Product Type: PPO / Care Gap Reviewed:: ORQ Reminder: Reminder note to check Health Maintenance for items below Health Maintenance items due: PNEUMOCOCCAL(1 - PCV) Never done HEPATITIS C SCREENING Never done HIV SCREENING Never done DTAP,TDAP,TD(1 - Tdap) Never done SHINGRIX VACCINE(1 of 2) Never done PAP TESTING Never done HPV TESTING Never done MAMMOGRAM Never done LIPID SCREEN Never done DIABETES SCREEN Never done COLORECTAL CANCER SCREENING Never done DEPRESSION ASSESSMENT Never done COVID-19 VACCINE(5 - Booster for Pfizer series) due on 12/08/2021 INFLUENZA(1) due on 02/19/2022 Navigation Signature: Andres Stafford June 08, 2022 11:49 AM documented in this encounter [facility] 06-03-2022 Note HNO ID: [id number] Author: Andres Stafford Service: ? Author Type: ? 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 [phone]. Any agent can assist. Pt identified by name and : YES, via MyChart Outreach Outcome/Action Unable to reach patient: Left message Did you use a PCP flex slot to schedule this appointment? 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 / Product Type: PPO / Care Gap Reviewed:: ORQ Reminder: Reminder note to check Health Maintenance for items below Health Maintenance items due: PNEUMOCOCCAL(1 - PCV) Never done HEPATITIS C SCREENING Never done HIV SCREENING Never done DTAP,TDAP,TD(1 - Tdap) Never done SHINGRIX VACCINE(1 of 2) Never done PAP TESTING Never done HPV TESTING Never done MAMMOGRAM Never done LIPID SCREEN Never done DIABETES SCREEN Never done COLORECTAL CANCER SCREENING Never done DEPRESSION ASSESSMENT Never done COVID-19 VACCINE(5 - Booster for Pfizer series) due on 12/08/2021 INFLUENZA(1) due on 02/19/2022 Navigation Signature: Andres Stafford June 03, 2022 2:39 PM [facility] 06-03-2022 Note Patient Outreach (RE FPHY) JOE JARAMILLO ([id number]) 1955 F Date Time Provider Department 06/03/22 NO PCP (HISTORICAL) REFPHY During your visit today, we recorded the following information about you: Andres Stafford 06/03/2022 2:39 PM Signed POPULATION HEALTH NAVIGATION OUTREACH Action/FYI RP Outreach: LVM for Patient to call back and schedule COSMO Consult for Nonunion of foot fracture, left [S90.652K] Left foot pain [M79.672] Malunion of osteotomy site [M96.89] 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 [phone]. Any agent can assist. Pt identified by name and : YES, via [email or web address] Outreach Outcome/Action Unable to reach patient: Left message Did you use a PCP flex slot to schedule this appointment? 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[employer] PLUS / Product Type: PPO / Care Gap Reviewed:: ORQ Reminder: Reminder note to check Health Maintenance for items below Health Maintenance items due: PNEUMOCOCCAL(1 - PCV) Never done HEPATITIS C SCREENING Never done HIV SCREENING Never done DTAP,TDAP,TD(1 - Tdap) Never done SHINGRIX VACCINE(1 of 2) Never done PAP TESTING Never done HPV TESTING Never done MAMMOGRAM Never done LIPID SCREEN Never done DIABETES SCREEN Never done COLORECTAL CANCER SCREENING Never done DEPRESSION ASSESSMENT Never done COVID-19 VACCINE(5 - Booster for Pfizer series) due on 12/08/2021 INFLUENZA(1) due on 02/19/2022 Navigation Signature: Andres Stafford June 03, 2022 2:39 PM Allergies As of Date: 06/03/2022 Noted Allergy Reaction ATORVASTATIN 11/10/2021 17 - Myalgia 16 - Unknown Date Reviewed: 03/23/2022 Reviewed by: Bridger Sanches DPM - Fully Assessed Prescriptions as of 06/03/2022 - alendronate (FOSAMAX) 70 mg tablet Take 70 mg by mouth one time a week. - amLODIPine (NORVASC) 5 mg tablet - aspirin 325 mg tablet Take 325 mg by mouth. - Cholecalciferol, Vitamin D3, 25 mcg (1,000 unit) cap Take by mouth. - Estradiol (YUVAFEM) 10 mcg vaginal tablet Take 1 tablet by mouth. - folic acid 1 mg tablet - gabapentin (NEURONTIN) 300 mg capsule Take 300 mg by mouth. - hydroCHLOROthiazide (HYDRODIURIL, ESIDRIX) 12.5 mg capsule - hydrOXYchloroQUINE (PLAQUENIL) 200 mg tablet Take 200 mg by mouth. - lisinopril (ZESTRIL, PRINIVIL) 10 mg tablet - methotrexate 2.5 mg tablet TAKE 5 TABLETS by mouth ONCE A WEEK (REMEMBER YOUR STANDING LAB) - metoprolol succinate ER (TOPROL XL) 50 mg 24 hr tablet Problem List As Of Date: 06/03/2022 (None) Encounter Status:Closed by ANDRES STAFFORD on 06/03/22 [facility] 05-19-2022 Note PROCEDURE: XR FOOT L T MIN 3 VIEWS, XR ANKLE LT MIN 3 V COMPARISON: 10/29/2021 HISTORY: Pain FINDINGS: BONES:Interval revision of internal fixation with removal of plate and screws across the first second and third tarsometatarsal joints and placement of 6 cannulated screws. No acute fracture or dislocation. Lucency in the distal tibia from bone graft harvesting. Stable lucency in the mid calcaneus possibly representing an intraosseous lipoma SOFT TISSUES:Dorsal soft tissue swelling, subcutaneous air and surgical skin prasanna EFFUSION:None visible. OTHER: Posterior splint obscures bone detail IMPRESSION: Interval revision of first second and third tarsometatarsal joint fusion Electronically authenticated by: AMARI EDGAR Date: 2022-05-19 13:54 [facility] 05-19-2022 Note PROCEDURE: XR FOOT L T MIN 3 VIEWS, XR ANKLE LT MIN 3 V COMPARISON: 10/29/2021 HISTORY: Pain FINDINGS: BONES:Interval revision of internal fixation with removal of plate and screws across the first second and third tarsometatarsal joints and placement of 6 cannulated screws. No acute fracture or dislocation. Lucency in the distal tibia from bone graft harvesting. Stable lucency in the mid calcaneus possibly representing an intraosseous lipoma SOFT TISSUES:Dorsal soft tissue swelling, subcutaneous air and surgical skin prasanna EFFUSION:None visible. OTHER: Posterior splint obscures bone detail IMPRESSION: Interval revision of first second and third tarsometatarsal joint fusion Electronically authenticated by: AMARI EDGAR Date: 2022-05-19 13:54 [facility] 04-17-2022 Hospital Discharge instructions Patient Education 04/17/2022 09:47:36 Hypertension, Adult, [id number] Hypertension, Adult Hypertension is another name for high blood pressure. High blood pressure forces your heart to work harder to pump blood. This can cause problems over time. There are two numbers in a blood pressure reading. There is a top number (systolic) over a bottom number (diastolic). It is best to have a blood pressure that is below 120/80. Healthy choices can help lower your blood pressure, or you may need medicine to help lower it. What are the causes? The cause of this condition is not known. Some conditions may be related to high blood pressure. What increases the risk? Smoking. Having type 2 diabetes mellitus, high cholesterol, or both. Not getting enough exercise or physical activity. Being overweight. Having too much fat, sugar, calories, or salt (sodium) in your diet. Drinking too much alcohol. Having long-term (chronic) kidney disease. Having a family history of high blood pressure. Age. Risk increases with age. Race. You may be at higher risk if you are . Gender. Men are at higher risk than women before age 45. After age 65, women are at higher risk than men. Having obstructive sleep apnea. Stress. What are the signs or symptoms? High blood pressure may not cause symptoms. Very high blood pressure (hypertensive crisis) may cause: ?Headache. ?Feelings of worry or nervousness (anxiety). ?Shortness of breath. ?Nosebleed. ?A feeling of being sick to your stomach (nausea). ?Throwing up (vomiting). ?Changes in how you see. ?Very bad chest pain. ?Seizures. How is this treated? This condition is treated by making healthy lifestyle changes, such as: ?Eating healthy foods. ?Exercising more. ?Drinking less alcohol. Your health care provider may prescribe medicine if lifestyle changes are not enough to get your blood pressure under control, and if: ?Your top number is above 130. ?Your bottom number is above 80. Your personal target blood pressure may vary. Follow these instructions at home: Eating and drinking If told, follow the DASH eating plan. To follow this plan: ?Fill one half of your plate at each meal with fruits and vegetables. ?Fill one fourth of your plate at each meal with whole grains. Whole grains include whole-wheat pasta, brown rice, and whole-grain bread. ?Eat or drink low-fat dairy products, such as skim milk or low-fat yogurt. ?Fill one fourth of your plate at each meal with low-fat (lean) proteins. Low-fat proteins include fish, chicken without skin, eggs, beans, and tofu. ?Avoid fatty meat, cured and processed meat, or chicken with skin. ?Avoid pre-made or processed food. Eat less than 1,500 mg of salt each day. Do not drink alcohol if: ?Your doctor tells you not to drink. ?You are , may be , or are planning to become . If you drink alcohol: ?Limit how much you use to: ?0 1 drink a day for women. ?0 2 drinks a day for men. ?Be aware of how much alcohol is in your drink. In the [place] one drink equals one 12 oz bottle of beer (355 mL), one 5 oz glass of wine (148 mL), or one 1 oz glass of hard liquor (44 mL). Lifestyle Work with your doctor to stay at a healthy weight or to lose weight. Ask your doctor what the best weight is for you. Get at least 30 minutes of exercise most days of the week. This may include walking, swimming, or biking. Get at least 30 minutes of exercise that strengthens your muscles (resistance exercise) at least 3 days a week. This may include lifting weights or doing Pilates. Do not use any products that contain nicotine or tobacco, such as cigarettes, e-cigarettes, and chewing tobacco. If you need help quitting, ask your doctor. Check your blood pressure at home as told by your doctor. Keep all follow-up visits as told by your doctor. This is important. Medicines Take [id number]-[id number] and prescription medicines only as told by your doctor. Follow directions carefully. Do not skip doses of blood pressure medicine. The medicine does not work as well if you skip doses. Skipping doses also puts you at risk for problems. Ask your doctor about side effects or reactions to medicines that you should watch for. Contact a doctor if you: Think you are having a reaction to the medicine you are taking. Have headaches that keep coming back (recurring). Feel dizzy. Have swelling in your ankles. Have trouble with your vision. Get help right away if you: Get a very bad headache. Start to feel mixed up (confused). Feel weak or numb. Feel faint. Have very bad pain in your: ?Chest. ?Belly (abdomen). Throw up more than once. Have trouble breathing. Summary Hypertension is another name for high blood pressure. High blood pressure forces your heart to work harder to pump blood. For most people, a normal blood pressure is less than 120/80. Making healthy choices can help lower blood pressure. If your blood pressure does not get lower with healthy choices, you may need to take medicine. This information is not intended to replace advice given to you by your health care provider. Make sure you discuss any questions you have with your health care provider. Document Released: 11/23/2008 Document Revised: 02/15/2019 Document Reviewed: 02/15/2019 [employer] Patient Education 2020 [employer]. Follow Up Care 12/23/2021 13:53:32 With:VIRIDIANA HYLTON, Bridger Reeves, MED Address: [address], [place] [address]- When:Within 3 Month(s) [facility] 04-08-[address] Sanches / Cristal, Patient called today to schedule surgery (was seen in clinic on 03/23/22). I have not received surgery info to schedule this case. Please provide this when you can. Thank you, Kamini documented in this encounter [facility] 03-23-2022 Note HNO ID: [id number] Author: Bridger Sanches DPM Service: ? Author Type: Physician Type: Progress Notes Filed: 05/18/2022 7:25 AM Note Text: Patient Visit for Joe Jaramillo 1955 66 year old female SUBJECTIVE: Chief Complaint: Patient presents with: Left Foot - New, Pain Pain Scales: Verbal (Numeric Rating or Visual Analog Scale) Pain Level: 5 Pain Location: Foot-Left Description: Aching, Burning, Sharp, Throbbing, Stabbing Duration Amount of Time: 1.5 Duration Units: Years Frequency: Intermittent Intervention/Comfort measure: Medication, Relaxation, Exercise Comments: She is here for a 2nd opinion of her left foot. Previous surgery Jul 2020. Orginally a stress fracture that did not heal. Pain increases with walking and standing. 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 Dm Bentley Here for second opinion and treatment PCP: Jon Lazaro MD No past medical history on file. Current Outpatient Medications Medication Sig alendronate (FOSAMAX) 70 mg tablet Take 70 mg by mouth one time a week. amLODIPine (NORVASC) 5 mg tablet aspirin 325 mg tablet Take 325 mg by mouth. Cholecalciferol, Vitamin D3, 25 mcg (1,000 unit) cap Take by mouth. Estradiol (YUVAFEM) 10 mcg vaginal tablet Take 1 tablet by mouth. folic acid 1 mg tablet gabapentin (NEURONTIN) 300 mg capsule Take 300 mg by mouth. hydroCHLOROthiazide (HYDRODIURIL, ESIDRIX) 12.5 mg capsule hydrOXYchloroQUINE (PLAQUENIL) 200 mg tablet Take 200 mg by mouth. lisinopril (ZESTRIL, PRINIVIL) 10 mg tablet methotrexate 2.5 mg tablet TAKE 5 TABLETS by mouth ONCE A WEEK (REMEMBER YOUR STANDING LAB) metoprolol succinate ER (TOPROL XL) 50 mg 24 hr tablet No current facility-administered medications for this visit. ALLERGIES Allergen Reactions Atorvastatin Myalgia, Unknown No past surgical history on file. No family history on file. Tobacco Use: Not on file REVIEW OF SYSTEMS: The remainder of the ROS was reviewed with the patient and is negative except as noted. GENERAL: denies fever or chills CARDIOVASCULAR: Denies current chest pain or SOB (shortness of breath) OBJECTIVE: General: Pleasant in no acute distress Lower extremity exam: Vascular exam: Normal vascular exam, palpable pluses with brisk capillary fill Neurological exam: LEFT FOOT Loss of sensation deep peroneal nerve and superficial peroneal nerve forefoot Other normal neurological exam, gross epicritic sensation intact Dermatological exam: Well healed scars from previous surgery Normal exam without rashes or lesions of skin. No evidence of evidence of petechiae, purpura, telangiectasia Musculoskeletal exam: RIGHT FOOT Normal exam Range of Motion intact and relatively normal to ankle and foot Manual muscle strength evaluation intact LEFT FOOT Deformity tarsometatarsal joint with prominence of bone medial Tenderness to palpation tarsometatarsal joint 1,2,3 No significant tenderness to palpation fourth fifth metatarsal cuboid joint region Mild depressed arch height with weight bearing Gross overall Manual muscle strength evaluation relatively intact LABS: Most recent labs reviewed LABORATORY STUDIES: No results for input(s): HB, WBC, PLT, WSR, CRP, CCPABG, RF, INR, CREATININE, ALB, PROT, URICACID, HBA1C, VITD25 in the last 88524 hours. 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 Treatment options discussed at length Patient declined additional continue conservative care Previous treatment includes: Electrical bone stimulator Fosamax Activity modification Regarding revision surgery Risks Benefits Alternatives relative to procedure discussed Warned patient of risks I discussed with the patient she may benefit from Revision arthrodesis tarsometatarsal joint multiple transverse with removal previous hardware plate and screws Patient understands significant risks relative to this revision surgery include but not limited to: recurrent nonunion, infection , wound complications Due to significant quantity of previous bone harvest from calcaneus recommend patient have orthopedic consult referral for evaluation and treatment as she may require autograft such as iliac crest / remote from the foot and ankle. All questions were answered. Joe Jaramillo appeared to be well informed. Greater than 50% of the visit was spent face to face counseling and (more content not included)... [facility] 03-23-2022 Miscellaneous Notes Called and informed patient she left her disk at her appointment. I informed her I would leave it at the front desk clerk. documented in this encounter [facility] 03-23-2022 History of Present illness Narrative Patient Visit for Joe Jaramillo 1955 66 year old female SUBJECTIVE: Chief Complaint: Patient presents with: Left Foot - New, Pain Pain Scales: Verbal (Numeric Rating or Visual Analog Scale) Pain Level: 5 Pain Location: Foot-Left Description: Aching, Burning, Sharp, Throbbing, Stabbing Duration Amount of Time: 1.5 Duration Units: Years Frequency: Intermittent Intervention/Comfort measure: Medication, Relaxation, Exercise Comments: She is here for a 2nd opinion of her left foot. Previous surgery Jul 2020. Orginally a stress fracture that did not heal. Pain increases with walking and standing. 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 Dm Bentley Here for second opinion and treatment PCP: Jon Lazaro MD No past medical history on file. Current Outpatient Medications Medication Sig alendronate (FOSAMAX) 70 mg tablet Take 70 mg by mouth one time a week. amLODIPine (NORVASC) 5 mg tablet aspirin 325 mg tablet Take 325 mg by mouth. Cholecalciferol, Vitamin D3, 25 mcg (1,000 unit) cap Take by mouth. Estradiol (YUVAFEM) 10 mcg vaginal tablet Take 1 tablet by mouth. folic acid 1 mg tablet gabapentin (NEURONTIN) 300 mg capsule Take 300 mg by mouth. hydroCHLOROthiazide (HYDRODIURIL, ESIDRIX) 12.5 mg capsule hydrOXYchloroQUINE (PLAQUENIL) 200 mg tablet Take 200 mg by mouth. lisinopril (ZESTRIL, PRINIVIL) 10 mg tablet methotrexate 2.5 mg tablet TAKE 5 TABLETS by mouth ONCE A WEEK (REMEMBER YOUR STANDING LAB) metoprolol succinate ER (TOPROL XL) 50 mg 24 hr tablet No current facility-administered medications for this visit. ALLERGIES Allergen Reactions Atorvastatin Myalgia, Unknown No past surgical history on file. No family history on file. Tobacco Use: Not on file REVIEW OF SYSTEMS: The remainder of the ROS was reviewed with the patient and is negative except as noted. GENERAL: denies fever or chills CARDIOVASCULAR: Denies current chest pain or SOB (shortness of breath) OBJECTIVE: General: Pleasant in no acute distress Lower extremity exam: Vascular exam: Normal vascular exam, palpable pluses with brisk capillary fill Neurological exam: LEFT FOOT Loss of sensation deep peroneal nerve and superficial peroneal nerve forefoot Other normal neurological exam, gross epicritic sensation intact Dermatological exam: Well healed scars from previous surgery Normal exam without rashes or lesions of skin. No evidence of evidence of petechiae, purpura, telangiectasia Musculoskeletal exam: RIGHT FOOT Normal exam Range of Motion intact and relatively normal to ankle and foot Manual muscle strength evaluation intact LEFT FOOT Deformity tarsometatarsal joint with prominence of bone medial Tenderness to palpation tarsometatarsal joint 1,2,3 No significant tenderness to palpation fourth fifth metatarsal cuboid joint region Mild depressed arch height with weight bearing Gross overall Manual muscle strength evaluation relatively intact LABS: Most recent labs reviewed LABORATORY STUDIES: No results for input(s): HB, WBC, PLT, WSR, CRP, CCPABG, RF, INR, CREATININE, ALB, PROT, URICACID, HBA1C, VITD25 in the last 80379 hours. 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 Treatment options discussed at length Patient declined additional continue conservative care Previous treatment includes: Electrical bone stimulator Fosamax Activity modification Regarding revision surgery Risks Benefits Alternatives relative to procedure discussed Warned patient of risks I discussed with the patient she may benefit from Revision arthrodesis tarsometatarsal joint multiple transverse with removal previous hardware plate and screws Patient understands significant risks relative to this revision surgery include but not limited to: recurrent nonunion, infection , wound complications Due to significant quantity of previous bone harvest from calcaneus recommend patient have orthopedic consult referral for evaluation and treatment as she may require autograft such as iliac crest / remote from the foot and ankle. All questions were answered. Joe Jaramillo appeared to be well informed. Greater than 50% of the visit was spent face to face counseling and/or coordinating care for the patient. Bridger Sanches DPM documented in this encounter [facility] 02-12-2022 Note HNO ID: [id number] Author: Cindy Gee DPM Service: ? Author Type: Physician Type: Progress Notes Filed: 02/12/2022 1:01 PM Note Text: [facility] Department of Orthopedics [facility] Orthopedic Surgery Name: Joe Jaramillo Date of Service: February 12, 2022 CC/HPI: This 66 year old very pleasant female patient presents to the clinic today with her present for another opinion regarding chronic left foot pain after a foot surgery about a year and a half ago by Drs. Tolbert and Mc. She said she initially had left foot pain which became a stress fracture which became some bone in the foot and ended up having fusions of her first through third tarsometatarsal joints with now a nonunion and some broken plates in the midfoot. She had a CT scan done which showed this and they want to go back for revision of the surgery. Before the surgery she was very physically active and like to walk but now she has chronic pain on daily basis. She is seen today to find out what the problem may be and discuss treatment options. No past medical history on file. Current Outpatient Medications Medication Sig aspirin 325 mg tablet Take 325 mg by mouth. Cholecalciferol, Vitamin D3, 25 mcg (1,000 unit) cap Take by mouth. gabapentin (NEURONTIN) 300 mg capsule Take 300 mg by mouth. hydrOXYchloroQUINE (PLAQUENIL) 200 mg tablet Take 200 mg by mouth. alendronate (FOSAMAX) 70 mg tablet Take 70 mg by mouth one time a week. amLODIPine (NORVASC) 5 mg tablet Estradiol (YUVAFEM) 10 mcg vaginal tablet Take 1 tablet by mouth. folic acid 1 mg tablet hydroCHLOROthiazide (HYDRODIURIL, ESIDRIX) 12.5 mg capsule lisinopril (ZESTRIL, PRINIVIL) 10 mg tablet methotrexate 2.5 mg tablet TAKE 5 TABLETS by mouth ONCE A WEEK (REMEMBER YOUR STANDING LAB) metoprolol succinate ER (TOPROL XL) 50 mg 24 hr tablet No current facility-administered medications for this visit. ALLERGIES Allergen Reactions Atorvastatin Myalgia, Unknown No past surgical history on file. No family history on file. Physical Exam: The patient is alert and oriented x 3 in no apparent acute distress. The patient presents wearing tennis shoes bilaterally Vascular: Pedal pulses are palpable DP and PT left. CFT is less than 3 seconds digits 1-5 left. Skin temperature is warm to cool from anterior knees to toes left. Some varicosities left. Normal pedal hair growth normal left. Neuro: Light touch is intact to all quadrants of foot and ankle with no apparent sensory deficits left. Protective sensation is intact to the foot when tested with the 5.07gram SWM left. Derm: Unremarkable as related chief complaint left Ortho: Muscle strength is +5/5 for all pedal groups left left. Ankle joint, subtalar joint, 1st MPJ and lesser MPJ ROM's are full and without pain or crepitus left. She has a band of edema over the tarsometatarsal joints 1 through 5 the left foot Radiographs: 3 views left foot reveal retained hardware in the first through third tarsometatarsal joints with dorsal plates with a broken plate of the second and third tarsometatarsal joints and apparent nonunion. There also appears to be evidence of a prior bone graft from the lateral calcaneus. 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 Radiographs 3 views of the left foot Discussed results of clinical and radiographic examination with the patient and in detail along with treatment options. Advised this is substantial problem with the nonunions at the involved joints with understandable chronic pain. Advised she definitely needs revision which is tricky and she may have chronic pain even after the surgery. Advised that my opinion I feel my associate Dr. Sanches is better suited for this with his expertise. Recommend surgical consultation Dr. Sanches. Cindy Gee, [place] [facility] 02-12-2022 Note HNO ID: [id number] Author: RT Idalia(R) Service: ? Author Type: Technologist Type: Progress Notes Filed: 02/12/2022 10:32 AM Note Text: Radiology Service Progress Note PATIENT NAME: Joe Jaramillo DATE OF SERVICE: February 12, 2022 TIME: 10:31 AM PATIENT IDENTITY VERIFICATION COMPLETED USING TWO (2) IDENTIFIERS: Name and Date of confirmed by patient verbally. FALL SCREENING: Has the patient had 2 falls in the last year or 1 fall with injury or currently using an Ambulatory Assistive Device (Walker, Cane, Wheelchair, Crutches, etc.)? No PATIENT GENDER DATA: Female. status: : No status: NO. PATIENT RELEVANT IMPLANT DATA REVIEWED: Not Applicable RADIOLOGY DEPARTMENT: General X-ray: Exam(s) Completed: Lower Extremity X-Ray(s): Foot, Left PERIPHERAL IV DATA: Not applicable SIGNED BY: RT Idalia(R) February 12, 2022 10:31 AM [facility] 02-12-2022 History of Present illness Narrative Radiology Service Progress Note PATIENT NAME: Joe Jaramillo DATE OF SERVICE: February 12, 2022 TIME: 10:31 AM PATIENT IDENTITY VERIFICATION COMPLETED USING TWO (2) IDENTIFIERS: Name and Date of confirmed by patient verbally. FALL SCREENING: Has the patient had 2 falls in the last year or 1 fall with injury or currently using an Ambulatory Assistive Device (Walker, Cane, Wheelchair, Crutches, etc.)? No PATIENT GENDER DATA: Female. status: : No status: NO. PATIENT RELEVANT IMPLANT DATA REVIEWED: Not Applicable RADIOLOGY DEPARTMENT: General X-ray: Exam(s) Completed: Lower Extremity X-Ray(s): Foot, Left PERIPHERAL IV DATA: Not applicable SIGNED BY: RT Idalia(R) February 12, 2022 10:31 AM documented in this encounter [facility] 12-23-2021 Hospital Discharge instructions Patient Education 12/23/2021 13:46:03 Hypertension, Adult, Nhft-ac-Mypz Hypertension, Adult Hypertension is another name for high blood pressure. High blood pressure forces your heart to work harder to pump blood. This can cause problems over time. There are two numbers in a blood pressure reading. There is a top number (systolic) over a bottom number (diastolic). It is best to have a blood pressure that is below 120/80. Healthy choices can help lower your blood pressure, or you may need medicine to help lower it. What are the causes? The cause of this condition is not known. Some conditions may be related to high blood pressure. What increases the risk? Smoking. Having type 2 diabetes mellitus, high cholesterol, or both. Not getting enough exercise or physical activity. Being overweight. Having too much fat, sugar, calories, or salt (sodium) in your diet. Drinking too much alcohol. Having long-term (chronic) kidney disease. Having a family history of high blood pressure. Age. Risk increases with age. Race. You may be at higher risk if you are . Gender. Men are at higher risk than women before age 45. After age 65, women are at higher risk than men. Having obstructive sleep apnea. Stress. What are the signs or symptoms? High blood pressure may not cause symptoms. Very high blood pressure (hypertensive crisis) may cause: ?Headache. ?Feelings of worry or nervousness (anxiety). ?Shortness of breath. ?Nosebleed. ?A feeling of being sick to your stomach (nausea). ?Throwing up (vomiting). ?Changes in how you see. ?Very bad chest pain. ?Seizures. How is this treated? This condition is treated by making healthy lifestyle changes, such as: ?Eating healthy foods. ?Exercising more. ?Drinking less alcohol. Your health care provider may prescribe medicine if lifestyle changes are not enough to get your blood pressure under control, and if: ?Your top number is above 130. ?Your bottom number is above 80. Your personal target blood pressure may vary. Follow these instructions at home: Eating and drinking If told, follow the DASH eating plan. To follow this plan: ?Fill one half of your plate at each meal with fruits and vegetables. ?Fill one fourth of your plate at each meal with whole grains. Whole grains include whole-wheat pasta, brown rice, and whole-grain bread. ?Eat or drink low-fat dairy products, such as skim milk or low-fat yogurt. ?Fill one fourth of your plate at each meal with low-fat (lean) proteins. Low-fat proteins include fish, chicken without skin, eggs, beans, and tofu. ?Avoid fatty meat, cured and processed meat, or chicken with skin. ?Avoid pre-made or processed food. Eat less than 1,500 mg of salt each day. Do not drink alcohol if: ?Your doctor tells you not to drink. ?You are , may be , or are planning to become . If you drink alcohol: ?Limit how much you use to: ?0 1 drink a day for women. ?0 2 drinks a day for men. ?Be aware of how much alcohol is in your drink. In the [place] one drink equals one 12 oz bottle of beer (355 mL), one 5 oz glass of wine (148 mL), or one 1 oz glass of hard liquor (44 mL). Lifestyle Work with your doctor to stay at a healthy weight or to lose weight. Ask your doctor what the best weight is for you. Get at least 30 minutes of exercise most days of the week. This may include walking, swimming, or biking. Get at least 30 minutes of exercise that strengthens your muscles (resistance exercise) at least 3 days a week. This may include lifting weights or doing Pilates. Do not use any products that contain nicotine or tobacco, such as cigarettes, e-cigarettes, and chewing tobacco. If you need help quitting, ask your doctor. Check your blood pressure at home as told by your doctor. Keep all follow-up visits as told by your doctor. This is important. Medicines Take uvim-lfl-mnezwdj and prescription medicines only as told by your doctor. Follow directions carefully. Do not skip doses of blood pressure medicine. The medicine does not work as well if you skip doses. Skipping doses also puts you at risk for problems. Ask your doctor about side effects or reactions to medicines that you should watch for. Contact a doctor if you: Think you are having a reaction to the medicine you are taking. Have headaches that keep coming back (recurring). Feel dizzy. Have swelling in your ankles. Have trouble with your vision. Get help right away if you: Get a very bad headache. Start to feel mixed up (confused). Feel weak or numb. Feel faint. Have very bad pain in your: ?Chest. ?Belly (abdomen). Throw up more than once. Have trouble breathing. Summary Hypertension is another name for high blood pressure. High blood pressure forces your heart to work harder to pump blood. For most people, a normal blood pressure is less than 120/80. Making healthy choices can help lower blood pressure. If your blood pressure does not get lower with healthy choices, you may need to take medicine. This information is not intended to replace advice given to you by your health care provider. Make sure you discuss any questions you have with your health care provider. Document Released: 11/23/2008 Document Revised: 02/15/2019 Document Reviewed: 02/15/2019 The Moment Patient Education 2020 GetYou. Follow Up Care 09/15/2021 08:50:51 With:VIRIDIANA HYLTON, Bridger Reeves, JIM Address: [facility] [address], [place] [address]- When:Within 3 Month(s) [facility] 10-29-2021 Note PROCEDURE: XR FOOT L T MIN 3 VIEWS COMPARISON: 06/02/2021 HISTORY: Pain in left foot FINDINGS: BONES:No new fracture or dislocation. Stable fusion of the first, second and third tarsometatarsal joints with mechanical failure of the plate along the second joint. SOFT TISSUES:Negative. No visible soft tissue swelling. EFFUSION:None visible. OTHER: Negative. IMPRESSION: Stable exam. No interval change Electronically authenticated by: AMARI EDGAR Date: 2021-10-29 14:40 [facility] 10-03-2021 Hospital Discharge instructions Patient Education 10/03/2021 09:56:44 Arthritis, Bmjj-qy-Mffm Arthritis Arthritis means joint pain. It can also mean joint disease. A joint is a place where bones come together. There are more than 100 types of arthritis. What are the causes? This condition may be caused by: Wear and tear of a joint. This is the most common cause. A lot of acid in the blood, which leads to pain in the joint (gout). Pain and swelling (inflammation) in a joint. Infection of a joint. Injuries in the joint. A reaction to medicines (allergy). In some cases, the cause may not be known. What are the signs or symptoms? Symptoms of this condition include: Redness at a joint. Swelling at a joint. Stiffness at a joint. Warmth coming from the joint. A fever. A feeling of being sick. How is this treated? This condition may be treated with: Treating the cause, if it is known. Rest. Raising (elevating) the joint. Putting cold or hot packs on the joint. Medicines to treat symptoms and reduce pain and swelling. Shots of medicines (cortisone) into the joint. You may also be told to make changes in your life, such as doing exercises and losing weight. Follow these instructions at home: Medicines Take tozx-phf-hdbrxkm and prescription medicines only as told by your doctor. Do not take aspirin for pain if your doctor says that you may have gout. Activity Rest your joint if your doctor tells you to. Avoid activities that make the pain worse. Exercise your joint regularly as told by your doctor. Try doing exercises like: ?Swimming. ?Water aerobics. ?Biking. ?Walking. Managing pain, stiffness, and swelling If told, put ice on the affected area. ?Put ice in a plastic bag. ?Place a towel between your skin and the bag. ?Leave the ice on for 20 minutes, 2 3 times per day. If your joint is swollen, raise (elevate) it above the level of your heart if told by your doctor. If your joint feels stiff in the morning, try taking a warm shower. If told, put heat on the affected area. Do this as often as told by your doctor. Use the heat source that your doctor recommends, such as a moist heat pack or a heating pad. If you have diabetes, do not apply heat without asking your doctor. To apply heat: ?Place a towel between your skin and the heat source. ?Leave the heat on for 20 30 minutes. ?Remove the heat if your skin turns bright red. This is very important if you are unable to feel pain, heat, or cold. You may have a greater risk of getting burned. General instructions Do not use any products that contain nicotine or tobacco, such as cigarettes, e-cigarettes, and chewing tobacco. If you need help quitting, ask your doctor. Keep all follow-up visits as told by your doctor. This is important. Contact a doctor if: The pain gets worse. You have a fever. Get help right away if: You have very bad pain in your joint. You have swelling in your joint. Your joint is red. Many joints become painful and swollen. You have very bad back pain. Your leg is very weak. You cannot control your pee (urine) or poop (stool). Summary Arthritis means joint pain. It can also mean joint disease. A joint is a place where bones come together. The most common cause of this condition is wear and tear of a joint. Symptoms of this condition include redness, swelling, or stiffness of the joint. This condition is treated with rest, raising the joint, medicines, and putting cold or hot packs on the joint. Follow your doctor's instructions about medicines, activity, exercises, and other home care treatments. This information is not intended to replace advice given to you by your health care provider. Make sure you discuss any questions you have with your health care provider. Document Released: 09/01/2010 Document Revised: 05/15/2019 Document Reviewed: 05/15/2019 [employer] Moment Patient Education 2019 GetYou. [facility] 09-28-2021 Evaluation + Plan note Extrac margie from: Title:Discharge Note Author:EDITH HYLTON, Ashleigh Norris ate:09/28/21 1. Chest pain (R07.9: Chest pain, unspecified) Chest pain acute coronary syndrome ruled out with negative serial cardiac enzymes and nonischemic EKG. Chest pain likely secondary to musculoskeletal origin. Patient to undergo outpatient stress test especially with her multiple risk factors. Ordered: regadenoson, 0.4 mg = 5 mL, Soln-IV, IV Push, Once PRN Other (see comment), Routine, Start date 09/28/21 9:28:00 EDT, Stress Test NM Myocardial Spect Rest/Stress 1 Day Observation Care Discharge Day 2. Hypertension, (I10: Essential (primary) hypertension)Uncontrolled hypertension Continue on hydrochlorothiazide, lisinopril, Lopressor and amlodipine. Ordered: amlodipine, 5 mg = 1 tab(s), Tab, Oral, Daily, Routine, Start date 09/28/21 9:00:00 EDT hydrochlorothiazide, 12.5 mg = 1 tab(s), Tab, Oral, Daily, Routine, Start date 09/28/21 9:00:00 EDT Observation Care Discharge Day 3. RLS (restless legs syndrome) (G25.81: Restless legs syndrome) On gabapentin. Ordered: 4. H/O TIA (transient ischemic attack) and stroke (Z86.73: Personal history of transient ischemic attack (TIA), and cerebral infarction without residual deficits) On aspirin and simvastatin. Ordered: 5. Familial hypercholesterolemia (E78.01: Familial hypercholesterolemia) Continue simvastatin. 6. Seronegative rheumatoid arthritis of knee (M05.862: Other rheumatoid arthritis with rheumatoid factor of left knee) Continue folic acid and methotrexate on Wednesdays. Stable. Home. Prescriptions amLODIPine 5 mg Tab, 5 mg= 1 tab(s), Oral, Daily, 3 refills fluticasone 0.05 mg/inh Nasal [place], 2 spray(s), Nasal, Daily, 3 refills hydrochlorothiazide 12.5 mg Cap, 12.5 mg= 1 cap(s), Oral, Daily, 3 refills lisinopril 10 mg Tab, 10 mg= 1 tab(s), Oral, BID, 3 refills metoprolol 50 mg ER Tab, 50 mg= 1 tab(s), Oral, Daily, 3 refills simvastatin 20 mg Tab, 20 mg= 1 tab(s), Oral, Once a day (at bedtime), 3 refills Home aspirin 325 mg Tab, 325 mg= 1 tab(s), Oral, Daily Calcium, Magnesium and Zinc oral tablet, 1 tab(s), Oral, Daily folic acid 1 mg Tab, See Instructions gabapentin 300 mg Cap, 300 mg= 1 cap(s), Oral, Daily Glucosamine Chondroitin Advanced, 1 tab, Oral, Daily methotrexate 2.5 mg Tab, See Instructions [place]-3, 1 tab, Oral, Daily Vitamin C, 1 tab, Oral, Daily Vitamin D3, Oral, Daily vitamin E, 400 International_Unit, Oral, Daily With When Contact Information Bridger DARBY Within 5 to 7 days [facility] [address] [place] [address] [address] [place] [id number] [facility] (1) Additional Instructions: Call for followup appointment Chest Wall Pain, Jtbe-po-Snvw Extracted from: Title:Admission H & P Author:Ashleigh SHARMA MD Date:09/27/21 65-year-old female with history of hypertension, hyperlipidemia, cerebrovascular accident, TIA, rheumatoid arthritis, restless leg syndrome presented with complaints of left-sided chest pain radiating to the shoulder and arm and is being admitted with chest pain to rule out acute coronary syndrome. 1. Chest pain (R07.9: Chest pain, unspecified) Chest pain rule out acute coronary syndrome. Admit to regular medical floor. I reviewed labs and so far cardiac enzymes are negative. EKG is nonischemic. If serial cardiac enzymes are negative patient will be discharged home with plans for outpatient stress test. 2. Hypertension, (I10: Essential (primary) hypertension)Uncontrolled hypertension Continue home medications amlodipine, hydrochlorothiazide, lisinopril and Lopressor. Ordered: amlodipine, 5 mg = 1 tab(s), Tab, Oral, Daily, Routine, Start date 09/28/21 9:00:00 EDT, 09/27/21 12:18:00 EDT hydrochlorothiazide, 12.5 mg = 1 tab(s), Tab, Oral, Daily, Routine, Start date 09/28/21 9:00:00 EDT, 09/27/21 12:17:00 EDT 3. RLS (restless legs syndrome) (G25.81: Restless legs syndrome) Supportive care. Continue on gabapentin. 4. H/O TIA (transient ischemic attack) and stroke (Z86.73: Personal history of transient ischemic attack (TIA), and cerebral infarction without residual deficits) Continue on simvastatin and aspirin. 5. Familial hypercholesterolemia (E78.01: Familial hypercholesterolemia) On simvastatin. 6. Seronegative rheumatoid arthritis of knee (M05.862: Other rheumatoid arthritis with rheumatoid factor of left knee) On methotrexate every Wednesday and folic acid. 7. DVT prophylaxis (Z29.9: Encounter for prophylactic measures, unspecified) Lovenox. Disposition: The patient will be admitted under observation status and I anticipate she will require less than 2 midnight hospital stay for the treatment of above chest pain. Orders: acetaminophen, 650 mg = 2 tab(s), Tab, Oral, q6hr PRN Pain, Routine, Start date 09/27/21 12:16:00 EDT, 09/27/21 12:16:00 EDT Al hydroxide/Mg hydroxide/simethicone, 30 mL, Susp-Oral, Oral, q6hr PRN Indigestion, Routine, Start date 09/27/21 12:16:00 EDT aspirin, 325 mg = 1 tab(s), Tab-EC, Oral, Daily, Routine, Start date 09/28/21 9:00:00 EDT, 09/27/21 12:16:00 EDT diphenhydrAMINE, 25 mg = 1 cap(s), Cap, Oral, q6hr PRN Itching, Routine, Start date 09/27/21 12:16:00 EDT, 09/27/21 12:16:00 EDT enoxaparin, 40 mg = 0.4 mL, Injection, SubCutaneous, Daily, Routine, Start date 09/28/21 9:00:00 EDT, 09/27/21 12:16:00 EDT folic acid, 1 mg = 1 tab(s), Tab, Oral, Daily, Routine, Start date 09/28/21 9:00:00 EDT, 09/27/21 12:19:00 EDT gabapentin, 300 mg = 1 cap(s), Cap, Oral, qPM, Routine, Start date 09/27/21 16:30:00 EDT, 09/27/21 12:19:00 EDT hydrALAZINE, 10 mg = 0.5 mL, Injection, IV Push, q6hr PRN Other (see comment), Routine, Start date 09/27/21 12:16:00 EDT, 09/27/21 12:16:00 EDT lisinopril, 10 mg = 1 tab(s), Tab, Oral, BID, Routine, Start date 09/27/21 21:00:00 EDT, 09/27/21 12:17:00 EDT magnesium hydroxide, 30 mL, Susp-Oral, Oral, q6hr PRN Constipation, Routine, Start date 09/27/21 12:16:00 EDT metoprolol, 50 mg = 1 tab(s), Tab-ER, Oral, Daily, Routine, Start date 09/28/21 9:00:00 EDT, 09/27/21 12:18:00 EDT morphine, 2 mg = 1 mL, Injection, IV Push, q4hr PRN Pain for 5 day(s), Stop date 10/02/21 12:15:00 EDT, Routine, Start date 09/27/21 12:16:00 EDT, 09/27/21 12:16:00 EDT omega-3 polyunsaturated fatty acids, 1 cap(s), Cap, Oral, Daily, STAT, Start date 09/27/21 12:18:00 EDT ondansetron, 4 mg = 2 mL, Injection, IV Push, q6hr PRN Nausea, Routine, Start date 09/27/21 12:16:00 EDT, 09/27/21 12:16:00 EDT promethazine, 12.5 mg = 0.5 mL, Injection, IV Push, q6hr PRN Nausea, Routine, Start date 09/27/21 12:16:00 EDT, 09/27/21 12:16:00 EDT simvastatin, 20 mg = 2 tab(s), Tab, Oral, Once a day (at bedtime), Routine, Start date 09/27/21 21:00:00 EDT, 09/27/21 12:17:00 EDT zolpidem, 5 mg = 1 tab(s), Tab, Oral, Bedtime PRN Sleep, Routine, Start date 09/27/21 12:16:00 EDT, 09/27/21 12:16:00 EDT Cardiac Diet Cardiac Monitoring Chest Pain, AMI Quality Measures Communication Order Lipid Panel Oxygen Protocol Place in Status Pulse Oximetry Up ad Aurelia Vital Signs Weight Extracted from: Title:ED Note Author:Gela MS III, [place] Li Ari e:09/27/21 1. Chest pain (R07.9: Chest pain, unspecified) 2. Hypertension (I10: Essential (primary) hypertension) 3. RLS (restless legs syndrome) (G25.81: Restless legs syndrome) 4. H/O TIA (transient ischemic attack) and stroke (Z86.73: Personal history of transient ischemic attack (TIA), and cerebral infarction without residual deficits) 5. Familial hypercholesterolemia (E78.01: Familial hypercholesterolemia) 6. Seronegative rheumatoid arthritis of knee (M05.862: Other rheumatoid arthritis with rheumatoid factor of left knee) 7. DVT prophylaxis (Z29.9: Encounter for prophylactic measures, unspecified) Orders: nitroglycerin, 1 in, Ointment, Topical, Once, Stop date 09/27/21 10:14:00 EDT, STAT, Start date 09/27/21 10:14:00 EDT Automated Diff Basic Metabolic Panel CBC w/ Auto Diff D-Dimer ED Cardiac Monitoring ED Cardiac Monitoring ED Physician consult Hospitalist for continued care eGFR Extra SST Tube Extra SST Tube Oxygen Saturation Oxygen Therapy PT & PTT Saline Lock Insert Troponin 0 Hr. Troponin 3 Hr. Troponin 6 Hr. Troponin 9 Hr. XR Chest Single View Future Appointments Appointment Date:12/23/2021 01:20:00 PM Scheduled Provider:Bridger DARBY MD Location:[facility] Appointment Type:FM Open Future Scheduled Tests Radiology* NM Myocardial Spect Rest/Stress 1 Day 10/01/21 * NM Myocardial Spect Rest/Stress 1 Day 10/01/21 [facility]04-10-2022 Hospital Discharge instructions Patient Education 09/28/2021 09:35:11 Chest Wall Pain, Hfvw-ix-Ouny Chest Wall Pain Chest wall pain is pain in or around the bones and muscles of your chest. Chest wall pain may be caused by: An injury. Coughing a lot. Using your chest and arm muscles too much. Sometimes, the cause may not be known. This pain may take a few weeks or longer to get better. Follow these instructions at home: Managing pain, stiffness, and swelling If told, put ice on the painful area: Put ice in a plastic bag. Place a towel between your skin and the bag. Leave the ice on for 20 minutes, 2 3 times a day. Activity Rest as told by your doctor. Avoid doing things that cause pain. This includes lifting heavy items. Ask your doctor what activities are safe for you. General instructions Take rtxd-vmm-wpgitwd and prescription medicines only as told by your doctor. Do not use any products that contain nicotine or tobacco, such as cigarettes, e- cigarettes, and chewing tobacco. If you need help quitting, ask your doctor. Keep all follow-up visits as told by your doctor. This is important. Contact a doctor if: You have a fever. Your chest pain gets worse. You have new symptoms. Get help right away if: You feel sick to your stomach (nauseous) or you throw up (vomit). You feel sweaty or light-headed. You have a cough with mucus from your lungs (sputum) or you cough up blood. You are short of breath. These symptoms may be an emergency. Do not wait to see if the symptoms will go away. Get medical help right away. Call your local emergency services (911 in the [place] Do not drive yourself to the hospital. Summary Chest wall pain is pain in or around the bones and muscles of your chest. It may be treated with ice, rest, and medicines. Your condition may also get better if you avoid doing things that cause pain. Contact a doctor if you have a fever, chest pain that gets worse, or new symptoms. Get help right away if you feel light-headed or you get short of breath. These symptoms may be an emergency. This information is not intended to replace advice given to you by your health care provider. Make sure you discuss any questions you have with your health care provider. Document Released: 11/23/2008 Document Revised: 12/08/2018 Document Reviewed: 12/08/2018 [employer] Moment Patient Education 2020 GetYou. Follow Up Care 09/27/2021 09:44:30 With:Bridger DARBY Address: [facility] [address] [facility] [address], [address] [place] [phone] [facility] (1) When:5 to 7 days Comments:Call for followup appointment [facility]03-28-2022 Hospital Discharge instructions Patient Education 09/15/2021 08:46:10 Hypertension, Adult, Ojjp-fx-Yotg Hypertension, Adult Hypertension is another name for high blood pressure. High blood pressure forces your heart to workharder to pump blood. This can cause problems over time. There are two numbers in a blood pressure reading. There is a top number (systolic) over a bottom number (diastolic). It is best to have a blood pressure that is below 120/80. Healthy choices can help lower your blood pressure, or you may need medicine to help lower it. What are the causes? The cause of this condition is not known. Some conditions may be related to high blood pressure. What increases the risk? Smoking. Having type 2 diabetes mellitus, high cholesterol, or both. Not getting enough exercise or physical activity. Being overweight. Having too much fat, sugar, calories, or salt (sodium) in your diet. Drinking too much alcohol. Having long-term (chronic) kidney disease. Having a family history of high blood pressure. Age. Risk increases with age. Race. You may be at higher risk if you are . Gender. Men are at higher risk than women before age 45. After age 65, women are at higher risk than men. Having obstructive sleep apnea. Stress. What are the signs or symptoms? High blood pressure may not cause symptoms. Very high blood pressure (hypertensive crisis) may cause: ?Headache. ?Feelings of worry or nervousness (anxiety). ?Shortness of breath. ?Nosebleed. ?A feeling of being sick to your stomach (nausea). ?Throwing up (vomiting). ?Changes in how you see. ?Very bad chest pain. ?Seizures. How is this treated? This condition is treated by making healthy lifestyle changes, such as: ?Eating healthy foods. ?Exercising more. ?Drinking less alcohol. Your health care provider may prescribe medicine if lifestyle changes are not enough to get your blood pressure under control, and if: ?Your top number is above 130. ?Your bottom number is above 80. Your personal target blood pressure may vary. Follow these instructions at home: Eating and drinking If told, follow the DASH eating plan. To follow this plan: ?Fill one half of your plate at each meal with fruits and vegetables. ?Fill one fourth of your plate at each meal with whole grains. Whole grains include whole-wheat pasta, brown rice, and whole-grain bread. ?Eat or drink low-fat dairy products, such as skim milk or low-fat yogurt. ?Fill one fourth of your plate at each meal with low-fat (lean) proteins. Low- fat proteins include fish, chicken without skin, eggs, beans, and tofu. ?Avoid fatty meat, cured and processed meat, or chicken with skin. ?Avoid pre-made or processed food. Eat less than 1,500 mg of salt each day. Do not drink alcohol if: ?Your doctor tells you not to drink. ?You are , may be , or are planning to become . If you drink alcohol: ?Limit how much you use to: ?0 1 drink a day for women. ?0 2 drinks a day for men. ?Be aware of how much alcohol is in your drink. In the [place] one drink equals one 12 oz bottle of beer (355 mL), one 5 oz glass of wine (148 mL), or one 1 oz glass of hard liquor (44 mL). Lifestyle Work with your doctor to stay at a healthy weight or to lose weight. Ask your doctor what the best weight is for you. Get at least 30 minutes of exercise most days of the week. This may include walking, swimming, or biking. Get at least 30 minutes of exercise that strengthens your muscles (resistance exercise) at least 3 days a week. This may include lifting weights or doing Pilates. Do not use any products that contain nicotine or tobacco, such as cigarettes, e- cigarettes, and chewing tobacco. If you need help quitting, ask your doctor. Check your blood pressure at home as told by your doctor. Keep all follow-up visits as told by your doctor. This is important. Medicines Take pyjk-enh-dithboc and prescription medicines only as told by your doctor. Follow directions carefully. Do not skip doses of blood pressure medicine. The medicine does not work as well if you skip doses.Skipping doses also puts you at risk for problems. Ask your doctor about side effects or reactions to medicines that you should watch for. Contact a doctor if you: Think you are having a reaction to the medicine you are taking. Have headaches that keep coming back (recurring). Feel dizzy. Have swelling in your ankles. Have trouble with your vision. Get help right away if you: Get a very bad headache. Start to feel mixed up (confused). Feel weak or numb. Feel faint. Have very bad pain in your: ?Chest. ?Belly (abdomen). Throw up more than once. Have trouble breathing. Summary Hypertension is another name for high blood pressure. High blood pressure forces your heart to work harder to pump blood. For most people, a normal blood pressure is less than 120/80. Making healthy choices can help lower blood pressure. If your blood pressure does not get lower with healthy choices, you may need to take medicine. This information is not intended to replace advice given to you by your health care provider. Make sure you discuss any questions you have with your health care provider. Document Released: 11/23/2008 Document Revised: 02/15/2019 Document Reviewed: 02/15/2019 [employer] Patient Education 2020 [employer] Follow Up Care 06/17/2021 08:06:49 With:Bridger DARBY MD, MED Address: [place] [address], [place] [address]- When:Within 3 Month(s) [facility] Primary [facility] Evaluation + Plan note Future Appointments Appointment Date:12/23/2021 01:20:00 PM Scheduled Provider:Bridger DARBY MD Location:[facility] Appointment Type: Open [facility] Primary Care evaluation + Plan note Future Appointments Appointment Date:10/13/2021 10:00:00 AM Scheduled Provider: Location:[facility] Appointment Type:FM COVID Booster - Pfizer Appointment Date:10/21/2021 08:00:00 AM Scheduled Provider: [facility] Appointment Type:NM Myocard Spect Multi Rest/Stress-Res Appointment Date:10/21/2021 09:00:00 AM Scheduled Provider: [facility] Appointment Type:NM Myocard Spect Multi Rest/Stress - R Appointment Date:10/21/2021 09:30:00 AM Scheduled Provider: [facility] Appointment Type:NM Myocard Spect Multi Rest/Stress-Str Appointment Date:10/21/2021 10:30:00 AM Scheduled Provider: [facility] Appointment Type:NM Myocar Spect Multi Rest/Stress - St Appointment Date:12/23/2021 01:20:00 PM Scheduled Provider:Bridger DARBY MD Location:[facility] Appointment Type: Open Future Scheduled Tests Radiology* NM Myocardial Spect Rest/Stress 1 Day 10/21/21 [facility] Primary Care evaluation + Plan note Future Appointments Appointment Date:10/21/2021 08:00:00 AM Scheduled Provider: [facility] Appointment Type:NM Myocard Spect Multi Rest/Stress-Res Appointment Date:10/21/2021 09:00:00 AM Scheduled Provider: [facility] Appointment Type:NM Myocard Spect Multi Rest/Stress - R Appointment Date:10/21/2021 09:30:00 AM Scheduled Provider: [facility] Appointment Type:NM Myocard Spect Multi Rest/Stress-Str Appointment Date:10/21/2021 10:30:00 AM Scheduled Provider: [facility] Appointment Type:NM Myocar Spect Multi Rest/Stress - St Appointment Date:12/23/2021 01:20:00 PM Scheduled Provider:Bridger DARBY MD Location:[facility] Appointment Type:FM Open Future Scheduled Tests Radiology* NM Myocardial Spect Rest/Stress 1 Day 10/21/21 [facility] Evaluation + Plan note Future Appointments Appointment Date:01/14/2022 08:15:00 AM Scheduled Provider: Location[facility] Appointment Type:MA Screen (FT) Appointment Date:03/25/2022 01:40:00 PM Scheduled Provider:Bridger DARBY MD Location:[facility] Appointment Type:FM Open Future Scheduled Tests Radiology* MA Mamm Screen w/CAD if perf and 3D Charli 01/14/22 [facility] Evaluation + Plan note Future Appointments Appointment Date:03/25/2022 01:40:00 PM Scheduled Provider:Bridger DARBY MD Location:[facility] App[facility]ments Appointment Date:04/17/2022 09:20:00 AM Scheduled Provider:Bridger DARBY MD Location:[facility] Appointment Type:FM Open Diagnostic Tests Pending * Reference Lab Notification 04/08[facility]22 [facility] Future Appointments Appointment Date:07/13/2022 09:00:00 AM Scheduled Provider:Bridger DARBY MD Location:[facility] Appointment Type:FM Open Future Scheduled Tests Laboratory* Vitamin D 25 Hydroxy 04/17/22 * Comprehensive Metabolic Panel 04/17/22 * Lipid Panel 04/17/22 [facility] Primary [facility] evaluation + Plan note Future Appointments Appointment Date:11/17/2022 03:00:00 PM Scheduled Provider:Bridger DARBY MD Location:[facility] Appointment Type:FM Open Diagnostic Tests Pending * Reference Lab Notification 08/18/22 Future Scheduled Tests Laboratory* Vitamin D 25 Hydroxy 04/17/22 * Comprehensive Metabolic Panel 04/17/22 * Lipid Panel [facility]17/22 [facility] Future Appointments Appointment Date:11/17/2022 03:00:00 PM Scheduled Provider:Bridger DARBY MD Location:[facility] Appointment Type:FM Open Future Scheduled Tests Laboratory* Vitamin D 25 Hydroxy 04/17/22 * Comprehensive Metabolic Panel 04/17/22 * Lipid Panel 04/17/22 [facility] Evaluation + Plan note Future Appointments Appointment Date:02/24/2023 10:00:00 AM Scheduled Provider:Bridger DARBY MD Location:[facility] Appointment Type:FM Open Future Scheduled Tests Laboratory* Vitamin D 25 Hydroxy 11/18/22 * Vitamin D 25 Hydroxy 04/17/22 * CBC w/ Auto Diff 11/18/22 * Comprehensive Metabolic Panel 11/18/22 * Comprehensive Metabolic Panel 04/17/22 * Lipid Panel 11/18/22 * Lipid Panel 04/17/22 [facility] Evaluation + Plan note Future Appointments Appointment Date:02/24/2023 10:00:00 AM Scheduled Provider:Bridger DARBY MD Location:[facility] Appointment Type:FM Open Diagnostic Tests Pending * Reference Lab Notification 11/18/22 Future Scheduled Tests Laboratory* Vitamin D 25 Hydroxy 11/18/22 * Vitamin D 25 Hydroxy 04/17/22 * CBC w/ Auto Diff 11/18/22 * Comprehensive Metabolic Panel 11/18/22 * Comprehensive Metabolic Panel 04/17/22 * Lipid Panel 11/18/22 * Lipid Panel 04/17/22 [facility] Future Appointments Appointment Date:02/24/2023 10:00:00 AM Scheduled Provider:Bridger DARBY MD Location:[facility] Appointment Type:FM Open Future Scheduled Tests Laboratory* Vitamin D 25 Hydroxy 04/17/22 * Comprehensive Metabolic Panel 04/17/22 * Lipid Panel 04/17/22 [facility] Future Appointments Appointment Date:02/25/2023 12:00:00 PM Scheduled Provider: [facility] App[facility] Type:CT Angio () Appointment Date:05/25/2023 01:40:00 PM Scheduled Provider:Bridger DARBY MD Location:[facility] Appointment Type:FM Open Future Scheduled Tests Laboratory* Vitamin D 25 Hydroxy 04/17/22 * Vitamin D 25 Hydroxy 02/16/23 * CBC w/ Auto Diff 02/16/23 * Comprehensive Metabolic Panel 04/17/22 * Comprehensive Metabolic Panel 02/16/23 * Lipid Panel 04/17/22 * Lipid Panel 02/16/23 Radiology* CTA Head 02/25/23 [facility] Future Appointments Appointment Date:03/12/2023 12:40:00 PM Scheduled Provider:Magalie Marsh CNP Location:[facility] Appointment Type:BADH New Patient Appointment Date:05/25/2023 01:40:00 PM Scheduled Provider:Bridger DARBY MD Location:[facility] Appointment Type:FM Open Future Scheduled Tests Laboratory* Vitamin D 25 Hydroxy 04/17/22 * Vitamin D 25 Hydroxy 02/16/23 * CBC w/ Auto Diff 02/16/23 * Comprehensive Metabolic Panel 04/17/22 * Comprehensive Metabolic Panel 02/16/23 * Lipid Panel 04/17/22 * Lipid Panel 02/16/23 [facility] Future Appointments Appointment Date:04/07/2023 01:05:00 PM Scheduled Provider: Location:[facility] Appointment Type:Surgery FT Appointment Date:05/25/2023 01:40:00 PM Scheduled Provider:Bridger DARBY MD Location:[facility] Appointment Type:FM Open Future Scheduled Tests Laboratory* Vitamin D 25 Hydroxy 04/17/22 * Vitamin D 25 Hydroxy 02/16/23 * CBC w/ Auto Diff 02/16/23 * Comprehensive Metabolic Panel 04/17/22 * Comprehensive Metabolic Panel 02/16/23 * Lipid Panel 04/17/22 * Lipid Panel 02/16/23 [facility] Evaluation + Plan note Future Appointments Appointment Date:04/07/2023 01:05:00 PM Scheduled Provider: Location:[facility] Appointment Type:Surgery FT Appointment Date:05/25/2023 01:40:00 PM Scheduled Provider:Bridger DARBY MD Location:[facility] Appointment Type:FM Open Diagnostic Tests Pending * Reference Lab Notification 04/05/23 Future Scheduled Tests Laboratory* Vitamin D 25 Hydroxy 04/17/22 * Vitamin D 25 Hydroxy 02/16/23 * CBC w/ Auto Diff 02/16/23 * Comprehensive Metabolic Panel 04/17/22 * Comprehensive Metabolic Panel 02/16/23 * Lipid Panel 04/17/22 * Lipid Panel 02/16/23 [facility] Future Appointments Appointment Date:05/07/2023 09:30:00 AM Scheduled Provider: Location:[facility] Appointment Type: Medicare Wellness Initial Appointment Date:05/25/2023 01:40:00 PM Scheduled Provider:Bridger DARBY MD Location:[facility] Appointment Type: Open Appointment Date:07/28/2023 12:40:00 PM Scheduled Provider:Magalie Marsh CNP Location:[facility] Appointment Type:[facility] Follow Up Future Scheduled Tests Laboratory* Vitamin D 25 Hydroxy 02/16/23 * CBC w/ Auto Diff 02/16/23 * Comprehensive Metabolic Panel 02/16/23 * Lipid Panel 02/16/23 [facility] Evaluation + Plan note Future Appointments Appointment Date:05/27/2023 09:30:00 AM Scheduled Provider: Location:[facility] Appointment Type:FM Medicare Wellness Initial Appointment Date:07/28/2023 12:40:00 PM Scheduled Provider:Magalie Marsh CNP Location:[facility] Appointment Type:[facility] Follow Up Appointment Date:08/30/2023 11:40:00 AM Scheduled Provider:Bridger DARBY MD Location:[facility] Appointment Type: Open Future Scheduled Tests Laboratory* Vitamin D 25 Hydroxy 02/16/23 * CBC w/ Auto Diff 02/16/23 * Comprehensive Metabolic Panel 02/16/23 * Lipid Panel 02/16/23 [facility] Evaluation + Plan note Future Appointments Appointment Date:07/28/2023 12:40:00 PM Scheduled Provider:Magalie Marsh CNP Location:[facility] Appointment Type:[facility] Follow Up Appointment Date:08/30/2023 11:40:00 AM Scheduled Provider:Bridger DARBY MD Location:[facility] Appointment Type: Open Appointment Date:06/02/2024 01:00:00 PM Scheduled Provider: Location:[facility] Appointment Type: Medicare Wellness Subsequent Future Scheduled Tests Laboratory* HCV Antibody RFX to Quant PCR 05/27/23 [facility] Evaluation + Plan note Future Appointments Appointment Date:07/28/2023 12:40:00 PM Scheduled Provider:Magalie Marsh CNP Location:[facility] Appointment Type:BAD Follow Up Appointment Date:08/30/2023 11:40:00 AM Scheduled Provider:Bridger DARBY MD Location:[facility] Appointment Type: Open Appointment Date:06/02/2024 01:00:00 PM Scheduled Provider: Location:[facility] Appointment Type:FM Medicare Wellness Subsequent Diagnostic Tests Pending * Reference Lab Notification 05/27/23 Future Scheduled Tests Laboratory* HCV Antibody RFX to Quant PCR 05/27/23 [facility] App[facility]ments Appointment Date:08/30/2023 11:40:00 AM Scheduled Provider:Bridger DARBY MD Location:[facility] Appointment Type: Open Appointment Date:06/02/2024 01:00:00 PM Scheduled Provider: Location:[facility] Appointment Type:FM Medicare Wellness Subsequent Diagnostic Tests Pending * Reference Lab Notification 08/03/23 Future Scheduled Tests Laboratory* HCV Antibody RFX to Quant PCR 05/27/23 * CBC w/ Auto Diff 08/03/23 * Comprehensive Metabolic Panel 08/03/23 * Lipid Panel 08/03/23 * Thyroid Stimulating Hormone 08/03/23 [facility] Future Appointments Appointment Date:08/30/2023 11:40:00 AM Scheduled Provider:Bridger DARBY MD Location:[facility] Appointment Type: Open Appointment Date:06/02/2024 01:00:00 PM Scheduled Provider: Location:[facility] Appointment Type:FM Medicare Wellness Subsequent Future Scheduled Tests Laboratory* HCV Antibody RFX to Quant PCR 05/27/23 * CBC w/ Auto Diff 08/03/23 * Comprehensive Metabolic Panel 08/03/23 * Lipid Panel 08/03/23 * Thyroid Stimulating Hormone 08/03/23 [facility] Evaluation note* Diagnosis Nonunion of foot fracture, left- Primary Left foot pain Pain in limb Malunion of osteotomy site Other specified complications 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 Other specified complications Difficulty walking Difficulty in walking [facility] Narrative No data available for this section [facility] Discharge instructions No data available for this section [facility] No data available for this section [facility] Reason for referral (narrative) , XR ordered, needs evaluated for left wrist pain Referred by: Vasu ELDRIDGE, Tamiko Dinh [facility] Primary [facility] Summary Purpose Family History No Family History Records FoundNo Family History Records FoundNo Family History Records FoundNo Family History Records FoundNo Family History Records Found No data available for this section No data available for this section No data available for this section No data available for this section No data available for this section No data available for this section No data available for this section No data available for this section No Family History Records FoundNo Family History Records FoundNo Family History Records Found No data available for this section No data available for this section Advance Directives No Advanced Directives Records FoundNo Advanced Directives Records FoundNo Advanced Directives Records FoundNo Advanced Directives Records FoundNo Advanced Directives Records FoundNo Advanced Directives Records FoundNo Advanced Directives Records FoundNo Advanced Directives Records Found Reason for Referral Specialty Diagnoses / Procedures Referred By Ashli brambila Referred To Contact Orthopedics Diagnoses Nonunion of foot fracture, left Left foot pain 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 60-74 MINUTES Bridger Sanches DPM [address] [place] [address] Referral ID Status Reason Start Date Expiration Date Visits Requested Visits Authorized [id number] Authorized PCP Requested Referral 2 05/18/2023 1 1 Additional Source Comments INFORMATION SOURCE (unrecogn ized section and content) DATE CREATED AUTHOR 09/15/2018 [facility] DATE CREATED AUTHOR AUTHOR'S ORGANIZ ATION 01/13/2019 [facility] DATE CREATED AUTHOR AUTHOR'S ORGANIZ ATION 03/01/2020 [facility] DATE CREATED AUTHOR AUTHOR'S ORGANIZ ATION 06/11/2022 [facility] DATE CREATED AUTHOR AUTHOR'S ORGANIZ ATION 10/14/2022 [facility] DATE CREATED AUTHOR AUTHOR'S ORGANIZ ATION 05/31/2023 [facility] DATE CREATED AUTHOR AUTHOR'S ORGANIZ ATION 06/24/2023 [facility] EPIC DATE CREATED AUTHOR AUTHOR'S ORGANIZ ATION 07/30/2023 [facility] Care Team (unrecognized sect ion and content) Personnel Name: Bridger DARBY MD Address: Address: [facility] [address], [address] Reel Stripper Relationship Specialty Start Date End Date Jon Lazaro MD PCP - General Cardiology 10/27/04 [place] [address] [place] [address] Primary Staff Physician Cardiology 09/06/18 Reel Stripper Relationship Specialty Start Date End Date Jon Lazaro MD PCP - General Cardiology 10/27/04 [place] [address] [place] [address] Primary Staff Physician Cardiology 09/06/18 Reel Stripper Relationship Specialty Start Date End Date Jon Lazaro MD PCP - General Cardiology 10/27/04 [place] [address] [place] [address] Primary Staff Physician Cardiology 09/06/18 Reel Stripper Relationship Specialty Start Date End Date Jon Lazaro MD PCP - General Cardiology 10/27/04 [place] [address] [place] [address] Primary Staff Physician Cardiology 09/06/18 Reel Stripper Relationship Specialty Start Date End Date Jon Lazaro MD PCP - General Cardiology 10/27/04 [place] [address] [place] [address] Primary Staff Physician Cardiology 09/06/18 Source Comments (unrecognize d section and content) In the event this informatio n is protected by the Federal Confidentiality of Alcohol and Drug Abuse Patient Records regulations: The Federal rules restrict any use of the information to criminally investigate or prosecute any alcohol or drug abuse patient.[facility] the event this information is protected by the Federal Confidentiality of Alcohol and Drug Abuse Patient Records regulations: The Federal rules restrict any use of the information to criminally investigate or prosecute any alcohol or drug abuse patient.[facility] Hospital[facility] the event this information is protected by the Federal Confidentiality of Alcohol and Drug Abuse Patient Records regulations: The Federal rules restrict any use of the information to criminally investigate or prosecute any alcohol or drug abuse patient.[facility] Hospital[facility] the event this information is protected by the Federal Confidentiality of Alcohol and Drug Abuse Patient Records regulations: The Federal rules restrict any use of the information to criminally investigate or prosecute any alcohol or drug abuse patient.[facility] Hospital[facility] the event this information is protected by the Federal Confidentiality of Alcohol and Drug Abuse Patient Records regulations: The Federal rules restrict any use of the information to criminally investigate or prosecute any alcohol or drug abuse patient.[facility] Hospital[facility] the event this information is protected by the Federal Confidentiality of Alcohol and Drug Abuse Patient Records regulations: The Federal rules restrict any use of the information to criminally investigate or prosecute any alcohol or drug abuse patient.[facility] Reason for Visit (unrecogniz ed section and content) Reason Comments Radiology XR Reason Comments Patient Update Reason Comments Surgical Followup Reason Comments New Pain FOR RECORDS PERTAINING TO PATIENTS WHO ARE OR HAVE BEEN ENROLLED IN A CHEMICAL DEPENDENCY/SUBSTANCEABUSE PROGRAM, SOME INFORMATION MAY BE OMITTED. This clinical summary was aggregated from multiple sources. Caution should be exercised in using it in the provision of clinical care. This summary normalizes information from multiple sources, and as a consequence, information in this document may materially change the coding, format and clinical context of patient data. In addition, data may be omitted in some cases. CLINICAL DECISIONS SHOULD BE BASED ON THE PRIMARY CLINICAL RECORDS. [employer] [facility]. provides no warranty or guarantee of the accuracy or completeness of information in this document.
== END 2023-08-04 09:08 | disposition home or self-care (01) ==
LOC: RAD 09:07
PROVIDERS: Visit Provider Podiatrist Foot & Ankle Surgery
DX: M20.12 Hallux valgus (acquired), left foot (principal); Z98.890 Other specified postprocedural states
CPT/HCPCS: 73630

== ENCOUNTER 2024-02-02 10:13 | Outpatient (OUT) | payer MEDICARE, OTHER, SELFPAY ==
--- NOTE | 2024-02-02 | XR_ITS ---
The [address] [address] Patient Name: JOE JARAMILLO MRN: [id number] date: 1955 Sex: F Assigned Patient Location: Current Patient Location: Accession/Order Number: [id number] Exam Date: 02/02/2024 10:14 Report Date: 02/05/2024 10:44 At the request of: ALEXIS TOLBERT Procedure: XR foot LT min 3V PROCEDURE: XR foot LT min 3V COMPARISON: 08/04/2023 HISTORY: LEFT FOOT PAIN FINDINGS: BONES:Stable fusion of the first second and third tarsometatarsal joints with intact screws. No acute fracture, dislocation or mechanical failure. Moderate degenerative changes with joint space narrowing and marginal osteophyte formation SOFT TISSUES:Negative. No visible soft tissue swelling. EFFUSION:None visible. OTHER: Negative. XR/XR foot LT min 3V IMPRESSION: Stable postsurgical and degenerative changes Electronically authenticated by: AMARI EDGAR Date: 02/05/2024 10:44
== END 2024-02-02 10:14 | disposition home or self-care (01) ==
LOC: EC 10:14
PROVIDERS: Visit Provider Podiatrist Foot & Ankle Surgery
DX: M79.672 Pain in left foot (principal); M24.675 Ankylosis, left foot
CPT/HCPCS: 73630